=== PATIENT | male | born 1935 | race Caucasian/White ===

== ENCOUNTER 2016-11-16 18:42 | Inpatient (IN) | payer MEDICARE, BC ==
--- NOTE | 2016-11-16 19:30 | RAD ---
Indication: Intermittent tingling in the LEFT arm for several months. Comparison: October 13, 2011 Technique: Noncontrast CT vertex of skull through foramen magnum. Report: Moderate prominence of the cerebral sulci and cerebellar fissures as well as proportional mild prominence of the ventricles reflecting volume loss. Patent basal cisterns. Decreased density in the periventricular and subcortical white matter while non-specific is most likely due to chronic microangiopathy. Small focus of encephalomalacia at the LEFT frontal lobe new compared with the 2012 exam most consistent with sequela of a previous infarct. Negative for lloyd matter white matter obscuration associated with mass effect or intra or extra-axial hemorrhage. Unremarkable orbital contents. No suspicious calvarial or skull base lesion evident. Clear visualized paranasal sinuses. Hypoplastic mastoid air spaces. Cerumen in the LEFT external auditory canal noted. IMPRESSION: 1. No acute intracranial process evident. 2. 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
[2016-11-16 19:42] LABS: Hematocrit 38 % (42-52); Hemoglobin 13.1 g/dl (14.0-18.0); Mean Corpuscular HGB Conc 34 g/dl (31-36); Mean Corpuscular Hemoglobin 33 pg (27-31); Mean Corpuscular Volume 95 fL (80-94); Mean Platelet Volume 8 um3 (7.4-10.4); Red Cell Distribution Width 13 % (10.5-15); White Blood Count 10.5 10^3/ul (3.5-10.8)
[2016-11-16 19:58] LABS: BUN/Creatinine Ratio 13.4 (8-20); Calcium 9.5 mg/dL (8.6-10.3); EGFR African American 116.6 (>60); EGFR Non-African American 90.6 (>60); Potassium 3.9 mmol/L (3.5-5.0)
[2016-11-16 20:01] LABS: Troponin I 0.02 ng/mL (<0.04)
[2016-11-16] MEDS ORDERED: Acetaminophen TAB* 325 MG PO PRN (20:42)
[2016-11-16] MEDS ORDERED: Ondansetron INJ* 2 MG/ML VIAL IV PRN (20:42)
[2016-11-16] MEDS ORDERED: hydrALAZINE IV* 20 MG/ML VIAL IV SLOW PU PRN (20:45)
[2016-11-16] MEDS ORDERED: Iohexol 350* (CONTRAST) 500 ML MDV IV ONE (20:48)
[2016-11-16] MEDS ORDERED: Aspirin Low Dose CHEW TAB* 81 MG PO ONE (20:56)
[2016-11-16] MEDS ORDERED: LORazepam TAB(*) 1 MG PO SCH (21:00)
--- NOTE | 2016-11-16 21:29 | RAD ---
Indication: CVA. Comparison: None. Technique: Sitting AP chest 2114 hours Report: Elevated lung volumes. Mild coarsening and rarefaction of the interstitial markings. No alveolar consolidation, focal pulmonary lesion, pleural effusion, pneumothorax. Upper normal heart size. Unremarkable central pulmonary vasculature and mediastinal contours. IMPRESSION: Stigmata of chronic obstructive pulmonary disease. No acute cardiopulmonary process evident.
[2016-11-16 21:45] LABS: TSH (Thyroid Stimulating Horm) 2.46 mcIU/mL (0.34-5.60)
[2016-11-16] MEDS: PTO: Travoprost Z 0.004% OPHTH (NF) 2.5 ML BTL BOTH EYES SCH (21:46)
--- NOTE | 2016-11-16 21:51 | RAD ---
INDICATION: TIA. Intermittent LEFT arm tingling. COMPARISON: October 22, 2011 carotid ultrasound. TECHNIQUE: Multidetector CT images were obtained from the aortic arch to the vertex of the head with 80 mL Omnipaque 350 IV contrast. Arterial phase of enhancement. Multiplanar reformation including maximum intensity projection. 3-D arterial volume rendering. Stenosis estimations based on denominator of distal arterial diameter. NECK ANGIOGRAM REPORT: Upper lung zone emphysema and apical pleural-parenchymal scarring noted. Normal configuration of the branch vessels at the aortic arch. Negative for ostial stenosis. Predominant calcific plaque results in approximate 30% stenosis at the proximal RIGHT internal carotid artery. Calcific plaque results in approximate 60% moderate length stenosis of the proximal LEFT internal carotid artery. Cervical spine degenerative spondylosis and facet joint osteoarthritis. Disc space narrowing is severe at C4-C5 and C5-C6. At C5-C6 there is mild resulting acquired central canal stenosis. Uncinate process spurring and facet joint osteoarthritis results in multilevel osseous foraminal stenosis. RIGHT dominant vertebral artery with both vertebral arteries patent activity into the basilar artery. NECK ANGIOGRAM IMPRESSION: Approximate 30% RIGHT and 60% LEFT internal carotid artery stenosis. HEAD ANGIOGRAM REPORT: Calcific plaque at the carotid siphons with suggestion of less than 50% internal carotid artery stenosis. Patent bilateral M1 and M2 middle cerebral artery segments as well as the bilateral A1 and A2 anterior cerebral artery segments. No definitive anterior communicating artery visualized. Unremarkable basilar artery and cerebellar artery origins. Patent posterior cerebral arteries are supplied primarily by the posterior circulation with normal variant hypoplastic posterior communicating arteries. Negative for intracranial aneurysm or vascular malformation. Patent dominant dural venous sinuses. HEAD ANGIOGRAM IMPRESSION: Negative for hemodynamic significant central intracranial arterial stenosis or occlusion. CPT II: CPT II Codes: 3100F
[2016-11-16 22:11] LABS: Urine Bilirubin Negative (Negative); Urine Glucose Negative (Negative); Urine Nitrite Negative (Negative)
--- NOTE | 2016-11-16 22:37 | ED ---
I, Oh,Shoaib, scribed for Raymond Hickman MD on 11/16/16 at 1900 . Neurological HPI - HPI Summary HPI Summary: This 81 y/o male presents to ED via ambulance for intermittent LUE tingling since 2 months ago. Pt decided to visit ED when his LUE felt "paralyzed" and was not able to move his LUE suddenly while making coffee. The paralysis lasts for about 10 minutes at 1715 PM. Movements such as twisting his LUE arm makes the tingling worse. - History of Current Complaint Chief Complaint: EDNeurologicalDeficit Stated Complaint: NUMB LT ARM Time Seen by Provider: 11/16/16 18:49 Hx Obtained From: Patient, Medical Records Onset/Duration: Sudden Onset, Resolved Timing: Intermittent Episodes Lasting: Onset Severity: Moderate Current Severity: None Pain Intensity: 0 Pain Scale Used: 0-10 Numeric Character: Numbness/Tingling, Paresthesia, Paralysis - LUE arm Aggravating: Nothing Alleviating: Nothing - Allergy/Home Medications Allergies/Adverse Reactions: Allergies Allergy/AdvReac Type Severity Reaction Status Date / Time Shellfish Allergy Allergy Vomiting Verified 11/16/16 19:21 Home Medications: Home Medications Calcium Carbonate-Vitamin D [Calcium 600 + D] 1 tab PO DAILY 11/16/16 [History Confirmed 11/16/16] Ibandronate TAB(NF) [Boniva(NF)] 150 mg PO MONTHLY 11/16/16 [History Confirmed 11/16/16] Verapamil HCl [Verapamil HCl ER] 300 mg PO QPM 11/16/16 [History Confirmed 11/16] PMH/Surg Hx/FS Hx/Imm Hx Cardiovascular History: Reports: Hx Hypertension Infectious Disease History: No Infectious Disease History: Denies: Traveled Outside the [place] in Last 30 Days - Family History Known Family History: Positive: Other - CVA - Social History Occupation: Retired Alcohol Use: None Hx Substance Use: No Substance Use Type: Reports: None Hx Tobacco Use: No Smoking Status (MU): Never Smoked Tobacco Review of Systems Negative: Fever Neurological: Other - positive for LUE arm "paralysis" Positive: Paresthesia Negative: Anxious, Depressed All Other Systems Reviewed And Are Negative: Yes Physical Exam Triage Information Reviewed: Yes Vital Signs On Initial Exam: Initial Vitals Temp Pulse Resp BP Pulse Ox 99 F 98 18 183/66 97 11/16/16 18:43 11/16/16 18:43 11/16/16 18:43 11/16/16 18:43 11/16/16 18:43 Vital Signs Reviewed: Yes Appearance: Positive: Well-Appearing, No Pain Distress Skin: Positive: Warm, Dry Head/Face: Positive: Normal Head/Face Inspection Eyes: Positive: BOAZ ENT: Positive: Pharynx normal Neck: Positive: Supple, Nontender Abdomen Description: Positive: Nontender, Soft Musculoskeletal: Positive: Strength/ROM Intact Neurological: Positive: Sensory/Motor Intact, Alert, Oriented to Person Place, Time, CN Intact II-III, Facial Droop - left facial droop including forehead Psychiatric: Positive: Affect/Mood Appropriate AVPU Assessment: Alert Diagnostics - Vital Signs Vital Signs Temp Pulse Resp BP Pulse Ox 11/16/16 18:43 99 F 98 18 97 - Laboratory Lab Results: Lab Results 11/16/16 Range/Units 19:35 WBC 10.5 (3.5-10.8) 10^3/ul RBC 4.00 (4.0-5.4) 10^6/ul Hgb 13.1 L (14.0-18.0) g/dl Hct 38 L (42-52) % MCV 95 H (80-94) fL MCH 33 H (27-31) pg MCHC 34 (31-36) g/dl RDW 13 (10.5-15) % Plt Count 202 (150-450) 10^3/ul MPV 8 (7.4-10.4) um3 Result Diagrams: 11/16/16 19:35 11/16/16 19:35 Lab Statement: Any lab studies that have been ordered have been reviewed, and results considered in the medical decision making process. - CT Brain CT Interpretation: No Acute Changes - 1. No acute intracranial process evident. 2. 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 CT Interpretation Completed By: Radiologist - EKG 2115 Cardiac Rate: NL - 89 bpm EKG Rhythm: Sinus Rhythm ST Segment: Normal Ectopy: None NIH Scale - NIH Scale Level of Consciousness: Alert/Keenly Responsive Ask Patient the Month and His/Her Age: Both Correct Ask Pt to Open/Close Eyes and Conveyor Belt Installer/Release Non-Paretic Hand: Both Correctly Best Gaze (Only Horizontal Eye Movement): Normal Visual Field Testing: No Visual Loss Facial Paresis-Pt to Smile & Close Eyes or Grimace Symmetry: Minor Paralysis - Mild left facial droop Motor Function - Right Arm: No Drift-Holds 10 Seconds Motor Function - Left Arm: No Drift-Holds 10 Seconds Motor Function - Right Leg: No Drift-Holds 10 Seconds Motor Function - Left Leg: No Drift-Holds 10 Seconds Limb Ataxia-Must be out of Proportion to Weakness Present: Absent Sensory (Use Pinprick to Test Arms/Legs/Trunk/Face): Normal Best Language (Describe Picture, Name Items): No Aphasia Dysarthria (Read Several Words): Normal Extinction and Inattention: No Abnormality Total Score: 1 Course/Dx - Differential Dx Differential Diagnoses Neuro: Positive: Cerebrovascular Accident - Primary concern for TIA with short duration paralysis of the left arm with spontaneous resolution. CT without ICH and will admit for further evaluation., Intracranial Bleed, Transient Ischemic Attack, Other - Primary concern for TIA vs stuttering CVA. Needing admission for further evaluation. - Diagnoses Provider Diagnoses: TIA (transient ischemic attack) - Physician Notifications Discussed Care of Patient With: Dr. Garcia (hospitalist) at 1952 PM Time Discussed With Above Provider: 19:52 Instructed by Provider To: Admit As Inpatient Discharge - Discharge Plan Condition: Stable Disposition: ADMITTED TO [facility] documentation as recorded by the Buddy sims Soohyun accurately reflects the service I personally performed and the decisions made by me, Raymond Hickman MD.
--- NOTE | 2016-11-17 00:06 | HP ---
HISTORY AND PHYSICAL: DATE OF ADMISSION: 11/16/16 PRIMARY CARE PROVIDER: Dr. Ulloa. ATTENDING PHYSICIAN WHILE IN THE HOSPITAL: Paulo Garcia MD *(report being dictated by Pramod Gamez NP). CHIEF COMPLAINT: Left arm weakness. HISTORY OF PRESENT ILLNESS: Mr. Álvarez is a 81-year-old male patient. He has a history of BPH, hypertension, glaucoma, and osteoporosis. He comes into the ER today stating that around 1715 tonight, he had an episode that his left arm started becoming numb and then all of a sudden it became placid, he had lost control of it. It lasted about 20 to 30 minutes. He was able to move his arm after that and he slowly started getting sensation back. He was concerned about these findings. He actually called his primary's office, who called 911 and had the patient brought into the hospital. He denies having any symptoms now. He says he had no changes in speech. He denied having any double vision. He denied having any aphasia. He was concerned because of the change in his arm. He denied having any trouble with coordination and he denied having any recent fevers, chills, or any abdominal discomfort or any nausea or vomiting. He came to the ER. His symptoms had resolved. He was evaluated in the ER. There was concern that this could represent TIA and the hospitalist service was asked to evaluate for admission. PAST MEDICAL HISTORY: Significant for: 1. BPH. 2. Hypertension. 3. Glaucoma. 4. Osteoporosis. 5. 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 PAST SURGICAL HISTORY: He has had cataract extractions. HOME MEDICATIONS: Include: 1. Boniva 150 mg daily. 2. Travatan 1 drop both eyes at bedtime. 3. Verapamil 300 mg at bedtime. 4. Calcium carbonate 1 tablet p.o. daily. ALLERGIES TO MEDICATIONS: Include SHELLFISH. FAMILY HISTORY: His mother had cancer. Father had dementia. SOCIAL HISTORY: He is a former smoker. He does drink 5 to 6 beers a day. He denies any recreational drug abuse. He lives alone. Surrogate decision maker is his [id number]. REVIEW OF SYSTEMS: There is no documented fever. He denied having any significant weight change. There was no double vision. He denies having any ear discharge. There is no rhinorrhea, no sore throat, no thyroid enlargement. He denies having any chest pain. There is no orthopnea, no nocturnal dyspnea. There is no abdominal pain. No nausea, no vomiting, no dysuria, no frequency, no loss of consciousness, no pruritus and no skin ulcerations. Review of 14 systems completed, all others negative. PHYSICAL EXAMINATION GENERAL: At this time, Mr. Álvarez is a 81-year-old male patient, appears well nourished, well developed, does not appear to be in any acute distress, sitting on the ER stretcher. VITAL SIGNS: Blood pressure 183/66, pulse 98, respirations 18, O2 sat 97%, temperature 99. HEENT: Head: Atraumatic, normocephalic. Eyes: Sclerae are anicteric, not pale. Throat: Oral mucosa appears to be moist. No oropharyngeal erythema. NECK: Supple. LUNGS: Clear to auscultation bilaterally. No wheezes, rales, or rhonchi. HEART: Sounds S1, S2. Regular rate and rhythm. No murmurs, rubs, or gallops. ABDOMEN: Soft, flat, nontender. Bowel sounds present. EXTREMITIES: Pulses 2+ throughout. He is able to move all 4 extremities with 5 /5 strength. NEUROLOGIC: The patient is awake. He is alert and oriented x3. His tongue is midline. He does have a right facial droop, which is chronic. Motorcycle Engine Assembler were equal. He had 5/5 strength throughout. [id number]-[id number] intact bilaterally. Heel -to-cruz intact bilaterally. He had no gross focal deficits and his speech was clear. He is awake, alert, and oriented x3. SKIN: Grossly intact. DIAGNOSTIC STUDIES/LAB DATA: Labs today reveal WBC of 10.5, RBC of 4.0, hemoglobin 13.1, hematocrit of 38, platelet count of 202. His sodium was 126, potassium was 3.9, chloride of 92, bicarb of 25, BUN 11, creatinine of 0.82, glucose 105, troponin 0.02, calcium 9.5. He had a brain CT obtained today as well, which revealed no acute intracranial process evident, involutional change and stigmata of chronic vessel ischemic change with progression compared to the 2012 exam including chronic appearing small left frontal lobe infarct. Old medical records were reviewed. ASSESSMENT AND PLAN: Mr. Álvarez is a 81-year-old male patient coming into the ER today with complaints of left-sided weakness, on evaluation here today there is concern for transient ischemic attack. He will be admitted under observation status for: 1. Transient ischemic attack. At this point, we will go ahead and give him baby aspirin daily minimally. We will check lipid panel, A1c in the morning, CTA of the head, MRI of the brain, neuro checks every 2 hours. In addition to this, I did have a consult placed with Dr. Jenkins. I also will order an echo with bubble study and place him on telemetry. 2. Hyponatremia. We will go ahead and check TSH, cortisol, serum osmol, urine osmol, and random sodium. I will continue to follow. 3. Hypertension. I will allow for permissive hypertension in the setting of possible transient ischemic attack. We will go ahead and treat for blood pressure greater than 190 systolically with p.r.n. hydralazine. 4. Osteoporosis. Continue meds as prescribed. 5. Glaucoma. Continue eye drops as prescribed. 6. DVT prophylaxis. He is high risk and placed on heparin subcu. 7. Code status. Full code. 8. Fluids, electrolytes, nutrition. He can have a heart healthy diet. 9. ETOH use. At this point, he does state that he drinks 5 to 6 beers a day. To be on the safe side, I am going to go ahead and put him on the [facility] protocol. TIME SPENT: Time spent on the admission was approximately 60 minutes; greater than half the time was spent [id number] with the patient obtaining my history and physical, the other half time is spent going over the plan of care with the patient and implementing plan of care. I discussed the plan of care with my attending, Dr. Garcia; he is in agreement. PRAMOD GAMEZ NP CC: Dr. Ulloa; Dr. Jenkins * [id number]/[facility] #: [id number] MTDD
[2016-11-17] MEDS: Heparin VIAL(*) 5000 UNITS/ML VIAL (FIVE THOUSAND) SUBCUT SCH ×3 (01:01→13:34)
[2016-11-17 06:57] LABS: Hematocrit 40 % (42-52); Hemoglobin 13.7 g/dl (14.0-18.0); Mean Corpuscular HGB Conc 34 g/dl (31-36); Mean Corpuscular Hemoglobin 33 pg (27-31); Mean Corpuscular Volume 95 fL (80-94); Mean Platelet Volume 9 um3 (7.4-10.4); Red Blood Count 4.21 10^6/ul (4.0-5.4); Red Cell Distribution Width 13 % (10.5-15); White Blood Count 7.9 10^3/ul (3.5-10.8)
[2016-11-17 07:11] LABS: BUN/Creatinine Ratio 12.9 (8-20); Calcium 9.3 mg/dL (8.6-10.3); EGFR African American 139.9 (>60); EGFR Non-African American 108.8 (>60); HDL Cholesterol 90.9 mg/dL; Potassium 3.8 mmol/L (3.5-5.0)
[2016-11-17] MEDS: Folic Acid TAB* 1 MG PO SCH (09:53)
[2016-11-17] MEDS: Multivitamins/Minerals TAB PO SCH (09:53)
[2016-11-17] MEDS: Calcium/Vitamin D TAB 250/125* TAB PO SCH (09:53)
[2016-11-17] MEDS: Thiamine TAB* 100 MG TAB PO SCH (09:53)
[2016-11-17] MEDS: Aspirin Low Dose CHEW TAB* 81 MG PO SCH (09:53)
--- NOTE | 2016-11-17 14:37 | RAD ---
Indication: TIA. Comparison: November 16, 2016 CT angiogram and noncontrast head CT. Technique: KupiVIPa 1.5 Eve [id number] with GEM suite. MRI brain without contrast. Report: Diffusion series is negative for acute or subacute ischemia. Susceptibility series is negative for stigmata of hemosiderin deposition to indicate previous hemorrhage. Moderate prominence of the cerebral sulci and proportional mild prominence of the ventricles reflecting involutional change. Mildly dilated perivascular spaces at the basal ganglia. Small foci of encephalomalacia with associated T2 hyperintensity at the bilateral frontal lobes without mass effect consistent with encephalomalacia related to previous infarcts. Increased signal in the periventricular and subcortical white matter of the cerebral hemispheres without mass effect most consistent with chronic small vessel ischemic disease. Small focus of encephalomalacia at the RIGHT superior cerebellar hemisphere most consistent with an old infarct. Preserved major intracranial flow-voids. Unremarkable orbital contents. No suspicious lesions of the calvarium or skull base evident. Clear paranasal sinuses. Effusion at the hypoplastic LEFT mastoid air spaces. IMPRESSION: 1. No MRI evidence for acute or subacute ischemia. 2. Multiple small foci of encephalomalacia consistent with sites of previous infarcts. Stigmata of chronic small vessel ischemic disease. 3. Moderate involutional change.
--- NOTE | 2016-11-17 15:44 | PN ---
Subjective Date of Service: 11/17/16 Interval History: . Patient reports his symptoms he presented with have resolved and have not returned. Feels that he is at his baseline. Pt denies any weakness, vision or speech changes. Pt denies hx of afib. Today noted on EKG afib/aflutter. Discussed anticoagulation with patient, he reports he would like to start coumadin. Risks and benefits were discussed. Pt states understanding. Objective Active Medications: Acetaminophen (Tylenol Tab*) 650 mg PO Q4H PRN PRN Reason: FEVER/PAIN Aspirin (Aspirin Low Dose Tab*) 81 mg PO DAILY [facility] Last Admin: 11/17/16 09:53 Dose: 81 mg Calcium/Vitamin D (Oscal D Tab 250/125*) 1 tab PO DAILY [facility] Last Admin: 11/17/16 09:53 Dose: 1 tab Folic Acid (Folvite Tab*) 1 mg PO DAILY [facility] Last Admin: 11/17/16 09:53 Dose: 1 mg Heparin Sodium (Porcine) (Heparin Vial(*)) 5,000 units SUBCUT Q8HR [facility] Last Admin: 11/17/16 13:34 Dose: 5,000 units Hydralazine HCl (Apresoline Iv*) 5 mg IV SLOW PU Q6H PRN PRN Reason: BLOOD PRESSURE Lorazepam (Ativan Tab(*)) 0 mg PO .PER WAM SCORE [facility] PRN Reason: Protocol Multivitamins/Minerals (Theragran/Minerals Tab*) 1 tab PO DAILY [facility] Last Admin: 11/17/16 09:53 Dose: 1 tab Ondansetron HCl (Zofran Inj*) 4 mg IV Q6H PRN PRN Reason: NAUSEA Thiamine HCl (Vitamin B-1 Tab*) 100 mg PO DAILY [facility] Last Admin: 11/17/16 09:53 Dose: 100 mg Travoprost (Travatan Z 0.004% Opth (Nf)) 1 drop BOTH EYES BEDTIME [facility] PRN Reason: Protocol Last Admin: 11/16/16 21:46 Dose: 1 drop Vital Signs 11/16/16 11/16/16 11/16/16 21:20 22:00 22:04 Temperature Pulse Rate 94 86 89 Respiratory 18 20 17 Rate Blood Pressure 164/79 (mmHg) O2 Sat by Pulse 97 97 96 Oximetry 11/16/16 11/16/16 11/16/16 22:30 22:43 23:04 Temperature Pulse Rate Respiratory 17 20 16 Rate Blood Pressure 136/118 166/76 (mmHg) O2 Sat by Pulse Oximetry 11/16/16 11/16/16 11/17/16 23:05 23:46 00:00 Temperature 97.4 F 97.4 F Pulse Rate 86 86 Respiratory 16 16 Rate Blood Pressure 155/66 155/66 (mmHg) O2 Sat by Pulse 100 100 95 Oximetry 11/17/16 11/17/16 11/17/16 01:09 03:00 03:10 Temperature 98.1 F 97.8 F Pulse Rate 80 82 Respiratory 20 16 16 Rate Blood Pressure 168/66 171/78 (mmHg) O2 Sat by Pulse 95 97 Oximetry 11/17/16 11/17/16 11/17/16 05:09 07:35 09:44 Temperature 97.8 F 97.5 F 97.6 F Pulse Rate 80 91 81 Respiratory 20 20 16 Rate Blood Pressure 151/82 172/74 162/73 (mmHg) O2 Sat by Pulse 98 98 100 Oximetry 11/17/16 11/17/16 11:22 13:22 Temperature 98.8 F 97.7 F Pulse Rate 80 99 Respiratory 18 18 Rate Blood Pressure 179/78 141/69 (mmHg) O2 Sat by Pulse 97 96 Oximetry Oxygen Devices in Use Now: None Appearance: 81 yo male sitting up in a chair in NAD. A+O x3 Eyes: No Scleral Icterus, PERRLA Ears/Nose/Mouth/Throat: NL Teeth, Lips, Gums, Mucous Membranes Moist Neck: NL Appearance and Movements; NL JVP, Trachea Midline Respiratory: Symmetrical Chest Expansion and Respiratory Effort, Clear to Auscultation Cardiovascular: NL Sounds; No Murmurs; No JVD, RRR, No Edema Abdominal: NL Sounds; No Tenderness; No Distention Lymphatic: No Cervical Adenopathy Extremities: No Edema, No Clubbing, Cyanosis Skin: No Rash or Ulcers, No Nodules or Sclerosis Neurological: Alert and Oriented x 3, NL Sensation, NL Gait, NL Muscle Strength and Tone Lines/Tubes/Other Access: Clean, Dry and Intact Peripheral IV Nutrition: Taking PO's Result Diagrams: 11/17/16 06:22 11/17/16 06:22 Additional Lab and Data: Lab Results 11/16/16 Range/Units 19:35 WBC 10.5 (3.5-10.8) 10^3/ul RBC 4.00 (4.0-5.4) 10^6/ul Hgb 13.1 L (14.0-18.0) g/dl Hct 38 L (42-52) % MCV 95 H (80-94) fL MCH 33 H (27-31) pg MCHC 34 (31-36) g/dl RDW 13 (10.5-15) % Plt Count 202 (150-450) 10^3/ul MPV 8 (7.4-10.4) um3 Microbiology and Other Data: Microbiology 11/16/16 21:45 Urine Culture - Final Urine No Growth (<1,000 CFU/mL) Assess/Plan/Problems-Billing Assessment: Mr. Álvarez is a 81 yo male with a BPH, HTN, hx of [place] Palsy and ETOH abuse who presents to the ED on 11/16 with c/o left arm weakness. - Patient Problems (1) TIA (transient ischemic attack) Comment: - concern for TIA - Brain MRI shows no evidence for acute or subacute ischemia. Multiple small foci of encephalomalacia consistent with sites of previous infarcts. - TTE pending - Head angiogram: negative for hemodynamic significant central intracrainial arterial stenosis/occlusion. - new afib noted - spoke to DR. Jenkins agrees with plan to start lovenox bridge with ilene. Add PPI. Check ferritin, iron, stool for occult blood. - continue ASA (2) Paroxysmal a-fib Comment: - new diagnosis - currently rate controlled. - CHADSVASC 2 score 5 placing him at high risk - no recent falls. Discussed anticoagulation risks and benefits with pt at length and he would like to be started on Coumadin - plan to bridge lovenox to coumadin - send to cardiology as outpt (3) ETOH abuse Comment: - per pt he reports 5-6 drinks a day; he states he will cut down due to starting anticoagulation - no recent falls. -Continue WAM protocol, not scoring on protocol - ETOH abuse (4) DVT prophylaxis Comment: lovenox to coumadin bridge (5) Full code status Status and Disposition: OBV with left arm weakness concern for TIA, found to have paroxysmal afib
[2016-11-17] MEDS ORDERED: Furosemide IV* 10 MG/ML 10 ML VIAL (100 MG) IV ONE (15:52)
[2016-11-17] MEDS ORDERED: Nitroglycerin 2% OINT* 1 GM PAK TOPICAL ONE (15:52)
[2016-11-17 16:27] LABS: Magnesium 1.8 mg/dL (1.9-2.7)
[2016-11-17] MEDS ORDERED: Omeprazole CAP* 20 MG PO ONE (18:36)
[2016-11-17] MEDS ORDERED: Warfarin TAB(*) 5 MG PO ONE (20:00)
[2016-11-17] MEDS: Enoxaparin(*) 60 MG/0.6 ML SYR SUBCUT SCH (20:58)
[2016-11-17] MEDS: PTO: Travoprost Z 0.004% OPHTH (NF) 2.5 ML BTL BOTH EYES SCH (21:00)
--- NOTE | 2016-11-17 22:10 | CONS ---
NEUROLOGY CONSULTATION: DATE OF CONSULT: 11/17/16 LOCATION: He is an inpatient in room 435. REFERRING PROVIDER: Pramod Gamez NP HOSPITALIST: Minoo Beard NP PRIMARY CARE PROVIDER: Dr. Ulloa. CHIEF COMPLAINT: Transient left arm weakness. HISTORY OF PRESENT ILLNESS: Eduardo Álvarez is a 81-year-old right-handed man who was in his usual state of health yesterday, standing when his left arm suddenly went limp. He could not lift it and it felt completely numb. It lasted for at least 4 or 5 minutes and then gradually resolved over about 10 minutes. According to Pramod Gamez's note, it was close to 20 to 30 minutes. He did not note any numbness of his face nor weakness of his legs and he was able to walk. He did not notice any change in vision, headache, or neck pain. He called his primary care physician and was referred to the emergency room and admitted. While being evaluated in the emergency room by Pramod Gamez, he had a normal exam. There has been no recurrence of symptoms. There is no prior history of transient neurological deficits. Specifically, no transient weakness, numbness, or loss of vision. There is no history of episodes of fainting or loss of consciousness. There is no history of traumatic brain injury. He had a CT scan of the brain in the emergency room, which revealed diffuse cortical low density consistent with chronic ischemic disease as well as area of encephalomalacia in the left frontal lobe, which was new from 2011. He quit smoking cigarettes 40 years ago. There is no history of diabetes or heart disease. He is not taking aspirin on a regular basis. He states if he takes it too much , it bothers his stomach. MEDICATIONS: At home consist of: 1. Boniva 150 mg p.o. daily. 2. Calcium carbonate and vitamin D 1 p.o. daily. 3. Verapamil ER 300 mg p.o. q.p.m. 4. Travoprost eye drops 1 both eyes daily. FAMILY HISTORY: Noncontributory. SOCIAL HISTORY: He drinks about 5 to 6 drinks per day, usually beer and a glass of wine. In his working days, he drank 10 or more drinks per day. REVIEW OF SYSTEMS: Negative for recent change in vision, problems with balance , or numbness in his feet. He has not had any recent infections or fevers lately. No palpitations, faints, chest pain. No DM. No GI, , psychiatric problems. PHYSICAL EXAM: He is quite thin. He has been afebrile throughout his hospital stay. Blood pressure is running anywhere from 140 to 180 systolic over 70 to 82 diastolic. Respiratory rate 16, oxygen saturation 97% on room air. Heart is in a regular rhythm with frequent ectopic beats. I do not hear murmurs. Carotid pulses are present. There are no bruits. Lungs are clear bilaterally. He has high arches and hammer toes bilaterally. 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 Neurological exam, pupils are 2.5 mm, reacting consensually to 2 mm. Eye movements are full. Visual whittington are full to confrontation. Funduscopic exam reveals sharp discs and arterial tortuosity. There is no ptosis. Facial musculature is notable for synkinesis of left facial musculature. There is no facial weakness. Facial sensation to light touch and pin is symmetric. Hearing is decreased and he has hearing aids bilaterally. Neck muscle bulk and strength is normal for age. Palate and tongue appear normal. Speech is clear without dysarthria. Motor exam reveals atrophy in hand intrinsics and weakness in hand intrinsics as well. He has distal atrophy in the forelegs and feet. He has dorsal interosseous weakness in the upper extremities but normal strength proximally and no pronator drift. He has normal proximal strength in the lower extremities. He has ankle dorsiflexor weakness bilaterally in the grade 4 to 4 + range. He cannot walk on his heels. He can walk on his toes well. Sensory exam is notable for stocking loss of vibration. He reports normal pin and light touch discrimination but I feel that his sensory exam is somewhat unreliable. He has proprioceptive loss in the great toes bilaterally. He has a positive Romberg sign. Reflexes are hypoactive, but present in the upper extremities and at the knees, absent at the ankles. Plantars are extensor on the right and equivocal on the left. Gait is wide based but independent. He is not able to tandem gait because of ataxia. He is alert and oriented and a reasonably good historian. Memory seems relatively preserved and language is fluent. He has reasonably good attention, concentration, and adequate fund of knowledge. DIAGNOSTIC STUDIES/LAB DATA: Includes an MRI of the brain, which I reviewed the images of. 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 He has chronic subcortical ischemic changes as well. Additional laboratory data includes CBC with MCV of 95, hemoglobin 13.7 and otherwise an unremarkable CBC. Chemistry is notable for sodium of 132. He has not had liver enzymes checked. TSH was normal at 2.46. CT angiogram of the brain and neck was performed. He has calcification of the carotid bifurcations bilaterally with about 30% right and 60% left internal carotid artery stenosis. There is no significant intracranial stenosis. IMPRESSION: Probable hemispheric transient ischemic attack. 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 I would recommend that he have an echocardiogram and further telemetry monitoring for possible intermittent atrial fibrillation. I agree with aspirin therapy for now. I should note on his lipid profile this morning, his cholesterol is 179 and LDL 79. I think we can hold off on a statin given those numbers. He has been started on thiamine and he feels that he was not going to withdrawal if he were not to get alcohol, but we told him to notify us if he does develop problems or starts to feel shaky. I recommended he have a B12 level checked as well as liver enzymes and an INR. I have discussed [place]. [id number]/[facility] #: [id number] HELDER
[2016-11-18] MEDS ORDERED: Metoprolol Tartrate TAB* 25 MG ONE (07:52)
[2016-11-18] MEDS: Thiamine TAB* 100 MG TAB PO SCH (08:03)
[2016-11-18] MEDS: Enoxaparin(*) 60 MG/0.6 ML SYR SUBCUT SCH ×2 (08:03→20:36)
[2016-11-18] MEDS: Aspirin Low Dose CHEW TAB* 81 MG PO SCH (08:03)
[2016-11-18] MEDS: Folic Acid TAB* 1 MG PO SCH (08:04)
[2016-11-18] MEDS: Calcium/Vitamin D TAB 250/125* TAB PO SCH (08:05)
[2016-11-18] MEDS: Metoprolol Tartrate TAB* 25 MG PO SCH ×2 (08:05→20:29)
[2016-11-18] MEDS: Multivitamins/Minerals TAB PO SCH (08:06)
[2016-11-18 09:14] LABS: Hematocrit 45 % (42-52); Hemoglobin 14.8 g/dl (14.0-18.0); Mean Corpuscular HGB Conc 33 g/dl (31-36); Mean Corpuscular Hemoglobin 32 pg (27-31); Mean Corpuscular Volume 96 fL (80-94); Mean Platelet Volume 9 um3 (7.4-10.4); Red Blood Count 4.66 10^6/ul (4.0-5.4); Red Cell Distribution Width 13 % (10.5-15); White Blood Count 8.4 10^3/ul (3.5-10.8)
[2016-11-18 09:35] LABS: BUN/Creatinine Ratio 15.8 (8-20); Calcium 9.6 mg/dL (8.6-10.3); EGFR African American 127.2 (>60); EGFR Non-African American 98.9 (>60); Globulin 3.5 g/dL (2-4); Magnesium 1.8 mg/dL (1.9-2.7); Total Bilirubin 0.8 mg/dL (0.2-1.0); Total Protein 7.5 g/dL (6.4-8.9)
[2016-11-18 09:42] LABS: Potassium 3.8 mmol/L (3.5-5.0)
[2016-11-18 09:53] LABS: Ferritin 284.5 ng/mL (24-336)
--- NOTE | 2016-11-18 10:31 | PN ---
NEUROLOGY FOLLOWUP NOTE: DATE OF FOLLOWUP: 11/18/16 LOCATION: Inpatient, room 435. HOSPITALIST: Minoo Beard NP PRIMARY CARE DOCTOR: Dr. Ulloa. CHIEF COMPLAINT: Transient left arm weakness. INTERVAL HISTORY: Since yesterday, Mr. Álvarez remains neurologically symptom- free. He has had no further episodes of weakness of arm or other transient neurological or persistent neurological symptoms. He was found to be in atrial fibrillation yesterday. He has since been started on Lovenox injections. PHYSICAL EXAMINATION: He is afebrile. Blood pressure is running in the 150 to 160 systolic over 80 to 90 diastolic. Neurologically, he has facial synkinesis on the left, but otherwise normal facial strength. He has normal strength in the limbs as well. He is hard of hearing. Language is fluent. He is oriented to person, place, and time. Gait is otherwise normal. IMPRESSION: Transient ischemic attack, most likely cardioembolic from atrial fibrillation. He has a transthoracic echocardiogram pending and other than that his workup is otherwise done. jail anticoagulation is indicated for prevention of cardioembolic stroke. Regarding his peripheral neuropathy on examination I note that he had a normal vitamin B12 level at 357 when checked on 11/16/16. His liver enzymes are still pending. He has been started on folic acid and thiamine. [id number]/[facility] #: [id number] HELDER
--- NOTE | 2016-11-18 12:29 | PN ---
Subjective Date of Service: 11/18/16 Interval History: pt sitting up in chair in NAD, reports he feels "great". no further symptoms. Feels steady on his feet. is feeling more comfortable with lovenox injections but still feels nervous. Objective Active Medications: Acetaminophen (Tylenol Tab*) 650 mg PO Q4H PRN PRN Reason: FEVER/PAIN Aspirin (Aspirin Low Dose Tab*) 81 mg PO DAILY [facility] Last Admin: 11/18/16 08:03 Dose: 81 mg Calcium/Vitamin D (Oscal D Tab 250/125*) 1 tab PO DAILY [facility] Last Admin: 11/18/16 08:05 Dose: 1 tab Enoxaparin Sodium (Lovenox(*)) 55 mg SUBCUT Q12H [facility] Last Admin: 11/18/16 08:03 Dose: 55 mg Folic Acid (Folvite Tab*) 1 mg PO DAILY [facility] Last Admin: 11/18/16 08:04 Dose: 1 mg Hydralazine HCl (Apresoline Iv*) 5 mg IV SLOW PU Q6H PRN PRN Reason: BLOOD PRESSURE Magnesium Sulfate (Magnesium Sulfate 2 Gm Iv*) 2 gm in 50 mls @ 50 mls/hr IVPB ONCE ONE Stop: 11/18/16 13:27 Lorazepam (Ativan Tab(*)) 0 mg PO .PER WAM SCORE [facility] PRN Reason: Protocol Metoprolol Tartrate (Lopressor Tab*) 25 mg PO BID [facility] Last Admin: 11/18/16 08:05 Dose: 25 mg Multivitamins/Minerals (Theragran/Minerals Tab*) 1 tab PO DAILY [facility] Last Admin: 11/18/16 08:06 Dose: 1 tab Ondansetron HCl (Zofran Inj*) 4 mg IV Q6H PRN PRN Reason: NAUSEA Thiamine HCl (Vitamin B-1 Tab*) 100 mg PO DAILY [facility] Last Admin: 11/18/16 08:03 Dose: 100 mg Travoprost (Travatan Z 0.004% Opth (Nf)) 1 drop BOTH EYES BEDTIME [facility] PRN Reason: Protocol Last Admin: 11/17/16 21:00 Dose: 1 drop Vital Signs 11/17/16 11/17/16 11/17/16 13:22 15:45 17:18 Temperature 97.7 F 97.9 F Pulse Rate 99 84 Respiratory 18 17 Rate Blood Pressure 141/69 148/78 (mmHg) O2 Sat by Pulse 96 100 98 Oximetry 11/17/16 11/17/16 11/17/16 17:30 18:22 19:43 Temperature 98.0 F 97.2 F Pulse Rate 92 91 89 Respiratory 18 17 Rate Blood Pressure 146/71 139/78 128/67 (mmHg) O2 Sat by Pulse 97 99 Oximetry 11/17/16 11/17/16 11/17/16 20:00 21:41 23:28 Temperature 97.9 F 97.3 F Pulse Rate 77 70 Respiratory 18 18 20 Rate Blood Pressure 127/69 143/73 (mmHg) O2 Sat by Pulse 100 100 Oximetry 11/18/16 11/18/16 11/18/16 01:10 02:33 03:07 Temperature 97.5 F 97.3 F Pulse Rate 105 94 Respiratory 20 20 Rate Blood Pressure 140/72 117/60 (mmHg) O2 Sat by Pulse 93 93 95 Oximetry 11/18/16 11/18/16 11/18/16 05:06 07:00 07:30 Temperature 97.8 F Pulse Rate 69 102 Respiratory 20 20 18 Rate Blood Pressure 136/68 156/76 (mmHg) O2 Sat by Pulse 99 99 Oximetry 11/18/16 11/18/16 11/18/16 08:00 08:35 08:38 Temperature Pulse Rate 126 114 Respiratory 20 16 18 Rate Blood Pressure 157/89 152/80 (mmHg) O2 Sat by Pulse Oximetry 11/18/16 11/18/16 11/18/16 09:00 09:18 11:00 Temperature 97.5 F Pulse Rate 78 Respiratory 19 16 19 Rate Blood Pressure 141/56 (mmHg) O2 Sat by Pulse 99 Oximetry 11/18/16 11:24 Temperature 98.2 F Pulse Rate 57 Respiratory 18 Rate Blood Pressure 152/74 (mmHg) O2 Sat by Pulse 100 Oximetry Oxygen Devices in Use Now: None Appearance: eldelry male sitting up in a chair in NAD. A+O x3 Eyes: No Scleral Icterus, PERRLA Ears/Nose/Mouth/Throat: NL Teeth, Lips, Gums Neck: NL Appearance and Movements; NL JVP Respiratory: Symmetrical Chest Expansion and Respiratory Effort, Clear to Auscultation Cardiovascular: NL Sounds; No Murmurs; No JVD, RRR, No Edema Abdominal: NL Sounds; No Tenderness; No Distention Lymphatic: No Cervical Adenopathy Extremities: No Edema, No Clubbing, Cyanosis Skin: No Rash or Ulcers, No Nodules or Sclerosis Neurological: Alert and Oriented x 3, NL Sensation, NL Muscle Strength and Tone Lines/Tubes/Other Access: Clean, Dry and Intact PICC Line Nutrition: Taking PO's Result Diagrams: 11/18/16 05:45 11/18/16 05:45 Additional Lab and Data: Lab Results 11/16/16 Range/Units 19:35 WBC 10.5 (3.5-10.8) 10^3/ul RBC 4.00 (4.0-5.4) 10^6/ul Hgb 13.1 L (14.0-18.0) g/dl Hct 38 L (42-52) % MCV 95 H (80-94) fL MCH 33 H (27-31) pg MCHC 34 (31-36) g/dl RDW 13 (10.5-15) % Plt Count 202 (150-450) 10^3/ul MPV 8 (7.4-10.4) um3 Microbiology and Other Data: Microbiology 11/16/16 21:45 Urine Culture - Final Urine No Growth (<1,000 CFU/mL) Assess/Plan/Problems-Billing Assessment: Mr. Álvarez is a 81 yo male with a BPH, HTN, hx of [place] Palsy and ETOH abuse who presents to the ED on 11/16 with c/o left arm weakness. - Patient Problems (1) TIA (transient ischemic attack) Comment: - TIA - Brain MRI shows no evidence for acute or subacute ischemia. Multiple small foci of encephalomalacia consistent with sites of previous infarcts. - TTE wnls - Head angiogram: negative for hemodynamic significant central intracrainial arterial stenosis/occlusion. - new afib noted - spoke to Dr. Jenkins agrees with plan to start lovenox bridge with couamdin. Add PPI. - stool for occult blood. - continue ASA, start BB (2) Paroxysmal a-fib Comment: - new diagnosis - currently rate controlled. - CHADSVASC 2 score 5 placing him at high risk - no recent falls. - plan to bridge lovenox to coumadin - Curbside consulted operations clerk Dr. Choudhury who recommended BB and f/u with cards as outpt) (3) ETOH abuse Comment: - per pt he reports 5-6 drinks a day; he states he will stop drinking due to starting anticoagulation. Strong recommendation for ETOH cessation. Denies needing outpt rehab or counseling. Social work consult -DC WAM protocol, not scoring on protocol - continue MV, thiamine, folic acid (4) DVT prophylaxis Comment: lovenox to coumadin bridge (5) Full code status Status and Disposition: inpatient with TIA and new afib. Plan for DC tomorrow
[2016-11-18] MEDS ORDERED: Magnesium Sulfate 2 GM IV* 2 GM/50 ML BAG IVPB ONE (13:00)
--- NOTE | 2016-11-18 16:20 | ECHO ---
Patient: Stevan HARMAN [facility] Rec#: [id number] : 1935 Date: 11/18/2016 Age: 81y Height: 175.26 cm / 69.0 in Weight: 56.7 kg / 125.0 lbs Sex: M BSA: 1.69 Room#: 435 Admit Date#: 11/16/2016 Type: Inpatient Referring: Pramod Gamez NP Reading: Javier Choudhury MD Automobile Salesman: Jaylin Mccarty RDCS CC: Mauro Ulloa MD Transthoracic Echocardiogram Indication: TIA BP: 136/68 HR: 122 Rhythm: A-Fib Findings History: TIA,LUE weakness and tingling. Technical Comments: The study is technically limited due to poor acoustic windows. Completed at 1500. Left Ventricle: The left ventricular chamber size is decreased. Global left ventricular wall motion and contractility are within normal limits. There is normal left ventricular systolic function. The estimated ejection fraction is 55-60%. There is no consistent Doppler evidence of clinically significant diastolic dysfunction. Left Atrium: The left atrial chamber size is normal. Right Ventricle: The right ventricular cavity size is normal. The right ventricular global systolic function is normal. Right Atrium: The right atrial cavity size is normal. A patent foramen ovale is not demonstrated by agitated contrast. Aortic Valve: The aortic valve structure is not well visualized. There is no evidence of aortic regurgitation. There is no evidence of aortic stenosis. Mitral Valve: The mitral valve leaflets are mildly thickened. There is mild mitral regurgitation. There is no evidence of mitral stenosis. Tricuspid Valve: The tricuspid valve leaflets are normal. There is mild tricuspid regurgitation. There is evidence of borderline pulmonary hypertension. There is no tricuspid stenosis. Pulmonic Valve: The pulmonic valve structure is not well visualized. Pericardium: The pericardium appears normal. Aorta: The ascending aorta is not well visualized. The aortic arch is not well visualized. There is no dilation of the aortic root. Pulmonary Artery: The main pulmonary artery is not well visualized. Venous: The inferior vena cava appears normal in size. There is a greater than 50% respiratory change in the inferior vena cava dimension. Contrast: Normal saline was used as contrast for the bubble study. Intravenous contrast was used to help determine presence of intracardiac shunting. Conclusions Global left ventricular wall motion and contractility are within normal limits. There is normal left ventricular systolic function. The estimated ejection fraction is 55-60%. The right ventricular global systolic function is normal. There is no evidence of aortic regurgitation. There is no evidence of aortic stenosis. There is mild mitral regurgitation. There is mild tricuspid regurgitation. There is evidence of borderline pulmonary hypertension. The pericardium appears normal. Normal saline was used as contrast for the bubble study. A patent foramen ovale is not demonstrated by agitated contrast. Measurements Name Value Normal Range RVIDd (AP) 2D 1.5 cm (0.9 - 2.6) RVDdMajor (2D) 2.4 cm (2.2 - 4.4) RAd ISD 4CH 4.7 cm (3.4 - 4.9) RA (A4C)W 3.1 cm (2.9 - 4.6) IVSd (2D) 0.7 cm (0.6 - 1) LVPWd (2D) 0.9 cm (0.6 - 1) LVIDd (2D) 3.5 cm (3.6 - 5.4) LVIDs (2D) 2.4 cm - LV FS (2D) 31 % (25 - 45) Aortic Annulus 1.7 cm (1.4 - 2.6) Ao root diameter (2D) 3 cm (2.1 - 3.5) LA dimension (AP) 2D 2.6 cm (2.3 - 3.8) LAd ISD 4CH 4.8 cm (2.9 - 5.3) LA ISD 4CH W 4.1 cm (2.5 - 4.5) Name Value Normal Range MV E-wave Vmax 1.2 m/sec - MV deceleration time 157 msec - Name Value Normal Range AV Vmax 0.9 m/sec - AV VTI 18.3 cm - AV peak gradient 3.17 mmHg - AV mean gradient 1.32 mmHg - LVOT Vmax 0.7 m/sec - LVOT VTI 15.8 cm - LVOT peak gradient 2.11 mmHg - LVOT mean gradient 1 mmHg - Name Value Normal Range TR Vmax 3 m/sec - TR peak gradient 35.28 mmHg - RAP 3 mmHg - RVSP 38 mmHg - IVC diameter 1.4 cm -
[2016-11-18] MEDS ORDERED: Warfarin TAB(*) 5 MG PO ONE (18:00)
[2016-11-18] MEDS: PTO: Travoprost Z 0.004% OPHTH (NF) 2.5 ML BTL BOTH EYES SCH (20:30)
--- NOTE | 2016-11-19 06:51 | DCNOTE ---
Subjective Date of Service: 11/19/16 Interval History: Patient reports he feels good today. He was successful with lovenox injection this morning and feels comfortable going home. No SOB or CP. No palpitation. No weakness or numbness. Objective Active Medications: Acetaminophen (Tylenol Tab*) 650 mg PO Q4H PRN PRN Reason: FEVER/PAIN Aspirin (Aspirin Low Dose Tab*) 81 mg PO DAILY [facility] Last Admin: 11/18/16 08:03 Dose: 81 mg Calcium/Vitamin D (Oscal D Tab 250/125*) 1 tab PO DAILY [facility] Last Admin: 11/18/16 08:05 Dose: 1 tab Enoxaparin Sodium (Lovenox(*)) 55 mg SUBCUT Q12H [facility] Last Admin: 11/18/16 20:36 Dose: 55 mg Folic Acid (Folvite Tab*) 1 mg PO DAILY [facility] Last Admin: 11/18/16 08:04 Dose: 1 mg Hydralazine HCl (Apresoline Iv*) 5 mg IV SLOW PU Q6H PRN PRN Reason: BLOOD PRESSURE Lorazepam (Ativan Tab(*)) 0 mg PO .PER WAM SCORE [facility] PRN Reason: Protocol Metoprolol Tartrate (Lopressor Tab*) 25 mg PO BID [facility] Last Admin: 11/18/16 20:29 Dose: 25 mg Multivitamins/Minerals (Theragran/Minerals Tab*) 1 tab PO DAILY [facility] Last Admin: 11/18/16 08:06 Dose: 1 tab Ondansetron HCl (Zofran Inj*) 4 mg IV Q6H PRN PRN Reason: NAUSEA Pharmacy Profile Note (Coumadin Daily Reminder*) 1 note FOLLOW UP 1700 [facility] Thiamine HCl (Vitamin B-1 Tab*) 100 mg PO DAILY [facility] Last Admin: 11/18/16 08:03 Dose: 100 mg Travoprost (Travatan Z 0.004% Opth (Nf)) 1 drop BOTH EYES BEDTIME [facility] PRN Reason: Protocol Last Admin: 11/18/16 20:30 Dose: 1 drop Vital Signs 11/18/16 11/18/16 11/18/16 07:00 07:30 08:00 Temperature Pulse Rate 102 Respiratory 20 18 20 Rate Blood Pressure 156/76 (mmHg) O2 Sat by Pulse 99 Oximetry 11/18/16 11/18/16 11/18/16 08:35 08:38 09:00 Temperature Pulse Rate 126 114 Respiratory 16 18 19 Rate Blood Pressure 157/89 152/80 (mmHg) O2 Sat by Pulse Oximetry 11/18/16 11/18/16 11/18/16 09:18 11:00 11:24 Temperature 97.5 F 98.2 F Pulse Rate 78 57 Respiratory 16 19 18 Rate Blood Pressure 141/56 152/74 (mmHg) O2 Sat by Pulse 99 100 Oximetry 11/18/16 11/18/16 11/18/16 13:11 14:00 15:57 Temperature 97.9 F Pulse Rate 92 74 Respiratory 16 16 Rate Blood Pressure 133/65 155/73 (mmHg) O2 Sat by Pulse 98 98 Oximetry 11/18/16 11/18/16 11/19/16 19:41 19:58 00:07 Temperature 97.6 F 97.6 F Pulse Rate 72 85 Respiratory 16 16 20 Rate Blood Pressure 126/52 122/68 (mmHg) O2 Sat by Pulse 100 96 Oximetry 11/19/16 03:51 Temperature 97.4 F Pulse Rate 78 Respiratory 20 Rate Blood Pressure 116/63 (mmHg) O2 Sat by Pulse 98 Oximetry Oxygen Devices in Use Now: None Appearance: elderly male sitting up in a chair in NAD A+O x3 Eyes: No Scleral Icterus, PERRLA Ears/Nose/Mouth/Throat: NL Teeth, Lips, Gums Neck: NL Appearance and Movements; NL JVP Respiratory: Symmetrical Chest Expansion and Respiratory Effort, Clear to Auscultation Cardiovascular: NL Sounds; No Murmurs; No JVD, RRR, No Edema Abdominal: NL Sounds; No Tenderness; No Distention Extremities: No Edema, No Clubbing, Cyanosis Skin: No Rash or Ulcers, No Nodules or Sclerosis Neurological: Alert and Oriented x 3, NL Gait, NL Muscle Strength and Tone Lines/Tubes/Other Access: Clean, Dry and Intact Peripheral IV Nutrition: Taking PO's Result Diagrams: 11/18/16 05:45 11/18/16 05:45 Additional Lab and Data: Lab Results 11/16/16 Range/Units 19:35 WBC 10.5 (3.5-10.8) 10^3/ul RBC 4.00 (4.0-5.4) 10^6/ul Hgb 13.1 L (14.0-18.0) g/dl Hct 38 L (42-52) % MCV 95 H (80-94) fL MCH 33 H (27-31) pg MCHC 34 (31-36) g/dl RDW 13 (10.5-15) % Plt Count 202 (150-450) 10^3/ul MPV 8 (7.4-10.4) um3 Microbiology and Other Data: Microbiology 11/16/16 21:45 Urine Culture - Final Urine No Growth (<1,000 CFU/mL) Assess/Plan/Problems-Billing Assessment: Mr. Álvarez is a 81 yo male with a BPH, HTN, hx of [place] Palsy and ETOH abuse who presents to the ED on 11/16 with c/o left arm weakness. - Patient Problems (1) TIA (transient ischemic attack) Comment: - TIA - Brain MRI shows no evidence for acute or subacute ischemia. Multiple small foci of encephalomalacia consistent with sites of previous infarcts. - TTE wnls - Head angiogram: negative for hemodynamic significant central intracrainial arterial stenosis/occlusion. - new afib noted - spoke to Dr. Jenkins agrees with plan to start lovenox bridge with couamdin. Add PPI. - continue ASA, start BB (2) Paroxysmal a-fib Comment: - new diagnosis - currently rate controlled on metoprolol. - CHADSVASC 2 score 5 placing him at high risk - no recent falls. - plan to bridge lovenox to coumadin - pt successfully able to perform injections - Andre consulted molecular biology professor Dr. Choudhury who recommended BB and f/u with cards as outpt - set-up to see Dr. Richards (3) ETOH abuse Comment: - per pt he reports 5-6 drinks a day; he states he will stop drinking due to starting anticoagulation. Strong recommendation for ETOH cessation. Denies needing outpt rehab or counseling. -DC WAM protocol, not scoring on protocol - continue MV, thiamine, folic acid (4) DVT prophylaxis Comment: lovenox to coumadin bridge (5) Full code status Status and Disposition: inpatient with TIA and new afib. Plan for DC today
[2016-11-19] MEDS: Enoxaparin(*) 60 MG/0.6 ML SYR SUBCUT SCH (08:06)
[2016-11-19] MEDS: Calcium/Vitamin D TAB 250/125* TAB PO SCH (08:06)
[2016-11-19] MEDS: Aspirin Low Dose CHEW TAB* 81 MG PO SCH (08:06)
[2016-11-19] MEDS: Folic Acid TAB* 1 MG PO SCH (08:07)
[2016-11-19] MEDS: Metoprolol Tartrate TAB* 25 MG PO SCH (08:08)
[2016-11-19] MEDS: Multivitamins/Minerals TAB PO SCH (08:08)
[2016-11-19] MEDS: Thiamine TAB* 100 MG TAB PO SCH (08:08)
[2016-11-19 10:02] VITALS: BP 118/55
--- NOTE | 2016-11-19 13:10 | DS ---
DISCHARGE SUMMARY: DATE OF ADMISSION: 11/16/16 DATE OF DISCHARGE: 11/19/16 PROVIDER: Cheyenne Montague NP ATTENDING PHYSICIAN: Dr. Jarrett *(report dictated by Cheyenne Montague NP) PRIMARY CARE PROVIDER: Dr. Ulloa. FINISH FILER: Chapin otoole, Dr. Richards. PRIMARY DIAGNOSES: 1. Transient ischemic attack. 2. Atrial fibrillation, new diagnosis. 3. Alcohol abuse. 4. 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 SECONDARY DIAGNOSES: 1. Benign prostatic hypertrophy. 2. Hypertension. 3. Glaucoma. 4. Osteoporosis. 5. 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 DISCHARGE MEDICATIONS: 1. Ibandronate 150 mg p.o. monthly. 2. Calcium carbonate-vitamin D 600-400 mg-unit 1 tab p.o. daily. 3. Travoprost 1 drop both eyes daily. 4. Coumadin 5 mg p.o. daily at 1700. 5. Thiamine 100 mg p.o. daily. 6. Omeprazole 20 mg p.o. b.i.d. 7. Multivitamin/minerals 1 tab p.o. daily. 8. Metoprolol tartrate 25 mg p.o. b.i.d. 9. Folic acid 1 mg p.o. daily. 10. Aspirin 81 mg p.o. daily. 11. Lovenox 35 mg subcu q.12 hours for 3 to 5 days until INR is therapeutic. HISTORY OF PRESENT ILLNESS AND HOSPITAL COURSE: Please see history and physical by Pramod Gamez NP, for admission details, but in summary, this is a 81-year-old male who presented to the emergency department with a complaint of left arm weakness on 11/16/16. The patient presented to the emergency department around 5 p.m. after he had an episode in which his left arm pain then became numb, all of a sudden, it became flaccid and he lost control with it , reporting it lasted 20 to 30 minutes which had then resolved. He did report that during that time period, he was able to slowly begin to move his arm and slowly got sensation back, then it resolved. He called 911 and the patient was brought to the emergency department by ambulance. In the emergency department, his symptoms have completely resolved. He denied any changes in speech, vision , and did not experience any aphasia. Denied any trouble with coordination. He states he has never experienced these symptoms before in the past. Denied any recent fevers, chills, nausea, vomiting, or diarrhea. The patient was admitted to telemetry to the hospitalist service for a TIA/CVA workup. 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 The patient also underwent a head CTA, which was negative for intracranial aneurysm, vascular malformation and negative for hemodynamic significant central intracranial arterial stenosis or occlusion. His brain MRI the next day showed no evidence for acute or subacute ischemia, but did show moderate involutional change with multiple small foci of encephalomalacia consistent with sites of previous infarcts. Stigmata of chronic small vessel ischemic disease. The patient was seen in consultation by neurologist, Dr. Jenkins, who suspected this was a probable hemispheric transient ischemic attack and also noted he had stigmata of peripheral neuropathy which he suspected was secondary to alcohol. The patient was monitored on telemetry and initially he was sinus rhythm; however, he was noted to have an irregular heart rate, an EKG was performed which showed atrial fibrillation/atrial flutter. This was discussed with the neurologist, Dr. Jenkins, who recommended the patient go on prevention for cardioembolic stroke and agreed with Lovenox injections to Coumadin. The risks and benefits were discussed with the patient at length as well as concern for his alcoholism and that if he was going to start anticoagulation, continuing to drink is not an option. The patient reports that he is willing to quit drinking alcohol as long as he can drink non-alcoholic beverages and wants to start anticoagulation. Both the newer anticoagulation agents as well as Coumadin were discussed with the patient. The patient chose that he would like to start Coumadin therapy. He started the Lovenox injections in the hospital with nurse teaching and has done very well being independent with giving himself his injections. Violet snider consulted Dr. Choudhury about his new atrial fibrillation and the patient was started on metoprolol 25 mg tartrate p.o. b.i.d. and his verapamil was discontinued and the patient has had good rate control on telemetry throughout his hospitalization. He has tolerated the metoprolol well. Recommendation was for the patient to follow up as an outpatient with Cardiology, which has been set up for the patient. The patient has refused any services such as rehab or AA for his alcoholism and states he does not think he will have a problem quitting. These resources were given to the patient anyway. Regarding the patient's peripheral neuropathy on examination noted by neurologist Dr. Jenkins, it is noted that he has a neuro B12 level at 357. Recommendation was to continue folic acid, thiamine, and multivitamin. The patient underwent a transthoracic echocardiogram as a part of his TIA/CVA workup, which showed "global left ventricular wall motion and contractility are within normal limits. There is normal left ventricular systolic function. The estimated ejection fraction is 55% to 60%. The right ventricular global systolic function is normal. There is no evidence of an aortic regurgitation. There is no evidence of aortic stenosis. There is mild mitral regurgitation. There is mild tricuspid regurgitation. There is evidence of borderline pulmonary hypertension. The pericardium appears normal. Normal saline was used as contrast for the bubble study. A patent foramen ovale is not demonstrated by agitated contrast." Chest x-ray. Impression: "Stigmata of chronic obstructive pulmonary disease. No acute cardiopulmonary process evident." DISCHARGE PLAN: The patient is stable for discharge home. He will be bridged with Lovenox to Coumadin. His INR today on discharge, 11/19/16, is 1.41. The patient will have an INR checked at the [facility] office tomorrow at 10:30 a.m. with results going to Dr. Ulloa. Follow up with Dr. Ulloa on , 11/21/16, at 6:30 p.m. Follow up with Dr. Richards, lead pony rider, 12/12/16, at 12:30 p.m. The patient was instructed if he has any further concerning or worrisome symptoms, he should return to the emergency department for further evaluation. As well, the risks of anticoagulation were discussed with the patient and if he were to have a fall or strike his head, he needs to be evaluated. The patient also was given dietary nutrition instructions in regards to the Coumadin therapy. The patient has been set up with visiting nurse service. TIME SPENT: Approximately 60 minutes was spent on this discharge. CHEYENNE MONTAGUE NP CC: Dr. Ulloa; Dr. Richards* [id number]/[id number] #: [id number] [facility]ITAL[facility]armelo
== END 2016-11-19 12:31 | disposition home health service (06) | DRG 69 ==
LOC: ED 18:42 → MEDTELE 20:40 → OBSVTOIN 11-17 13:00
PROVIDERS: ADMIT Internal Medicine; ATTEND Internal Medicine
DX: G45.9 Transient cerebral ischemic attack, unspecified (principal); E87.1 Hypo-osmolality and hyponatremia; G93.89 Other specified disorders of brain; G62.1 Alcoholic polyneuropathy; I48.0 Paroxysmal atrial fibrillation; F10.10 Alcohol abuse, uncomplicated; I10 Essential (primary) hypertension; G51.0 Bell's palsy; H40.9 Unspecified glaucoma; Y90.9 Presence of alcohol in blood, level not specified; N40.0 Benign prostatic hyperplasia without lower urinary tract symptoms; M81.0 Age-related osteoporosis without current pathological fracture; R29.810 Facial weakness; Z79.01 Long term (current) use of anticoagulants; Z79.82 Long term (current) use of aspirin; Z87.891 Personal history of nicotine dependence; Z91.013 Allergy to seafood; Z86.73 Personal history of transient ischemic attack (TIA), and cerebral infarction without residual deficits; Z81.8 Family history of other mental and behavioral disorders; Z80.9 Family history of malignant neoplasm, unspecified
CPT/HCPCS: 36415; 70450; 70496; 70498; 70551; 71010; 80048; 80053; 80061; 81003; 82533; 82607; 82728; 83036; 83540; 83735; 83930; 83935; 84443; 84484; 85025; 85027; 85610; 87086; 93005; 93306; A9270-GY; J1644; J1650; J1940; J3475

== ENCOUNTER 2019-01-26 13:10 | Inpatient (IN) | payer MEDICARE, BC ==
[2019-01-26] MEDS ORDERED: traMADol TAB* 50 MG PO ONE (13:38)
--- OUTSIDE RECORDS SUMMARY | 2019-01-26 14:05 | XMS REPORT | Continuity of Care Document ---
:1935 External Reference #:[id number] Author Name Stephenie Parker Care Team Providers Name Role Phone Mauro Ulloa MD Primary Care Physician Unavailable Payers Date Identification Numbers Payment Provider Subscriber Policy Number: [id number] Medicare Alvaro Álvarez PayID: [id number] [address] [place] [address] Expires: 2019 Policy Number: [id number] Medicare Alvaro Álvarez PayID: [id number] [address] [place] [address] Policy Number: [id number] [facility] Alvaro Álvarez PayID: [id number] [address] [place] [address] Advance Directives Description No Information Available Problems Date Description Provider Status Onset: 12/12/2016 Atrial fibrillation Luke Richards DO FACC Active Family History Date Family Member(s) Observation Comments Father Dementia Mother Cancer Social History Type Date Description Comments Sex Unknown Lives With Alone Occupation Retired Tobacco Use Start: Unknown Former Cigarette Smoker End: Unknown Smoking Status Reviewed: 01/12/19 Former Cigarette Smoker ETOH Use consumes 1-2 beers per 2 bottles of day non-alcoholic beer daily Tobacco Use Start: Unknown Patient is a former Quit around 1979 End: Unknown smoker Recreational Drug Use Denies Drug Use Exercise Type/Frequency Exercises sporadically walking weather permitting Allergies, Adverse Reactions, Alerts Date Description Reaction Status Severity Comments 11/29/2016 Shellfish-derived Products Active Medications Medication Date Status Form Strength Qnty SIG Indications Ordering Provider Spironolactone 01/12/ Active Tablets 25mg 30tab 1 by mouth Luke Oro 2019 s every day DO JUAN CARLOS Richards Furosemide 02/10/ Active Tablets 80mg 90tab 1 by mouth I50.9 Luke Oro 2018 s everyday Richards, along with DO FAC potassium Diltiazem CD 09/29/ Active Caps ER 180mg 90cap 1 by mouth I48.0 Luke Oro 2016 24HR s every day Richards, [facility] Ibandronate / Active Tablets 150mg take 1 Unknown Sodium 0000 tablet by mouth once a month Coumadin / Active Tablets 5mg take 1 tab Unknown 0000 on Fri and . 1/2 Mon, Wed, Fri, Sat and Sun or as directed (last Inr 1.95 06/05/17) Tylenol Extra / Active Tablets 500mg 2 by mouth Unknown Strength 0000 as needed Travatan Z / Active Solution 0.004% Instill One Unknown 0000 Drop In Both Eyes Every Night Lasix 01/29/ Hx Tablets 40mg 90tab Take one I50.9 Luke Oro 2018 - s tablet daily Richards, 02/10/ DO [facility] 2017 Lasix 09/30/ Hx Tablets 20mg 90tab 1 by mouth I50.9 Luke Oro 2017 - s every day Richards, 01/29/ with DO [facility] 2017 potassium Klor-Con 10 09/30/ Hx Tablets 10Meq 270ta take three Luke Oro 2017 - ER bs tablets Richards, 01/12/ every day DO [facility] 2018 with furosemide (lasix) Diltiazem CD 09/29/ Hx Caps ER 180 30cap 1 by mouth I48.0 Luke Oro 2016 - 24HR s every day Richards, DO [facility] 2016 Metoprolol 06/19/ Hx Tablets 25mg 90tab 1/2 by mouth I48.0 Luke Oro Tartrate 2017 - s twice a day Richards, DO FAC 2016 Ibuprofen 12/12/ Hx Tablets 200mg 1 tablet as Luke Oro 2017 - needed Richards, DO FAC 2016 Calcium / Hx Tablets 600-400mg take one Unknown Carbonate-Vitami 0000 - -Unit tablet by n D 06/13/ mouth daily 2016 Thiamine HCL / Hx Tablets 100mg 1 by mouth Unknown 0000 - every day 2016 Omeprazole / Hx Capsules 20mg 1 by mouth Unknown 0000 - DR bid ( PT 09/16/ stop taking 2017 1 week ago 09/22/17) Multi Vitamin /00/ Hx Tablets daily Unknown And Minerals 0000 - 2016 Metoprolol 00/ Hx Tablets 25mg 1 by mouth Unknown Tartrate 0000 - twice a day 2016 Folic Acid 00/ Hx Tablets 1mg take one tab Unknown 0000 - po daily 2016 Aspirin /00/ Hx Tablets 81mg 1 by mouth Unknown 0000 - DR every day 2016 Lovenox / Hx 35 units sc Unknown 0000 - bid until 2016 therapeutic Amlodipine / Hx Tablets 5mg Take One I48.0 Unknown Besylate 0000 - Tablet By 09/29/ Mouth Every 2016 Day (taken at Noon) Boniva / Hx Tablets 150mg once a month Unknown 0000 - 2016 Sodium Chloride / Hx Tablets 1gm 1 by mouth Unknown 0000 - twice a day ( started 2016 taking last week) Medications Administered in Office Medication Date Status Form Strength Qnty SIG Indications Ordering Provider Inj, Administered Injection Luke S. Regadenoson, 017 Richards, DO 0.1 MG FACC Technetium TC Administered Injection Luke S. 99M 017 Richards, DO Tetrofosmin, FACC Per Unit Dose Up To 40 Millicuries Immunizations Description No Information Available Vital Signs Date Vital Result Comment 01/12/2019 11:20am Height 65 inches 5'5" Weight 115.00 lb w/ shoes Heart Rate 60 /min irreg BP Systolic Sitting 140 mmHg Lue reg cuff BP Diastolic Sitting 60 mmHg Lue reg cuff BP Systolic Standing 150 mmHg Lue reg cuff BP Diastolic Standing 65 mmHg Lue reg cuff BMI (Body Mass Index) 19.1 kg/m2 04/13/2018 1:22pm Height 65 inches 5'5" Weight 115.00 lb Heart Rate 60 /min irregualr BP Systolic Sitting 122 mmHg lue reg cuff BP Diastolic Sitting 48 mmHg lue reg cuff BP Systolic Standing 132 mmHg BP Diastolic Standing 52 mmHg Respiratory Rate 18 /min BMI (Body Mass Index) 19.1 kg/m2 Ejection Fraction 55-60% 11/18/2016 echo 02/23/2018 2:05pm Height 65 inches 5'5" Weight 118.00 lb with shoes Heart Rate 64 /min BP Systolic Sitting 130 mmHg Lue reg cuff BP Diastolic Sitting 64 mmHg Lue reg cuff BP Systolic Standing 136 mmHg Lue reg cuff BP Diastolic Standing 62 mmHg Lue reg cuff Respiratory Rate 17 /min BMI (Body Mass Index) 19.6 kg/m2 Ejection Fraction 55-60% 11/18/2016-echo 02/10/2018 9:59am Height 65 inches 5'5" Weight 121.00 lb without shoes Heart Rate 62 /min BP Systolic Sitting 160 mmHg Lue reg cuff BP Diastolic Sitting 88 mmHg Lue reg cuff BP Systolic Standing 154 mmHg Lue reg cuff BP Diastolic Standing 60 mmHg Lue reg cuff Respiratory Rate 22 /min O2 % BldC Oximetry 96 % at room air BMI (Body Mass Index) 20.1 kg/m2 01/29/2018 3:47pm Height 65 inches 5'5" Weight 119.00 lb without shoes Heart Rate 78 /min BP Systolic Sitting 144 mmHg Lue reg cuff BP Diastolic Sitting 64 mmHg Lue reg cuff BP Systolic Standing 142 mmHg Lue reg cuff BP Diastolic Standing 62 mmHg Lue reg cuff Respiratory Rate 16 /min O2 % BldC Oximetry 96 % at room air BMI (Body Mass Index) 19.8 kg/m2 Ejection Fraction 55-60% date 11/18/16 ECHO 12/16/2017 11:26am Height 65 inches 5'5" Weight 114.00 lb with shoes Heart Rate 50 /min BP Systolic Sitting 142 mmHg Rue reg cuff BP Diastolic Sitting 64 mmHg Rue reg cuff BP Systolic Standing 140 mmHg Rue reg cuff BP Diastolic Standing 60 mmHg Rue reg cuff Respiratory Rate 20 /min BMI (Body Mass Index) 19.0 kg/m2 Ejection Fraction 55-60% 11/18/2016-echo 12/10/2017 1:43pm Height 65 inches 5'5" Weight 119.00 lb Heart Rate 64 /min BP Systolic Sitting 146 mmHg Rue reg cuff BP Diastolic Sitting 70 mmHg Rue reg cuff BP Systolic Standing 152 mmHg Rue BP Diastolic Standing 64 mmHg Rue Respiratory Rate 24 /min O2 % BldC Oximetry 96 % resting/room air BMI (Body Mass Index) 19.8 kg/m2 Ejection Fraction 55-60% 11/18/16 10/10/2017 1:43pm Height 65 inches 5'5" Weight 111.50 lb Heart Rate 56 /min BP Systolic Sitting 148 mmHg Rue reg cuff BP Diastolic Sitting 64 mmHg Rue reg cuff BP Systolic Standing 142 mmHg Rue BP Diastolic Standing 58 mmHg Rue Respiratory Rate 16 /min BMI (Body Mass Index) 18.6 kg/m2 Ejection Fraction 55-60% 11/18/16 09/29/2017 1:51pm Height 65 inches 5'5" Weight 119.00 lb No shoes Heart Rate 86 /min BP Systolic Sitting 142 mmHg Rue ped cuff BP Diastolic Sitting 90 mmHg Rue ped cuff BP Systolic Standing 150 mmHg Rue ped cuff BP Diastolic Standing 90 mmHg Rue ped cuff Respiratory Rate 18 /min BMI (Body Mass Index) 19.8 kg/m2 Ejection Fraction 55-60% 11/18/2016-echo 07/15/2017 9:20am Height 65 inches 5'5" Weight 117.00 lb BP Systolic Sitting 122 mmHg L arm reg cuff BP Diastolic Sitting 60 mmHg L arm reg cuff BP Systolic Standing 120 mmHg BP Diastolic Standing 60 mmHg Respiratory Rate 18 /min BMI (Body Mass Index) 19.5 kg/m2 Ejection Fraction 55-60% 11/201606/19/2017 1:27pm Height 65 inches 5'5" Weight 113.00 lb with shoes Heart Rate 86 /min BP Systolic Sitting 148 mmHg Rue peds cuff BP Diastolic Sitting 70 mmHg Rue peds cuff BP Systolic Standing 142 mmHg Rue peds cuff BP Diastolic Standing 74 mmHg Rue peds cuff Respiratory Rate 17 /min BMI (Body Mass Index) 18.8 kg/m2 Ejection Fraction 55-60% 11/18/2016-echo 12/12/2016 12:42pm Height 65 inches 5'5" Weight 122.00 lb without shoes Heart Rate 68 /min irreg BP Systolic 150 mmHg Rue reg cuff BP Diastolic 100 mmHg Rue reg cuff BP Systolic Sitting 150 mmHg Lue reg cuff BP Diastolic Sitting 98 mmHg Lue reg cuff BP Systolic Standing 174 mmHg Lue reg cuff BP Diastolic Standing 102 mmHg Lue reg cuff BMI (Body Mass Index) 20.3 kg/m2 Results Test Date Facility Test Result H/L Range Note Basic Metabolic 10/03/2017 [facility] Sodium 129 mmol/L Low 133-[address] [place] [address] [phone] Potassium 3.9 mmol/L N 3.5-5.0 Chloride 93 mmol/L Low 101-111 Co2 Carbon Dioxide 24 mmol/L N 22-32 Anion Gap 12 mmol/L High 2-11 Glucose 92 mg/dL N 70-100 Blood Urea Nitrogen 8 mg/dL N 6-24 Creatinine 0.85 mg/dL N 0.67-1.17 BUN/Creatinine Ratio 9.4 N 8-20 Calcium 9.2 mg/dL N 8.6-10.3 Egfr Non- 86.7 >60 Egfr 111.5 >60 1 CBC Auto Diff 07/11/2017 [facility] White Blood 8.8 10^3/uL N 3.5-10.[address] [place] [address] [phone] Red Blood Count 3.85 10^6/uL Low 4.0-5.4 Hemoglobin 12.1 g/dL Low 14.0-18.0 Hematocrit 36 % Low 42-52 Mean Corpuscular Volume 93 fL N 80-94 Mean Corpuscular Hemoglobin 31 pg N 27-31 Mean Corpuscular HGB Conc 34 g/dL N 31-36 Red Cell Distribution Width 15 % N 10.5-15 Platelet Count 228 10^3/uL N 150-450 Mean Platelet Volume 9 um3 N 7.4-10.4 Abs Neutrophils 6.9 10^3/uL N 1.5-7.7 Abs Lymphocytes 1.1 10^3/uL N 1.0-4.8 Abs Monocytes 0.6 10^3/uL N 0-0.8 Abs Eosinophils 0.1 10^3/uL N 0-0.6 Abs Basophils 0.1 10^3/uL N 0-0.2 Abs Nucleated RBC 0 10^3/uL N Granulocyte % 78.1 % N 38-83 Lymphocyte % 12.4 % Low 25-47 Monocyte % 6.9 % N 1-9 Eosinophil % 1.1 % N 0-6 Basophil % 1.5 % N 0-2 Nucleated Red Blood Cells % 0 N Laboratory test 11/16/2016 [facility] Osmolality 255 mOsm/kg N 150 - [address] Urine [address] [place] [address] [phone] 1 Because ethnic data is not always readily available, this report includes an eGFR for both -Americans and non- Americans. The National Kidney Disease Education Program (NKDEP) does not endorse the use of the MDRD equation for patients that are not between the ages of 18 and 70, are , have extremes of body size, muscle mass, or nutritional status, or are non- or non-. According to the National Kidney Foundation, irrespective of diagnosis, the stage of the disease is based on the level of kidney function: Stage Description GFR(mL/min/1.73 m(2)) 1 Kidney damage with normal or decreased GFR 90 2 Kidney damage with mild decrease in GFR 60-89 3 Moderate decrease in GFR 30-59 4 Severe decrease in GFR 15-29 5 Kidney failure <15 (or dialysis) 2 Test Performed by: [place] [address] Admin Dir: Sanchez Holly II, M.D., Ph.D. Procedures Date Code Description Status 01/12/2019 97343 EKG Tracing & Interpretation Completed 01/29/2018 61577 EKG Tracing & Interpretation Completed 10/07/2017 45666 Diffusing Capacity Completed 10/07/2017 25413 Plethysmography Determination Lung Volumes & Per Airway Completed Resist 10/07/2017 23860 Plethysmography Determination Lung Volumes & Per Airway Completed Resist 10/07/2017 58903 Pulmonary Function><Bronchodil Completed 10/01/2017 78138 Stress Test Completed 10/01/2017 04920 Myocardial Perfusion Imaging Tomographic (Spect) Multiple Completed Studies 09/29/2017 95003 EKG Tracing & Interpretation Completed 12/12/2016 52655 EKG Tracing & Interpretation Completed 11/18/2016 72481 ECHO Transthorasic Realtime 2D W Doppler & Color Flow Hosp Completed 11/18/2016 31111 EKG, Interpretation Only Completed 11/17/2016 17998 EKG, Interpretation Only Completed Encounters Type Date Location Provider Dx Diagnosis Office Visit 04/13/2018 [facility] Luke Richards, I50.9 Heart failure, 1:40p Of As400 Programmer Analyst DO FACC unspecified I48.91 Unspecified atrial fibrillation I73.9 Peripheral vascular disease, unspecified J44.9 Chronic obstructive pulmonary disease, unspecified I63.9 Cerebral infarction, unspecified I10 Essential (primary) hypertension F17.201 Nicotine dependence, unspecified, in remission Office Visit 02/23/2018 2:40p [facility] Luke S. I50.9 Heart failure, Of As400 Programmer Analyst Richards, DO unspecified FACC I48.91 Unspecified atrial fibrillation I73.9 Peripheral vascular disease, unspecified J44.9 Chronic obstructive pulmonary disease, unspecified I63.9 Cerebral infarction, unspecified I10 Essential (primary) hypertension F17.201 Nicotine dependence, unspecified, in remission Office Visit 02/10/2018 10:20a [facility] Luke S. I50.9 Heart failure, Of As400 Programmer Analyst Richards, DO unspecified FACC I48.91 Unspecified atrial fibrillation I73.9 Peripheral vascular disease, unspecified J44.9 Chronic obstructive pulmonary disease, unspecified I63.9 Cerebral infarction, unspecified I10 Essential (primary) hypertension F17.201 Nicotine dependence, unspecified, in remission Office Visit 01/29/2018 4:00p [facility] Luke S. I50.9 Heart failure, Of As400 Programmer Analyst Richards, DO unspecified FACC I48.91 Unspecified atrial fibrillation I73.9 Peripheral vascular disease, unspecified J44.9 Chronic obstructive pulmonary disease, unspecified I63.9 Cerebral infarction, unspecified I10 Essential (primary) hypertension F17.201 Nicotine dependence, unspecified, in remission E87.1 Hypo-osmolality and hyponatremia Office Visit 12/16/2017 11:45a [facility] Luke S. I50.32 Chronic diastolic Of [employer] Programmer Analyst Richards, DO (congestive) heart FACC failure I48.91 Unspecified atrial fibrillation I73.9 Peripheral vascular disease, unspecified J44.9 Chronic obstructive pulmonary disease, unspecified I63.9 Cerebral infarction, unspecified I10 Essential (primary) hypertension F17.201 Nicotine dependence, unspecified, in remission E87.1 Hypo-osmolality and hyponatremia Office Visit 12/10/2017 2:00p [facility] Luke S. 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 I50.32 Chronic diastolic Of As400 Programmer Analyst Richards, DO (congestive) heart FACC failure I48.91 Unspecified atrial fibrillation I73.9 Peripheral vascular disease, unspecified J44.9 Chronic obstructive pulmonary disease, unspecified I63.9 Cerebral infarction, unspecified F17.201 Nicotine dependence, unspecified, in remission I10 Essential (primary) hypertension Office Visit 09/29/2017 2:00p [facility] Luke S. I48.0 Paroxysmal atrial Of As400 Programmer Analyst Richards, DO fibrillation FACC I63.9 Cerebral infarction, unspecified R06.02 Shortness of breath J44.9 Chronic obstructive pulmonary disease, unspecified I73.9 Peripheral vascular disease, unspecified E78.5 Hyperlipidemia, unspecified F17.201 Nicotine dependence, unspecified, in remission Office Visit 07/15/2017 9:40a [facility] Luke S. I48.0 Paroxysmal atrial Of As400 Programmer Analyst Richards, DO fibrillation FACC I63.9 Cerebral infarction, unspecified Office Visit 06/19/2017 1:40p [facility] Luke S. I48.0 Paroxysmal atrial Of As400 Programmer Analyst Richards, DO fibrillation FACC I63.9 Cerebral infarction, unspecified Office Visit 12/12/2016 1:00p [facility] Luke S. I48.0 Paroxysmal atrial Of As400 Programmer Analyst Richards, DO fibrillation FACC Z86.73 Prsnl hx of TIA (TIA), and cereb infrc w/o resid deficits I25.10 Athscl heart disease of [place] coronary artery w/o ang pctrs Office Visit 11/19/2016 [facility] G45.9 Transient 1:50p Assoc,sheela Beard, NAS cerebral ischemic Hospitalists attack, unspecified H40.9 Unspecified glaucoma I48.0 Paroxysmal atrial fibrillation I10 Essential (primary) hypertension Office Visit 11/18/2016 [facility] Manuel Oro G45.9 Transient 4:26p Aba Jenkins M.D. cerebral ischemic attack, unspecified I48.91 Unspecified atrial fibrillation G62.9 Polyneuropathy, unspecified Office Visit 11/18/2016 [facility] G45.9 Transient 1:44p Assocsheela NP cerebral ischemic Hospitalists attack, unspecified H40.9 Unspecified glaucoma I48.0 Paroxysmal atrial fibrillation I10 Essential (primary) hypertension Office Visit 11/17/2016 [facility] Oro G45.9 Transient 4:25p [facility] Jenkins cerebral ischemic attack, unspecified G62.9 Polyneuropathy, unspecified Office Visit 11/16/2016 [facility] Yaya G45.9 Transient 1:43p Assoc,sheela Gamez N.P. cerebral ischemic Hospitalists attack, unspecified H40.9 Unspecified glaucoma I10 Essential (primary) hypertension Plan of Treatment Future Appointment(s):01/27/2019 11:30 am - Luke Richards, DO FACC at [facility]01/20/2019 11:00 am - Traveling ECHO 1 at [facility]01/12/2019 - Luke Richards DO FACCI50.9 Heart failure, unspecifiedComments :Stop taking potassium supplements.Instead start taking spironolactone 25 mg once a day. It is a diuretic that raises your potassium levels. Continue to take same dose of furosemide. We are going to check an ultrasound of your heart.Check lab work in 2 weeks to monitor electrolytes and kidney function and then come back afterwards.Follow up:f/u 2 weeks with lab work prior to yyedaY98.91 Unspecified atrial tegocrwjjypgR62.20 Pulmonary hypertension, unspecifiedNew Orders:Echocardiogram, Ordered: 01/12/19J44.9 Chronic obstructive pulmonary disease, emyyrznkjrfQ29.9 Cerebral infarction, [id number] Essential (primary) imbhllvchyciT09.201 Nicotine dependence, unspecified, in remission
--- NOTE | 2019-01-26 15:13 | CONSULT ---
Consult Consult: Orthopedic Consultation Patient: Stevan HARMAN /Age: 08 1935 83 Admission Date: 01/26/19 Consult Date: 01/26/19 Attending Orthopedic Provider: Dr Deya Jean Baptiste PRIMARY CARE PROVIDER: Dr. Ulloa. CARDIO: Dr. Richards CHIEF COMPLAINT: Left hip fracture HISTORY OF PRESENT ILLNESS: Patient "Devon" is an 83 year old male with PMHx of a fib, TIA, alcohol abuse, hypertension, bells palsy, BPH who present to [facility] with left hip pain today 01/26. He sustained a mechanical fall at home while carrying a laundry basket. No other injuries are reported associated with the fall though he reports he did hit his head and his left elbow, both of which are no longer still painful. Denies any loss of consciousness, chest pain, shortness of breath or dizziness associated with the fall. Pain is localized to the left hip and is sharp in nature, pain is worse with any movement and improves with rest. Only past surgical history is cataract extraction. He lives alone and cares for himself, he is a community ambulator without an assistive device. For A fib he is under the care of Dr Richards and takes coumadin, last dose yesterday and last known INR was 2.5 two weeks ago. He has never had an KS , blood clot or stroke, he has a history of TIA. PAST MEDICAL HISTORY: 1. BPH. 2. Hypertension. 3. Glaucoma. 4. Osteoporosis. 5. 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 6. TIA 7. A fib 8. alcohol abuse PAST SURGICAL HISTORY: He has had cataract extractions. No other surgical history. Allergies: Shellfish, NKDA Social history: History of alcohol abuse, now drinks 2 alcoholic beverages a day , former smoker, no drug abuse. Lives alone, community ambulator. Family History: Mother with cancer, father with dementia . No known family history of adverse reactions with anesthesia Review of Systems: General: Negative for Fever, Chills, recent illness HEENT: Negative for acute change in vision, headache, head trauma. Cardio: No Chest Pain or history of KS. + hx a fib Resp: No Shortness of Breath or Cough. No history of asthma, COPD or BEN Abd: no Abdominal Pain, Vomiting, Diarrhea, Nausea : no dysuria MSK: Pain of left hip. Denies pain of upper extremities or right lower extremity. Neuro: Sensation intact throughout all extremities without numbness or parasthesias. + Hx TIA, + Hx Pickrell palsy Heme: no history of blood clot, easy bleeding or easy bruising Skin: No rash or lesions. Left elbow abrasion Physical Exam: Vitals: Temp Pulse Resp BP Pulse Ox 98.7 F 77 16 168/87 98 01/26/19 13:21 01/26/19 13:21 01/26/19 13:21 01/26/19 13:21 01/26/19 13:21 General: Well appearing, NAD HEENT: NCAT. EOMi, moist mucus membranes Cardio: S1S2, +a fib Resp: CTA BL. no wheezes, rales or rhonchi ABD: bowel sounds normoactive in all 4 quadrants. Nontender to palpation, no guarding or rigidity. MSK Upper Extremities: Skin envelope intact aside from superficial abrasion over left elbow, no obvious teri deformity, nontender to palpation. Active flexion and extension of digits, wrists, elbows without associated pain. Shoulders with nonpainful active forward flexion and abduction. MSK Right Lower Extremity: Skin envelope intact, no obvious teri deformity, nontender to palpation. Active nonpainful flexion and extension of digits, ankle , knee and hip. Negative log roll at the hip. No pain with heel strike. MSK Left Lower Extremity: Skin envelope intact, shortened and externally rotated , tender to palpation over the left hip, nontender from midfemur distally. Flexion and extension at ankle and toes nonpainful, knee ROM and hip ROM produces hip pain. Neuro: Sensation intact to light touch throughout bilateral upper and lower extremities, facial droop left side Vascular: Radial pulse 2+ bilaterally, DP pulse 2+ bilaterally. Capillary refill less than two seconds distally bilateral upper and lower extremities Psych: Appropriate affect. Skin: No rash. No open fractures. Diagnostic Studies: Pelvis CT IMPRESSION: 1. COMMINUTED FRACTURE OF THE PROXIMAL LEFT FEMUR. 2. SUBACUTE TO CHRONIC APPEARING FRACTURES OF THE LEFT INFERIOR PUBIC RAMUS AND LEFT SUPERIOR ACETABULUM. 3. OSTEOPENIA. 4. OSTEOARTHRITIS. Hip/femur Xrays complete, not yet resulted Assessment: Fracture of left proximal femur Plan: Bed Rest. Xrays L hip underway. Patient will require ORIF left femur, this can be done as soon as tomorrow, awaiting medical optimization. Patient should be NPO and hold chemical DVT prophylaxis at midnight. Needs a CBC, BMP, type and screen, INR prior to surgery. If medically optimized he will be taken to the OR tomorrow with Dr Jean Baptiste.
[2019-01-26 15:18] LABS: Albumin 4.4 g/dL (3.2-5.2); Albumin/Globulin Ratio 1.3 (1-3); BUN/Creatinine Ratio 19.5 (8-20); Calcium 9.3 mg/dL (8.6-10.3); EGFR African American 109.1 (>60); EGFR Non-African American 90.2 (>60); Globulin 3.5 g/dL (2-4); Hematocrit 34 % (36-46); Hemoglobin 11.7 g/dL (14.0-18.0); Mean Corpuscular HGB Conc 34 g/dL (31-36); Mean Corpuscular Hemoglobin 31 pg (27-31); Mean Corpuscular Volume 91 fL (80-94); Mean Platelet Volume 8.2 fL (7.4-10.4); Platelet Count 238 10^3/uL (150-450); Potassium 3.9 mmol/L (3.5-5.0); Red Blood Count 3.78 10^6 /uL (4.18-5.48); Red Cell Distribution Width 14 % (10.5-15); Total Bilirubin 0.8 mg/dL (0.2-1.0); Total Protein 7.9 g/dL (6.4-8.9); Troponin I 0.03 ng/mL (<0.04)
[2019-01-26] MEDS ORDERED: NS 0.9% 1000 ML** 1,000 ML IV ONE (15:39)
[2019-01-26 16:06] LABS: INR 2.59 (0.77-1.02)
--- NOTE | 2019-01-26 16:27 | ED ---
Lower Extremity - HPI Summary HPI Summary: Patient is an 83-year-old male with a history of CHF, atrial fibrillation and hypertension presenting to the ED after a fall. He states he was loading his laundry when he tripped and fell, landing on his left hip. He is unsure if he hit his head. He denies any LOC. He was able to call for the ambulance. He is endorsing pain to the left lateral side of the hip and left groin. He has been unable to ambulate since this time. He states he does not habitually use assistive devices for ambulation and is fairly independent. He is currently on warfarin for A. fib as well as Lasix for CHF. - History of Current Complaint Chief Complaint: EDFall Stated Complaint: FALL/LEFT HIP PAIN PER EMS Time Seen by Provider: 01/26/19 13:14 Hx Obtained From: Patient Mechanism Of Injury: Direct Blow Onset of Pain: Hours Onset/Duration: Hours Severity Initially: Moderate Severity Currently: Moderate Pain Intensity: 2 Pain Scale Used: 0-10 Numeric Timing: Constant Location: Is Discrete @ - left hip Character Of Pain: Aching Associated Signs And Symptoms: Negative: Swelling, Redness, Bruising Aggravating Factor(s): Standing, Ambulation Alleviating Factor(s): Rest - Risk Factors Gout Risk Factors: Age Over 40, Male DVT Risk Factors: Negative Septic Arthritis Risk Factor: Negative - Allergies/Home Medications Allergies/Adverse Reactions: Allergies Allergy/AdvReac Type Severity Reaction Status Date / Time shellfish derived AdvReac Vomiting Verified 01/26/19 17:54 Home Medications: Home Medications Furosemide TAB* [Lasix TAB*] 80 mg PO DAILY 01/26/19 [History Confirmed 01/26/19 ] Ibandronate TAB(NF) [Boniva(NF)] 150 mg PO MONTHLY 01/26/19 [History Confirmed 01/26/19] Potassium Chlor TAB* [Klor Con ER TAB*] 30 meq PO DAILY 01/26/19 [History Confirmed 01/26/19] Spironolactone TAB* [Aldactone TAB*] 25 mg PO DAILY 01/26/19 [History Confirmed 01/26/19] Travoprost Z 0.004% OPHTH (NF) [Travatan Z 0.004% OPTH (NF)] 1 drop BOTH EYES BEDTIME 01/26/19 [History Confirmed 01/26/19] Warfarin TAB(*) [Coumadin TAB(*)] 5 mg PO DAILY 01/26/19 [History Confirmed ] dilTIAZem HCl [Cartia Xt] 180 mg PO DAILY 01/26/19 [History Confirmed 01/26/19] PMH/Surg Hx/FS Hx/Imm Hx Previously Healthy: Yes Cardiovascular History: Reports: Hx Hypertension Denies: Hx Pacemaker/ICD Musculoskeletal History: Reports: Hx Osteoporosis Sensory History: Reports: Hx Cataracts, Hx Contacts or Glasses, Hx Glaucoma, Hx Vision Problem, Hx Hearing Aid Denies: Other Sensory Impairments Opthamlomology History: Reports: Hx Cataracts, Hx Contacts or Glasses, Hx Glaucoma, Hx Vision Problem Denies: Other Sensory Impairments Psychiatric History: Denies: Hx Panic Disorder - Surgical History Surgery Procedure, Year, and Place: cleft palate surgery, cataract removal both eyes - Immunization History Date of Tetanus Vaccine: 2011 Date of Influenza Vaccine: July 2016 Hx Pertussis Vaccination: No Immunizations Up to Date: Yes Infectious Disease History: No Infectious Disease History: Denies: Traveled Outside the [place] in Last 30 Days - Family History Known Family History: Positive: Other - CVA - Social History Occupation: Unemployed Lives: Alone Alcohol Use: prior to admission, daily Alcohol Amount: 3/4 beers a day, 1 glass of wine with dinner Hx Substance Use: No Substance Use Type: Reports: None Hx Tobacco Use: No Smoking Status (MU): Former Smoker Type: Cigarettes Have You Smoked in the Last Year: No Review of Systems Constitutional: Negative Negative: Fever, Chills, Fatigue, Skin Diaphoresis Negative: Palpitations, Chest Pain Negative: Shortness Of Breath, Cough Genitourinary: Negative Positive: no symptoms reported, see HPI Positive: Arthralgia - left hip pain Skin: Negative All Other Systems Reviewed And Are Negative: Yes Physical Exam Triage Information Reviewed: Yes Vital Signs On Initial Exam: Initial Vitals Temp Pulse Resp BP Pulse Ox 98.7 F 77 16 168/87 98 01/26/19 13:21 01/26/19 13:21 01/26/19 13:21 01/26/19 13:21 01/26/19 13:21 Vital Signs Reviewed: Yes Appearance: Positive: Well-Appearing, Well-Nourished Skin: Positive: Warm, Skin Color Reflects Adequate Perfusion Head/Face: Positive: Normal Head/Face Inspection Eyes: Positive: EOMI, Conjunctiva Clear Neck: Positive: Supple, No Lymphadenopathy Respiratory/Lung Sounds: Positive: Clear to Auscultation, Breath Sounds Present Cardiovascular: Positive: RRR, Pulses are Symmetrical in both Upper and Lower Extremities Musculoskeletal: Positive: Pain @ - left hip pain Neurological: Positive: Speech Normal Psychiatric: Positive: Normal, Affect/Mood Appropriate Diagnostics - Vital Signs Vital Signs Temp Pulse Resp BP Pulse Ox 01/26/19 15:00 83 25 91 01/26/19 14:51 83 25 172/78 91 01/26/19 14:33 80 29 91 01/26/19 14:20 84 34 176/120 92 01/26/19 13:21 98.7 F 77 16 168/87 98 - Laboratory Lab Results: Lab Results 01/26/19 01/26/19 01/26/19 Range/Units 14:45 14:45 15:50 WBC 10.0 (3.5-10.8) 10^3/uL RBC 3.78 L (4.18-5.48) 10^6 /uL Hgb 11.7 L (14.0-18.0) g/dL Hct 34 L (36-46) % MCV 91 (80-94) fL MCH 31 (27-31) pg MCHC 34 (31-36) g/dL RDW 14 (10.5-15) % Plt Count 238 (150-450) 10^3/uL MPV 8.2 (7.4-10.4) fL INR (Anticoag Therapy) 2.59 H (0.77-1.02) Sodium 123 L (135-145) mmol/L Potassium 3.9 (3.5-5.0) mmol/L Chloride 89 L (101-111) mmol/L Carbon Dioxide 25 (22-32) mmol/L Anion Gap 9 (2-11) mmol/L BUN 16 (6-24) mg/dL Creatinine 0.82 (0.67-1.17) mg/dL Est GFR ( Amer) 109.1 (>60) Est GFR (Non-Af Amer) 90.2 (>60) BUN/Creatinine Ratio 19.5 (8-20) Glucose 125 H (70-100) mg/dL Calcium 9.3 (8.6-10.3) mg/dL Total Bilirubin 0.80 (0.2-1.0) mg/dL AST 29 (13-39) U/L ALT 15 (7-52) U/L Alkaline Phosphatase 82 (34-104) U/L Troponin I 0.03 (<0.04) ng/mL Total Protein 7.9 (6.4-8.9) g/dL Albumin 4.4 (3.2-5.2) g/dL Globulin 3.5 (2-4) g/dL Albumin/Globulin Ratio 1.3 (1-3) Blood Type Antibody Screen 01/26/19 Range/Units 15:50 WBC (3.5-10.8) 10^3/uL RBC (4.18-5.48) 10^6 /uL Hgb (14.0-18.0) g/dL Hct (36-46) % MCV (80-94) fL MCH (27-31) pg MCHC (31-36) g/dL RDW (10.5-15) % Plt Count (150-450) 10^3/uL MPV (7.4-10.4) fL INR (Anticoag Therapy) (0.77-1.02) Sodium (135-145) mmol/L Potassium (3.5-5.0) mmol/L Chloride (101-111) mmol/L Carbon Dioxide (22-32) mmol/L Anion Gap (2-11) mmol/L BUN (6-24) mg/dL Creatinine (0.67-1.17) mg/dL Est GFR ( Amer) (>60) Est GFR (Non-Af Amer) (>60) BUN/Creatinine Ratio (8-20) Glucose (70-100) mg/dL Calcium (8.6-10.3) mg/dL Total Bilirubin (0.2-1.0) mg/dL AST (13-39) U/L ALT (7-52) U/L Alkaline Phosphatase (34-104) U/L Troponin I (<0.04) ng/mL Total Protein (6.4-8.9) g/dL Albumin (3.2-5.2) g/dL Globulin (2-4) g/dL Albumin/Globulin Ratio (1-3) Blood Type A Positive Antibody Screen Pending Result Diagrams: 01/26/19 14:45 01/26/19 14:45 Lab Statement: Any lab studies that have been ordered have been reviewed, and results considered in the medical decision making process. Lower Extremity Course/Dx - Course Course Of Treatment: Patient is an 83-year-old male presenting to the ED after a fall. CT of the pelvis and head obtained. CT brain normal, CT hip shows comminuted fracture of the proximal left femur. Subacute chronic-appearing fractures of the left inferior pubic ramus and left superior acetabulum. Osteopenia and osteoarthritis. Discussed case with Dr. Aly who recommends x -ray. X-ray obtained which shows these findings. Discussed case with Dr. Jacinto who agrees to admit. Chest x-ray, EKG and labs obtained at this time. These are pending. He is admitted to their service. - Diagnoses Provider Diagnoses: Hip fracture, Fall - Physician Notifications Discussed Care Of Patient With: Deya Jean Baptiste Instructed by Provider To: Admit As Inpatient Discharge - Sign-Out/Discharge Documenting (check all that apply): Patient Departure Patient Received Moderate/Deep Sedation with Procedure: No - Discharge Plan Condition: Fair Disposition: ADMITTED TO [facility] Referrals: Mauro Ulloa MD [Primary Care Provider] - - Billing Disposition and Condition Condition: FAIR Disposition: Admitted to [facility]
--- NOTE | 2019-01-26 20:41 | HP ---
CC: Mauro Ulloa M.D. HISTORY AND PHYSICAL: DATE OF ADMISSION: 01/26/2019 PRIMARY CARE PHYSICIAN: Mauro Ulloa M.D. HEALTHCARE PROXY: [id number], Jeri Álvarez. CODE STATUS: Full. CHIEF COMPLAINT: Left hip pain after a fall. HISTORY OF PRESENT ILLNESS: Mr. Álvarez is an 83-year-old man with HTN, glaucoma , atrial fibrillation on warfarin, TIA, and history of alcohol abuse, who is presenting after a mechanical fall with left hip pain. He states that he was in his usual state of health this morning while he was doing laundry. While he was carrying his laundry basket, he was unable to see his feet very well and had tripped. He states that he landed on his left hip and left elbow. He denies head strike. He only reports persistent pain in the left hip. Proceeding the fall, he denied prodrome. He denied lightheadedness, dizziness, chest pain or feeling woozy. He states that the pain in his left hip is sharp and localized posterolaterally with movement. However at rest, he does not feel pain. 10 point review of systems otherwise negative. In the emergency room, the patient underwent a pelvis CT, which showed comminuted fracture of the proximal left femur with subacute to chronic appearing fractures of the left inferior pubic ramus and left superior acetabulum with osteopenia and osteoarthritis. Given these findings, Orthopedic Surgery was consulted for surgical intervention. Given that his INR was therapeutic at 2.5, it was recommended that he be admitted for pain control and medical optimization prior to proceeding to surgery. PAST MEDICAL HISTORY: 1. Hypertension. 2. Atrial fibrillation, on warfarin. 3. History of TIA. 4. Osteoporosis, on bisphosphonate. 5. Glaucoma. 6. History of alcohol abuse, still with daily use. 7. Edema. The patient reports fluid on the lungs. He does not carry a diagnosis of heart failure, with echo in 2017 without evidence of heart failure ; however, he has been on furosemide and spironolactone as an outpatient. HOME MEDICATIONS: 1. Spironolactone 25 mg daily. 2. Furosemide 80 mg daily. 3. Ibandronate 150 mg monthly. 4. Warfarin 5 mg daily. 5. Diltiazem 180 mg daily. 6. Potassium chloride 30 mEq p.o. daily. 7. Travoprost eyedrops. ALLERGIES: SHELLFISH causes nausea and vomiting. FAMILY HISTORY: Reviewed and noncontributory. SOCIAL HISTORY: The patient lives alone. 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 He quit smoking tobacco in his 40s. He has cut back on drinking to 2 beers per day. He denies any other substances. PHYSICAL EXAMINATION GENERAL: Chronically ill-appearing elderly man, in no acute distress. Alert and interactive. VITAL SIGNS: Afebrile. Heart rate in the 80s, respiratory rate 12, blood pressure 172/78, oxygen saturation 98% on room air. HEENT: Dry mucous membranes. OP clear. NECK: No JVD. LUNGS: Clear to auscultation bilaterally. HEART: Irregularly irregular. No murmurs, gallops or rubs. ABDOMEN: Soft, nontender, nondistended. EXTREMITIES: Left leg slightly shorter and externally rotated compared to right. Tenderness to palpation over left posterolateral hip. No edema. DIAGNOSTIC STUDIES/LAB DATA: Labs reviewed and significant for hemoglobin 11.7, unclear baseline. Sodium decreased to 123 with baseline a couple years ago around the upper 120s, BUN/ creatinine 16/0.82, BNP 303. EKG with atrial fibrillation, rate in the 80s. No concerning ST changes. Hip/pelvis x-ray with osteopenia comminuted fractures of the left proximal humerus, subacute to chronic appearing fractures of the left superior acetabulum , left inferior pubic ramus with osteoarthritis. Chest x-ray with hyperinflated lung [place]itting[place]. Pelvis CT with comminuted fracture of the proximal left femur, subacute to chronic appearing fractures of the left inferior pubic ramus and left superior acetabulum, osteopenia, and osteoarthritis. Brain CT noncontrast with no acute intracranial pathology with diffuse involutional change with chronic small vessel ischemic changes. ASSESSMENT AND PLAN: An 83-year-old man with a history of atrial fibrillation on AC, HTN, osteoporotis, unclear if also has a history of heart failure, is presenting after a mechanical fall with left hip fracture, found with hypovolemia and therapeutic INR, now pending decrease in INR before OR. 1. Fracture of left proximal femur. Ortho already consulted on the patient. The patient will be NPO at midnight in case of decrease in INR tomorrow morning. We will continue pain control and hold warfarin and DVT prophylaxis. Most recent INR 2.6. 2. Hypertension. Continue home diltiazem 180 mg p.o. daily. May have been on spironolactone for HTN, as well, but not typical choice. 3. Afib. Continue rate control with diltiazem. Holding warfarin in preparation for OR. 4. Possible history of edema. The patient only reports fluids in lungs. Denies heart failure or cirrhosis, unclear why he has been on furosemide and spironolactone. Given that the patient is dry on physical exam with hyponatremia, we will hold diuretics for now, and we will obtain more collateral when able. 5. DVT prophylaxis. Currently therapeutically anticoagulated. We will resume anticoagulation after surgery. 5. The patient is a full code. TIME SPENT: Approximately 60 minutes spent on admission of this patient, more than half of which was spent at bedside for interview and exam. [id number]/CPS #: [id number] HELDER
[2019-01-26] MEDS: Latanoprost 0.005%* 2.5 ml BTL BOTH EYES SCH (21:49)
[2019-01-26] MEDS: oxyCODONE/Acetamin 5/325 MG* TAB PO PRN (21:49)
[2019-01-27 07:22] LABS: ABS Basophils 0 10^3/ul (0-0.2); ABS Eosinophils 0 10^3/ul (0-0.6); ABS Lymphocytes 0.7 10^3/ul (1.0-4.8); ABS Monocytes 0.6 10^3/ul (0-0.8); ABS Neutrophils 6.9 10^3/ul (1.5-7.7); ABS Nucleated RBC 0 10^3/ul; Eosinophil % 0.1 %; Hematocrit 33 % (36-46); Hemoglobin 11.2 g/dL (14.0-18.0); INR 2.47 (0.77-1.02); Lymphocyte % 8.3 %; Mean Corpuscular HGB Conc 34 g/dL (31-36); Mean Corpuscular Hemoglobin 31 pg (27-31); Mean Corpuscular Volume 91 fL (80-94); Mean Platelet Volume 8.7 fL (7.4-10.4); Nucleated Red Blood Cells % 0; Platelet Count 190 10^3/uL (150-450); Red Blood Count 3.58 10^6 /uL (4.18-5.48); Red Cell Distribution Width 14 % (10.5-15); White Blood Count 8.3 10^3/uL (3.5-10.8)
--- NOTE | 2019-01-27 07:24 | PN ---
Progress Note - Progress Note Date of Service: 01/27/19 SOAP: Subjective: Pt with L hip IT fracture after mechanical fall on 01/26. Pt with history of afib on coumadin. Lives alone. Community ambulator. Currently NPO for surgery if medically stable. Full consult dictated by PA on 01/26 Objective: Temp Pulse Resp BP Pulse Ox 97.6 F 77 16 144/68 96 01/27/19 03:50 01/27/19 03:50 01/27/19 03:50 01/27/19 03:50 01/27/19 03:50 NAD. Hard of hearing. pleasant mood. AAOX3. LLE skin intact. calf soft and nontender. sensate to light touch about the 1st dws, medial, lateral, dorsal, and plantar foot. brisk cap refill. Xrays with IT hip fracture of left hip Laboratory Results - last 24 hr 01/26/19 01/26/19 01/26/19 14:45 14:45 14:45 WBC 10.0 RBC 3.78 L Hgb 11.7 L Hct 34 L MCV 91 MCH 31 MCHC 34 RDW 14 Plt Count 238 MPV 8.2 Neut % (Auto) Lymph % (Auto) Mora % (Auto) Eos % (Auto) Baso % (Auto) Absolute Neuts (auto) Absolute Lymphs (auto) Absolute Monos (auto) Absolute Eos (auto) Absolute Basos (auto) Absolute Nucleated RBC Nucleated RBC % INR (Anticoag Therapy) Sodium 123 L Potassium 3.9 Chloride 89 L Carbon Dioxide 25 Anion Gap 9 BUN 16 Creatinine 0.82 Est GFR ( Amer) 109.1 Est GFR (Non-Af Amer) 90.2 BUN/Creatinine Ratio 19.5 Glucose 125 H Calcium 9.3 Total Bilirubin 0.80 AST 29 ALT 15 Alkaline Phosphatase 82 Troponin I 0.03 B-Natriuretic Peptide 303 H Total Protein 7.9 Albumin 4.4 Globulin 3.5 Albumin/Globulin Ratio 1.3 Blood Type Antibody Screen 01/26/19 01/26/19 01/27/19 15:50 15:50 06:31 WBC 8.3 RBC 3.58 L Hgb 11.2 L Hct 33 L MCV 91 MCH 31 MCHC 34 RDW 14 Plt Count 190 MPV 8.7 Neut % (Auto) 83.9 Lymph % (Auto) 8.3 Mora % (Auto) 7.2 Eos % (Auto) 0.1 Baso % (Auto) 0.5 Absolute Neuts (auto) 6.9 Absolute Lymphs (auto) 0.7 L Absolute Monos (auto) 0.6 Absolute Eos (auto) 0 Absolute Basos (auto) 0 Absolute Nucleated RBC 0 Nucleated RBC % 0 INR (Anticoag Therapy) 2.59 H Sodium Potassium Chloride Carbon Dioxide Anion Gap BUN Creatinine Est GFR ( Amer) Est GFR (Non-Af Amer) BUN/Creatinine Ratio Glucose Calcium Total Bilirubin AST ALT Alkaline Phosphatase Troponin I B-Natriuretic Peptide Total Protein Albumin Globulin Albumin/Globulin Ratio Blood Type A Positive Antibody Screen Negative Assessment: 83 yo M with multiple comorbidities on Coumadin with L IT hip fracture Plan: NPO for surgery if medically optimized for surgery and INR improved. 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
[2019-01-27 07:34] LABS: BUN/Creatinine Ratio 15.8 (8-20); EGFR Non-African American 137.2 (>60); Potassium 4.2 mmol/L (3.5-5.0)
[2019-01-27] MEDS ORDERED: Perflutren Lipid Microsphere* 3 ML VIAL ONE (08:35)
[2019-01-27] MEDS ORDERED: Phytonadione Oral Solution* 5 MG/25 ML UDC PO ONE (08:56)
[2019-01-27] MEDS ORDERED: Diltiazem CD CAP* 180 MG PO SCH (09:00)
[2019-01-27] MEDS: oxyCODONE/Acetamin 5/325 MG* TAB PO PRN ×3 (09:20→22:57)
--- NOTE | 2019-01-27 11:25 | ECHO ---
Patient: VERA HARMAN [facility] Rec#: [id number] : 1935 Date: 01/27/2019 Age: 83y Height: 173 cm / 68.1 in Weight: 49 kg / 108.0 lbs Sex: M BSA: 1.58 Room#: [facility] Admit Date#: 01/26/2019 Type: Inpatient Referring: [email or web address] Reading: Gayathri Palomares MD [employer] Mill Tender: Alexus Braxton RDCS CC: Mauro Ulloa MD Transthoracic Echocardiogram Indication: Congestive heart failure BP: 144/68 HR: 81 Rhythm: A-Fib Findings Technical Comments: The study is technically difficult. The study is technically limited due to poor acoustic windows. Completed at 0905. Left Ventricle: The left ventricle is not well visualized. The left ventricular chamber size is decreased. There is no left ventricular hypertrophy. There is normal left ventricular systolic function. The estimated ejection fraction is 55-60%. There is septal flattening of the interventricular septum consistent with right ventricular volume or pressure overload. The assessment of diastolic function is non-diagnostic. Left Atrium: The left atrial chamber size is normal. Right Ventricle: Moderator Band present. The right ventricle is mildly dilated. The right ventricular global systolic function is low normal. Right Atrium: The right atrial cavity size is normal. Aortic Valve: The aortic valve structure is not well visualized. The aortic valve is trileaflet. The aortic valve leaflets are mildly thickened. There is trace to mild aortic regurgitation. There is no evidence of aortic stenosis. Mitral Valve: There is mitral annular calcification. The mitral valve leaflets are mildly thickened. There is mild mitral regurgitation. There is no evidence of mitral stenosis. Tricuspid Valve: The tricuspid valve structure is not well visualized. There is mild tricuspid regurgitation. The right ventricular systolic pressure is estimated at 28 mmHg. There is evidence that pulmonary hypertension may be underestimated. There is no tricuspid stenosis. Pulmonic Valve: The pulmonic valve structure is not well visualized. There is no pulmonic stenosis. Pericardium: There is no significant pericardial effusion. Aorta: There is no dilatation of the ascending aorta. There is no dilatation of the aortic arch. The aortic root is normal in size. Pulmonary Artery: The main pulmonary artery is not well visualized. Venous: The inferior vena cava appears normal in size. There is a greater than 50% respiratory change in the inferior vena cava dimension. Contrast: Definity was used to optimize study. 2.5 mL of diluted Definity were utilized. Intravenous contrast was used to enhance endocardial border definition. Conclusions The study is technically limited due to poor acoustic windows. The left ventricular chamber size is decreased. There is normal left ventricular systolic function, normal wall motion. The estimated ejection fraction is 60%. The right ventricular systolic function is low normal. The right ventricle is mildly dilated. There is trace to mild aortic regurgitation with AV sclerosis. There is mild mitral regurgitation. There is mild tricuspid regurgitation, possibly greater as seen on subcostal views. The right ventricular systolic pressure is estimated at 28 mmHg (normal). Compared w ith prior echo of 11/18/16, LV function is stable, RV systolic function previously normal, AI is new, MR+TR are stable, PA pressure previously 38 mmHg. Measurements Name Value Normal Range RVIDd (AP) 2D 2.8 cm (0.9 - 2.6) RVDdMajor (2D) 4.7 cm (2.2 - 4.4) RAd ISD 4CH 4.4 cm (3.4 - 4.9) RA (A4C)W 4.4 cm (2.9 - 4.6) IVSd (2D) 0.7 cm (0.6 - 1) LVPWd (2D) 0.8 cm (0.6 - 1) LVIDd (2D) 3.4 cm (3.6 - 5.4) LVIDs (2D) 2.2 cm - LV FS (2D) 3.5 % (25 - 45) Aortic Annulus 1.8 cm (1.4 - 2.6) Ao root diameter (2D) 2.6 cm (2.1 - 3.5) Ascending Ao 2.6 cm (2.1 - 3.4) Aortic arch 2.7 cm (1.8 - 3.4) LA dimension (AP) 2D 3 cm (2.3 - 3.8) LAd ISD 4CH 4.2 cm (2.9 - 5.3) LA ISD 4CH W 4.2 cm (2.5 - 4.5) Name Value Normal Range LA ESV BP (A/L) index 38 ml/m2 - Name Value Normal Range MV E-wave Vmax 0.9 m/sec - MV deceleration time 174 msec - LV septal e' Vmax 0.07 m/sec - LV lateral e' Vmax 0.09 m/sec - LV E:e' septal ratio 12.9 ratio - LV E:e' lateral ratio 10 ratio - Name Value Normal Range AV Vmax 1.4 m/sec - AV VTI 26 cm - AV peak gradient 7 mmHg - AV mean gradient 4 mmHg - LVOT Vmax 0.5 m/sec - LVOT VTI 9 cm - LVOT peak gradient 1 mmHg - LVOT mean gradient 1 mmHg - MAE Vmax 0.5 m/sec - Name Value Normal Range TR Vmax 2.5 m/sec - TR peak gradient 25 mmHg - RAP 3 mmHg - RVSP 28 mmHg - IVC diameter 1.6 cm - Name Value Normal Range PV Vmax 0.6 m/sec - PV peak gradient 1 mmHg -
[2019-01-27 14:01] LABS: INR 2.82 (0.77-1.02)
[2019-01-27] MEDS ORDERED: Phytonadione IV (Adult)* 10 MG/ML 1 ML AMP IV ONE (14:19)
[2019-01-27] MEDS ORDERED: Phytonadione IV (Adult)* 2.5 MG in NS 0.9% 50 ML* 50 ML IV ONE (14:45)
--- NOTE | 2019-01-27 14:56 | PN ---
Progress Note - Progress Note Date of Service: 01/27/19 Note: Pt with elevated INR still after vitamin k. Will recheck tomorrow for possible IMN. NPO after midnight
[2019-01-27] MEDS ORDERED: Heparin VIAL(*) 5000 UNITS/ML VIAL (FIVE THOUSAND) SUBCUT SCH (16:00)
[2019-01-27 17:14] LABS: Magnesium 1.9 mg/dL (1.9-2.7)
--- NOTE | 2019-01-27 17:17 | PN ---
Subjective Date of Service: 01/27/19 Interval History: No overnight events. INR did not decrease with PO vitamin K. Now given IV dose. Will follow up in the AM with possible procedure by ortho if decreased sufficiently. Objective Active Medications: Device (Tiotropium Inhaler Device*) 1 each INH .USE w/ SPIRIVA CAPS [facility] Diltiazem HCl (Cardizem Cd Cap*) 180 mg PO DAILY [facility] Last Admin: 01/27/19 09:20 Dose: 180 mg Heparin Sodium (Porcine) (Heparin Vial(*)) 5,000 units SUBCUT Q8HR [facility] Stop: 01/27/19 23:59 Last Admin: 01/27/19 16:45 Dose: 5,000 units Latanoprost (Xalatan 0.005%*) 1 drop BOTH EYES BEDTIME [facility]; Protocol Last Admin: 01/26/19 21:49 Dose: 1 drop Oxycodone/Acetaminophen (Percocet 5/325 Tab*) 1 tab PO Q4H PRN PRN Reason: Pain Last Admin: 01/27/19 13:51 Dose: 1 tab Tiotropium [place] (Spiriva Cap.Inh*) 1 cap INH DAILY [facility] Vital Signs - 8 hr 01/27/19 01/27/19 01/27/19 09:20 12:01 13:51 Temperature 97.6 F Pulse Rate 80 Respiratory 18 20 18 Rate Blood Pressure 154/74 (mmHg) O2 Sat by Pulse 95 Oximetry 01/27/19 15:29 Temperature 98.3 F Pulse Rate 71 Respiratory 18 Rate Blood Pressure 93/48 (mmHg) O2 Sat by Pulse 97 Oximetry Oxygen Devices in Use Now: None Appearance: elderly, thin, chronically ill appearing Ears/Nose/Mouth/Throat: Mucous Membranes Moist Respiratory: Clear to Auscultation Cardiovascular: RRR Abdominal: NL Sounds; No Tenderness; No Distention Extremities: No Edema, - - pain over L lateral hip one movement of leg Result Diagrams: 01/27/19 06:31 01/27/19 06:31 Additional Lab and Data: Lab Results 01/26/19 01/26/19 01/26/19 Range/Units 14:45 14:45 15:50 WBC 10.0 (3.5-10.8) 10^3/uL RBC 3.78 L (4.18-5.48) 10^6 /uL Hgb 11.7 L (14.0-18.0) g/dL Hct 34 L (36-46) % MCV 91 (80-94) fL MCH 31 (27-31) pg MCHC 34 (31-36) g/dL RDW 14 (10.5-15) % Plt Count 238 (150-450) 10^3/uL MPV 8.2 (7.4-10.4) fL INR (Anticoag Therapy) 2.59 H (0.77-1.02) Sodium 123 L (135-145) mmol/L Potassium 3.9 (3.5-5.0) mmol/L Chloride 89 L (101-111) mmol/L Carbon Dioxide 25 (22-32) mmol/L Anion Gap 9 (2-11) mmol/L BUN 16 (6-24) mg/dL Creatinine 0.82 (0.67-1.17) mg/dL Est GFR ( Amer) 109.1 (>60) Est GFR (Non-Af Amer) 90.2 (>60) BUN/Creatinine Ratio 19.5 (8-20) Glucose 125 H (70-100) mg/dL Calcium 9.3 (8.6-10.3) mg/dL Total Bilirubin 0.80 (0.2-1.0) mg/dL AST 29 (13-39) U/L ALT 15 (7-52) U/L Alkaline Phosphatase 82 (34-104) U/L Troponin I 0.03 (<0.04) ng/mL Total Protein 7.9 (6.4-8.9) g/dL Albumin 4.4 (3.2-5.2) g/dL Globulin 3.5 (2-4) g/dL Albumin/Globulin Ratio 1.3 (1-3) Blood Type Antibody Screen 01/26/19 Range/Units 15:50 WBC (3.5-10.8) 10^3/uL RBC (4.18-5.48) 10^6 /uL Hgb (14.0-18.0) g/dL Hct (36-46) % MCV (80-94) fL MCH (27-31) pg MCHC (31-36) g/dL RDW (10.5-15) % Plt Count (150-450) 10^3/uL MPV (7.4-10.4) fL INR (Anticoag Therapy) (0.77-1.02) Sodium (135-145) mmol/L Potassium (3.5-5.0) mmol/L Chloride (101-111) mmol/L Carbon Dioxide (22-32) mmol/L Anion Gap (2-11) mmol/L BUN (6-24) mg/dL Creatinine (0.67-1.17) mg/dL Est GFR ( Amer) (>60) Est GFR (Non-Af Amer) (>60) BUN/Creatinine Ratio (8-20) Glucose (70-100) mg/dL Calcium (8.6-10.3) mg/dL Total Bilirubin (0.2-1.0) mg/dL AST (13-39) U/L ALT (7-52) U/L Alkaline Phosphatase (34-104) U/L Troponin I (<0.04) ng/mL Total Protein (6.4-8.9) g/dL Albumin (3.2-5.2) g/dL Globulin (2-4) g/dL Albumin/Globulin Ratio (1-3) Blood Type A Positive Antibody Screen Pending Microbiology and Other Data: Microbiology 01/27/19 00:00 Nasal Screen MRSA (PCR) - Final Nasal Mrsa Not Detected Assess/Plan/Problems-Billing Assessment: 83M with afib on warfarin, HTN, COPD not previously on treatment, osteoporosis, presents after mechanical fall with L hip fracture. Pending INR decrease for orthopedic procedure. - Patient Problems (1) Paroxysmal a-fib Comment: - holding warfarin in preparation for OR - s/p 2 doses of vitamin K - bridging anticoagulation with heparin gtt given high CHADSVSC score of 5 - cont rate control with diltiazem (2) COPD (chronic obstructive pulmonary disease) Comment: Had PFTs with obstruction as outpatient, and noted in outpatient notes to have chronic ANDREWS. Has h/o smoking. Now with new pHTN. - start on LAMA inhaled daily (3) Hypertension Comment: - cont home dilt - previously on furosemide and spironolatone for ANDREWS - holding these medications in house as patient with hyponatremia, hypovolemia, and prior TTE without e/o HF (4) Hip fracture, left Comment: Ortho consulted, pending normalization of INR for OR - Percocet prn controlling pain well - bedrest (5) DVT prophylaxis Comment: on therapeutic AC
[2019-01-27 17:26] LABS: ABS Basophils 0.1 10^3/ul (0-0.2); ABS Eosinophils 0 10^3/ul (0-0.6); ABS Lymphocytes 0.8 10^3/ul (1.0-4.8); ABS Monocytes 0.9 10^3/ul (0-0.8); ABS Neutrophils 8.2 10^3/ul (1.5-7.7); ABS Nucleated RBC 0 10^3/ul; Eosinophil % 0.2 %; Hematocrit 34 % (36-46); Hemoglobin 11.2 g/dL (14.0-18.0); Lymphocyte % 7.8 %; Mean Corpuscular HGB Conc 33 g/dL (31-36); Mean Corpuscular Hemoglobin 31 pg (27-31); Mean Corpuscular Volume 93 fL (80-94); Mean Platelet Volume 7.7 fL (7.4-10.4); Nucleated Red Blood Cells % 0; Platelet Count 207 10^3/uL (150-450); Red Blood Count 3.66 10^6 /uL (4.18-5.48); Red Cell Distribution Width 14 % (10.5-15); White Blood Count 9.9 10^3/uL (3.5-10.8)
[2019-01-27] MEDS ORDERED: Heparin DRIP 25,000 UNITS(*) 25,000 UNITS/500 ML BAG IV SCH (17:30)
[2019-01-27] MEDS ORDERED: Heparin VIAL(*) 5000 UNITS/ML VIAL (FIVE THOUSAND) IV PRN (17:31)
[2019-01-27] MEDS: Tiotropium CAP.INH* CAP.INH/18 MCG (USE ORDER SET !) INH SCH (17:33)
[2019-01-27 17:46] LABS: EGFR African American 117.3 (>60)
[2019-01-27] MEDS ORDERED: Spiriva Inhaler DEVICE* 1 EACH DEVICE INH ONE (18:00)
[2019-01-27] MEDS: Latanoprost 0.005%* 2.5 ml BTL BOTH EYES SCH (21:36)
[2019-01-27] MEDS ORDERED: NS 0.9% 1000 ML** 1,000 ML IV SCH (22:15)
[2019-01-28 05:39] LABS: ABS Basophils 0.1 10^3/ul (0-0.2); ABS Eosinophils 0.1 10^3/ul (0-0.6); ABS Lymphocytes 1.4 10^3/ul (1.0-4.8); ABS Monocytes 1.1 10^3/ul (0-0.8); ABS Neutrophils 7.7 10^3/ul (1.5-7.7); ABS Nucleated RBC 0 10^3/ul; Eosinophil % 0.9 %; Hematocrit 29 % (36-46); Hemoglobin 9.7 g/dL (14.0-18.0); Lymphocyte % 13.5 %; Mean Corpuscular HGB Conc 34 g/dL (31-36); Mean Corpuscular Hemoglobin 31 pg (27-31); Mean Corpuscular Volume 92 fL (80-94); Mean Platelet Volume 8.1 fL (7.4-10.4); Nucleated Red Blood Cells % 0; Platelet Count 192 10^3/uL (150-450); Red Blood Count 3.16 10^6 /uL (4.18-5.48); Red Cell Distribution Width 14 % (10.5-15); White Blood Count 10.5 10^3/uL (3.5-10.8)
[2019-01-28 05:53] LABS: INR 1.74 (0.77-1.02)
[2019-01-28 05:57] LABS: BUN/Creatinine Ratio 20.3 (8-20); Calcium 8.5 mg/dL (8.6-10.3); EGFR African American 122.8 (>60); EGFR Non-African American 101.5 (>60); Magnesium 1.9 mg/dL (1.9-2.7); Potassium 3.9 mmol/L (3.5-5.0)
[2019-01-28] MEDS ORDERED: Potassium Chlor TAB* 20 MEQ TAB.ER PO ONE (08:15)
--- NOTE | 2019-01-28 08:24 | PN ---
Subjective Interval History: HR/BP decreased overnight to 99/74 and 54, given 1L NS. Now sodium noted to trend 124 -> 120, so likely with component of SIADH, possibly from pain. Also with Hgb decrease by 1.5, but likely hemodilutional. Will decrease morning dilt dose given low HR/BP. INR 1.74. Objective Active Medications: Diltiazem HCl (Cardizem Cd Cap*) 90 mg PO DAILY [facility] Heparin Sodium (Porcine) (Heparin Vial(*)) 0 units IV .PER PROTOCOL PRN PRN Reason: HEPARIN DRIP BOLUS Last Admin: 01/27/19 18:01 Dose: 3,550 units Heparin Sodium/Dextrose (Heparin Drip 25,000 Units(*)) 25,000 units in 500 mls @ 0 mls/hr IV PER RATE [facility]; Protocol Last Admin: 01/27/19 17:57 Dose: 15 mls/hr Latanoprost (Xalatan 0.005%*) 1 drop BOTH EYES BEDTIME [facility]; Protocol Last Admin: 01/27/19 21:36 Dose: 1 drop Oxycodone/Acetaminophen (Percocet 5/325 Tab*) 1 tab PO Q4H PRN PRN Reason: Pain Last Admin: 01/27/19 22:57 Dose: [address] (Spiriva Cap.Inh*) 1 cap INH DAILY [facility] Last Admin: 01/27/19 17:33 Dose: 1 cap Vital Signs - 8 hr 01/28/19 01/28/19 01:29 03:35 Temperature 97.8 F Pulse Rate 54 Respiratory 18 18 Rate Blood Pressure 99/47 (mmHg) O2 Sat by Pulse 96 Oximetry Oxygen Devices in Use Now: None Ears/Nose/Mouth/Throat: Mucous Membranes Moist Neck: NL Appearance and Movements; NL JVP Respiratory: Clear to Auscultation Extremities: No Edema Result Diagrams: 01/28/19 05:33 01/28/19 14:01 Additional Lab and Data: Lab Results 01/26/19 01/26/19 01/26/19 Range/Units 14:45 14:45 15:50 WBC 10.0 (3.5-10.8) 10^3/uL RBC 3.78 L (4.18-5.48) 10^6 /uL Hgb 11.7 L (14.0-18.0) g/dL Hct 34 L (36-46) % MCV 91 (80-94) fL MCH 31 (27-31) pg MCHC 34 (31-36) g/dL RDW 14 (10.5-15) % Plt Count 238 (150-450) 10^3/uL MPV 8.2 (7.4-10.4) fL INR (Anticoag Therapy) 2.59 H (0.77-1.02) Sodium 123 L (135-145) mmol/L Potassium 3.9 (3.5-5.0) mmol/L Chloride 89 L (101-111) mmol/L Carbon Dioxide 25 (22-32) mmol/L Anion Gap 9 (2-11) mmol/L BUN 16 (6-24) mg/dL Creatinine 0.82 (0.67-1.17) mg/dL Est GFR ( Amer) 109.1 (>60) Est GFR (Non-Af Amer) 90.2 (>60) BUN/Creatinine Ratio 19.5 (8-20) Glucose 125 H (70-100) mg/dL Calcium 9.3 (8.6-10.3) mg/dL Total Bilirubin 0.80 (0.2-1.0) mg/dL AST 29 (13-39) U/L ALT 15 (7-52) U/L Alkaline Phosphatase 82 (34-104) U/L Troponin I 0.03 (<0.04) ng/mL Total Protein 7.9 (6.4-8.9) g/dL Albumin 4.4 (3.2-5.2) g/dL Globulin 3.5 (2-4) g/dL Albumin/Globulin Ratio 1.3 (1-3) Blood Type Antibody Screen 01/26/19 Range/Units 15:50 WBC (3.5-10.8) 10^3/uL RBC (4.18-5.48) 10^6 /uL Hgb (14.0-18.0) g/dL Hct (36-46) % MCV (80-94) fL MCH (27-31) pg MCHC (31-36) g/dL RDW (10.5-15) % Plt Count (150-450) 10^3/uL MPV (7.4-10.4) fL INR (Anticoag Therapy) (0.77-1.02) Sodium (135-145) mmol/L Potassium (3.5-5.0) mmol/L Chloride (101-111) mmol/L Carbon Dioxide (22-32) mmol/L Anion Gap (2-11) mmol/L BUN (6-24) mg/dL Creatinine (0.67-1.17) mg/dL Est GFR ( Amer) (>60) Est GFR (Non-Af Amer) (>60) BUN/Creatinine Ratio (8-20) Glucose (70-100) mg/dL Calcium (8.6-10.3) mg/dL Total Bilirubin (0.2-1.0) mg/dL AST (13-39) U/L ALT (7-52) U/L Alkaline Phosphatase (34-104) U/L Troponin I (<0.04) ng/mL Total Protein (6.4-8.9) g/dL Albumin (3.2-5.2) g/dL Globulin (2-4) g/dL Albumin/Globulin Ratio (1-3) Blood Type A Positive Antibody Screen Pending Microbiology and Other Data: Microbiology 01/27/19 00:00 Nasal Screen MRSA (PCR) - Final Nasal Mrsa Not Detected Assess/Plan/Problems-Billing Assessment: 83M with afib on warfarin, HTN, COPD with pHTN, HFpEF, osteoporosis, CVA, presents after mechanical fall with L hip fracture. Pending INR decrease for OR. - Patient Problems (1) Hip fracture, left Comment: Ortho planning for L hip IMN. Neff 0.2%, RCRI 2, with good functional capacity (METS > 4). EKG and symptoms not concerning for ACS. May proceed to OR without further cardiac testing. - Percocet prn controlling pain well - bedrest (2) Hyponatremia Comment: Chronic. Previously on furosemide as outpatient. Very dry in ER, and sodium improved with fluids, but recently worsened with fluids. Concern for SIADH from pain (uOsm high), but still with hypovolemia (by exam and Dalia low). - ok to have IVF in OR but will monitor BMP frequently and adjust as needed (3) Paroxysmal a-fib Comment: - bridging warfarin anticoagulation with heparin gtt given high CHADSVSC score of 5 - cont rate control with diltiazem - holding heparin for OR but will start morning after procedure (4) Hypertension Comment: - cont home dilt - previously on furosemide and spironolatone for ANDREWS - holding these medications in house as patient with hyponatremia, hypovolemia, and prior TTE without e/o HF (5) COPD (chronic obstructive pulmonary disease) Comment: Had PFTs with obstruction as outpatient, and noted in outpatient notes to have chronic ANDREWS. Has h/o smoking. Now with new pHTN. - started on Spiriva this admission (6) Malnourished Comment: BMI 17 - appreciate nutrition input (7) CVA (cerebral vascular accident) Comment: per history - bridging with heparin (8) DVT prophylaxis Comment: on therapeutic AC
[2019-01-28] MEDS: Tiotropium CAP.INH* CAP.INH/18 MCG (USE ORDER SET !) INH SCH (08:59)
[2019-01-28] MEDS ORDERED: Phytonadione IV (Adult)* 10 MG/ML 1 ML AMP IV ONE (09:59)
[2019-01-28] MEDS ORDERED: Polyethylene Glycol 3350* 17 GM PACKET PO PRN (10:04)
[2019-01-28] MEDS ORDERED: Senna TAB PO PRN (10:04)
[2019-01-28] MEDS ORDERED: KCL 20 MEQ/100 ML IVPREMIX* 20 MEQ/100 ML BAG IV ONE (10:07)
[2019-01-28 10:16] LABS: Activated Partial Thrombo Time 92.2 seconds (26.0-36.3)
[2019-01-28] MEDS: Diltiazem TAB* 30 MG PO SCH ×2 (10:46→16:47)
[2019-01-28] MEDS ORDERED: Phytonadione IV (Adult)* 2.5 MG in NS 0.9% 50 ML* 50 ML IV ONE (11:00)
--- NOTE | 2019-01-28 12:07 | PN ---
Progress Note - Progress Note Date of Service: 01/28/19 SOAP: Subjective: []Pt seen at bedside. He is in good spirits and pain is well controlled. Denies CP, SOB, dizziness, nausea. Objective: []General: Appears well, NAD LLE: Left thigh soft, Sensation intact to light touch distally, DP2+ Assessment: []83 yo M with multiple comorbidities on Coumadin with L IT hip fracture Plan: NPO for surgery, awaiting vitamin K to finish running then repeat INR. If less than 1.5 plan for OR today. Plan for L hip IMN, patient aware and agreeable bedrest for now with frequent turns Hold heparin drip in anticipation of possible OR, will need to restart if INR still too high Ancef recruiting operations consultant to OR. Vital Signs Temp 97.4 F 01/28/19 11:02 Pulse 68 01/28/19 11:02 Resp 15 01/28/19 11:02 BP 141/43 01/28/19 11:09 Pulse Ox 95 01/28/19 11:02 Intake & Output 01/27/19 01/28/19 01/28/19 18:59 06:59 18:59 Intake Total 615 500 990 Output Total 1125 0 140 Balance -510 500 850 Intake: IV Fluids 105 990 NS (0.9%) 50 990 phytonadion 55 Oral 510 500 Output: Urine 1125 0 140 Other: # Bowel Movements 0
[2019-01-28 12:28] LABS: INR 1.48 (0.77-1.02)
[2019-01-28 14:18] LABS: INR 1.37 (0.77-1.02)
[2019-01-28 14:36] LABS: BUN/Creatinine Ratio 21.4 (8-20); EGFR Non-African American 108.2 (>60)
[2019-01-28] MEDS ORDERED: Midazolam* 1 MG/ML 5 ML VIAL (5 MG) ONE (15:09)
[2019-01-28] MEDS ORDERED: fentaNYL* 50 MCG/ML 2 ML VIAL (100 MCG VIAL) ONE (15:09)
[2019-01-28] MEDS ORDERED: KETAMINE HCL* 50 MG/ML 10 ML VIAL ONE (15:09)
[2019-01-28] MEDS ORDERED: ceFAZolin 2 GM in NS PREMIX(*) 2 GM/100 ML BAG IVPB ONE (16:00)
--- NOTE | 2019-01-28 16:22 | PN ---
Progress Note - Progress Note Date of Service: 01/28/19 Note: H and P update Pt optimized for surgery. Will plan for L hip IMN. Consented, risks and benefits reviewed, extremity marked.
[2019-01-28] MEDS ORDERED: Bupivacaine 0.25% SDV PF* 10 ML VIAL INJ ONE (16:26)
[2019-01-28] MEDS ORDERED: LR IV SCH (17:00)
[2019-01-28] MEDS ORDERED: Morphine INJ* 2 MG/ML 1 ML SYRINGE (TWO MG - NEW SYRINGE VERSION) IV PRN (17:00)
[2019-01-28] MEDS ORDERED: oxyCODONE/Acetamin 5/325 MG* TAB PO PRN (17:00)
[2019-01-28] MEDS ORDERED: Lidocaine 2% EPI 1:200000 MPF*10-20 ML VIAL ONE (18:20)
[2019-01-28] MEDS ORDERED: Phenylephrine 10 MG/ML VIAL* 1 ML VIAL ONE (18:20)
[2019-01-28] MEDS ORDERED: Propofol* 10 MG/ML 20 ML BTL ONE (18:20)
[2019-01-28] MEDS ORDERED: Norepinephrine VIAL* 1 MG/ML 4 ML VIAL ONE (18:20)
[2019-01-28] MEDS ORDERED: Lidocaine 2% PF* 10 ML AMP ONE (18:20)
[2019-01-28] MEDS ORDERED: fentaNYL* 50 MCG/ML 2 ML VIAL (100 MCG VIAL) IV PRN (18:29)
[2019-01-28] MEDS ORDERED: Naloxone* 0.4 MG/ML 1 ML VIAL IV PRN (18:29)
[2019-01-28] MEDS ORDERED: Acetaminophen IV 1GM/100ML * 100 ML ONE (18:32)
[2019-01-28 19:24] LABS: Hematocrit 29 % (36-46); Hemoglobin 9.7 g/dL (14.0-18.0); Mean Corpuscular HGB Conc 34 g/dL (31-36); Mean Corpuscular Hemoglobin 31 pg (27-31); Mean Corpuscular Volume 92 fL (80-94); Mean Platelet Volume 8.3 fL (7.4-10.4); Platelet Count 170 10^3/uL (150-450); Red Blood Count 3.16 10^6 /uL (4.18-5.48); Red Cell Distribution Width 14 % (10.5-15); White Blood Count 10.6 10^3/uL (3.5-10.8)
[2019-01-28 19:38] LABS: BUN/Creatinine Ratio 19.1 (8-20); Calcium 8.6 mg/dL (8.6-10.3); EGFR African American 135.4 (>60); EGFR Non-African American 111.9 (>60); Potassium 3.8 mmol/L (3.5-5.0)
[2019-01-28] MEDS: Latanoprost 0.005%* 2.5 ml BTL BOTH EYES SCH (23:07)
[2019-01-29] MEDS: ceFAZolin 1 GM* X 3 DOSES POST-OP Q8H (AddVan) IVPB SCH ×6 (00:22→16:57)
[2019-01-29] MEDS: Diltiazem TAB* 30 MG PO SCH ×2 (00:36→08:33)
--- NOTE | 2019-01-29 03:59 | OP ---
CC: PCP, Mauro Ulloa MD * DATE OF SURGERY: 01/28/19 - ROOM #342 DATE OF : 39 SURGEON: Deya Jean Baptiste MD. RIVET PASSER: None. ANESTHESIOLOGIST: Dr. Sheth. ANESTHESIA: Regional anesthesia with MAC. PRE-OP DIAGNOSIS: Left hip intertrochanteric hip fracture. POST-OP DIAGNOSIS: Left hip intertrochanteric hip fracture. OPERATIVE PROCEDURE: Left hip intramedullary nail. COMPLICATIONS: None. ESTIMATED BLOOD LOSS: 150 cc. DISPOSITION: Stable to PACU. INDICATIONS: Alvaro Álvarez is an 83-year-old male who sustained a mechanical fall at his home. He was diagnosed with an intertrochanteric hip fracture. He underwent medical risk optimization. After his INR was normalized, he was placed on a heparin drip, which was stopped prior to surgery. His sodium level was low, but it was addressed by the hospitalist. He has been optimized for surgery as best we can, he has multiple commodities. After a discussion of the risks and benefits of surgery, risks include but not limited to bleeding, infection, damage to nerves, vessels, surrounding structures, wound nonhealing, persistent pain, need for surgery, scarring, stiffness, incomplete relief of symptoms, risks of anesthesia, risk of DVT, stroke, heart attack, , he has elected to proceed with surgical treatment. DESCRIPTION OF PROCEDURE: The patient was greeted in the preoperative area by the attending surgeon. The correct extremity was marked and consent was confirmed. The patient underwent 2 regional Rula block to sciatic and femoral nerves. Block done by the anesthesiologist, after which he was brought back to the operating suite and was placed in the supine position on the operating table. He underwent monitored anesthesia care. He was appropriately positioned on the fracture table with a well-padded perineal post. The operative extremity was placed in the traction stanley. The nonoperative extremity was placed in a well-leg stanley. The arm was draped over his chest. He was well padded. All bony prominences were padded, he was secured carefully , after which under fluoroscopic guidance a closed reduction was performed, after which the left hip was then prepped and draped in the usual sterile fashion with chlorhexidine soap, scrub, alcohol wipe and a final prep with ChloraPrep. After appropriate surgical pause indicating side, site, procedure, and administration of antibiotics, a 10-blade was used to make an incision proximal to the tip of the greater trochanter inline with the femur. The soft tissue was carefully dissected to expose the fascia, which was then incised. The tip of the trochanter was palpated. Under fluoroscopic visualization, the guidewire was placed at the starting point in the medial aspect of the tip of the trochanter. Again, part of his trochanter was displaced posteriorly. Canal reaming was then done with a 60 mm of reamer. Once this was done, initially the plan was for a short nail. The fracture line looked like it extended more distally and the fracture started to displace. Therefore, decision was made to change to a long nail. The ball-tip guidewire was then placed down the shaft of the femur and this was confirmed distally. The measurement was found to be about 400 mm the appropriate length. The canal reaming began with a size 11 until size 13. An 11 x 400 mm nail was then chosen and impacted into position. Once it was at appropriate inferior depth, a blade was carefully placed, first into the cannulated screw and the lateral wall was penetrated and the blade was placed at the appropriate length. It was impacted into position after a derotation wire was placed. The final blade was then impacted into position. The set screw was secured proximally. Final x-rays were taken proximally and found the fracture to be reduced nicely. Distally, perfect circles were done at the distal aspect of the femur. Once this was done, a single static interlocking screw with interlocking bolt was placed with excellent purchase. Final images were obtained. The wounds were copiously irrigated to sterile saline. The fascia was closed with 0 Vicryl in interrupted fashion. The wound was irrigated again. The subcutaneous tissues were closed with 3-0 Monocryl. The wound was secured with vic. The wound was injected with 0.2% ropivacaine. Sterile dressings were applied and taken out of traction. The patient was awoken from anesthesia and transferred to the PACU in stable condition. POSTOPERATIVE PLAN: He will be weightbearing as tolerated. He will restart his heparin drip and his Coumadin until he is bridged. He will be monitored closely for postop hematoma and his blood count will be monitored as well as his sodium. Dressing change will be postop day 2. I will continue to follow patient until he is optimized for discharge. [id number]/[facility] #: [id number] HELDER
[2019-01-29 07:13] LABS: ABS Basophils 0.1 10^3/ul (0-0.2); ABS Eosinophils 0 10^3/ul (0-0.6); ABS Lymphocytes 1.1 10^3/ul (1.0-4.8); ABS Monocytes 0.8 10^3/ul (0-0.8); ABS Neutrophils 7.2 10^3/ul (1.5-7.7); ABS Nucleated RBC 0 10^3/ul; Eosinophil % 0.4 %; Hematocrit 26 % (36-46); Hemoglobin 8.9 g/dL (14.0-18.0); Lymphocyte % 11.5 %; Mean Corpuscular HGB Conc 34 g/dL (31-36); Mean Corpuscular Hemoglobin 32 pg (27-31); Mean Corpuscular Volume 92 fL (80-94); Mean Platelet Volume 8.5 fL (7.4-10.4); Nucleated Red Blood Cells % 0; Platelet Count 152 10^3/uL (150-450); Red Blood Count 2.84 10^6 /uL (4.18-5.48); Red Cell Distribution Width 14 % (10.5-15); White Blood Count 9.2 10^3/uL (3.5-10.8)
[2019-01-29 07:49] LABS: BUN/Creatinine Ratio 18.5 (8-20); Calcium 8.5 mg/dL (8.6-10.3); EGFR African American 176.7 (>60); Magnesium 1.6 mg/dL (1.9-2.7); Potassium 4.3 mmol/L (3.5-5.0)
--- NOTE | 2019-01-29 07:55 | PN ---
Progress Note - Progress Note Date of Service: 01/29/19 Note: Pt seen and examined. Feels ok. Pain controlled. No SOB or CP. Temp Pulse Resp BP Pulse Ox 98.2 F 82 17 147/51 99 01/29/19 07:45 01/29/19 07:45 01/29/19 07:45 01/29/19 07:45 01/29/19 07:45 NAD. pleasant mood, normal affect, AAOx3. LLE: dressings intact with minimal drainage. Calf soft and nontender, SILT grossly distally, brisk cap refill. able to flex/ext toes, DF/PF ankle. Laboratory Results - last 24 hr 01/28/19 01/28/19 01/28/19 05:33 05:33 09:53 WBC RBC Hgb Hct MCV MCH MCHC RDW Plt Count MPV Neut % (Auto) Lymph % (Auto) Grimes % (Auto) Eos % (Auto) Baso % (Auto) Absolute Neuts (auto) Absolute Lymphs (auto) Absolute Monos (auto) Absolute Eos (auto) Absolute Basos (auto) Absolute Nucleated RBC Nucleated RBC % INR (Anticoag Therapy) 1.48 H APTT 92.2 H Sodium 120 L Potassium 3.9 Chloride 91 L Carbon Dioxide 20 L Anion Gap 9 BUN 15 Creatinine 0.74 Est GFR ( Amer) 122.8 Est GFR (Non-Af Amer) 101.5 BUN/Creatinine Ratio 20.3 H Glucose 111 H Serum Osmolality 262 L Calcium 8.5 L Magnesium 1.9 Urine Osmolality U Sodium Concentration 01/28/19 01/28/19 01/28/19 13:22 13:22 13:55 WBC RBC Hgb Hct MCV MCH MCHC RDW Plt Count MPV Neut % (Auto) Lymph % (Auto) [place]imes % (Auto) Eos % (Auto) Baso % (Auto) Absolute Neuts (auto) Absolute Lymphs (auto) Absolute Monos (auto) Absolute Eos (auto) Absolute Basos (auto) Absolute Nucleated RBC Nucleated RBC % INR (Anticoag Therapy) 1.37 H APTT Sodium Potassium Chloride Carbon Dioxide Anion Gap BUN Creatinine Est GFR ( Amer) Est GFR (Non-Af Amer) BUN/Creatinine Ratio Glucose Serum Osmolality Calcium Magnesium Urine Osmolality 462 U Sodium Concentration < 18 01/28/19 01/28/19 01/28/19 14:01 18:57 21:00 WBC 10.6 RBC 3.16 L Hgb 9.7 L Hct 29 L MCV 92 MCH 31 MCHC 34 RDW 14 Plt Count 170 MPV 8.3 Neut % (Auto) Lymph % (Auto) [place]imes % (Auto) Eos % (Auto) Baso % (Auto) Absolute Neuts (auto) Absolute Lymphs (auto) Absolute Monos (auto) Absolute Eos (auto) Absolute Basos (auto) Absolute Nucleated RBC Nucleated RBC % INR (Anticoag Therapy) APTT Sodium 123 L 124 L Potassium 4.0 3.8 Chloride 94 L 96 L Carbon Dioxide 19 L 22 Anion Gap 10 6 BUN 15 13 Creatinine 0.70 0.68 Est GFR ( Amer) 131.0 135.4 Est GFR (Non-Af Amer) 108.2 111.9 BUN/Creatinine Ratio 21.4 H 19.1 Glucose 108 H 109 H Serum Osmolality Calcium 9.0 8.6 Magnesium Urine Osmolality U Sodium Concentration 01/29/19 01/29/19 01/29/19 00:30 06:36 06:36 WBC 9.2 RBC 2.84 L Hgb 8.9 L Hct 26 L MCV 92 MCH 32 H MCHC 34 RDW 14 Plt Count 152 MPV 8.5 Neut % (Auto) 78.3 Lymph % (Auto) 11.5 Grimes % (Auto) 9.0 Eos % (Auto) 0.4 Baso % (Auto) 0.8 Absolute Neuts (auto) 7.2 Absolute Lymphs (auto) 1.1 Absolute Monos (auto) 0.8 Absolute Eos (auto) 0 Absolute Basos (auto) 0.1 Absolute Nucleated RBC 0 Nucleated RBC % 0 INR (Anticoag Therapy) APTT Sodium 124 L 125 L Potassium 4.3 Chloride 97 L Carbon Dioxide 21 L Anion Gap 7 BUN 10 Creatinine 0.54 L Est GFR ( Amer) 176.7 Est GFR (Non-Af Amer) 146.0 BUN/Creatinine Ratio 18.5 Glucose 86 Serum Osmolality Calcium 8.5 L Magnesium 1.6 L Urine Osmolality U Sodium Concentration A/P 83 yo M POD#1 from L hip IMN. HCT 26 due to ACBLA will monitor in case he needs transfusion NA improved to 125 WBAT- PT/OT. mobilize and OOB today continue heparin and restart coumadin post op abx dressing change tomorrow likely SNF dispo
[2019-01-29] MEDS ORDERED: Magnesium Sulfate 2 GM IV* 2 GM/50 ML BAG IVPB ONE (08:18)
[2019-01-29] MEDS: Heparin DRIP 25,000 UNITS(*) 25,000 UNITS/500 ML BAG IV SCH (08:44)
[2019-01-29] MEDS: Tiotropium CAP.INH* CAP.INH/18 MCG (USE ORDER SET !) INH SCH (08:48)
[2019-01-29] MEDS ORDERED: Heparin VIAL(*) 5000 UNITS/ML VIAL (FIVE THOUSAND) IV SCH (09:00)
[2019-01-29] MEDS: oxyCODONE/Acetamin 5/325 MG* TAB PO PRN ×2 (11:04→16:58)
[2019-01-29] MEDS: Cyclobenzaprine TAB* 10 MG PO PRN (11:05)
--- NOTE | 2019-01-29 13:56 | PN ---
Subjective Interval History: Has L hip IMN in OR last night. Tolerated procedure well. Sodium is stable. Hgb decreased by 1 point. Ortho recommending WBAT, PT/OT. Pt reports only mild muscle spasms around surgical site but otherwise denies pain. Objective Active Medications: Cholecalciferol (Vitamin D3 Cap/Tab (Nf)) 1 cap PO DAILY [facility] [place] Cyclobenzaprine HCl (Flexeril Tab*) 10 mg PO BID PRN PRN Reason: muscle spasm Last Admin: 01/29/19 11:05 Dose: 10 mg Diltiazem HCl (Cardizem Cd Cap*) 180 mg PO DAILY [facility] Heparin Sodium (Porcine) (Heparin Vial(*)) 0 units IV .PER PROTOCOL [facility]; Protocol Last Admin: 01/29/19 08:43 Dose: 3,550 units Cefazolin Sodium 1 gm/ Sodium (Chloride) 50 mls @ 200 mls/hr IVPB Q8H [facility] Stop: 01/29/19 16:44 Last Admin: 01/29/19 08:16 Dose: 200 mls/hr Heparin Sodium/Dextrose (Heparin Drip 25,000 Units(*)) 25,000 units in 500 mls @ 0 mls/hr IV PER RATE [facility]; Protocol Last Admin: 01/29/19 08:44 Dose: 15 mls/hr Latanoprost (Xalatan 0.005%*) 1 drop BOTH EYES BEDTIME [facility]; Protocol Last Admin: 01/28/19 23:07 Dose: 1 drop Oxycodone/Acetaminophen (Percocet 5/325 Tab*) 1 tab PO Q4H PRN PRN Reason: Pain Last Admin: 01/29/19 11:04 Dose: 1 tab Pharmacy Profile Note (Coumadin Per Pharmacy*) 1 note FOLLOW UP .PER PHARMACY PROTOC [facility]; Protocol Polyethylene Glycol/Electrolytes (Miralax*) 17 gm PO DAILY PRN PRN Reason: CONSTIPATION Senna (Senokot Tab*) 1 tab PO BEDTIME PRN PRN Reason: if no BM during day Tiotropium [place] (Spiriva Cap.Inh*) 1 cap INH DAILY [facility] Last Admin: 01/29/19 08:48 Dose: 1 cap Warfarin Sodium (Coumadin Tab(*)) 5 mg PO 1700 ONE Stop: 01/29/19 17:01 Vital Signs - 8 hr 01/29/19 01/29/19 01/29/19 07:45 08:00 11:04 Temperature 98.2 F Pulse Rate 82 Respiratory 17 17 18 Rate Blood Pressure 147/51 (mmHg) O2 Sat by Pulse 99 Oximetry 01/29/19 11:05 Temperature Pulse Rate Respiratory 18 Rate Blood Pressure (mmHg) O2 Sat by Pulse Oximetry Oxygen Devices in Use Now: Nasal Cannula Appearance: well appearing, alert and interactive, good spirits Ears/Nose/Mouth/Throat: Mucous Membranes Moist Respiratory: Clear to Auscultation Cardiovascular: RRR Extremities: - - mild swelling over L hip with clean surgical sites, no erytema , neurovascularly intact distally Result Diagrams: 01/29/19 06:36 01/29/19 06:36 Additional Lab and Data: Lab Results 01/26/19 01/26/19 01/26/19 Range/Units 14:45 14:45 15:50 WBC 10.0 (3.5-10.8) 10^3/uL RBC 3.78 L (4.18-5.48) 10^6 /uL Hgb 11.7 L (14.0-18.0) g/dL Hct 34 L (36-46) % MCV 91 (80-94) fL MCH 31 (27-31) pg MCHC 34 (31-36) g/dL RDW 14 (10.5-15) % Plt Count 238 (150-450) 10^3/uL MPV 8.2 (7.4-10.4) fL INR (Anticoag Therapy) 2.59 H (0.77-1.02) Sodium 123 L (135-145) mmol/L Potassium 3.9 (3.5-5.0) mmol/L Chloride 89 L (101-111) mmol/L Carbon Dioxide 25 (22-32) mmol/L Anion Gap 9 (2-11) mmol/L BUN 16 (6-24) mg/dL Creatinine 0.82 (0.67-1.17) mg/dL Est GFR ( Amer) 109.1 (>60) Est GFR (Non-Af Amer) 90.2 (>60) BUN/Creatinine Ratio 19.5 (8-20) Glucose 125 H (70-100) mg/dL Calcium 9.3 (8.6-10.3) mg/dL Total Bilirubin 0.80 (0.2-1.0) mg/dL AST 29 (13-39) U/L ALT 15 (7-52) U/L Alkaline Phosphatase 82 (34-104) U/L Troponin I 0.03 (<0.04) ng/mL Total Protein 7.9 (6.4-8.9) g/dL Albumin 4.4 (3.2-5.2) g/dL Globulin 3.5 (2-4) g/dL Albumin/Globulin Ratio 1.3 (1-3) Blood Type Antibody Screen 01/26/19 Range/Units 15:50 WBC (3.5-10.8) 10^3/uL RBC (4.18-5.48) 10^6 /uL Hgb (14.0-18.0) g/dL Hct (36-46) % MCV (80-94) fL MCH (27-31) pg MCHC (31-36) g/dL RDW (10.5-15) % Plt Count (150-450) 10^3/uL MPV (7.4-10.4) fL INR (Anticoag Therapy) (0.77-1.02) Sodium (135-145) mmol/L Potassium (3.5-5.0) mmol/L Chloride (101-111) mmol/L Carbon Dioxide (22-32) mmol/L Anion Gap (2-11) mmol/L BUN (6-24) mg/dL Creatinine (0.67-1.17) mg/dL Est GFR ( Amer) (>60) Est GFR (Non-Af Amer) (>60) BUN/Creatinine Ratio (8-20) Glucose (70-100) mg/dL Calcium (8.6-10.3) mg/dL Total Bilirubin (0.2-1.0) mg/dL AST (13-39) U/L ALT (7-52) U/L Alkaline Phosphatase (34-104) U/L Troponin I (<0.04) ng/mL Total Protein (6.4-8.9) g/dL Albumin (3.2-5.2) g/dL Globulin (2-4) g/dL Albumin/Globulin Ratio (1-3) Blood Type A Positive Antibody Screen Pending Microbiology and Other Data: Microbiology 01/27/19 00:00 Nasal Screen MRSA (PCR) - Final Nasal Mrsa Not Detected Assess/Plan/Problems-Billing Assessment: 83M with afib on warfarin, HTN, COPD with pHTN, HFpEF, osteoporosis, CVA, presents after mechanical fall with L hip fracture, now s/p IMN 01/28, pending discharge to [facility] after INR therapeutic. - Patient Problems (1) Hip fracture, left Comment: s/p L hip IMN on 01/28. - Percocet prn controlling pain well - will try muscle relaxant for spasms - WBAT, PT/OT - pending [facility] (2) Hyponatremia Comment: Chronic. Previously on furosemide as outpatient. Very dry in ER, and sodium improved with fluids. (3) Paroxysmal a-fib Comment: - bridging warfarin anticoagulation with heparin gtt given high CHADSVSC score of 5 - cont rate control with diltiazem - restarting warfarin 01/29 - can go to [facility] when INR therapeutic and off heparin drip (unless [facility] can give heparin IV and check PTTs) (4) Hypertension Comment: - cont home dilt - previously on furosemide and spironolatone for ANDREWS - holding these medications in house as patient with hyponatremia, hypovolemia, and prior TTE without e/o HF (5) COPD (chronic obstructive pulmonary disease) Comment: - cont on Spiriva this admission (6) Malnourished Comment: BMI 17 - appreciate nutrition input (7) CVA (cerebral vascular accident) Comment: per history - bridging with heparin (8) DVT prophylaxis Comment: on therapeutic AC
[2019-01-29] MEDS: Diltiazem CD CAP* 180 MG PO SCH (16:58)
[2019-01-29] MEDS ORDERED: Warfarin TAB(*) 5 MG PO ONE (17:00)
[2019-01-29] MEDS: Latanoprost 0.005%* 2.5 ml BTL BOTH EYES SCH (21:35)
[2019-01-29] MEDS: Tamsulosin CAP* 0.4 MG PO SCH (21:35)
[2019-01-30] MEDS: Heparin DRIP 25,000 UNITS(*) 25,000 UNITS/500 ML BAG IV SCH (04:16)
[2019-01-30 06:02] LABS: ABS Basophils 0.1 10^3/ul (0-0.2); ABS Eosinophils 0.1 10^3/ul (0-0.6); ABS Monocytes 1.2 10^3/ul (0-0.8); ABS Neutrophils 10.4 10^3/ul (1.5-7.7); ABS Nucleated RBC 0 10^3/ul; Eosinophil % 0.5 %; Hematocrit 25 % (36-46); Hemoglobin 8.3 g/dL (14.0-18.0); Mean Corpuscular HGB Conc 34 g/dL (31-36); Mean Corpuscular Hemoglobin 31 pg (27-31); Mean Corpuscular Volume 92 fL (80-94); Mean Platelet Volume 8.2 fL (7.4-10.4); Nucleated Red Blood Cells % 0; Platelet Count 176 10^3/uL (150-450); Red Blood Count 2.66 10^6 /uL (4.18-5.48); Red Cell Distribution Width 14 % (10.5-15); White Blood Count 12.7 10^3/uL (3.5-10.8)
[2019-01-30 06:12] LABS: Activated Partial Thrombo Time 60.7 seconds (26.0-36.3); INR 1.33 (0.77-1.02)
[2019-01-30 06:20] LABS: BUN/Creatinine Ratio 24.2 (8-20); Calcium 8.9 mg/dL (8.6-10.3); EGFR African American 150.7 (>60); EGFR Non-African American 124.5 (>60); Magnesium 1.9 mg/dL (1.9-2.7); Potassium 3.9 mmol/L (3.5-5.0)
--- NOTE | 2019-01-30 07:02 | PN ---
Progress Note - Progress Note Date of Service: 01/30/19 SOAP: Subjective: resting comfortably with no significant complaints Objective: Vital Signs Temp Pulse Resp BP Pulse Ox 98.0 F 77 18 121/44 90 01/30/19 03:20 01/30/19 03:20 01/30/19 03:20 01/30/19 03:20 01/30/19 03:20 Laboratory Last Values WBC 12.7 10^3/uL (3.5-10.8) H 01/30/19 05:53 RBC 2.66 10^6 /uL (4.18-5.48) L 01/30/19 05:53 Hgb 8.3 g/dL (14.0-18.0) L 01/30/19 05:53 Hct 25 % (36-46) L 01/30/19 05:53 MCV 92 fL (80-94) 01/30/19 05:53 MCH 31 pg (27-31) 01/30/19 05:53 MCHC 34 g/dL (31-36) 01/30/19 05:53 RDW 14 % (10.5-15) 01/30/19 05:53 Plt Count 176 10^3/uL (150-450) 01/30/19 05:53 MPV 8.2 fL (7.4-10.4) 01/30/19 05:53 Neut % (Auto) 81.6 % 01/30/19 05:53 Lymph % (Auto) 8.0 % 01/30/19 05:53 [place] % (Auto) 9.2 % 01/30/19 05:53 Eos % (Auto) 0.5 % 01/30/19 05:53 Baso % (Auto) 0.7 % 01/30/19 05:53 Absolute Neuts (auto) 10.4 10^3/ul (1.5-7.7) H 01/30/19 05:53 Absolute Lymphs (auto) 1.0 10^3/ul (1.0-4.8) 01/30/19 05:53 Absolute Monos (auto) 1.2 10^3/ul (0-0.8) H 01/30/19 05:53 Absolute Eos (auto) 0.1 10^3/ul (0-0.6) 01/30/19 05:53 Absolute Basos (auto) 0.1 10^3/ul (0-0.2) 01/30/19 05:53 Absolute Nucleated RBC 0 10^3/ul 01/30/19 05:53 Nucleated RBC % 0 01/30/19 05:53 INR (Anticoag Therapy) 1.33 (0.77-1.02) H 01/30/19 05:53 APTT 60.7 seconds (26.0-36.3) H 01/30/19 05:53 Sodium 127 mmol/L (135-145) L 01/30/19 05:53 Potassium 3.9 mmol/L (3.5-5.0) 01/30/19 05:53 Chloride 97 mmol/L (101-111) L 01/30/19 05:53 Carbon Dioxide 24 mmol/L (22-32) 01/30/19 05:53 Anion Gap 6 mmol/L (2-11) 01/30/19 05:53 BUN 15 mg/dL (6-24) 01/30/19 05:53 Creatinine 0.62 mg/dL (0.67-1.17) L 01/30/19 05:53 Est GFR ( Amer) 150.7 (>60) 01/30/19 05:53 Est GFR (Non-Af Amer) 124.5 (>60) 01/30/19 05:53 BUN/Creatinine Ratio 24.2 (8-20) H 01/30/19 05:53 Glucose 117 mg/dL (70-100) H 01/30/19 05:53 Serum Osmolality 262 mOsm/kg (275-295) L 01/28/19 05:33 Calcium 8.9 mg/dL (8.6-10.3) 01/30/19 05:53 Magnesium 1.9 mg/dL (1.9-2.7) 01/30/19 05:53 Total Bilirubin 0.80 mg/dL (0.2-1.0) 01/26/19 14:45 AST 29 U/L (13-39) 01/26/19 14:45 ALT 15 U/L (7-52) 01/26/19 14:45 Alkaline Phosphatase 82 U/L (34-104) 01/26/19 14:45 Troponin I 0.03 ng/mL (<0.04) 01/26/19 14:45 B-Natriuretic Peptide 303 pg/mL (<=100) H 01/26/19 14:45 Total Protein 7.9 g/dL (6.4-8.9) 01/26/19 14:45 Albumin 4.4 g/dL (3.2-5.2) 01/26/19 14:45 Globulin 3.5 g/dL (2-4) 01/26/19 14:45 Albumin/Globulin Ratio 1.3 (1-3) 01/26/19 14:45 Urine Osmolality 462 mOsm/kg (100-1150) 01/28/19 13:22 U Sodium Concentration < 18 mmol/L 01/28/19 13:22 Blood Type A Positive 01/26/19 15:50 Antibody Screen Negative 01/26/19 15:50 incision: c/d; dressing changed PE: NVI Assessment: s/p IMN left hip Plan: 1) Hospitalist co-managing 2) Heparin/Coumadin for DVT prophyalxis 3) PT/OT-WBAT
[2019-01-30] MEDS: Diltiazem CD CAP* 180 MG PO SCH (08:37)
[2019-01-30] MEDS: Cholecalciferol TAB* 400 UNIT PO SCH (08:37)
[2019-01-30] MEDS: Tiotropium CAP.INH* CAP.INH/18 MCG (USE ORDER SET !) INH SCH (10:42)
[2019-01-30] MEDS ORDERED: NS 0.9% 1000 ML** 1,000 ML IV ONE (14:23)
[2019-01-30] MEDS: oxyCODONE TAB* 5 MG TAB PO PRN (14:30)
[2019-01-30] MEDS ORDERED: Warfarin TAB(*) 5 MG PO ONE (17:00)
--- NOTE | 2019-01-30 18:15 | PN ---
Subjective Interval History: Pt reporting mild pain but otherwise in good spirits. New leukocytosis - could be from stress of surgery, and completed standard cefazolin doses after procedure. Denies fevers, chills, cough, abdominal pain, dysuria, new rash or worsening pain from hip. Objective Active Medications: Acetaminophen (Tylenol Tab*) 975 mg PO Q8H PRN PRN Reason: mild pain Cholecalciferol (Vitamin D Tab*) 800 unit PO DAILY [facility] Last Admin: 01/30/19 08:37 Dose: 800 unit Cyclobenzaprine HCl (Flexeril Tab*) 10 mg PO BID PRN PRN Reason: muscle spasm Last Admin: 01/29/19 11:05 Dose: 10 mg Diltiazem HCl (Cardizem Cd Cap*) 180 mg PO DAILY [facility] Last Admin: 01/30/19 08:37 Dose: 180 mg Heparin Sodium (Porcine) (Heparin Vial(*)) 0 units IV .PER PROTOCOL [facility]; Protocol Last Admin: 01/29/19 08:43 Dose: 3,550 units Heparin Sodium/Dextrose (Heparin Drip 25,000 Units(*)) 25,000 units in 500 mls @ 0 mls/hr IV PER RATE [facility]; Protocol Last Admin: 01/30/19 04:16 Dose: 12 mls/hr Latanoprost (Xalatan 0.005%*) 1 drop BOTH EYES BEDTIME [facility]; Protocol Last Admin: 01/29/19 21:35 Dose: 1 drop Oxycodone HCl (Roxycodone Tab*) 5 mg PO Q6H PRN PRN Reason: Mild to moderate pain Last Admin: 01/30/19 14:30 Dose: 5 mg Pharmacy Profile Note (Coumadin Per Pharmacy*) 1 note FOLLOW UP .PER PHARMACY PROTOC [facility]; Protocol Polyethylene Glycol/Electrolytes (Miralax*) 17 gm PO DAILY PRN PRN Reason: CONSTIPATION Senna (Senokot Tab*) 1 tab PO BEDTIME PRN PRN Reason: if no BM during day Tamsulosin HCl (Flomax Cap*) 0.4 mg PO BEDTIME [facility] Last Admin: 01/29/19 21:35 Dose: 0.4 mg Tiotropium [place] (Spiriva Cap.Inh*) 1 cap INH DAILY [facility] Last Admin: 01/30/19 10:42 Dose: 1 cap Vital Signs - 8 hr 01/30/19 01/30/19 01/30/19 11:04 14:30 15:46 Temperature 97.8 F 98.1 F Pulse Rate 58 64 Respiratory 22 18 18 Rate Blood Pressure 102/39 124/42 (mmHg) O2 Sat by Pulse 100 100 Oximetry 01/30/19 17:51 Temperature Pulse Rate Respiratory 18 Rate Blood Pressure (mmHg) O2 Sat by Pulse Oximetry Oxygen Devices in Use Now: None Neck: No Thyroid Enlargement, Masses Respiratory: Clear to Auscultation Extremities: - - L hip with stable mild edema near surgical sites without surrounding erythema, bandages c/d/i Skin: No Rash or Ulcers Result Diagrams: 01/30/19 05:53 01/30/19 05:53 Additional Lab and Data: Lab Results 01/26/19 01/26/19 01/26/19 Range/Units 14:45 14:45 15:50 WBC 10.0 (3.5-10.8) 10^3/uL RBC 3.78 L (4.18-5.48) 10^6 /uL Hgb 11.7 L (14.0-18.0) g/dL Hct 34 L (36-46) % MCV 91 (80-94) fL MCH 31 (27-31) pg MCHC 34 (31-36) g/dL RDW 14 (10.5-15) % Plt Count 238 (150-450) 10^3/uL MPV 8.2 (7.4-10.4) fL INR (Anticoag Therapy) 2.59 H (0.77-1.02) Sodium 123 L (135-145) mmol/L Potassium 3.9 (3.5-5.0) mmol/L Chloride 89 L (101-111) mmol/L Carbon Dioxide 25 (22-32) mmol/L Anion Gap 9 (2-11) mmol/L BUN 16 (6-24) mg/dL Creatinine 0.82 (0.67-1.17) mg/dL Est GFR ( Amer) 109.1 (>60) Est GFR (Non-Af Amer) 90.2 (>60) BUN/Creatinine Ratio 19.5 (8-20) Glucose 125 H (70-100) mg/dL Calcium 9.3 (8.6-10.3) mg/dL Total Bilirubin 0.80 (0.2-1.0) mg/dL AST 29 (13-39) U/L ALT 15 (7-52) U/L Alkaline Phosphatase 82 (34-104) U/L Troponin I 0.03 (<0.04) ng/mL Total Protein 7.9 (6.4-8.9) g/dL Albumin 4.4 (3.2-5.2) g/dL Globulin 3.5 (2-4) g/dL Albumin/Globulin Ratio 1.3 (1-3) Blood Type Antibody Screen 01/26/19 Range/Units 15:50 WBC (3.5-10.8) 10^3/uL RBC (4.18-5.48) 10^6 /uL Hgb (14.0-18.0) g/dL Hct (36-46) % MCV (80-94) fL MCH (27-31) pg MCHC (31-36) g/dL RDW (10.5-15) % Plt Count (150-450) 10^3/uL MPV (7.4-10.4) fL INR (Anticoag Therapy) (0.77-1.02) Sodium (135-145) mmol/L Potassium (3.5-5.0) mmol/L Chloride (101-111) mmol/L Carbon Dioxide (22-32) mmol/L Anion Gap (2-11) mmol/L BUN (6-24) mg/dL Creatinine (0.67-1.17) mg/dL Est GFR ( Amer) (>60) Est GFR (Non-Af Amer) (>60) BUN/Creatinine Ratio (8-20) Glucose (70-100) mg/dL Calcium (8.6-10.3) mg/dL Total Bilirubin (0.2-1.0) mg/dL AST (13-39) U/L ALT (7-52) U/L Alkaline Phosphatase (34-104) U/L Troponin I (<0.04) ng/mL Total Protein (6.4-8.9) g/dL Albumin (3.2-5.2) g/dL Globulin (2-4) g/dL Albumin/Globulin Ratio (1-3) Blood Type A Positive Antibody Screen Pending Microbiology and Other Data: Microbiology 01/27/19 00:00 Nasal Screen MRSA (PCR) - Final Nasal Mrsa Not Detected Assess/Plan/Problems-Billing Assessment: 83M with afib on warfarin, HTN, COPD with pHTN, HFpEF, osteoporosis, CVA, presents after mechanical fall with L hip fracture, now s/p IMN 01/28, pending discharge to [facility] after INR therapeutic. - Patient Problems (1) Hip fracture, left Comment: s/p L hip IMN on 01/28. - APAP for mild pain, oxy for mod-severe, bowel regimen - will try muscle relaxant for spasms - WBAT, PT/OT - pending [facility] (2) Hyponatremia Comment: Chronic. Previously on furosemide as outpatient. Very dry in ER, and sodium improved with fluids. (3) Paroxysmal a-fib Comment: - bridging warfarin anticoagulation with heparin gtt given high CHADSVSC score of 5 - cont rate control with diltiazem - restarting warfarin 01/29 - can go to [facility] when INR therapeutic and off heparin drip (unless [facility] can give heparin IV and check PTTs) (4) Hypertension Comment: - cont home dilt - previously on furosemide and spironolatone for ANDREWS - holding these medications in house as patient with hyponatremia, hypovolemia, and prior TTE without e/o HF (5) COPD (chronic obstructive pulmonary disease) Comment: - cont on Spiriva (6) BPH (benign prostatic hyperplasia) Comment: With some urinary retention after [place] - monitor UOP - cont tamsulosin (7) Malnourished Comment: BMI 17 - appreciate nutrition input (8) CVA (cerebral vascular accident) Comment: per history - bridging with heparin (9) DVT prophylaxis Comment: on therapeutic AC
[2019-01-30] MEDS: Tamsulosin CAP* 0.4 MG PO SCH (22:42)
[2019-01-30] MEDS: Latanoprost 0.005%* 2.5 ml BTL BOTH EYES SCH (22:43)
[2019-01-30] MEDS: NS 0.9% 1000 ML** 1,000 ML IV SCH (22:45)
[2019-01-31 05:47] LABS: ABS Basophils 0.1 10^3/ul (0-0.2); ABS Eosinophils 0.1 10^3/ul (0-0.6); ABS Lymphocytes 1.2 10^3/ul (1.0-4.8); ABS Neutrophils 7.2 10^3/ul (1.5-7.7); ABS Nucleated RBC 0 10^3/ul; Eosinophil % 1.1 %; Hematocrit 19 % (36-46); Hemoglobin 6.6 g/dL (14.0-18.0); Lymphocyte % 12.6 %; Mean Corpuscular HGB Conc 34 g/dL (31-36); Mean Corpuscular Hemoglobin 32 pg (27-31); Mean Corpuscular Volume 92 fL (80-94); Mean Platelet Volume 8.5 fL (7.4-10.4); Nucleated Red Blood Cells % 0; Platelet Count 154 10^3/uL (150-450); Red Blood Count 2.07 10^6 /uL (4.18-5.48); Red Cell Distribution Width 14 % (10.5-15); White Blood Count 9.6 10^3/uL (3.5-10.8)
[2019-01-31 05:55] LABS: Activated Partial Thrombo Time 60.1 seconds (26.0-36.3); INR 1.62 (0.77-1.02)
[2019-01-31 06:03] LABS: BUN/Creatinine Ratio 33.3 (8-20); Calcium 8.7 mg/dL (8.6-10.3); EGFR African American 133.2 (>60); Magnesium 1.8 mg/dL (1.9-2.7); Potassium 3.9 mmol/L (3.5-5.0)
[2019-01-31] MEDS: NS 0.9% 1000 ML** 1,000 ML IV SCH (06:48)
[2019-01-31] MEDS ORDERED: Magnesium Sulfate 2 GM IV* 2 GM/50 ML BAG IVPB ONE (08:06)
[2019-01-31 08:24] LABS: ABS Basophils 0 10^3/ul (0-0.2); ABS Eosinophils 0.1 10^3/ul (0-0.6); ABS Lymphocytes 0.8 10^3/ul (1.0-4.8); ABS Monocytes 0.9 10^3/ul (0-0.8); ABS Neutrophils 7.3 10^3/ul (1.5-7.7); ABS Nucleated RBC 0 10^3/ul; Eosinophil % 1.1 %; Hematocrit 19 % (36-46); Hemoglobin 6.8 g/dL (14.0-18.0); Lymphocyte % 9.2 %; Mean Corpuscular HGB Conc 35 g/dL (31-36); Mean Corpuscular Hemoglobin 32 pg (27-31); Mean Corpuscular Volume 92 fL (80-94); Mean Platelet Volume 8.1 fL (7.4-10.4); Nucleated Red Blood Cells % 0; Platelet Count 167 10^3/uL (150-450); Red Cell Distribution Width 14 % (10.5-15); White Blood Count 9.2 10^3/uL (3.5-10.8)
[2019-01-31] MEDS: oxyCODONE TAB* 5 MG TAB PO PRN ×2 (08:55→17:21)
[2019-01-31] MEDS: Cholecalciferol TAB* 400 UNIT PO SCH (08:55)
[2019-01-31] MEDS: Tiotropium CAP.INH* CAP.INH/18 MCG (USE ORDER SET !) INH SCH (08:55)
[2019-01-31] MEDS: Diltiazem CD CAP* 180 MG PO SCH (08:55)
--- NOTE | 2019-01-31 09:03 | PN ---
Progress Note - Progress Note Date of Service: 01/31/19 SOAP: Subjective: resting without complaints Objective: Vital Signs Temp Pulse Resp BP Pulse Ox 98.0 F 76 18 125/49 96 01/31/19 08:22 01/31/19 08:22 01/31/19 08:55 01/31/19 08:22 01/31/19 08:22 Laboratory Last Values WBC 9.2 10^3/uL (3.5-10.8) 01/31/19 08:15 RBC 2.10 10^6 /uL (4.18-5.48) L 01/31/19 08:15 Hgb 6.8 g/dL (14.0-18.0) L 01/31/19 08:15 Hct 19 % (36-46) L 01/31/19 08:15 MCV 92 fL (80-94) 01/31/19 08:15 MCH 32 pg (27-31) H 01/31/19 08:15 MCHC 35 g/dL (31-36) 01/31/19 08:15 RDW 14 % (10.5-15) 01/31/19 08:15 Plt Count 167 10^3/uL (150-450) 01/31/19 08:15 MPV 8.1 fL (7.4-10.4) 01/31/19 08:15 Neut % (Auto) 79.4 % 01/31/19 08:15 Lymph % (Auto) 9.2 % 01/31/19 08:15 [place] % (Auto) 10.0 % 01/31/19 08:15 Eos % (Auto) 1.1 % 01/31/19 08:15 Baso % (Auto) 0.3 % 01/31/19 08:15 Absolute Neuts (auto) 7.3 10^3/ul (1.5-7.7) 01/31/19 08:15 Absolute Lymphs (auto) 0.8 10^3/ul (1.0-4.8) L 01/31/19 08:15 Absolute Monos (auto) 0.9 10^3/ul (0-0.8) H 01/31/19 08:15 Absolute Eos (auto) 0.1 10^3/ul (0-0.6) 01/31/19 08:15 Absolute Basos (auto) 0 10^3/ul (0-0.2) 01/31/19 08:15 Absolute Nucleated RBC 0 10^3/ul 01/31/19 08:15 Nucleated RBC % 0 01/31/19 08:15 INR (Anticoag Therapy) 1.62 (0.77-1.02) H 01/31/19 05:23 APTT 60.1 seconds (26.0-36.3) H 01/31/19 05:23 Sodium 129 mmol/L (135-145) L 01/31/19 05:27 Potassium 3.9 mmol/L (3.5-5.0) 01/31/19 05:27 Chloride 99 mmol/L (101-111) L 01/31/19 05:27 Carbon Dioxide 22 mmol/L (22-32) 01/31/19 05:27 Anion Gap 8 mmol/L (2-11) 01/31/19 05:27 BUN 23 mg/dL (6-24) 01/31/19 05:27 Creatinine 0.69 mg/dL (0.67-1.17) 01/31/19 05:27 Est GFR ( Amer) 133.2 (>60) 01/31/19 05:27 Est GFR (Non-Af Amer) 110.0 (>60) 01/31/19 05:27 BUN/Creatinine Ratio 33.3 (8-20) H 01/31/19 05:27 Glucose 114 mg/dL (70-100) H 01/31/19 05:27 Serum Osmolality 262 mOsm/kg (275-295) L 01/28/19 05:33 Calcium 8.7 mg/dL (8.6-10.3) 01/31/19 05:27 Magnesium 1.8 mg/dL (1.9-2.7) L 01/31/19 05:27 Total Bilirubin 0.80 mg/dL (0.2-1.0) 01/26/19 14:45 AST 29 U/L (13-39) 01/26/19 14:45 ALT 15 U/L (7-52) 01/26/19 14:45 Alkaline Phosphatase 82 U/L (34-104) 01/26/19 14:45 Troponin I 0.03 ng/mL (<0.04) 01/26/19 14:45 B-Natriuretic Peptide 303 pg/mL (<=100) H 01/26/19 14:45 Total Protein 7.9 g/dL (6.4-8.9) 01/26/19 14:45 Albumin 4.4 g/dL (3.2-5.2) 01/26/19 14:45 Globulin 3.5 g/dL (2-4) 01/26/19 14:45 Albumin/Globulin Ratio 1.3 (1-3) 01/26/19 14:45 Urine Osmolality 462 mOsm/kg (100-1150) 01/28/19 13:22 U Sodium Concentration < 18 mmol/L 01/28/19 13:22 Blood Type A Positive 01/31/19 08:15 Antibody Screen Negative 01/26/19 15:50 Crossmatch See Detail 01/31/19 08:15 incision: c/d; dressing changed this am by nurse, mild bloody discharge PE-nvi Assessment: s/p IMN left hip Plan: 1) PT/OT0 WBAT 2) hospitalist co-manaing- ordered PRBC'S for low HCT 3) will change dressing daily and watch closely 4) Continue current DVT prophylaxis
[2019-01-31] MEDS ORDERED: Lactated Ringers 1000 ML Bag* 1,000 ML IV ONE ×2 (13:31→23:50)
--- NOTE | 2019-01-31 14:31 | PN ---
Subjective Date of Service: 01/31/19 Interval History: Pt seen and examined. Meds and labs reviewed. CC: Constipation; has not passed flatus ROS: Denied SMALL/dizziness, F/C, N/V, CP, SOB, increased cough, sputum production , abd pain, diarrhea, dysuria, myalgias, arthralgias, throat pain, and new skin lesions. The rest of the 14 point ROS are unremarkable. PHYSICAL EXAM: GEN APPEARANCE: Awake, not in acute distress HEENT: NC/AT, PERRLA, moist oral mucosa, (-) throat erythema NECK: Soft, supple, (-) cervical LAD, (-)JVD HEART: S1S2 WNL, RRR, No MRG CHEST: CTA, BL, GAE, No W/R/R ABD: Soft, (+)distended/NT, Hypoactive BS 4x Q EXT: No C/C/L. hip cdi SKIN: Warm to touch PSYCH: No active psychosis, hallucinations, depression, SI/HI Objective Active Medications: Acetaminophen (Tylenol Tab*) 975 mg PO Q8H PRN PRN Reason: mild pain Cholecalciferol (Vitamin D Tab*) 800 unit PO DAILY [facility] Last Admin: 01/31/19 08:55 Dose: 800 unit Cyclobenzaprine HCl (Flexeril Tab*) 10 mg PO BID PRN PRN Reason: muscle spasm Last Admin: 01/29/19 11:05 Dose: 10 mg Diltiazem HCl (Cardizem Cd Cap*) 180 mg PO DAILY [facility] Last Admin: 01/31/19 08:55 Dose: 180 mg Heparin Sodium (Porcine) (Heparin Vial(*)) 0 units IV .PER PROTOCOL [facility]; Protocol Last Admin: 01/29/19 08:43 Dose: 3,550 units Heparin Sodium/Dextrose (Heparin Drip 25,000 Units(*)) 25,000 units in 500 mls @ 0 mls/hr IV PER RATE [facility]; Protocol Last Admin: 01/30/19 04:16 Dose: 12 mls/hr Sodium Chloride (Ns 0.9% 1000 Ml) 1,000 mls @ 125 mls/hr IV PER RATE [facility] Last Admin: 01/31/19 06:48 Dose: 125 mls/hr Lactated Ringer's (Lactated Ringers 1000 Ml Bag*) 1,000 mls @ 80 mls/hr IV ONCE ONE Stop: 02/01/19 02:00 Latanoprost (Xalatan 0.005%*) 1 drop BOTH EYES BEDTIME [facility]; Protocol Last Admin: 01/30/19 22:43 Dose: 1 drop Oxycodone HCl (Roxycodone Tab*) 5 mg PO Q6H PRN PRN Reason: Mild to moderate pain Last Admin: 01/31/19 08:55 Dose: 5 mg Pharmacy Profile Note (Coumadin Per Pharmacy*) 1 note FOLLOW UP .PER PHARMACY PROTOC [facility]; Protocol Polyethylene Glycol/Electrolytes (Miralax*) 17 gm PO DAILY PRN PRN Reason: CONSTIPATION Senna (Senokot Tab*) 1 tab PO BEDTIME PRN PRN Reason: if no BM during day Tamsulosin HCl (Flomax Cap*) 0.4 mg PO BEDTIME [facility] Last Admin: 01/30/19 22:42 Dose: 0.4 mg Tiotropium Banks (Spiriva Cap.Inh*) 1 cap INH DAILY [facility] Last Admin: 01/31/19 08:55 Dose: 1 cap Warfarin Sodium (Coumadin Tab(*)) 5 mg PO ONCE ONE Stop: 01/31/19 17:01 Vital Signs - 8 hr 01/31/19 01/31/19 01/31/19 08:00 08:22 08:55 Temperature 98.0 F Pulse Rate 76 Respiratory 18 15 18 Rate Blood Pressure 125/49 (mmHg) O2 Sat by Pulse 96 Oximetry 01/31/19 10:53 Temperature Pulse Rate Respiratory 18 Rate Blood Pressure (mmHg) O2 Sat by Pulse Oximetry Oxygen Devices in Use Now: Nasal Cannula Result Diagrams: 01/31/19 08:15 01/31/19 05:27 Additional Lab and Data: Lab Results 01/26/19 01/26/19 01/26/19 Range/Units 14:45 14:45 15:50 WBC 10.0 (3.5-10.8) 10^3/uL RBC 3.78 L (4.18-5.48) 10^6 /uL Hgb 11.7 L (14.0-18.0) g/dL Hct 34 L (36-46) % MCV 91 (80-94) fL MCH 31 (27-31) pg MCHC 34 (31-36) g/dL RDW 14 (10.5-15) % Plt Count 238 (150-450) 10^3/uL MPV 8.2 (7.4-10.4) fL INR (Anticoag Therapy) 2.59 H (0.77-1.02) Sodium 123 L (135-145) mmol/L Potassium 3.9 (3.5-5.0) mmol/L Chloride 89 L (101-111) mmol/L Carbon Dioxide 25 (22-32) mmol/L Anion Gap 9 (2-11) mmol/L BUN 16 (6-24) mg/dL Creatinine 0.82 (0.67-1.17) mg/dL Est GFR ( Amer) 109.1 (>60) Est GFR (Non-Af Amer) 90.2 (>60) BUN/Creatinine Ratio 19.5 (8-20) Glucose 125 H (70-100) mg/dL Calcium 9.3 (8.6-10.3) mg/dL Total Bilirubin 0.80 (0.2-1.0) mg/dL AST 29 (13-39) U/L ALT 15 (7-52) U/L Alkaline Phosphatase 82 (34-104) U/L Troponin I 0.03 (<0.04) ng/mL Total Protein 7.9 (6.4-8.9) g/dL Albumin 4.4 (3.2-5.2) g/dL Globulin 3.5 (2-4) g/dL Albumin/Globulin Ratio 1.3 (1-3) Blood Type Antibody Screen 01/26/19 Range/Units 15:50 WBC (3.5-10.8) 10^3/uL RBC (4.18-5.48) 10^6 /uL Hgb (14.0-18.0) g/dL Hct (36-46) % MCV (80-94) fL MCH (27-31) pg MCHC (31-36) g/dL RDW (10.5-15) % Plt Count (150-450) 10^3/uL MPV (7.4-10.4) fL INR (Anticoag Therapy) (0.77-1.02) Sodium (135-145) mmol/L Potassium (3.5-5.0) mmol/L Chloride (101-111) mmol/L Carbon Dioxide (22-32) mmol/L Anion Gap (2-11) mmol/L BUN (6-24) mg/dL Creatinine (0.67-1.17) mg/dL Est GFR ( Amer) (>60) Est GFR (Non-Af Amer) (>60) BUN/Creatinine Ratio (8-20) Glucose (70-100) mg/dL Calcium (8.6-10.3) mg/dL Total Bilirubin (0.2-1.0) mg/dL AST (13-39) U/L ALT (7-52) U/L Alkaline Phosphatase (34-104) U/L Troponin I (<0.04) ng/mL Total Protein (6.4-8.9) g/dL Albumin (3.2-5.2) g/dL Globulin (2-4) g/dL Albumin/Globulin Ratio (1-3) Blood Type A Positive Antibody Screen Pending Microbiology and Other Data: Microbiology 01/27/19 00:00 Nasal Screen MRSA (PCR) - Final Nasal Mrsa Not Detected Assess/Plan/Problems-Billing Assessment: 83M with afib on warfarin, HTN, COPD with pHTN, HFpEF, osteoporosis, CVA, presents after mechanical fall with L hip fracture, now s/p IMN 01/28, pending discharge to [facility] after INR therapeutic. - Patient Problems (1) Ileus Current Visit: Yes Status: Acute Code(s): K56.7 - ILEUS, UNSPECIFIED SNOMED Code(s): 015498915 Comment: -Will place pt on LR and NGT to mild suction -D/W Dr. Stokes; will await further eval in AM -Repeat AXR in AM (2) Anemia Current Visit: Yes Status: Acute Code(s): D64.9 - ANEMIA, UNSPECIFIED SNOMED Code(s): 968896057 Comment: -Likely post-op blood loss -Will transfuse with 1 unit PRBC (3) Hypomagnesemia Current Visit: Yes Status: Acute Code(s): E83.42 - HYPOMAGNESEMIA SNOMED Code(s): 402935530 Comment: -Corrected -Continue to follow (4) Hip fracture, left Current Visit: Yes Status: Acute Code(s): S72.002A - FRACTURE OF UNSP PART OF NECK OF LEFT FEMUR, INIT SNOMED Code(s): 393947403 Comment: -s/p L hip IMN on 01/28, POD #3. - APAP for mild pain, oxy for mod-severe, bowel regimen - will try muscle relaxant for spasms - WBAT, PT/OT - pending [facility] (5) Hyponatremia Current Visit: Yes Status: Acute Code(s): E87.1 - HYPO-OSMOLALITY AND HYPONATREMIA SNOMED Code(s): 13888335 Comment: -Chronic. Previously on furosemide as outpatient. Very dry in ER, and sodium improved with fluids -Continue IVFs as discussed -Continue watchful waiting (6) Paroxysmal a-fib Current Visit: Yes Status: Acute Code(s): I48.0 - PAROXYSMAL ATRIAL FIBRILLATION SNOMED Code(s): 563312956 Comment: -Continue Coumadin-Heparin gtt bridging -Continue warfarin - can go to [facility] when INR therapeutic and off heparin drip ( unless [facility] can give heparin IV and check PTTs) (7) Hypertension Current Visit: Yes Status: Acute Code(s): I10 - ESSENTIAL (PRIMARY) HYPERTENSION SNOMED Code(s): 32480335 Comment: - cont home dilt - previously on furosemide and spironolatone for ANDREWS - holding these medications in house as patient with hyponatremia, hypovolemia, and prior TTE without e/o HF (8) COPD (chronic obstructive pulmonary disease) Current Visit: Yes Status: Acute Code(s): J44.9 - CHRONIC OBSTRUCTIVE PULMONARY DISEASE, UNSPECIFIED SNOMED Code(s): 64676306 Comment: - cont on Spiriva (9) Malnourished Current Visit: Yes Status: Acute Code(s): E46 - UNSPECIFIED PROTEIN-CALORIE MALNUTRITION SNOMED Code(s): 97919195 Comment: BMI 17 - appreciate nutrition input (10) CVA (cerebral vascular accident) Current Visit: Yes Status: Acute Code(s): I63.9 - CEREBRAL INFARCTION, UNSPECIFIED SNOMED Code(s): 153943170 Comment: per history - bridging with heparin (11) DVT prophylaxis Current Visit: Yes Status: Acute Code(s): RKQ8502 - SNOMED Code(s): 453981667 Comment: on therapeutic AC Status and Disposition: -For [facility] placement when ready
[2019-01-31] MEDS ORDERED: Lidocaine 2% VISCOUS* 15 ML UDC PO ONE (14:39)
[2019-01-31 15:59] LABS: INR 1.82 (0.77-1.02)
[2019-01-31] MEDS ORDERED: Warfarin TAB(*) 5 MG PO ONE (17:00)
[2019-01-31 20:06] LABS: ABS Basophils 0.1 10^3/ul (0-0.2); ABS Eosinophils 0.1 10^3/ul (0-0.6); ABS Lymphocytes 0.7 10^3/ul (1.0-4.8); ABS Monocytes 0.9 10^3/ul (0-0.8); ABS Neutrophils 7.9 10^3/ul (1.5-7.7); ABS Nucleated RBC 0 10^3/ul; Eosinophil % 1.1 %; Hematocrit 24 % (36-46); Hemoglobin 8.1 g/dL (14.0-18.0); Lymphocyte % 7.7 %; Mean Corpuscular HGB Conc 34 g/dL (31-36); Mean Corpuscular Hemoglobin 31 pg (27-31); Mean Corpuscular Volume 91 fL (80-94); Mean Platelet Volume 7.7 fL (7.4-10.4); Nucleated Red Blood Cells % 0; Platelet Count 170 10^3/uL (150-450); Red Blood Count 2.59 10^6 /uL (4.18-5.48); Red Cell Distribution Width 14 % (10.5-15); White Blood Count 9.7 10^3/uL (3.5-10.8)
[2019-01-31] MEDS: Tamsulosin CAP* 0.4 MG PO SCH (20:28)
[2019-01-31] MEDS: Latanoprost 0.005%* 2.5 ml BTL BOTH EYES SCH (20:30)
[2019-02-01] MEDS: Heparin DRIP 25,000 UNITS(*) 25,000 UNITS/500 ML BAG IV SCH (00:23)
[2019-02-01 05:43] LABS: ABS Basophils 0.1 10^3/ul (0-0.2); ABS Eosinophils 0.2 10^3/ul (0-0.6); ABS Lymphocytes 0.8 10^3/ul (1.0-4.8); ABS Monocytes 0.8 10^3/ul (0-0.8); ABS Neutrophils 7.6 10^3/ul (1.5-7.7); ABS Nucleated RBC 0 10^3/ul; Eosinophil % 1.6 %; Hematocrit 24 % (36-46); Hemoglobin 8.1 g/dL (14.0-18.0); Lymphocyte % 8.8 %; Mean Corpuscular HGB Conc 34 g/dL (31-36); Mean Corpuscular Hemoglobin 31 pg (27-31); Mean Corpuscular Volume 91 fL (80-94); Nucleated Red Blood Cells % 0; Platelet Count 176 10^3/uL (150-450); Red Blood Count 2.57 10^6 /uL (4.18-5.48); Red Cell Distribution Width 15 % (10.5-15); White Blood Count 9.5 10^3/uL (3.5-10.8)
[2019-02-01 06:18] LABS: Albumin 3.1 g/dL (3.2-5.2); Albumin/Globulin Ratio 1.1 (1-3); BUN/Creatinine Ratio 33.3 (8-20); Calcium 8.4 mg/dL (8.6-10.3); EGFR Non-African American 137.2 (>60); Globulin 2.9 g/dL (2-4); Magnesium 1.9 mg/dL (1.9-2.7); Phosphorus 2.9 mg/dL (2.5-5.0); Potassium 4.3 mmol/L (3.5-5.0); Total Bilirubin 1.4 mg/dL (0.2-1.0)
[2019-02-01] MEDS ORDERED: Furosemide IV* 10 MG/ML 2 ML VIAL (20 MG) IV ONE (07:07)
[2019-02-01] MEDS ORDERED: Sodium Phosphate ADULT ENEMA* 118 ml bottle PR ONE (07:28)
[2019-02-01] MEDS ORDERED: Polyethylene Glycol 3350* 17 GM PACKET PO STA (07:28)
[2019-02-01] MEDS ORDERED: Docusate CAP* 100 MG PO PRN (07:29)
[2019-02-01] MEDS: Tiotropium CAP.INH* CAP.INH/18 MCG (USE ORDER SET !) INH SCH (07:37)
[2019-02-01] MEDS: Diltiazem CD CAP* 180 MG PO SCH (07:38)
[2019-02-01] MEDS: Cholecalciferol TAB* 400 UNIT PO SCH (07:38)
[2019-02-01] MEDS: Acetaminophen TAB* 325 MG PO PRN ×2 (07:38→16:13)
[2019-02-01] MEDS: oxyCODONE TAB* 5 MG TAB PO PRN ×2 (07:42→16:14)
[2019-02-01 09:29] LABS: INR 2.79 (0.82-1.09)
--- NOTE | 2019-02-01 13:05 | CONS ---
CC: [facility]; Dr. Mauro Ulloa* CONSULTATION REPORT: DATE OF CONSULT: 02/01/19 REFERRING PROVIDER: Dr. Otis Dos Santos, hospitalist. REASON FOR CONSULTATION: Abdominal distention and constipation status post repair of left hip fracture. HISTORY OF PRESENT ILLNESS: Mr. Alvaro Álvarez is a 83-year-old gentleman with history of hypertension; glaucoma; atrial fibrillation, on Coumadin; history of TIA, and a history of alcohol abuse, who was admitted to the hospitalist service after he fell and sustained a left hip fracture. Workup included a pelvic CT, which showed a comminuted fracture of the proximal left femur and he was taken to the operating room after medical evaluation by Dr. Jean Baptiste and underwent a left hip intramedullary nail for repair of the fracture. This was done on 01/28/19. He has done well postoperatively, but developed some abdominal distention and is not having bowel movements. He has had no nausea or vomiting. No complaints of abdominal discomfort. He has been taking oral oxycodone for pain. Per review of the medical record he has been a taking a minimal amount, but did take 5 mg this morning. He has undergone abdominal x-rays in the last few days. In review of these images. These show findings consistent with some mild small bowel and colonic dilatation with stool down into the sigmoid colon, rectosigmoid area with findings consistent with ileus. There was no evidence of free air, other acute abnormality. Surgical consultation was obtained. PAST MEDICAL HISTORY: 1. Hypertension. 2. Atrial fibrillation. 3. History of alcohol abuse. 4. History of TIA. 5. Osteoporosis. 6. Glaucoma. PAST SURGICAL HISTORY: Abdominal surgery is unremarkable. PRESENT MEDICATIONS: Include: 1. Xalatan eyedrops. 2. Spiriva. 3. Polyethylene glycol. 4. Senna tablets. 5. Heparin drip. 6. Coumadin. 7. Cyclobenzaprine. 8. Diltiazem. 9. Tamsulosin. 10. Tylenol. 11. Oxycodone. 12. Docusate. ALLERGIES: SHELLFISH, which causes nausea and vomiting. SOCIAL HISTORY: He lives alone. 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 He quit smoking tobacco in his 40s. He has cut back on his drinking to about 2 beers per day. He denies any substance abuse. REVIEW OF SYSTEMS: Cerebrovascular: He has not had any recent change in vision or headaches. Cardiovascular: No chest pain, shortness of breath. Pulmonary: No wheezing, hemoptysis. GI: He has not had problems with abdominal pain, nausea, and vomiting. He states he has been passing small amount of flatus. He did undergo a colonoscopy in [address] Nguyen, which was unremarkable and recommended to follow up the screening exam in 10 years. PHYSICAL EXAM: Temperature is 98.2, pulse 86, blood pressure 152/58. In general, he is a slender elderly male, appears to be in apparent distress, quite pleasant. Lungs are clear to auscultation with normal respiratory effort. Heart rate with regular rate and rhythm without murmurs, rubs or gallops. Abdomen is soft, but distended. There are no prior surgical incisions. There are no hernias noted. He has bowel sounds that are hyperactive and somewhat higher pitched and occasionally tinkling. There is no abdominal pain, rebound, or guarding. Digital rectal exam was performed, which showed no evidence of mass, blood and there was no stool in the rectal vault, but there was some brown liquid that was passed on removal of the finger. DIAGNOSTIC STUDIES/LAB DATA: Laboratory values today include white blood cell of 9.5 with a hemoglobin of 8.1. Sodium of 129 with a BUN and creatinine of 19 and 0.57. He has an albumin of 3.1. I did review the abdominal films done today. In addition, I reviewed the pelvic CT scan that was done on this admission, which was done for the hip fracture. This does show stool and air throughout the sigmoid colon extending down to the rectum without obvious evidence of a mass or obstruction. IMPRESSION: Recent left hip fracture, status post operative repair with postoperative ileus. Abdominal films are consistent with a postoperative ileus and I see no evidence of mechanical obstruction within the small bowel or the large bowel. I did perform a digital rectal exam today, which showed no evidence of stool in the rectal vault, but no evidence of mass, blood or undue discomfort. At this point, I do not have any specific or further surgical intervention or recommendations. Certainly avoiding narcotic pain medicine, increasing his activity as tolerated and he will be receiving enemas as well as some MiraLAX from above to see if this will improve. If there is no improvement we will consider and recommend gastroenterology consultation for further evaluation, but for now I would continue with the present care and we can follow him with you. [id number]/[facility] #: [id number] HELDER
--- NOTE | 2019-02-01 13:47 | PN ---
Progress Note - Progress Note Date of Service: 02/01/19 SOAP: Subjective: []Pt seen OOB in chair. He feels well without left hip pain, denies CP, dizziness, nausea. States he has had mild shortness of breath over several days that has not worsened. Objective: []General: Appears well, NAD LLE: Left hip proximal 2 incisions with mild serosanguinous drainage, per nursing also changed dressing this morning with serosanguinous drainage. No erythema, no purulence. thigh is soft, DF/PF intact, DP2+, sensation intact to light touch distally, DP2+. Calves supple and nontender without erythema, edema or palpable cords Assessment: s/p IMN left hip Plan: 1) PT/OT WBAT 2) hospitalist co-managing 3) will change dressing daily and watch closely 4) Continue current DVT prophylaxis (on heparin drip) Vital Signs Temp 97.6 F 02/01/19 11:41 Pulse 58 02/01/19 11:41 Resp 17 02/01/19 11:41 BP 119/51 02/01/19 11:41 Pulse Ox 93 02/01/19 11:41 Intake & Output 01/31/19 02/01/19 02/01/19 18:59 06:59 18:59 Intake Total 636 1413 0 Output Total 250 425 720 Balance 386 988 -720 Intake: IV Fluids 908 LR 908 Heparin 505 Oral 300 0 0 Packed Cells 336 Output: Urine 250 425 720 Other: Estimated Void Large Medium # Bowel Movements 0 # Voids 1 1 Laboratory Last Values WBC 9.5 10^3/uL (3.5-10.8) 02/01/19 05:28 RBC 2.57 10^6 /uL (4.18-5.48) L 02/01/19 05:28 Hgb 8.1 g/dL (14.0-18.0) L 02/01/19 05:28 Hct 24 % (36-46) L 02/01/19 05:28 MCV 91 fL (80-94) 02/01/19 05:28 MCH 31 pg (27-31) 02/01/19 05:28 MCHC 34 g/dL (31-36) 02/01/19 05:28 RDW 15 % (10.5-15) 02/01/19 05:28 Plt Count 176 10^3/uL (150-450) 02/01/19 05:28 MPV 8.0 fL (7.4-10.4) 02/01/19 05:28 Neut % (Auto) 80.2 % 02/01/19 05:28 Lymph % (Auto) 8.8 % 02/01/19 05:28 Simpson % (Auto) 8.5 % 02/01/19 05:28 Eos % (Auto) 1.6 % 02/01/19 05:28 Baso % (Auto) 0.9 % 02/01/19 05:28 Absolute Neuts (auto) 7.6 10^3/ul (1.5-7.7) 02/01/19 05:28 Absolute Lymphs (auto) 0.8 10^3/ul (1.0-4.8) L 02/01/19 05:28 Absolute Monos (auto) 0.8 10^3/ul (0-0.8) 02/01/19 05:28 Absolute Eos (auto) 0.2 10^3/ul (0-0.6) 02/01/19 05:28 Absolute Basos (auto) 0.1 10^3/ul (0-0.2) 02/01/19 05:28 Absolute Nucleated RBC 0 10^3/ul 02/01/19 05:28 Nucleated RBC % 0 02/01/19 05:28 INR (Anticoag Therapy) 2.79 (0.82-1.09) H 02/01/19 09:00 APTT 61.8 seconds (26.0-36.3) H 02/01/19 05:28 Sodium 129 mmol/L (135-145) L 02/01/19 05:28 Potassium 4.3 mmol/L (3.5-5.0) 02/01/19 05:28 Chloride 100 mmol/L (101-111) L 02/01/19 05:28 Carbon Dioxide 23 mmol/L (22-32) 02/01/19 05:28 Anion Gap 6 mmol/L (2-11) 02/01/19 05:28 BUN 19 mg/dL (6-24) 02/01/19 05:28 Creatinine 0.57 mg/dL (0.67-1.17) L 02/01/19 05:28 Est GFR ( Amer) 166.0 (>60) 02/01/19 05:28 Est GFR (Non-Af Amer) 137.2 (>60) 02/01/19 05:28 BUN/Creatinine Ratio 33.3 (8-20) H 02/01/19 05:28 Glucose 110 mg/dL (70-100) H 02/01/19 05:28 Serum Osmolality 262 mOsm/kg (275-295) L 01/28/19 05:33 Calcium 8.4 mg/dL (8.6-10.3) L 02/01/19 05:28 Phosphorus 2.9 mg/dL (2.5-5.0) 02/01/19 05:28 Magnesium 1.9 mg/dL (1.9-2.7) 02/01/19 05:28 Total Bilirubin 1.40 mg/dL (0.2-1.0) H 02/01/19 05:28 AST 30 U/L (13-39) 02/01/19 05:28 ALT 12 U/L (7-52) 02/01/19 05:28 Alkaline Phosphatase 62 U/L (34-104) 02/01/19 05:28 Troponin I 0.03 ng/mL (<0.04) 01/26/19 14:45 B-Natriuretic Peptide 303 pg/mL (<=100) H 01/26/19 14:45 Total Protein 6.0 g/dL (6.4-8.9) L 02/01/19 05:28 Albumin 3.1 g/dL (3.2-5.2) L 02/01/19 05:28 Globulin 2.9 g/dL (2-4) 02/01/19 05:28 Albumin/Globulin Ratio 1.1 (1-3) 02/01/19 05:28 Urine Osmolality 462 mOsm/kg (100-1150) 01/28/19 13:22 U Sodium Concentration < 18 mmol/L 01/28/19 13:22 Blood Type A Positive 01/31/19 08:15 Antibody Screen Negative 01/31/19 08:15 Crossmatch See Detail 01/31/19 08:15
--- NOTE | 2019-02-01 14:44 | PN ---
Subjective Date of Service: 02/01/19 Interval History: Pt seen and examined. Meds and labs reviewed. Pt mentioned he has been having mild SOB for the past 3 days, unfortunately, he mentions this to other staff members. CC: Mild SOB ROS: Denied SMALL/dizziness, F/C, N/V, CP, increased cough, sputum production, abd pain, diarrhea, constipation, dysuria, myalgias, arthralgias, throat pain, and new skin lesions. The rest of the 14 point ROS are unremarkable. PHYSICAL EXAM: GEN APPEARANCE: Awake, not in acute distress HEENT: NC/AT, PERRLA, moist oral mucosa, (-) throat erythema NECK: Soft, supple, (-) cervical LAD, (-)JVD HEART: S1S2 WNL, RRR, No MRG CHEST: CTA, BL, GAE, No W/R/R ABD: Soft, ND/slight distention, soft, (-) rebound, Hypoacticve 4x Q EXT: No C/C/E SKIN: Warm to touch PSYCH: No active psychosis, hallucinations, depression, SI/HI Objective Active Medications: Acetaminophen (Tylenol Tab*) 975 mg PO Q8H PRN PRN Reason: mild pain Last Admin: 02/01/19 07:38 Dose: 975 mg Cholecalciferol (Vitamin D Tab*) 800 unit PO DAILY [facility] Last Admin: 02/01/19 07:38 Dose: 800 unit Cyclobenzaprine HCl (Flexeril Tab*) 10 mg PO BID PRN PRN Reason: muscle spasm Last Admin: 01/29/19 11:05 Dose: 10 mg Diltiazem HCl (Cardizem Cd Cap*) 180 mg PO DAILY [facility] Last Admin: 02/01/19 07:38 Dose: 180 mg Docusate Sodium (Colace Cap*) 200 mg PO DAILY PRN PRN Reason: CONSTIPATION Latanoprost (Xalatan 0.005%*) 1 drop BOTH EYES BEDTIME [facility]; Protocol Last Admin: 01/31/19 20:30 Dose: 1 drop Oxycodone HCl (Roxycodone Tab*) 5 mg PO Q6H PRN PRN Reason: Mild to moderate pain Last Admin: 02/01/19 07:42 Dose: 5 mg Pharmacy Profile Note (Coumadin Per Pharmacy*) 1 note FOLLOW UP .PER PHARMACY PROTOC [facility]; Protocol Polyethylene Glycol/Electrolytes (Miralax*) 17 gm PO DAILY PRN PRN Reason: CONSTIPATION Senna (Senokot Tab*) 1 tab PO BEDTIME PRN PRN Reason: if no BM during day Tamsulosin HCl (Flomax Cap*) 0.4 mg PO BEDTIME [facility] Last Admin: 01/31/19 20:28 Dose: 0.4 mg Tiotropium [place] (Spiriva Cap.Inh*) 1 cap INH DAILY [facility] Last Admin: 02/01/19 07:37 Dose: 1 cap Warfarin Sodium (Coumadin Tab(*)) 3 mg PO DAILY@1700 [facility] Vital Signs - 8 hr 02/01/19 02/01/19 02/01/19 06:59 07:42 08:00 Temperature 98.2 F Pulse Rate 86 Respiratory 16 22 16 Rate Blood Pressure 152/48 (mmHg) O2 Sat by Pulse 89 Oximetry 02/01/19 11:41 Temperature 97.6 F Pulse Rate 58 Respiratory 17 Rate Blood Pressure 119/51 (mmHg) O2 Sat by Pulse 93 Oximetry Oxygen Devices in Use Now: Nasal Cannula Result Diagrams: 02/01/19 05:28 02/01/19 05:28 Additional Lab and Data: Lab Results 01/26/19 01/26/19 01/26/19 Range/Units 14:45 14:45 15:50 WBC 10.0 (3.5-10.8) 10^3/uL RBC 3.78 L (4.18-5.48) 10^6 /uL Hgb 11.7 L (14.0-18.0) g/dL Hct 34 L (36-46) % MCV 91 (80-94) fL MCH 31 (27-31) pg MCHC 34 (31-36) g/dL RDW 14 (10.5-15) % Plt Count 238 (150-450) 10^3/uL MPV 8.2 (7.4-10.4) fL INR (Anticoag Therapy) 2.59 H (0.77-1.02) Sodium 123 L (135-145) mmol/L Potassium 3.9 (3.5-5.0) mmol/L Chloride 89 L (101-111) mmol/L Carbon Dioxide 25 (22-32) mmol/L Anion Gap 9 (2-11) mmol/L BUN 16 (6-24) mg/dL Creatinine 0.82 (0.67-1.17) mg/dL Est GFR ( Amer) 109.1 (>60) Est GFR (Non-Af Amer) 90.2 (>60) BUN/Creatinine Ratio 19.5 (8-20) Glucose 125 H (70-100) mg/dL Calcium 9.3 (8.6-10.3) mg/dL Total Bilirubin 0.80 (0.2-1.0) mg/dL AST 29 (13-39) U/L ALT 15 (7-52) U/L Alkaline Phosphatase 82 (34-104) U/L Troponin I 0.03 (<0.04) ng/mL Total Protein 7.9 (6.4-8.9) g/dL Albumin 4.4 (3.2-5.2) g/dL Globulin 3.5 (2-4) g/dL Albumin/Globulin Ratio 1.3 (1-3) Blood Type Antibody Screen 01/26/19 Range/Units 15:50 WBC (3.5-10.8) 10^3/uL RBC (4.18-5.48) 10^6 /uL Hgb (14.0-18.0) g/dL Hct (36-46) % MCV (80-94) fL MCH (27-31) pg MCHC (31-36) g/dL RDW (10.5-15) % Plt Count (150-450) 10^3/uL MPV (7.4-10.4) fL INR (Anticoag Therapy) (0.77-1.02) Sodium (135-145) mmol/L Potassium (3.5-5.0) mmol/L Chloride (101-111) mmol/L Carbon Dioxide (22-32) mmol/L Anion Gap (2-11) mmol/L BUN (6-24) mg/dL Creatinine (0.67-1.17) mg/dL Est GFR ( Amer) (>60) Est GFR (Non-Af Amer) (>60) BUN/Creatinine Ratio (8-20) Glucose (70-100) mg/dL Calcium (8.6-10.3) mg/dL Total Bilirubin (0.2-1.0) mg/dL AST (13-39) U/L ALT (7-52) U/L Alkaline Phosphatase (34-104) U/L Troponin I (<0.04) ng/mL Total Protein (6.4-8.9) g/dL Albumin (3.2-5.2) g/dL Globulin (2-4) g/dL Albumin/Globulin Ratio (1-3) Blood Type A Positive Antibody Screen Pending Microbiology and Other Data: Microbiology 01/27/19 00:00 Nasal Screen MRSA (PCR) - Final Nasal Mrsa Not Detected Assess/Plan/Problems-Billing Assessment: 83M with afib on warfarin, HTN, COPD with pHTN, HFpEF, osteoporosis, CVA, presents after mechanical fall with L hip fracture, now s/p IMN 01/28, pending discharge to [facility] after INR therapeutic. - Patient Problems (1) Ileus Current Visit: Yes Status: Acute Code(s): K56.7 - ILEUS, UNSPECIFIED SNOMED Code(s): 006636283 Comment: -D/C LR given CXR concerns for congestion as we advance diet to clears -Able to move small amount of stool w/Miralax and Fleet enema -D/W Dr. Stokes yesterday and mentioned that pattern of distention is primarily colon and maybe constipated that cause some gasses to be seen in SB? -Repeat AXR in AM (2) SOB (shortness of breath) Current Visit: Yes Status: Acute Code(s): R06.02 - SHORTNESS OF BREATH SNOMED Code(s): 893210599 Comment: -Unclear cause, but congestion might be contributing; will D/C LR; obtain BNP -Was given 1x 20 mg IV Lasix earlier -CXR suggestive of emphysema---will obtain ABG (3) Anemia Current Visit: Yes Status: Acute Code(s): D64.9 - ANEMIA, UNSPECIFIED SNOMED Code(s): 238291696 Comment: -Likely post-op blood loss -S/P 1 unit PRBC (4) Hip fracture, left Current Visit: Yes Status: Acute Code(s): S72.002A - FRACTURE OF UNSP PART OF NECK OF LEFT FEMUR, INIT SNOMED Code(s): 779083150 Comment: -s/p L hip IMN on 01/28, POD #4. - APAP for mild pain, oxy for mod-severe, bowel regimen - will try muscle relaxant for spasms - WBAT, PT/OT - pending JOS[facility]UA (5) Hyponatremia Current Visit: Yes Status: Acute Code(s): E87.1 - HYPO-OSMOLALITY AND HYPONATREMIA SNOMED Code(s): 83302285 Comment: -Chronic. Previously on furosemide as outpatient. Very dry in ER, and sodium improved with fluids, but has now stabilized -D/C IVFs as discussed -Continue watchful waiting (6) Paroxysmal a-fib Current Visit: Yes Status: Acute Code(s): I48.0 - PAROXYSMAL ATRIAL FIBRILLATION SNOMED Code(s): 692014837 Comment: -INR now therapeutic; D/C Heprain gtt -Continue warfarin - can go to [facility] when INR therapeutic and off heparin drip ( unless [facility] can give heparin IV and check PTTs) (7) Hypertension Current Visit: Yes Status: Acute Code(s): I10 - ESSENTIAL (PRIMARY) HYPERTENSION SNOMED Code(s): 68502838 Comment: - cont home dilt - previously on furosemide and spironolatone for ANDREWS - holding these medications in house as patient with hyponatremia, hypovolemia, and prior TTE without e/o HF (8) COPD (chronic obstructive pulmonary disease) Current Visit: Yes Status: Acute Code(s): J44.9 - CHRONIC OBSTRUCTIVE PULMONARY DISEASE, UNSPECIFIED SNOMED Code(s): 71591222 Comment: - cont on Spiriva (9) Malnourished Current Visit: Yes Status: Acute Code(s): E46 - UNSPECIFIED PROTEIN-CALORIE MALNUTRITION SNOMED Code(s): 74073029 Comment: BMI 17 - appreciate nutrition input (10) CVA (cerebral vascular accident) Current Visit: Yes Status: Acute Code(s): I63.9 - CEREBRAL INFARCTION, UNSPECIFIED SNOMED Code(s): 763108154 Comment: per history - bridging with heparin (11) DVT prophylaxis Current Visit: Yes Status: Acute Code(s): UKA9600 - SNOMED Code(s): 044325239 Comment: on therapeutic AC Status and Disposition: -For [facility] placement when ready
[2019-02-01 16:09] LABS: INR 3.11 (0.82-1.09)
[2019-02-01] MEDS ORDERED: Warfarin TAB(*) 4 MG PO ONE (17:00)
[2019-02-01] MEDS ORDERED: Warfarin TAB(*) 3 MG PO SCH (17:00)
[2019-02-01] MEDS: Tamsulosin CAP* 0.4 MG PO SCH (22:11)
[2019-02-01] MEDS: Latanoprost 0.005%* 2.5 ml BTL BOTH EYES SCH (22:12)
[2019-02-02 05:36] LABS: Hematocrit 25 % (36-46); Hemoglobin 8.5 g/dL (14.0-18.0); Mean Corpuscular HGB Conc 34 g/dL (31-36); Mean Corpuscular Hemoglobin 31 pg (27-31); Mean Corpuscular Volume 91 fL (80-94); Mean Platelet Volume 7.7 fL (7.4-10.4); Platelet Count 215 10^3/uL (150-450); Red Blood Count 2.75 10^6 /uL (4.18-5.48); Red Cell Distribution Width 15 % (10.5-15); White Blood Count 10.4 10^3/uL (3.5-10.8)
[2019-02-02 05:45] LABS: INR 4.2 (0.82-1.09)
[2019-02-02] MEDS: oxyCODONE TAB* 5 MG TAB PO PRN ×2 (06:00→20:33)
[2019-02-02] MEDS: Acetaminophen TAB* 325 MG PO PRN ×2 (06:00→20:33)
[2019-02-02 06:08] LABS: Albumin 3.3 g/dL (3.2-5.2); Albumin/Globulin Ratio 1.1 (1-3); BUN/Creatinine Ratio 26.5 (8-20); Calcium 8.6 mg/dL (8.6-10.3); EGFR African American 197.7 (>60); EGFR Non-African American 163.4 (>60); Globulin 3.1 g/dL (2-4); Magnesium 1.7 mg/dL (1.9-2.7); Phosphorus 2.9 mg/dL (2.5-5.0); Total Bilirubin 1.6 mg/dL (0.2-1.0); Total Protein 6.4 g/dL (6.4-8.9)
[2019-02-02] MEDS ORDERED: Magnesium Sulfate IV* 3 GM in NS 0.9% 100 ML* 100 ML IVPB ONE (08:00)
[2019-02-02] MEDS: Furosemide TAB* 40 MG PO SCH ×2 (08:34→08:48)
[2019-02-02] MEDS: Spironolactone TAB* 25 MG PO SCH ×2 (08:34→08:48)
[2019-02-02] MEDS: Cholecalciferol TAB* 400 UNIT PO SCH (08:34)
[2019-02-02] MEDS: Diltiazem CD CAP* 180 MG PO SCH (08:35)
[2019-02-02] MEDS: Tiotropium CAP.INH* CAP.INH/18 MCG (USE ORDER SET !) INH SCH (08:35)
--- NOTE | 2019-02-02 13:25 | PN ---
Progress Note - Progress Note Date of Service: 02/02/19 SOAP: Subjective: No complaints of abdominal pain or nausea/vomiting Passed some flatus, not certain if he has had BM Objective: Temp Pulse Resp BP Pulse Ox 98.4 F 76 15 109/38 92 02/02/19 11:26 02/02/19 11:26 02/02/19 11:26 02/02/19 11:26 02/02/19 11:26 PEX: Comfortable Abd is soft and less distended than yesterday. Bowel sounds are present and are normoactive. No tenderness on palpation. Labs noted Assessment: Ileus s/p left hip fracture repair Plan: Continue present care No surgical intervention or specific recommendations Please call if needed.
--- NOTE | 2019-02-02 13:59 | PN ---
Progress Note - Progress Note Date of Service: 02/02/19 SOAP: Subjective: []Pt seen at bedside. Denies CP, dizziness, nausea. Reports SOB improves with lasix. Hip pain is well controlled. Objective: []General: Appears well, NAD, carrying on appropriate conversation LLE: Nursing changed dressing today, report left hip proximal 2 incisions with serous drainage, per nursing also changed dressing. Incisions are without erythema or purulence. There is very mild serous drainage on the new dressing. thigh is soft, DF/PF intact, DP2+, sensation intact to light touch distally, DP2 +. Calves supple and nontender without erythema, edema or palpable cords Assessment: s/p IMN left hip Plan: 1) PT/OT WBAT 2) hospitalist co-managing 3) will change dressing daily and watch closely 4) Continue current DVT prophylaxis (on warfarin) Vital Signs Temp 98.4 F 02/02/19 11:26 Pulse 76 02/02/19 11:26 Resp 15 02/02/19 11:26 BP 109/38 02/02/19 11:26 Pulse Ox 92 02/02/19 11:26 Intake & Output 02/01/19 02/02/19 02/02/19 18:59 06:59 18:59 Intake Total 218 600 380 Output Total 720 1250 741 Balance -502 -650 -361 Intake: IV Fluids 30 NS (0.9%) 30 IVPB 110 Magnesium 3 gm 110 Heparin 218 Oral 0 600 240 Output: Urine 720 1250 725 Post Void Residual 16 Laboratory Last Values WBC 10.4 10^3/uL (3.5-10.8) 02/02/19 05:18 RBC 2.75 10^6 /uL (4.18-5.48) L 02/02/19 05:18 Hgb 8.5 g/dL (14.0-18.0) L 02/02/19 05:18 Hct 25 % (36-46) L 02/02/19 05:18 MCV 91 fL (80-94) 02/02/19 05:18 MCH 31 pg (27-31) 02/02/19 05:18 MCHC 34 g/dL (31-36) 02/02/19 05:18 RDW 15 % (10.5-15) 02/02/19 05:18 Plt Count 215 10^3/uL (150-450) 02/02/19 05:18 MPV 7.7 fL (7.4-10.4) 02/02/19 05:18 Neut % (Auto) 80.2 % 02/01/19 05:28 Lymph % (Auto) 8.8 % 02/01/19 05:28 [place] % (Auto) 8.5 % 02/01/19 05:28 Eos % (Auto) 1.6 % 02/01/19 05:28 Baso % (Auto) 0.9 % 02/01/19 05:28 Absolute Neuts (auto) 7.6 10^3/ul (1.5-7.7) 02/01/19 05:28 Absolute Lymphs (auto) 0.8 10^3/ul (1.0-4.8) L 02/01/19 05:28 Absolute Monos (auto) 0.8 10^3/ul (0-0.8) 02/01/19 05:28 Absolute Eos (auto) 0.2 10^3/ul (0-0.6) 02/01/19 05:28 Absolute Basos (auto) 0.1 10^3/ul (0-0.2) 02/01/19 05:28 Absolute Nucleated RBC 0 10^3/ul 02/01/19 05:28 Nucleated RBC % 0 02/01/19 05:28 INR (Anticoag Therapy) 4.20 (0.82-1.09) H 02/02/19 05:18 APTT 61.8 seconds (26.0-36.3) H 02/01/19 05:28 Sodium 130 mmol/L (135-145) L 02/02/19 05:18 Potassium 4.0 mmol/L (3.5-5.0) 02/02/19 05:18 Chloride 99 mmol/L (101-111) L 02/02/19 05:18 Carbon Dioxide 24 mmol/L (22-32) 02/02/19 05:18 Anion Gap 7 mmol/L (2-11) 02/02/19 05:18 BUN 13 mg/dL (6-24) 02/02/19 05:18 Creatinine 0.49 mg/dL (0.67-1.17) L 02/02/19 05:18 Est GFR ( Amer) 197.7 (>60) 02/02/19 05:18 Est GFR (Non-Af Amer) 163.4 (>60) 02/02/19 05:18 BUN/Creatinine Ratio 26.5 (8-20) H 02/02/19 05:18 Glucose 103 mg/dL (70-100) H 02/02/19 05:18 Serum Osmolality 262 mOsm/kg (275-295) L 01/28/19 05:33 Calcium 8.6 mg/dL (8.6-10.3) 02/02/19 05:18 Phosphorus 2.9 mg/dL (2.5-5.0) 02/02/19 05:18 Magnesium 1.7 mg/dL (1.9-2.7) L 02/02/19 05:18 Total Bilirubin 1.60 mg/dL (0.2-1.0) H 02/02/19 05:18 AST 33 U/L (13-39) 02/02/19 05:18 ALT 14 U/L (7-52) 02/02/19 05:18 Alkaline Phosphatase 65 U/L (34-104) 02/02/19 05:18 Troponin I 0.03 ng/mL (<0.04) 01/26/19 14:45 B-Natriuretic Peptide 632 pg/mL (<=100) H 02/02/19 05:18 Total Protein 6.4 g/dL (6.4-8.9) 02/02/19 05:18 Albumin 3.3 g/dL (3.2-5.2) 02/02/19 05:18 Globulin 3.1 g/dL (2-4) 02/02/19 05:18 Albumin/Globulin Ratio 1.1 (1-3) 02/02/19 05:18 Urine Osmolality 462 mOsm/kg (100-1150) 01/28/19 13:22 U Sodium Concentration < 18 mmol/L 01/28/19 13:22 Blood Type A Positive 01/31/19 08:15 Antibody Screen Negative 01/31/19 08:15 Crossmatch See Detail 01/31/19 08:15
[2019-02-02 16:09] LABS: INR 4.8 (0.82-1.09)
--- NOTE | 2019-02-02 16:58 | PN ---
Subjective Date of Service: 02/02/19 Interval History: Pt seen and examined. Meds and labs reviewed. Pt mentioned he has been having mild SOB for the past 3 days, unfortunately, he mentions this to other staff members. CC: Mild SOB ROS: Denied SMALL/dizziness, F/C, N/V, CP, increased cough, sputum production, abd pain, diarrhea, constipation, dysuria, myalgias, arthralgias, throat pain, and new skin lesions. The rest of the 14 point ROS are unremarkable. PHYSICAL EXAM: GEN APPEARANCE: Awake, not in acute distress HEENT: NC/AT, PERRLA, moist oral mucosa, (-) throat erythema NECK: Soft, supple, (-) cervical LAD, (-)JVD HEART: S1S2 WNL, RRR, No MRG CHEST: CTA, BL, GAE, No W/R/R ABD: Soft, ND/slight distention, soft, (-) rebound, Hypoacticve 4x Q EXT: No C/C/E SKIN: Warm to touch PSYCH: No active psychosis, hallucinations, depression, SI/HI ASSESSMENT AND PLAN: Objective Active Medications: Acetaminophen (Tylenol Tab*) 975 mg PO Q8H PRN PRN Reason: mild pain Last Admin: 02/02/19 06:00 Dose: 975 mg Cholecalciferol (Vitamin D Tab*) 800 unit PO DAILY [facility] Last Admin: 02/02/19 08:34 Dose: 800 unit Cyclobenzaprine HCl (Flexeril Tab*) 10 mg PO BID PRN PRN Reason: muscle spasm Last Admin: 01/29/19 11:05 Dose: 10 mg Diltiazem HCl (Cardizem Cd Cap*) 180 mg PO DAILY [facility] Last Admin: 02/02/19 08:35 Dose: 180 mg Docusate Sodium (Colace Cap*) 200 mg PO DAILY PRN PRN Reason: CONSTIPATION Furosemide (Lasix Tab*) 80 mg PO DAILY [facility] Last Admin: 02/02/19 08:48 Dose: Not Given Latanoprost (Xalatan 0.005%*) 1 drop BOTH EYES BEDTIME [facility]; Protocol Last Admin: 02/01/19 22:12 Dose: 1 drop Oxycodone HCl (Roxycodone Tab*) 5 mg PO Q6H PRN PRN Reason: Mild to moderate pain Last Admin: 02/02/19 06:00 Dose: 5 mg Pharmacy Profile Note (Coumadin Per Pharmacy*) 1 note FOLLOW UP .PER PHARMACY PROTOC [facility]; Protocol Polyethylene Glycol/Electrolytes (Miralax*) 17 gm PO DAILY PRN PRN Reason: CONSTIPATION Polyethylene Glycol/Electrolytes (Golytely*) 2,000 ml PO ONCE ONE Stop: 02/02/19 17:01 Senna (Senokot Tab*) 1 tab PO BEDTIME PRN PRN Reason: if no BM during day Spironolactone (Aldactone Tab*) 25 mg PO DAILY [facility] Last Admin: 02/02/19 08:48 Dose: Not Given Tamsulosin HCl (Flomax Cap*) 0.4 mg PO BEDTIME [facility] Last Admin: 02/01/19 22:11 Dose: 0.4 mg Tiotropium [place] (Spiriva Cap.Inh*) 1 cap INH DAILY [facility] Last Admin: 02/02/19 08:35 Dose: 1 cap Vital Signs - 8 hr 02/02/19 11:26 Temperature 98.4 F Pulse Rate 76 Respiratory 15 Rate Blood Pressure 109/38 (mmHg) O2 Sat by Pulse 92 Oximetry Oxygen Devices in Use Now: Nasal Cannula Result Diagrams: 02/02/19 05:18 02/02/19 05:18 Additional Lab and Data: Lab Results 01/26/19 01/26/19 01/26/19 Range/Units 14:45 14:45 15:50 WBC 10.0 (3.5-10.8) 10^3/uL RBC 3.78 L (4.18-5.48) 10^6 /uL Hgb 11.7 L (14.0-18.0) g/dL Hct 34 L (36-46) % MCV 91 (80-94) fL MCH 31 (27-31) pg MCHC 34 (31-36) g/dL RDW 14 (10.5-15) % Plt Count 238 (150-450) 10^3/uL MPV 8.2 (7.4-10.4) fL INR (Anticoag Therapy) 2.59 H (0.77-1.02) Sodium 123 L (135-145) mmol/L Potassium 3.9 (3.5-5.0) mmol/L Chloride 89 L (101-111) mmol/L Carbon Dioxide 25 (22-32) mmol/L Anion Gap 9 (2-11) mmol/L BUN 16 (6-24) mg/dL Creatinine 0.82 (0.67-1.17) mg/dL Est GFR ( Amer) 109.1 (>60) Est GFR (Non-Af Amer) 90.2 (>60) BUN/Creatinine Ratio 19.5 (8-20) Glucose 125 H (70-100) mg/dL Calcium 9.3 (8.6-10.3) mg/dL Total Bilirubin 0.80 (0.2-1.0) mg/dL AST 29 (13-39) U/L ALT 15 (7-52) U/L Alkaline Phosphatase 82 (34-104) U/L Troponin I 0.03 (<0.04) ng/mL Total Protein 7.9 (6.4-8.9) g/dL Albumin 4.4 (3.2-5.2) g/dL Globulin 3.5 (2-4) g/dL Albumin/Globulin Ratio 1.3 (1-3) Blood Type Antibody Screen 01/26/19 Range/Units 15:50 WBC (3.5-10.8) 10^3/uL RBC (4.18-5.48) 10^6 /uL Hgb (14.0-18.0) g/dL Hct (36-46) % MCV (80-94) fL MCH (27-31) pg MCHC (31-36) g/dL RDW (10.5-15) % Plt Count (150-450) 10^3/uL MPV (7.4-10.4) fL INR (Anticoag Therapy) (0.77-1.02) Sodium (135-145) mmol/L Potassium (3.5-5.0) mmol/L Chloride (101-111) mmol/L Carbon Dioxide (22-32) mmol/L Anion Gap (2-11) mmol/L BUN (6-24) mg/dL Creatinine (0.67-1.17) mg/dL Est GFR ( Amer) (>60) Est GFR (Non-Af Amer) (>60) BUN/Creatinine Ratio (8-20) Glucose (70-100) mg/dL Calcium (8.6-10.3) mg/dL Total Bilirubin (0.2-1.0) mg/dL AST (13-39) U/L ALT (7-52) U/L Alkaline Phosphatase (34-104) U/L Troponin I (<0.04) ng/mL Total Protein (6.4-8.9) g/dL Albumin (3.2-5.2) g/dL Globulin (2-4) g/dL Albumin/Globulin Ratio (1-3) Blood Type A Positive Antibody Screen Pending Microbiology and Other Data: Microbiology 01/27/19 00:00 Nasal Screen MRSA (PCR) - Final Nasal Mrsa Not Detected Assess/Plan/Problems-Billing Assessment: 83M with afib on warfarin, HTN, COPD with pHTN, HFpEF, osteoporosis, CVA, presents after mechanical fall with L hip fracture, now s/p IMN 01/28, pending discharge to [facility] after INR therapeutic. - Patient Problems (1) Ileus Current Visit: Yes Status: Acute Code(s): K56.7 - ILEUS, UNSPECIFIED SNOMED Code(s): 983249739 Comment: -Improved bowel gas pattern with constipation -D/W Dr. Stokes yesterday and mentioned that pattern of distention is primarily colon and maybe constipated that cause some gasses to be seen in SB? -Will Place pt on Golytely given poor response of constipation to bowel regimen -Repeat AXR in AM (2) SOB (shortness of breath) Current Visit: Yes Status: Acute Code(s): R06.02 - SHORTNESS OF BREATH SNOMED Code(s): 404510959 Comment: -Unclear cause, but congestion might be contributing; will D/C LR; obtain BNP -Was given 1x 20 mg IV Lasix 02/01 -Will resume Lasix and Aldactone (3) Anemia Current Visit: Yes Status: Acute Code(s): D64.9 - ANEMIA, UNSPECIFIED SNOMED Code(s): 383243621 Comment: -Likely post-op blood loss -S/P 1 unit PRBC (4) Hip fracture, left Current Visit: Yes Status: Acute Code(s): S72.002A - FRACTURE OF UNSP PART OF NECK OF LEFT FEMUR, INIT SNOMED Code(s): 398053916 Comment: -s/p L hip IMN on 01/28, POD #5 - APAP for mild pain, oxy for mod-severe, bowel regimen - will try muscle relaxant for spasms - WBAT, PT/OT - pending [facility] (5) Hyponatremia Current Visit: Yes Status: Acute Code(s): E87.1 - HYPO-OSMOLALITY AND HYPONATREMIA SNOMED Code(s): 36383140 Comment: -Chronic. Previously on furosemide as outpatient. Very dry in ER, and sodium improved with fluids, but has now stabilized -D/C IVFs as discussed and placed on diuretics likely due to now hypervolemic hyponatremia; improved -Continue watchful waiting (6) Paroxysmal a-fib Current Visit: Yes Status: Acute Code(s): I48.0 - PAROXYSMAL ATRIAL FIBRILLATION SNOMED Code(s): 910817805 Comment: -INR mildly supratherapeutic -Hold Warfarin -Continue to follow INR daily (7) Hypertension Current Visit: Yes Status: Acute Code(s): I10 - ESSENTIAL (PRIMARY) HYPERTENSION SNOMED Code(s): 36918626 Comment: -Continue watchful waiting -Restart diuretics as discussed (8) COPD (chronic obstructive pulmonary disease) Current Visit: Yes Status: Acute Code(s): J44.9 - CHRONIC OBSTRUCTIVE PULMONARY DISEASE, UNSPECIFIED SNOMED Code(s): 45149940 Comment: - cont on Spiriva (9) Malnourished Current Visit: Yes Status: Acute Code(s): E46 - UNSPECIFIED PROTEIN-CALORIE MALNUTRITION SNOMED Code(s): 00066327 Comment: BMI 17 - appreciate nutrition input (10) CVA (cerebral vascular accident) Current Visit: Yes Status: Acute Code(s): I63.9 - CEREBRAL INFARCTION, UNSPECIFIED SNOMED Code(s): 079693162 Comment: per history - bridging with heparin (11) DVT prophylaxis Current Visit: Yes Status: Acute Code(s): YXZ1465 - SNOMED Code(s): 064308742 Comment: on therapeutic AC Status and Disposition: -For [facility] placement when ready
[2019-02-02] MEDS ORDERED: PEG 3000 GI LAVAGE* 1 GALLON PO ONE (17:00)
[2019-02-02] MEDS: Tamsulosin CAP* 0.4 MG PO SCH (20:33)
[2019-02-02] MEDS: Latanoprost 0.005%* 2.5 ml BTL BOTH EYES SCH (21:34)
[2019-02-03 08:09] LABS: Albumin 3.3 g/dL (3.2-5.2); Calcium 8.5 mg/dL (8.6-10.3); Potassium 4.2 mmol/L (3.5-5.0); Total Bilirubin 1.5 mg/dL (0.2-1.0)
[2019-02-03 08:11] LABS: Hematocrit 26 % (36-46); Hemoglobin 8.9 g/dL (14.0-18.0); Mean Corpuscular HGB Conc 34 g/dL (31-36); Mean Corpuscular Hemoglobin 31 pg (27-31); Mean Corpuscular Volume 93 fL (80-94); Mean Platelet Volume 7.9 fL (7.4-10.4); Platelet Count 257 10^3/uL (150-450); Red Blood Count 2.83 10^6 /uL (4.18-5.48); Red Cell Distribution Width 15 % (10.5-15); White Blood Count 9.8 10^3/uL (3.5-10.8)
[2019-02-03 08:15] LABS: Albumin/Globulin Ratio 1.3 (1-3); BUN/Creatinine Ratio 21.7 (8-20); EGFR African American 212.6 (>60); EGFR Non-African American 175.7 (>60); Globulin 2.5 g/dL (2-4); Phosphorus 2.8 mg/dL (2.5-5.0); Total Protein 5.8 g/dL (6.4-8.9)
[2019-02-03 08:23] LABS: INR 5.17 (0.82-1.09)
[2019-02-03] MEDS ORDERED: Phytonadione Oral Solution* 5 MG/25 ML UDC PO ONE (08:36)
[2019-02-03] MEDS ORDERED: Cephalexin CAP* 500 MG PO SCH (09:00)
[2019-02-03] MEDS: Tiotropium CAP.INH* CAP.INH/18 MCG (USE ORDER SET !) INH SCH (09:22)
[2019-02-03] MEDS: Diltiazem CD CAP* 180 MG PO SCH (09:23)
[2019-02-03] MEDS: Spironolactone TAB* 25 MG PO SCH (09:23)
[2019-02-03] MEDS: Cholecalciferol TAB* 400 UNIT PO SCH (09:23)
[2019-02-03] MEDS: Furosemide TAB* 40 MG PO SCH (09:23)
--- NOTE | 2019-02-03 09:33 | PN ---
Progress Note - Progress Note Date of Service: 02/03/19 Note: Pt seen and examined. Doing well. Mild discomfort able to walk in short bursts. Drainage reported at dressing starting on ancef. bruising along penis Temp Pulse Resp BP Pulse Ox 97.8 F 80 18 140/58 98 02/03/19 04:30 02/03/19 04:30 02/03/19 04:30 02/03/19 04:30 02/03/19 04:30 NAD. AAOx3. pleasant mood. resting in bed. comfortable. calf soft nontender, SILT grossly. able to DF/PF ankle. incision distally healing well. proximally some serosanguinous drainage. no obvious hematoma although significant bruising posteriorly. also pt has bruising about penis significantly. A/P s/p L hip IMN continue ancef for 24 hours. dressing changes. wbat continue to monitor. wound looks benign for now. pt back on coumadin pls call with questions.
--- NOTE | 2019-02-03 13:19 | PN ---
Subjective Date of Service: 02/03/19 Interval History: Pt seen and examined. Meds and labs reviewed. CC: ANDREWS ROS: Denied SMALL/dizziness, F/C, N/V, CP, increased cough, sputum production, abd pain, diarrhea, constipation, dysuria, myalgias, arthralgias, throat pain, and new skin lesions. The rest of the 14 point ROS are unremarkable. PHYSICAL EXAM: GEN APPEARANCE: Awake, not in acute distress HEENT: NC/AT, PERRLA, moist oral mucosa, (-) throat erythema NECK: Soft, supple, (-) cervical LAD, (-)JVD HEART: S1S2 WNL, RRR, No MRG CHEST: CTA, BL, GAE, No W/R/R ABD: Soft, ND/NT, NABS 4x Q EXT: No C/C/E SKIN: Warm to touch PSYCH: No active psychosis, hallucinations, depression, SI/HI Objective Active Medications: Acetaminophen (Tylenol Tab*) 975 mg PO Q8H PRN PRN Reason: mild pain Last Admin: 02/02/19 20:33 Dose: 975 mg Cephalexin HCl (Keflex Cap*) 500 mg PO TID PEYTON Last Admin: 02/03/19 09:23 Dose: 500 mg Cholecalciferol (Vitamin D Tab*) 800 unit PO DAILY PEYTON Last Admin: 02/03/19 09:23 Dose: 800 unit Cyclobenzaprine HCl (Flexeril Tab*) 10 mg PO BID PRN PRN Reason: muscle spasm Last Admin: 01/29/19 11:05 Dose: 10 mg Diltiazem HCl (Cardizem Cd Cap*) 180 mg PO DAILY PEYTON Last Admin: 02/03/19 09:23 Dose: 180 mg Docusate Sodium (Colace Cap*) 200 mg PO DAILY PRN PRN Reason: CONSTIPATION Furosemide (Lasix Tab*) 80 mg PO DAILY [facility] Last Admin: 02/03/19 09:23 Dose: 80 mg Furosemide (Lasix Iv*) 20 mg IV ONCE ONE Stop: 02/03/19 17:01 Latanoprost (Xalatan 0.005%*) 1 drop BOTH EYES BEDTIME PEYTON; Protocol Last Admin: 02/02/19 21:34 Dose: 1 drop Oxycodone HCl (Roxycodone Tab*) 5 mg PO Q6H PRN PRN Reason: Mild to moderate pain Last Admin: 02/02/19 20:33 Dose: 5 mg Polyethylene Glycol/Electrolytes (Miralax*) 17 gm PO DAILY PRN PRN Reason: CONSTIPATION Senna (Senokot Tab*) 1 tab PO BEDTIME PRN PRN Reason: if no BM during day Spironolactone (Aldactone Tab*) 25 mg PO DAILY PEYTON Last Admin: 02/03/19 09:23 Dose: 25 mg Tamsulosin HCl (Flomax Cap*) 0.4 mg PO BEDTIME PEYTON Last Admin: 02/02/19 20:33 Dose: 0.4 mg Tiotropium Dike (Spiriva Cap.Inh*) 1 cap INH DAILY PEYTON Last Admin: 02/03/19 09:22 Dose: 1 cap Vital Signs - 8 hr 02/03/19 02/03/19 02/03/19 07:23 08:00 11:29 Temperature 97.7 F 97.4 F Pulse Rate 71 81 Respiratory 16 16 16 Rate Blood Pressure 121/50 134/54 (mmHg) O2 Sat by Pulse 99 97 Oximetry Oxygen Devices in Use Now: Nasal Cannula Result Diagrams: 02/03/19 06:49 02/03/19 06:49 Additional Lab and Data: Lab Results 01/26/19 01/26/19 01/26/19 Range/Units 14:45 14:45 15:50 WBC 10.0 (3.5-10.8) 10^3/uL RBC 3.78 L (4.18-5.48) 10^6 /uL Hgb 11.7 L (14.0-18.0) g/dL Hct 34 L (36-46) % MCV 91 (80-94) fL MCH 31 (27-31) pg MCHC 34 (31-36) g/dL RDW 14 (10.5-15) % Plt Count 238 (150-450) 10^3/uL MPV 8.2 (7.4-10.4) fL INR (Anticoag Therapy) 2.59 H (0.77-1.02) Sodium 123 L (135-145) mmol/L Potassium 3.9 (3.5-5.0) mmol/L Chloride 89 L (101-111) mmol/L Carbon Dioxide 25 (22-32) mmol/L Anion Gap 9 (2-11) mmol/L BUN 16 (6-24) mg/dL Creatinine 0.82 (0.67-1.17) mg/dL Est GFR ( Amer) 109.1 (>60) Est GFR (Non-Af Amer) 90.2 (>60) BUN/Creatinine Ratio 19.5 (8-20) Glucose 125 H (70-100) mg/dL Calcium 9.3 (8.6-10.3) mg/dL Total Bilirubin 0.80 (0.2-1.0) mg/dL AST 29 (13-39) U/L ALT 15 (7-52) U/L Alkaline Phosphatase 82 (34-104) U/L Troponin I 0.03 (<0.04) ng/mL Total Protein 7.9 (6.4-8.9) g/dL Albumin 4.4 (3.2-5.2) g/dL Globulin 3.5 (2-4) g/dL Albumin/Globulin Ratio 1.3 (1-3) Blood Type Antibody Screen 01/26/19 Range/Units 15:50 WBC (3.5-10.8) 10^3/uL RBC (4.18-5.48) 10^6 /uL Hgb (14.0-18.0) g/dL Hct (36-46) % MCV (80-94) fL MCH (27-31) pg MCHC (31-36) g/dL RDW (10.5-15) % Plt Count (150-450) 10^3/uL MPV (7.4-10.4) fL INR (Anticoag Therapy) (0.77-1.02) Sodium (135-145) mmol/L Potassium (3.5-5.0) mmol/L Chloride (101-111) mmol/L Carbon Dioxide (22-32) mmol/L Anion Gap (2-11) mmol/L BUN (6-24) mg/dL Creatinine (0.67-1.17) mg/dL Est GFR ( Amer) (>60) Est GFR (Non-Af Amer) (>60) BUN/Creatinine Ratio (8-20) Glucose (70-100) mg/dL Calcium (8.6-10.3) mg/dL Total Bilirubin (0.2-1.0) mg/dL AST (13-39) U/L ALT (7-52) U/L Alkaline Phosphatase (34-104) U/L Troponin I (<0.04) ng/mL Total Protein (6.4-8.9) g/dL Albumin (3.2-5.2) g/dL Globulin (2-4) g/dL Albumin/Globulin Ratio (1-3) Blood Type A Positive Antibody Screen Pending Microbiology and Other Data: Microbiology 01/27/19 00:00 Nasal Screen MRSA (PCR) - Final Nasal Mrsa Not Detected Assess/Plan/Problems-Billing Assessment: 83M with afib on warfarin, HTN, COPD with pHTN, HFpEF, osteoporosis, CVA, presents after mechanical fall with L hip fracture, now s/p IMN 01/28, pending discharge to [facility] after INR therapeutic. - Patient Problems (1) Ileus Current Visit: Yes Status: Acute Code(s): K56.7 - ILEUS, UNSPECIFIED SNOMED Code(s): 235937708 Comment: -Improved bowel gas pattern with constipation -D/W Dr. Stokes and mentioned that pattern of distention is primarily colon and maybe constipated that cause some gasses to be seen in SB? -Pt only able to drink 1/3rd of Golytely; continue to encourage along with bowel regimen (2) SOB (shortness of breath) Current Visit: Yes Status: Acute Code(s): R06.02 - SHORTNESS OF BREATH SNOMED Code(s): 174117351 Comment: -Likely due to CHF, diastolic failure -Was given 1x 20 mg IV Lasix 02/01 -Resumed Lasix and Aldactone on 02/03 -Will give additional Lasix tonight -Defer w/colleague tomorrow to reassess to see if more diuretics are needed -Repeat CXR in AM (3) Anemia Current Visit: Yes Status: Acute Code(s): D64.9 - ANEMIA, UNSPECIFIED SNOMED Code(s): 868705603 Comment: -Stable -Likely post-op blood loss -S/P 1 unit PRBC (4) Hip fracture, left Current Visit: Yes Status: Acute Code(s): S72.002A - FRACTURE OF UNSP PART OF NECK OF LEFT FEMUR, INIT SNOMED Code(s): 139580753 Comment: -s/p L hip IMN on 01/28, POD #6 - APAP for mild pain, oxy for mod-severe, bowel regimen - will try muscle relaxant for spasms - WBAT, PT/OT - pending [facility] (5) Hyponatremia Current Visit: Yes Status: Acute Code(s): E87.1 - HYPO-OSMOLALITY AND HYPONATREMIA SNOMED Code(s): 83033521 Comment: -Continues to improve -Chronic. Previously on furosemide as outpatient. Very dry in ER, and sodium improved with fluids, but has now stabilized -D/C IVFs as discussed and placed on diuretics likely due to now hypervolemic hyponatremia; improved -Continue watchful waiting (6) Paroxysmal a-fib Current Visit: Yes Status: Acute Code(s): I48.0 - PAROXYSMAL ATRIAL FIBRILLATION SNOMED Code(s): 852270847 Comment: -INR mildly supratherapeutic -Continue to hold warfarin---warfarin last given last Friday -Continue to follow INR daily (7) Hypertension Current Visit: Yes Status: Acute Code(s): I10 - ESSENTIAL (PRIMARY) HYPERTENSION SNOMED Code(s): 14644267 Comment: -Continue watchful waiting -Restart diuretics as discussed (8) COPD (chronic obstructive pulmonary disease) Current Visit: Yes Status: Acute Code(s): J44.9 - CHRONIC OBSTRUCTIVE PULMONARY DISEASE, UNSPECIFIED SNOMED Code(s): 53581174 Comment: - cont on Spiriva (9) Malnourished Current Visit: Yes Status: Acute Code(s): E46 - UNSPECIFIED PROTEIN-CALORIE MALNUTRITION SNOMED Code(s): 31910512 Comment: BMI 17 - appreciate nutrition input (10) CVA (cerebral vascular accident) Current Visit: Yes Status: Acute Code(s): I63.9 - CEREBRAL INFARCTION, UNSPECIFIED SNOMED Code(s): 861994346 Comment: per history - bridging with heparin (11) DVT prophylaxis Current Visit: Yes Status: Acute Code(s): IPX3212 - SNOMED Code(s): 651732059 Comment: on therapeutic AC Status and Disposition: -For [facility] placement when ready
[2019-02-03] MEDS: ceFAZolin 1 GM ADVAN(*) 1 GM in NS 0.9% 50 ML* 50 ML IVPB SCH ×2 (15:12→21:37)
[2019-02-03] MEDS ORDERED: Furosemide IV* 10 MG/ML 2 ML VIAL (20 MG) IV ONE (17:00)
[2019-02-03] MEDS: Tamsulosin CAP* 0.4 MG PO SCH (21:34)
[2019-02-03] MEDS: Latanoprost 0.005%* 2.5 ml BTL BOTH EYES SCH (21:37)
[2019-02-04] MEDS: oxyCODONE TAB* 5 MG TAB PO PRN (04:51)
[2019-02-04] MEDS: ceFAZolin 1 GM ADVAN(*) 1 GM in NS 0.9% 50 ML* 50 ML IVPB SCH (05:56)
[2019-02-04 06:42] LABS: Hematocrit 25 % (36-46); Hemoglobin 8.3 g/dL (14.0-18.0); Mean Corpuscular HGB Conc 34 g/dL (31-36); Mean Corpuscular Hemoglobin 31 pg (27-31); Mean Corpuscular Volume 92 fL (80-94); Mean Platelet Volume 7.3 fL (7.4-10.4); Platelet Count 266 10^3/uL (150-450); Red Blood Count 2.68 10^6 /uL (4.18-5.48); Red Cell Distribution Width 15 % (10.5-15); White Blood Count 9.1 10^3/uL (3.5-10.8)
[2019-02-04 06:58] LABS: BUN/Creatinine Ratio 17.8 (8-20); EGFR African American 218.1 (>60); EGFR Non-African American 180.2 (>60); Potassium 3.4 mmol/L (3.5-5.0)
[2019-02-04] MEDS: Tiotropium CAP.INH* CAP.INH/18 MCG (USE ORDER SET !) INH SCH (08:46)
[2019-02-04] MEDS: Cholecalciferol TAB* 400 UNIT PO SCH (09:27)
[2019-02-04] MEDS: Furosemide TAB* 40 MG PO SCH (09:27)
[2019-02-04] MEDS: Diltiazem CD CAP* 180 MG PO SCH (09:27)
[2019-02-04] MEDS: Spironolactone TAB* 25 MG PO SCH (09:27)
[2019-02-04] MEDS: Acetaminophen TAB* 325 MG PO PRN (09:41)
--- NOTE | 2019-02-04 15:09 | PN ---
Progress Note - Progress Note Date of Service: 02/04/19 SOAP: Subjective: []Pt seen OOB in chair. Left hip is not painful. Denies CP, dizziness, nausea. Continues to feel SOB which is unchanged from yesterday. Objective: [] General: Appears well, NAD, carrying on appropriate conversation LLE: Dressing changed, proximal incisions with serous drainage. Incisions are without erythema or purulence. thigh is soft without induration or fluctuance, DF/PF intact, DP2+, sensation intact to light touch distally, DP2+. Calves supple and nontender without erythema, edema or palpable cords Assessment: s/p IMN left hip Plan: 1) PT/OT WBAT 2) hospitalist co-managing 3) will change dressing daily and watch closely. given 24 hr ancef then now on keflex x 5 days 4) Continue current DVT prophylaxis (on warfarin) 5) discussed SOB with medicine, titrating lasix Vital Signs Temp 98.2 F 02/04/19 11:15 Pulse 72 02/04/19 11:15 Resp 18 02/04/19 11:15 BP 113/48 02/04/19 11:15 Pulse Ox 96 02/04/19 11:15 Intake & Output 02/03/19 02/04/19 02/04/19 18:59 06:59 18:59 Intake Total 435 480 840 Output Total 910 202 0831 Balance -490 -120 -360 Intake: IV Fluids 20 NS (0.9%) 20 Medicated IV 55 Cefazolin 55 Oral 360 480 840 Output: Urine 748 743 5258 Liquid Stool 450 Other: Date of Last Bowel 02/03/19 Movement # Bowel Movements 1 0 Estimated Stool Amount Medium Large Laboratory Last Values WBC 9.1 10^3/uL (3.5-10.8) 02/04/19 06:30 RBC 2.68 10^6 /uL (4.18-5.48) L 02/04/19 06:30 Hgb 8.3 g/dL (14.0-18.0) L 02/04/19 06:30 Hct 25 % (36-46) L 02/04/19 06:30 MCV 92 fL (80-94) 02/04/19 06:30 MCH 31 pg (27-31) 02/04/19 06:30 MCHC 34 g/dL (31-36) 02/04/19 06:30 RDW 15 % (10.5-15) 02/04/19 06:30 Plt Count 266 10^3/uL (150-450) 02/04/19 06:30 MPV 7.3 fL (7.4-10.4) L 02/04/19 06:30 Neut % (Auto) 80.2 % 02/01/19 05:28 Lymph % (Auto) 8.8 % 02/01/19 05:28 Perry % (Auto) 8.5 % 02/01/19 05:28 Eos % (Auto) 1.6 % 02/01/19 05:28 Baso % (Auto) 0.9 % 02/01/19 05:28 Absolute Neuts (auto) 7.6 10^3/ul (1.5-7.7) 02/01/19 05:28 Absolute Lymphs (auto) 0.8 10^3/ul (1.0-4.8) L 02/01/19 05:28 Absolute Monos (auto) 0.8 10^3/ul (0-0.8) 02/01/19 05:28 Absolute Eos (auto) 0.2 10^3/ul (0-0.6) 02/01/19 05:28 Absolute Basos (auto) 0.1 10^3/ul (0-0.2) 02/01/19 05:28 Absolute Nucleated RBC 0 10^3/ul 02/01/19 05:28 Nucleated RBC % 0 02/01/19 05:28 INR (Anticoag Therapy) 5.17 (0.82-1.09) H* 02/03/19 06:49 APTT 61.8 seconds (26.0-36.3) H 02/01/19 05:28 Sodium 129 mmol/L (135-145) L 02/04/19 06:30 Potassium 3.4 mmol/L (3.5-5.0) L 02/04/19 06:30 Chloride 93 mmol/L (101-111) L 02/04/19 06:30 Carbon Dioxide 27 mmol/L (22-32) 02/04/19 06:30 Anion Gap 9 mmol/L (2-11) 02/04/19 06:30 BUN 8 mg/dL (6-24) 02/04/19 06:30 Creatinine 0.45 mg/dL (0.67-1.17) L 02/04/19 06:30 Est GFR ( Amer) 218.1 (>60) 02/04/19 06:30 Est GFR (Non-Af Amer) 180.2 (>60) 02/04/19 06:30 BUN/Creatinine Ratio 17.8 (8-20) 02/04/19 06:30 Glucose 99 mg/dL (70-100) 02/04/19 06:30 Serum Osmolality 262 mOsm/kg (275-295) L 01/28/19 05:33 Calcium 8.0 mg/dL (8.6-10.3) L 02/04/19 06:30 Phosphorus 2.8 mg/dL (2.5-5.0) 02/03/19 06:49 Magnesium 2.0 mg/dL (1.9-2.7) 02/03/19 06:49 Total Bilirubin 1.50 mg/dL (0.2-1.0) H 02/03/19 06:49 AST 30 U/L (13-39) 02/03/19 06:49 ALT 15 U/L (7-52) 02/03/19 06:49 Alkaline Phosphatase 67 U/L (34-104) 02/03/19 06:49 Troponin I 0.03 ng/mL (<0.04) 01/26/19 14:45 B-Natriuretic Peptide 481 pg/mL (<=100) H 02/04/19 06:30 Total Protein 5.8 g/dL (6.4-8.9) L 02/03/19 06:49 Albumin 3.3 g/dL (3.2-5.2) 02/03/19 06:49 Globulin 2.5 g/dL (2-4) 02/03/19 06:49 Albumin/Globulin Ratio 1.3 (1-3) 02/03/19 06:49 Urine Osmolality 462 mOsm/kg (100-1150) 01/28/19 13:22 U Sodium Concentration < 18 mmol/L 01/28/19 13:22 Blood Type A Positive 01/31/19 08:15 Antibody Screen Negative 01/31/19 08:15 Crossmatch See Detail 01/31/19 08:15
[2019-02-04 15:58] LABS: INR 1.96 (0.82-1.09)
--- NOTE | 2019-02-04 18:09 | PN ---
Subjective Date of Service: 02/04/19 Interval History: Patient seen and examined. Pleasant, only complaint is of unproductive cough with intermittent SOB, states O2 is helping and feels the furosemide has helped. No abdominal pain, no diarrhea or constipation. No fevers or chills. Objective Active Medications: Acetaminophen (Tylenol Tab*) 975 mg PO Q8H PRN PRN Reason: mild pain Last Admin: 02/04/19 09:41 Dose: 975 mg Cephalexin HCl (Keflex Cap*) 500 mg PO TID PEYTON Stop: 02/09/19 20:59 Cholecalciferol (Vitamin D Tab*) 800 unit PO DAILY PEYTON Last Admin: 02/04/19 09:27 Dose: 800 unit Cyclobenzaprine HCl (Flexeril Tab*) 10 mg PO BID PRN PRN Reason: muscle spasm Last Admin: 01/29/19 11:05 Dose: 10 mg Diltiazem HCl (Cardizem Cd Cap*) 180 mg PO DAILY PEYTON Last Admin: 02/04/19 09:27 Dose: 180 mg Docusate Sodium (Colace Cap*) 200 mg PO DAILY PRN PRN Reason: CONSTIPATION Furosemide (Lasix Tab*) 40 mg PO DAILY COUNT INCLUDES THE [facility] Latanoprost (Xalatan 0.005%*) 1 drop BOTH EYES BEDTIME PEYTON; Protocol Last Admin: 02/03/19 21:37 Dose: 1 drop Oxycodone HCl (Roxycodone Tab*) 5 mg PO Q6H PRN PRN Reason: Mild to moderate pain Last Admin: 02/04/19 04:51 Dose: 5 mg Polyethylene Glycol/Electrolytes (Miralax*) 17 gm PO DAILY PRN PRN Reason: CONSTIPATION Senna (Senokot Tab*) 1 tab PO BEDTIME PRN PRN Reason: if no BM during day Spironolactone (Aldactone Tab*) 25 mg PO DAILY PEYTON Last Admin: 02/04/19 09:27 Dose: 25 mg Tamsulosin HCl (Flomax Cap*) 0.4 mg PO BEDTIME PEYTON Last Admin: 02/03/19 21:34 Dose: 0.4 mg Tiotropium Craig (Spiriva Cap.Inh*) 1 cap INH DAILY PEYTON Last Admin: 02/04/19 08:46 Dose: 1 cap Vital Signs - 8 hr 02/04/19 02/04/19 11:15 15:54 Temperature 98.2 F 98.4 F Pulse Rate 72 75 Respiratory 18 22 Rate Blood Pressure 113/48 123/39 (mmHg) O2 Sat by Pulse 96 100 Oximetry Oxygen Devices in Use Now: Nasal Cannula Appearance: alert, NAD Eyes: No Scleral Icterus, PERRLA Ears/Nose/Mouth/Throat: NL Teeth, Lips, Gums, Mucous Membranes Moist Neck: NL Appearance and Movements; NL JVP, Trachea Midline Respiratory: - - diminished breath sounds throughout, no wheeze Cardiovascular: NL Sounds; No Murmurs; No JVD, RRR, No Edema Extremities: No Edema, No Clubbing, Cyanosis Skin: No Rash or Ulcers Neurological: Alert and Oriented x 3, NL Muscle Strength and Tone Nutrition: Taking PO's Result Diagrams: 02/04/19 06:30 02/04/19 06:30 Additional Lab and Data: Lab Results 01/26/19 01/26/19 01/26/19 Range/Units 14:45 14:45 15:50 WBC 10.0 (3.5-10.8) 10^3/uL RBC 3.78 L (4.18-5.48) 10^6 /uL Hgb 11.7 L (14.0-18.0) g/dL Hct 34 L (36-46) % MCV 91 (80-94) fL MCH 31 (27-31) pg MCHC 34 (31-36) g/dL RDW 14 (10.5-15) % Plt Count 238 (150-450) 10^3/uL MPV 8.2 (7.4-10.4) fL INR (Anticoag Therapy) 2.59 H (0.77-1.02) Sodium 123 L (135-145) mmol/L Potassium 3.9 (3.5-5.0) mmol/L Chloride 89 L (101-111) mmol/L Carbon Dioxide 25 (22-32) mmol/L Anion Gap 9 (2-11) mmol/L BUN 16 (6-24) mg/dL Creatinine 0.82 (0.67-1.17) mg/dL Est GFR ( Amer) 109.1 (>60) Est GFR (Non-Af Amer) 90.2 (>60) BUN/Creatinine Ratio 19.5 (8-20) Glucose 125 H (70-100) mg/dL Calcium 9.3 (8.6-10.3) mg/dL Total Bilirubin 0.80 (0.2-1.0) mg/dL AST 29 (13-39) U/L ALT 15 (7-52) U/L Alkaline Phosphatase 82 (34-104) U/L Troponin I 0.03 (<0.04) ng/mL Total Protein 7.9 (6.4-8.9) g/dL Albumin 4.4 (3.2-5.2) g/dL Globulin 3.5 (2-4) g/dL Albumin/Globulin Ratio 1.3 (1-3) Blood Type Antibody Screen 01/26/19 Range/Units 15:50 WBC (3.5-10.8) 10^3/uL RBC (4.18-5.48) 10^6 /uL Hgb (14.0-18.0) g/dL Hct (36-46) % MCV (80-94) fL MCH (27-31) pg MCHC (31-36) g/dL RDW (10.5-15) % Plt Count (150-450) 10^3/uL MPV (7.4-10.4) fL INR (Anticoag Therapy) (0.77-1.02) Sodium (135-145) mmol/L Potassium (3.5-5.0) mmol/L Chloride (101-111) mmol/L Carbon Dioxide (22-32) mmol/L Anion Gap (2-11) mmol/L BUN (6-24) mg/dL Creatinine (0.67-1.17) mg/dL Est GFR ( Amer) (>60) Est GFR (Non-Af Amer) (>60) BUN/Creatinine Ratio (8-20) Glucose (70-100) mg/dL Calcium (8.6-10.3) mg/dL Total Bilirubin (0.2-1.0) mg/dL AST (13-39) U/L ALT (7-52) U/L Alkaline Phosphatase (34-104) U/L Troponin I (<0.04) ng/mL Total Protein (6.4-8.9) g/dL Albumin (3.2-5.2) g/dL Globulin (2-4) g/dL Albumin/Globulin Ratio (1-3) Blood Type A Positive Antibody Screen Pending Microbiology and Other Data: Microbiology 01/27/19 00:00 Nasal Screen MRSA (PCR) - Final Nasal Mrsa Not Detected Diagnostic Imaging: Patient Name: VERA HARMAN Medical Record#: [id number] Ordering Physician: Otis Dos Santos MD Acct.#: [id number] : 1935 Age: 83 Sex: M Location: SURGICAL STAY UNIT Exam Date: 02/04/19699 ADM Status: ADM IN Order Information: CHEST AP OR PORT Accession Number: [id number] CPT: 35068 Indication: Dyspnea on exertion. Single frontal view of the chest performed at 0658 hours was reviewed. Comparison is made with previous exam dated February 01, 2019. Interstitial edema appears to be improved since previous exam. Residual infiltrate and likely right pleural effusion is noted. IMPRESSION: RIGHT LOWER LOBE INFILTRATE. INTERSTITIAL EDEMA APPEARS TO BE IMPROVED. <Electronically signed by Ana M Lopez MD in [place]> 02/04/19839 Dictated By: Ana M Lopez MD Dictated Date/Time: 02/04/19839 Transcribed Date/Time: 02/04/19826 Copy to: Assess/Plan/Problems-Billing Assessment: 83M with afib on warfarin, HTN, COPD with pHTN, HFpEF, osteoporosis, CVA, presents after mechanical fall with L hip fracture, s/p IMN 01/28. course complicated by supratherapeuric INR yesterday and post-op ileus. - Patient Problems (1) Hip fracture, left Code(s): S72.002A - FRACTURE OF UNSP PART OF NECK OF LEFT FEMUR, INIT SNOMED Code(s): 111564080 Comment: - POD7 IM Nail - POC as per ortho - WBAT, pain control, PT/OT - On keflex for wound drainage x5 days per ortho - Pending STR at [facility] (2) Anemia Code(s): D64.9 - ANEMIA, UNSPECIFIED SNOMED Code(s): 275475533 Comment: - post-operative blood loss, s/p 1 unit PRBCs 01/31, H&H stable (3) SOB (shortness of breath) Code(s): R06.02 - SHORTNESS OF BREATH SNOMED Code(s): 812533035 Comment: - Vascular congestion on CXR improved, LLL infiltrate clearing - Had IV lasix with good effect - Transition to PO lasix today and aldactone restarted - BNP trending down (4) COPD (chronic obstructive pulmonary disease) Code(s): J44.9 - CHRONIC OBSTRUCTIVE PULMONARY DISEASE, UNSPECIFIED SNOMED Code(s): 55141195 Comment: - With hx of pulmo HTN and tobacco use - continue spiriva (5) Hypertension Code(s): I10 - ESSENTIAL (PRIMARY) HYPERTENSION SNOMED Code(s): 05732729 Comment: - Stable on diltizem, lasix and spironolactone (6) Ileus Code(s): K56.7 - ILEUS, UNSPECIFIED SNOMED Code(s): 345273811 Comment: - Resolved - Pos BS x4 quad and passing flatus/loose stools - DC GoLytely - DC CLD - Start Soft/GI diet and advance tomorrow if tolerated - Continue PRN bowel regimen at DC (7) Paroxysmal a-fib Code(s): I48.0 - PAROXYSMAL ATRIAL FIBRILLATION SNOMED Code(s): 062876717 Comment: - Rate controlled on diltiazem - Supratherapeutic INR x4 days with Vit K given yesterday - Will restart coumadin at lower dose tonight (2mg) - CHADsVSC=5 (8) BPH (benign prostatic hyperplasia) Code(s): N40.0 - BENIGN PROSTATIC HYPERPLASIA WITHOUT LOWER URINRY TRACT SYMP SNOMED Code(s): 125831288 Comment: - continue flomax (9) DVT prophylaxis Code(s): RLI9389 - SNOMED Code(s): 464437624 Comment: - Restart coumadin tomorrow, INR was 5.17 yesterday (10) Full code status Code(s): Z78.9 - OTHER SPECIFIED HEALTH STATUS SNOMED Code(s): 867673901 (11) Electrolyte abnormality Code(s): E87.8 - OTH DISORDERS OF ELECTROLYTE AND FLUID BALANCE, NEC SNOMED Code(s): 518592540 Comment: - In presence of hypervolemia - Replete K, mag corrected - Chronic low sodium noted, should follow outpatient while on continue diuretics Status and Disposition: DC to [facility] tomorrow
[2019-02-04] MEDS ORDERED: Warfarin TAB(*) 2 MG PO ONE (20:00)
[2019-02-04] MEDS: Cephalexin CAP* 500 MG PO SCH (20:13)
[2019-02-04] MEDS: Tamsulosin CAP* 0.4 MG PO SCH (20:14)
[2019-02-04] MEDS: Latanoprost 0.005%* 2.5 ml BTL BOTH EYES SCH (20:16)
[2019-02-04] MEDS: Cyclobenzaprine TAB* 10 MG PO PRN (20:29)
[2019-02-05] MEDS: Cephalexin CAP* 500 MG PO SCH ×3 (09:56→20:55)
[2019-02-05] MEDS: Tiotropium CAP.INH* CAP.INH/18 MCG (USE ORDER SET !) INH SCH (09:56)
[2019-02-05] MEDS: Cholecalciferol TAB* 400 UNIT PO SCH (09:56)
[2019-02-05] MEDS: Furosemide TAB* 40 MG PO SCH (09:56)
[2019-02-05] MEDS: Diltiazem CD CAP* 180 MG PO SCH (09:57)
[2019-02-05] MEDS: Spironolactone TAB* 25 MG PO SCH (09:57)
[2019-02-05] MEDS: Potassium Chlor TAB* 20 MEQ TAB.ER PO SCH (09:57)
--- NOTE | 2019-02-05 17:19 | PN ---
Subjective Date of Service: 02/05/19 Interval History: Patient seen and examined. Remains confused and sleepy most of the time, this morning he was awake and eating breakfast and off pressors. Unable to obtain reliable ROS 2/2 confusion. Objective Active Medications: Acetaminophen (Tylenol Tab*) 975 mg PO Q8H PRN PRN Reason: mild pain Last Admin: 02/04/19 09:41 Dose: 975 mg Cephalexin HCl (Keflex Cap*) 500 mg PO TID [facility] Stop: 02/09/19 20:59 Last Admin: 02/05/19 15:05 Dose: 500 mg Cholecalciferol (Vitamin D Tab*) 800 unit PO DAILY [facility] Last Admin: 02/05/19 09:56 Dose: 800 unit Cyclobenzaprine HCl (Flexeril Tab*) 10 mg PO BID PRN PRN Reason: muscle spasm Last Admin: 02/04/19 20:29 Dose: 10 mg Diltiazem HCl (Cardizem Cd Cap*) 180 mg PO DAILY [facility] Last Admin: 02/05/19 09:57 Dose: 180 mg Docusate Sodium (Colace Cap*) 200 mg PO DAILY PRN PRN Reason: CONSTIPATION Furosemide (Lasix Tab*) 40 mg PO DAILY [facility] Last Admin: 02/05/19 09:56 Dose: 40 mg Latanoprost (Xalatan 0.005%*) 1 drop BOTH EYES BEDTIME [facility]; Protocol Last Admin: 02/04/19 20:16 Dose: 1 drop Oxycodone HCl (Roxycodone Tab*) 5 mg PO Q6H PRN PRN Reason: Mild to moderate pain Last Admin: 02/04/19 04:51 Dose: 5 mg Pharmacy Profile Note (Coumadin Daily Reminder*) 0 note FOLLOW UP 1700 [facility] Polyethylene Glycol/Electrolytes (Miralax*) 17 gm PO DAILY PRN PRN Reason: CONSTIPATION Potassium Chloride (Klor Con Er Tab*) 20 meq PO DAILY [facility] Last Admin: 02/05/19 09:57 Dose: 20 meq Spironolactone (Aldactone Tab*) 25 mg PO DAILY [facility] Last Admin: 02/05/19 09:57 Dose: 25 mg Tamsulosin HCl (Flomax Cap*) 0.4 mg PO BEDTIME [facility] Last Admin: 02/04/19 20:14 Dose: 0.4 mg Tiotropium [place] (Spiriva Cap.Inh*) 1 cap INH DAILY [facility] Last Admin: 02/05/19 09:56 Dose: 1 cap Vital Signs - 8 hr 02/05/19 11:31 Temperature 97.7 F Pulse Rate 75 Respiratory 20 Rate Blood Pressure 139/52 (mmHg) O2 Sat by Pulse 98 Oximetry Oxygen Devices in Use Now: Nasal Cannula Result Diagrams: 02/04/19 06:30 02/04/19 06:30 Additional Lab and Data: Lab Results 01/26/19 01/26/19 01/26/19 Range/Units 14:45 14:45 15:50 WBC 10.0 (3.5-10.8) 10^3/uL RBC 3.78 L (4.18-5.48) 10^6 /uL Hgb 11.7 L (14.0-18.0) g/dL Hct 34 L (36-46) % MCV 91 (80-94) fL MCH 31 (27-31) pg MCHC 34 (31-36) g/dL RDW 14 (10.5-15) % Plt Count 238 (150-450) 10^3/uL MPV 8.2 (7.4-10.4) fL INR (Anticoag Therapy) 2.59 H (0.77-1.02) Sodium 123 L (135-145) mmol/L Potassium 3.9 (3.5-5.0) mmol/L Chloride 89 L (101-111) mmol/L Carbon Dioxide 25 (22-32) mmol/L Anion Gap 9 (2-11) mmol/L BUN 16 (6-24) mg/dL Creatinine 0.82 (0.67-1.17) mg/dL Est GFR ( Amer) 109.1 (>60) Est GFR (Non-Af Amer) 90.2 (>60) BUN/Creatinine Ratio 19.5 (8-20) Glucose 125 H (70-100) mg/dL Calcium 9.3 (8.6-10.3) mg/dL Total Bilirubin 0.80 (0.2-1.0) mg/dL AST 29 (13-39) U/L ALT 15 (7-52) U/L Alkaline Phosphatase 82 (34-104) U/L Troponin I 0.03 (<0.04) ng/mL Total Protein 7.9 (6.4-8.9) g/dL Albumin 4.4 (3.2-5.2) g/dL Globulin 3.5 (2-4) g/dL Albumin/Globulin Ratio 1.3 (1-3) Blood Type Antibody Screen 01/26/19 Range/Units 15:50 WBC (3.5-10.8) 10^3/uL RBC (4.18-5.48) 10^6 /uL Hgb (14.0-18.0) g/dL Hct (36-46) % MCV (80-94) fL MCH (27-31) pg MCHC (31-36) g/dL RDW (10.5-15) % Plt Count (150-450) 10^3/uL MPV (7.4-10.4) fL INR (Anticoag Therapy) (0.77-1.02) Sodium (135-145) mmol/L Potassium (3.5-5.0) mmol/L Chloride (101-111) mmol/L Carbon Dioxide (22-32) mmol/L Anion Gap (2-11) mmol/L BUN (6-24) mg/dL Creatinine (0.67-1.17) mg/dL Est GFR ( Amer) (>60) Est GFR (Non-Af Amer) (>60) BUN/Creatinine Ratio (8-20) Glucose (70-100) mg/dL Calcium (8.6-10.3) mg/dL Total Bilirubin (0.2-1.0) mg/dL AST (13-39) U/L ALT (7-52) U/L Alkaline Phosphatase (34-104) U/L Troponin I (<0.04) ng/mL Total Protein (6.4-8.9) g/dL Albumin (3.2-5.2) g/dL Globulin (2-4) g/dL Albumin/Globulin Ratio (1-3) Blood Type A Positive Antibody Screen Pending Microbiology and Other Data: Microbiology 01/27/19 00:00 Nasal Screen MRSA (PCR) - Final Nasal Mrsa Not Detected Diagnostic Imaging: Patient Name: VERA HARMAN Medical Record#: [id number] Ordering Physician: Otis Dos Santos MD Acct.#: [id number] : 1935 Age: 83 Sex: M Location: SURGICAL STAY UNIT Exam Date: 02/04/19699 ADM Status: ADM IN Order Information: CHEST AP OR PORT Accession Number: [id number] CPT: 19134 Indication: Dyspnea on exertion. Single frontal view of the chest performed at 0658 hours was reviewed. Comparison is made with previous exam dated February 01, 2019. Interstitial edema appears to be improved since previous exam. Residual infiltrate and likely right pleural effusion is noted. IMPRESSION: RIGHT LOWER LOBE INFILTRATE. INTERSTITIAL EDEMA APPEARS TO BE IMPROVED. <Electronically signed by Ana M Lopez MD in [place]> 02/04/19839 Dictated By: Ana M Lopez MD Dictated Date/Time: 02/04/19839 Transcribed Date/Time: 02/04/19826 Copy to: Assess/Plan/Problems-Billing Assessment: 83M with afib on warfarin, HTN, COPD with pHTN, HFpEF, osteoporosis, CVA, presents after mechanical fall with L hip fracture, s/p IMN 01/28. course complicated by supratherapeuric INR yesterday and post-op ileus. - Patient Problems (1) Hip fracture, left Code(s): S72.002A - FRACTURE OF UNSP PART OF NECK OF LEFT FEMUR, INIT SNOMED Code(s): 747391216 Comment: - POD7 IM Nail - POC as per ortho - WBAT, pain control, PT/OT - On keflex for wound drainage x5 days per ortho - Pending STR at [facility] (2) Anemia Code(s): D64.9 - ANEMIA, UNSPECIFIED SNOMED Code(s): 347435571 Comment: - post-operative blood loss, s/p 1 unit PRBCs 01/31, H&H stable (3) SOB (shortness of breath) Code(s): R06.02 - SHORTNESS OF BREATH SNOMED Code(s): 719552763 Comment: - Vascular congestion on CXR improved, LLL infiltrate clearing - Had IV lasix with good effect - Transition to PO lasix today and aldactone restarted - BNP trending down (4) COPD (chronic obstructive pulmonary disease) Code(s): J44.9 - CHRONIC OBSTRUCTIVE PULMONARY DISEASE, UNSPECIFIED SNOMED Code(s): 86554272 Comment: - With hx of pulmo HTN and tobacco use - continue spiriva (5) Hypertension Code(s): I10 - ESSENTIAL (PRIMARY) HYPERTENSION SNOMED Code(s): 55446780 Comment: - Stable on diltizem, lasix and spironolactone (6) Ileus Code(s): K56.7 - ILEUS, UNSPECIFIED SNOMED Code(s): 591033576 Comment: - Resolved - Pos BS x4 quad and passing flatus/loose stools - DC GoLytely - DC CLD - Start Soft/GI diet and advance tomorrow if tolerated - Continue PRN bowel regimen at DC (7) Paroxysmal a-fib Code(s): I48.0 - PAROXYSMAL ATRIAL FIBRILLATION SNOMED Code(s): 392000694 Comment: - Rate controlled on diltiazem - Supratherapeutic INR x4 days with Vit K given yesterday - Will restart coumadin at lower dose tonight (2mg) - CHADsVSC=5 (8) BPH (benign prostatic hyperplasia) Code(s): N40.0 - BENIGN PROSTATIC HYPERPLASIA WITHOUT LOWER URINRY TRACT SYMP SNOMED Code(s): 080688150 Comment: - continue flomax (9) DVT prophylaxis Code(s): ONM3942 - SNOMED Code(s): 753310545 Comment: - Restart coumadin tomorrow, INR was 5.17 yesterday (10) Full code status Code(s): Z78.9 - OTHER SPECIFIED HEALTH STATUS SNOMED Code(s): 885759062 (11) Electrolyte abnormality Code(s): E87.8 - OTH DISORDERS OF ELECTROLYTE AND FLUID BALANCE, NEC SNOMED Code(s): 250144545 Comment: - In presence of hypervolemia - Replete K, mag corrected - Chronic low sodium noted, should follow outpatient while on continue diuretics Status and Disposition: DC to [facility] tomorrow
--- NOTE | 2019-02-05 17:27 | PN ---
Subjective Date of Service: 02/05/19 Interval History: Patient seen and examine, improved breathing today, less SOB, denies fevers or chills no further complaints. Objective Active Medications: Acetaminophen (Tylenol Tab*) 975 mg PO Q8H PRN PRN Reason: mild pain Last Admin: 02/04/19 09:41 Dose: 975 mg Cephalexin HCl (Keflex Cap*) 500 mg PO TID [facility] Stop: 02/09/19 20:59 Last Admin: 02/05/19 15:05 Dose: 500 mg Cholecalciferol (Vitamin D Tab*) 800 unit PO DAILY [facility] Last Admin: 02/05/19 09:56 Dose: 800 unit Cyclobenzaprine HCl (Flexeril Tab*) 10 mg PO BID PRN PRN Reason: muscle spasm Last Admin: 02/04/19 20:29 Dose: 10 mg Diltiazem HCl (Cardizem Cd Cap*) 180 mg PO DAILY [facility] Last Admin: 02/05/19 09:57 Dose: 180 mg Docusate Sodium (Colace Cap*) 200 mg PO DAILY PRN PRN Reason: CONSTIPATION Furosemide (Lasix Tab*) 40 mg PO DAILY [facility] Last Admin: 02/05/19 09:56 Dose: 40 mg Latanoprost (Xalatan 0.005%*) 1 drop BOTH EYES BEDTIME [facility]; Protocol Last Admin: 02/04/19 20:16 Dose: 1 drop Oxycodone HCl (Roxycodone Tab*) 5 mg PO Q6H PRN PRN Reason: Mild to moderate pain Last Admin: 02/04/19 04:51 Dose: 5 mg Pharmacy Profile Note (Coumadin Daily Reminder*) 0 note FOLLOW UP 1700 [facility] Polyethylene Glycol/Electrolytes (Miralax*) 17 gm PO DAILY PRN PRN Reason: CONSTIPATION Potassium Chloride (Klor Con Er Tab*) 20 meq PO DAILY [facility] Last Admin: 02/05/19 09:57 Dose: 20 meq Spironolactone (Aldactone Tab*) 25 mg PO DAILY [facility] Last Admin: 02/05/19 09:57 Dose: 25 mg Tamsulosin HCl (Flomax Cap*) 0.4 mg PO BEDTIME [facility] Last Admin: 02/04/19 20:14 Dose: 0.4 mg Tiotropium [place] (Spiriva Cap.Inh*) 1 cap INH DAILY [facility] Last Admin: 02/05/19 09:56 Dose: 1 cap Vital Signs - 8 hr 02/05/19 11:31 Temperature 97.7 F Pulse Rate 75 Respiratory 20 Rate Blood Pressure 139/52 (mmHg) O2 Sat by Pulse 98 Oximetry Oxygen Devices in Use Now: Nasal Cannula Appearance: alert, NAD Eyes: No Scleral Icterus, PERRLA Ears/Nose/Mouth/Throat: NL Teeth, Lips, Gums, Mucous Membranes Moist Neck: NL Appearance and Movements; NL JVP, Trachea Midline Respiratory: Symmetrical Chest Expansion and Respiratory Effort, - - diminshed throughout lung [place] Cardiovascular: NL Sounds; No Murmurs; No JVD, RRR, No Edema Abdominal: NL Sounds; No Tenderness; No Distention Extremities: No Edema, No Clubbing, Cyanosis Skin: No Rash or Ulcers Neurological: Alert and Oriented x 3, NL Muscle Strength and Tone Nutrition: Taking PO's Result Diagrams: 02/04/19 06:30 02/04/19 06:30 Additional Lab and Data: Lab Results 01/26/19 01/26/19 01/26/19 Range/Units 14:45 14:45 15:50 WBC 10.0 (3.5-10.8) 10^3/uL RBC 3.78 L (4.18-5.48) 10^6 /uL Hgb 11.7 L (14.0-18.0) g/dL Hct 34 L (36-46) % MCV 91 (80-94) fL MCH 31 (27-31) pg MCHC 34 (31-36) g/dL RDW 14 (10.5-15) % Plt Count 238 (150-450) 10^3/uL MPV 8.2 (7.4-10.4) fL INR (Anticoag Therapy) 2.59 H (0.77-1.02) Sodium 123 L (135-145) mmol/L Potassium 3.9 (3.5-5.0) mmol/L Chloride 89 L (101-111) mmol/L Carbon Dioxide 25 (22-32) mmol/L Anion Gap 9 (2-11) mmol/L BUN 16 (6-24) mg/dL Creatinine 0.82 (0.67-1.17) mg/dL Est GFR ( Amer) 109.1 (>60) Est GFR (Non-Af Amer) 90.2 (>60) BUN/Creatinine Ratio 19.5 (8-20) Glucose 125 H (70-100) mg/dL Calcium 9.3 (8.6-10.3) mg/dL Total Bilirubin 0.80 (0.2-1.0) mg/dL AST 29 (13-39) U/L ALT 15 (7-52) U/L Alkaline Phosphatase 82 (34-104) U/L Troponin I 0.03 (<0.04) ng/mL Total Protein 7.9 (6.4-8.9) g/dL Albumin 4.4 (3.2-5.2) g/dL Globulin 3.5 (2-4) g/dL Albumin/Globulin Ratio 1.3 (1-3) Blood Type Antibody Screen 01/26/19 Range/Units 15:50 WBC (3.5-10.8) 10^3/uL RBC (4.18-5.48) 10^6 /uL Hgb (14.0-18.0) g/dL Hct (36-46) % MCV (80-94) fL MCH (27-31) pg MCHC (31-36) g/dL RDW (10.5-15) % Plt Count (150-450) 10^3/uL MPV (7.4-10.4) fL INR (Anticoag Therapy) (0.77-1.02) Sodium (135-145) mmol/L Potassium (3.5-5.0) mmol/L Chloride (101-111) mmol/L Carbon Dioxide (22-32) mmol/L Anion Gap (2-11) mmol/L BUN (6-24) mg/dL Creatinine (0.67-1.17) mg/dL Est GFR ( Amer) (>60) Est GFR (Non-Af Amer) (>60) BUN/Creatinine Ratio (8-20) Glucose (70-100) mg/dL Calcium (8.6-10.3) mg/dL Total Bilirubin (0.2-1.0) mg/dL AST (13-39) U/L ALT (7-52) U/L Alkaline Phosphatase (34-104) U/L Troponin I (<0.04) ng/mL Total Protein (6.4-8.9) g/dL Albumin (3.2-5.2) g/dL Globulin (2-4) g/dL Albumin/Globulin Ratio (1-3) Blood Type A Positive Antibody Screen Pending Microbiology and Other Data: Microbiology 01/27/19 00:00 Nasal Screen MRSA (PCR) - Final Nasal Mrsa Not Detected Diagnostic Imaging: Patient Name: VERA HARMAN Medical Record#: [id number] Ordering Physician: Otis Dos Santos MD Acct.#: [id number] : 1935 Age: 83 Sex: M Location: SURGICAL STAY UNIT Exam Date: 02/04/19 07 ADM Status: ADM IN Order Information: CHEST AP OR PORT Accession Number: [id number] CPT: 03825 Indication: Dyspnea on exertion. Single frontal view of the chest performed at 0658 hours was reviewed. Comparison is made with previous exam dated February 01, 2019. Interstitial edema appears to be improved since previous exam. Residual infiltrate and likely right pleural effusion is noted. IMPRESSION: RIGHT LOWER LOBE INFILTRATE. INTERSTITIAL EDEMA APPEARS TO BE IMPROVED. <Electronically signed by Ana M Lopez MD in [facility]> 02/04/19839 Dictated By: Ana M Lopez MD Dictated Date/Time: 02/04/19839 Transcribed Date/Time: 02/04/19826 Copy to: Assess/Plan/Problems-Billing Assessment: 83M with afib on warfarin, HTN, COPD with pHTN, HFpEF, osteoporosis, CVA, presents after mechanical fall with L hip fracture, s/p IMN 01/28. course complicated by supratherapeuric INR yesterday and post-op ileus. - Patient Problems (1) Hip fracture, left Code(s): S72.002A - FRACTURE OF UNSP PART OF NECK OF LEFT FEMUR, INIT SNOMED Code(s): 951898201 Comment: - POD8 IM Nail - POC as per ortho - WBAT, pain control, PT/OT - On keflex for wound drainage x7 days per ortho - Pending STR at [facility] (2) Anemia Code(s): D64.9 - ANEMIA, UNSPECIFIED SNOMED Code(s): 867591127 Comment: - post-operative blood loss, s/p 1 unit PRBCs 01/31, H&H stable (3) SOB (shortness of breath) Code(s): R06.02 - SHORTNESS OF BREATH SNOMED Code(s): 630413846 Comment: - Vascular congestion on CXR improved, LLL infiltrate clearing - Had IV lasix with good effect - Transition to PO lasix 02/04 and aldactone restarted - BNP trending down (4) COPD (chronic obstructive pulmonary disease) Code(s): J44.9 - CHRONIC OBSTRUCTIVE PULMONARY DISEASE, UNSPECIFIED SNOMED Code(s): 72272004 Comment: - With hx of pulmo HTN and tobacco use - continue spiriva (5) Hypertension Code(s): I10 - ESSENTIAL (PRIMARY) HYPERTENSION SNOMED Code(s): 81637239 Comment: - Stable on diltizem, lasix and spironolactone (6) Ileus Code(s): K56.7 - ILEUS, UNSPECIFIED SNOMED Code(s): 347952642 Comment: - Resolved - Pos BS x4 quad and passing flatus/loose stools - DC GoLytely - DC CLD - Start Soft/GI diet and advance tomorrow if tolerated - Continue PRN bowel regimen at DC (7) Paroxysmal a-fib Code(s): I48.0 - PAROXYSMAL ATRIAL FIBRILLATION SNOMED Code(s): 716807632 Comment: - Rate controlled on diltiazem - Supratherapeutic INR x4 days with Vit K given yesterday - Will restart coumadin at lower dose tonight (2mg) - CHADsVSC=5 (8) BPH (benign prostatic hyperplasia) Code(s): N40.0 - BENIGN PROSTATIC HYPERPLASIA WITHOUT LOWER URINRY TRACT SYMP SNOMED Code(s): 110968158 Comment: - continue flomax (9) DVT prophylaxis Code(s): WOZ1225 - SNOMED Code(s): 648985467 Comment: - Restart coumadin 2mg, INR was 5.17 02/03 and treated (10) Full code status Code(s): Z78.9 - OTHER SPECIFIED HEALTH STATUS SNOMED Code(s): 650888433 (11) Electrolyte abnormality Code(s): E87.8 - OTH DISORDERS OF ELECTROLYTE AND FLUID BALANCE, NEC SNOMED Code(s): 239755720 Comment: - In presence of hypervolemia - Replete K, mag corrected - Chronic low sodium noted, should follow outpatient while on continue diuretics Status and Disposition: Patient was discharged to [facility] 02/05, however, [facility] refused to take the patient after 2pm, now they will not accept the patient until Friday.
[2019-02-05] MEDS: Warfarin TAB(*) 2 MG PO SCH (18:42)
[2019-02-05] MEDS: Tamsulosin CAP* 0.4 MG PO SCH (20:55)
[2019-02-05] MEDS: Acetaminophen TAB* 325 MG PO PRN (20:55)
[2019-02-05] MEDS: Latanoprost 0.005%* 2.5 ml BTL BOTH EYES SCH (20:55)
--- NOTE | 2019-02-06 00:46 | DS ---
CC: Dr. Deya Jean Baptiste; Dr. Mauro Ulloa; Dr. Kris Jarrett* DISCHARGE SUMMARY: DATE OF ADMISSION: 01/26/19 DATE OF DISCHARGE: 02/05/19 PRIMARY CARE PROVIDER: Dr. Mauro Ulloa. MY ATTENDING FOR TODAY: Dr. Kris Jarrett* (dictated by Nhi Stevens NP). ORTHOPEDICS: Dr. Deya Jean Baptiste. HOSPITAL COURSE: Please refer to admitting H and P by Dr. Saida Jacinto on but in short, Mr. Álvarez is an 83-year-old male patient with history of hypertension, COPD, glaucoma, atrial fib, TIA, and a remote history of alcohol abuse who presents to the emergency department with a report of mechanical fall and left hip pain. The patient states he was doing some laundry in his usual state of health and sustained a trip and and fall while carrying the laundry basket. He presented to the emergency department when he was unable to ambulate and continued to have his left hip pain. Imaging in the emergency department revealed a comminuted fracture of the left proximal femur with a subacute or chronic-appearing fracture of the left inferior pubic ramus and left superior acetabulum with osteopenia and osteoarthritis. Orthopedics was consulted for surgical intervention and significant to note that the patient is on Coumadin for his atrial fibrillation. INR was therapeutic at that time at 2.5; however, INR would be too high for surgery. He was admitted for surgical optimization and medical management in anticipation of surgical intervention. The patient's Coumadin was held. He was continued on his diltiazem for blood pressure and rate control. It was also noted that the patient was on some diuretics; however, is unclear as to the reason for his diuretic use. He was on Lasix and spironolactone. He denied any history of heart failure at the time or cirrhosis. However, he did have some electrolyte disturbances and hyponatremia, which appeared to be chronic. His diuretics were subsequently held prior to his surgical procedure. The patient underwent surgery and did not have any intraoperative complications. However postoperatively, the patient was started on heparin drip in anticipation of bridging back to his Coumadin for his prophylaxis for his atrial fibrillation. However, he did also start to have some abdominal distention and was noted to have a postoperative ileus. The patient had flat plate of the abdomen, which did show that his pattern of distention may have been constipation versus some dilatation and postoperative ileus. He was started on a bowel regimen and conservative measures. He also was persistently short of breath. Postoperatively, his chest x-ray showed some fluid overload. He was effectively diuresed with IV Lasix. He was placed on oxygen with good effect. He had an echocardiogram, which showed sufficient ejection fraction. He did have preserved systolic function. He appeared to have some diastolic dysfunction and appeared to have acute diastolic heart failure. Again it is unclear whether the patient had diastolic heart failure in the past; however, he again was effectively diuresed. His bowel function did return. The patient had positive bowel sounds and bowel function and was tolerating advancing diet. His postoperative course on the orthopedic side progressed as expected. He was participating in physical therapy. His O2 requirements had decreased over the past 24 to 48 hours. He was transitioned to oral Lasix and placed back on his oral spironolactone and has been tolerating p.o. intake and bowel movements have normalized. The patient did exhibit some physical therapy needs. He was accepted at [facility] for rehab, and the patient will be transferred to [facility] either today or tomorrow for physical rehab. DISCHARGE DIAGNOSES: 1. Mechanical fall with left hip fracture status post ORIF. 2. Acute on chronic hyponatremia, stable. 3. Paroxysmal atrial fibrillation. 4. History of hypertension. 5. COPD. 6. BPH. 7. History of TIA and CVA. 8. Acute diastolic heart failure, now resolved. 9. Acute postoperative anemia, now resolved. 10. Acute postoperative ileus, now resolved. DISCHARGE MEDICATIONS: Include: 1. Spiriva 1 cap inhaled daily. 2. Flomax 0.4 mg at bedtime. 3. Spironolactone 25 mg daily. 4. Potassium 20 mEq p.o. daily. 5. MiraLAX 17 g daily p.r.n. 6. Coumadin 2 mg p.o. in the evening. 7. Oxycodone 5 mg p.o. q.6 hours as needed. 8. Travatan eye drops 1 drop each eye at bedtime. 9. Lasix 40 mg two times daily. 10. Diltiazem 180 mg p.o. daily. 11. Flexeril 10 mg p.o. b.i.d. as needed. 12. Vitamin D 800 units p.o. daily. 13. Keflex 500 mg three times a day for 7 more days. 14. Tylenol 975 p.o. q.8 hours as needed. REVIEW OF SYSTEMS ON THE DAY OF DISCHARGE: The patient denies any fever, fatigue, or chills. No acute shortness of breath. He does endorse cough. No chest pains. No abdominal pain. No nausea. No vomiting. No urinary complaints. No bowel complaints. No arthralgias or myalgias. Surgical pain is well controlled and no further constitutional complaints. PHYSICAL EXAM: Reveals a frail-appearing elderly male but in no acute distress. Vital signs are blood pressure 139/52, heart rate 75, respiratory rate 20, O2 saturation 98% on room air with a temperature of 97.7. HEENT: The patient is atraumatic, normocephalic. PERRLA with nonicteric sclerae. Oral mucosa is moist. 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 Dentition is intact. Neck is supple, nontender. No JVD noted. No carotid bruits auscultated. Cardiovascular: S1, S2 present. No murmurs, gallops, or rubs noted. Rate is regular. No murmurs, gallops, or rubs noted. Lungs are clear at the apices bilaterally. Mildly diminished at the bases. No wheezing, rhonchi, or rales. Abdomen is soft, nontender, nondistended. Positive bowel sounds in all 4 quadrants. was deferred. Musculoskeletal: There is no clubbing, no cyanosis, no edema. He has +2 distal pulses palpable. His surgical dressing over the hip is clean, dry , and intact. Neurologic: Grossly intact. There are no focal deficits. Psychiatric: Cooperative and appropriate. LABORATORY DATA: WBCs 9.1, RBCs 2.68, hemoglobin 8.3, hematocrit 25, platelets 266. Sodium range of 129 to 131, potassium 3.4 to 4.2, chloride 93, BUN 8, creatinine 0.45, GFR 180.2, glucose 99, calcium 8.0, phosphorus 2.8, magnesium 2.0. AST 30, ALT 15, alk phos 67, BNP 481 down from 632, total protein 5.8. Urine osmolality 462, urine sodium concentration is less than 18. INR is 1.96 as of 04/25/19. IMAGING: Chest x-ray, most recent chest x-ray dated 02/04/19, shows right lower lobe infiltrate, which is showing some resolution with some interstitial edema that appears to be improved. DISPOSITION: The patient will be discharged to [facility] when bed is available. DIET: The patient should have a heart healthy diet, high protein as tolerated with Ensure Enlive at least 2 times a day with his meals. ACTIVITY: Progress activity as tolerated. FOLLOWUPS: The patient should follow up with Orthopedics in 14 days. Please also note daily dressing changes and note any exudate from his wound. He does have some high output from the wound site, which is why he has been kept on the Keflex for the next 7 days. Please contact orthopedic service if he noticed any change in the drainage, any erythema or any purulence to the surgical site. TIME SPENT: 45 minutes. [facility] [place], [place] [id number]/CPS #: [id number] [facility]
[2019-02-06 06:21] LABS: ABS Basophils 0 10^3/ul (0-0.2); ABS Eosinophils 0.3 10^3/ul (0-0.6); ABS Lymphocytes 1.1 10^3/ul (1.0-4.8); ABS Monocytes 0.8 10^3/ul (0-0.8); ABS Nucleated RBC 0 10^3/ul; Eosinophil % 3.2 %; Hematocrit 25 % (36-46); Hemoglobin 8.6 g/dL (14.0-18.0); Lymphocyte % 13.5 %; Mean Corpuscular HGB Conc 34 g/dL (31-36); Mean Corpuscular Hemoglobin 32 pg (27-31); Mean Corpuscular Volume 93 fL (80-94); Mean Platelet Volume 7.4 fL (7.4-10.4); Nucleated Red Blood Cells % 0; Platelet Count 317 10^3/uL (150-450); Red Blood Count 2.73 10^6 /uL (4.18-5.48); Red Cell Distribution Width 15 % (10.5-15); White Blood Count 8.2 10^3/uL (3.5-10.8)
[2019-02-06] MEDS: Tiotropium CAP.INH* CAP.INH/18 MCG (USE ORDER SET !) INH SCH (08:18)
--- NOTE | 2019-02-06 09:07 | PN ---
Subjective Date of Service: 02/06/19 Interval History: Patient reports he is "feeling pretty good today". he reports some increased SOB above his baseline reporting he was started on lasix last year by PCP then more recently added aldactone due to uncontrolled symptoms; seemed to work. He does report he has slowly been improvig over the last several days in regards to the sob. Denies cough or sputum production. Denies CP. No fevers or chills. Reports he has a good appetite and is tolerated his diet well. Denies abdominal distention, pain. No N/V. Objective Active Medications: Acetaminophen (Tylenol Tab*) 975 mg PO Q8H PRN PRN Reason: mild pain Last Admin: 02/05/19 20:55 Dose: 975 mg Cephalexin HCl (Keflex Cap*) 500 mg PO TID [facility] Stop: 02/09/19 20:59 Last Admin: 02/05/19 20:55 Dose: 500 mg Cholecalciferol (Vitamin D Tab*) 800 unit PO DAILY [facility] Last Admin: 02/05/19 09:56 Dose: 800 unit Cyclobenzaprine HCl (Flexeril Tab*) 10 mg PO BID PRN PRN Reason: muscle spasm Last Admin: 02/04/19 20:29 Dose: 10 mg Diltiazem HCl (Cardizem Cd Cap*) 180 mg PO DAILY [facility] Last Admin: 02/05/19 09:57 Dose: 180 mg Docusate Sodium (Colace Cap*) 200 mg PO DAILY PRN PRN Reason: CONSTIPATION Furosemide (Lasix Tab*) 40 mg PO DAILY [facility] Last Admin: 02/05/19 09:56 Dose: 40 mg Latanoprost (Xalatan 0.005%*) 1 drop BOTH EYES BEDTIME [facility]; Protocol Last Admin: 02/05/19 20:55 Dose: 1 drop Oxycodone HCl (Roxycodone Tab*) 5 mg PO Q6H PRN PRN Reason: Mild to moderate pain Last Admin: 02/04/19 04:51 Dose: 5 mg Pharmacy Profile Note (Coumadin Daily Reminder*) 0 note FOLLOW UP 1700 [facility] Last Admin: 02/05/19 18:05 Dose: 1 note Polyethylene Glycol/Electrolytes (Miralax*) 17 gm PO DAILY PRN PRN Reason: CONSTIPATION Potassium Chloride (Klor Con Er Tab*) 20 meq PO DAILY [facility] Last Admin: 02/05/19 09:57 Dose: 20 meq Spironolactone (Aldactone Tab*) 25 mg PO DAILY [facility] Last Admin: 02/05/19 09:57 Dose: 25 mg Tamsulosin HCl (Flomax Cap*) 0.4 mg PO BEDTIME [facility] Last Admin: 02/05/19 20:55 Dose: 0.4 mg Tiotropium [place] (Spiriva Cap.Inh*) 1 cap INH DAILY [facility] Last Admin: 02/06/19 08:18 Dose: 1 cap Warfarin Sodium (Coumadin Tab(*)) 2 mg PO DAILY@1700 [facility]; Protocol Last Admin: 02/05/19 18:42 Dose: 2 mg Vital Signs - 8 hr 02/06/19 02/06/19 03:31 08:19 Temperature 98.5 F Pulse Rate 72 68 Respiratory 16 18 Rate Blood Pressure 121/54 (mmHg) O2 Sat by Pulse 98 98 Oximetry Oxygen Devices in Use Now: Nasal Cannula Appearance: elderly male A+O x3 sitting up in chair feeding himself breakfast in NAD. Eyes: No Scleral Icterus, PERRLA Ears/Nose/Mouth/Throat: Mucous Membranes Moist Neck: NL Appearance and Movements; NL JVP Respiratory: Symmetrical Chest Expansion and Respiratory Effort, - - fine mild b /l crackles Cardiovascular: NL Sounds; No Murmurs; No JVD, RRR, No Edema Abdominal: NL Sounds; No Tenderness; No Distention Extremities: No Edema Skin: No Rash or Ulcers, No Nodules or Sclerosis Neurological: Alert and Oriented x 3, NL Sensation, NL Muscle Strength and Tone Lines/Tubes/Other Access: Clean, Dry and Intact Peripheral IV Nutrition: Taking PO's Result Diagrams: 02/06/19 05:58 02/04/19 06:30 Additional Lab and Data: Lab Results 01/26/19 01/26/19 01/26/19 Range/Units 14:45 14:45 15:50 WBC 10.0 (3.5-10.8) 10^3/uL RBC 3.78 L (4.18-5.48) 10^6 /uL Hgb 11.7 L (14.0-18.0) g/dL Hct 34 L (36-46) % MCV 91 (80-94) fL MCH 31 (27-31) pg MCHC 34 (31-36) g/dL RDW 14 (10.5-15) % Plt Count 238 (150-450) 10^3/uL MPV 8.2 (7.4-10.4) fL INR (Anticoag Therapy) 2.59 H (0.77-1.02) Sodium 123 L (135-145) mmol/L Potassium 3.9 (3.5-5.0) mmol/L Chloride 89 L (101-111) mmol/L Carbon Dioxide 25 (22-32) mmol/L Anion Gap 9 (2-11) mmol/L BUN 16 (6-24) mg/dL Creatinine 0.82 (0.67-1.17) mg/dL Est GFR ( Amer) 109.1 (>60) Est GFR (Non-Af Amer) 90.2 (>60) BUN/Creatinine Ratio 19.5 (8-20) Glucose 125 H (70-100) mg/dL Calcium 9.3 (8.6-10.3) mg/dL Total Bilirubin 0.80 (0.2-1.0) mg/dL AST 29 (13-39) U/L ALT 15 (7-52) U/L Alkaline Phosphatase 82 (34-104) U/L Troponin I 0.03 (<0.04) ng/mL Total Protein 7.9 (6.4-8.9) g/dL Albumin 4.4 (3.2-5.2) g/dL Globulin 3.5 (2-4) g/dL Albumin/Globulin Ratio 1.3 (1-3) Blood Type Antibody Screen 01/26/19 Range/Units 15:50 WBC (3.5-10.8) 10^3/uL RBC (4.18-5.48) 10^6 /uL Hgb (14.0-18.0) g/dL Hct (36-46) % MCV (80-94) fL MCH (27-31) pg MCHC (31-36) g/dL RDW (10.5-15) % Plt Count (150-450) 10^3/uL MPV (7.4-10.4) fL INR (Anticoag Therapy) (0.77-1.02) Sodium (135-145) mmol/L Potassium (3.5-5.0) mmol/L Chloride (101-111) mmol/L Carbon Dioxide (22-32) mmol/L Anion Gap (2-11) mmol/L BUN (6-24) mg/dL Creatinine (0.67-1.17) mg/dL Est GFR ( Amer) (>60) Est GFR (Non-Af Amer) (>60) BUN/Creatinine Ratio (8-20) Glucose (70-100) mg/dL Calcium (8.6-10.3) mg/dL Total Bilirubin (0.2-1.0) mg/dL AST (13-39) U/L ALT (7-52) U/L Alkaline Phosphatase (34-104) U/L Troponin I (<0.04) ng/mL Total Protein (6.4-8.9) g/dL Albumin (3.2-5.2) g/dL Globulin (2-4) g/dL Albumin/Globulin Ratio (1-3) Blood Type A Positive Antibody Screen Pending Microbiology and Other Data: Microbiology 01/27/19 00:00 Nasal Screen MRSA (PCR) - Final Nasal Mrsa Not Detected Diagnostic Imaging: Patient Name: VERA HARMAN Medical Record#: [id number] Ordering Physician: Otis Dos Santos MD Acct.#: [id number] : 1935 Age: 83 Sex: M Location: SURGICAL STAY UNIT Exam Date: 02/04/19 07 ADM Status: ADM IN Order Information: CHEST AP OR PORT Accession Number: [id number] CPT: 52330 Indication: Dyspnea on exertion. Single frontal view of the chest performed at 0658 hours was reviewed. Comparison is made with previous exam dated February 01, 2019. Interstitial edema appears to be improved since previous exam. Residual infiltrate and likely right pleural effusion is noted. IMPRESSION: RIGHT LOWER LOBE INFILTRATE. INTERSTITIAL EDEMA APPEARS TO BE IMPROVED. <Electronically signed by Ana M Lopez MD in [place]> 02/04/19839 Dictated By: Ana M Lopez MD Dictated Date/Time: 02/04/19839 Transcribed Date/Time: 02/04/1915 Copy to: Assess/Plan/Problems-Billing Assessment: 83M with afib on warfarin, HTN, COPD with pHTN, HFpEF, osteoporosis, CVA, presents after mechanical fall with L hip fracture, s/p IMN 01/28. course complicated by supratherapeuric INR yesterday and post-op ileus. - Patient Problems (1) Hip fracture, left Comment: - POD8 IM Nail - POC as per ortho - WBAT, pain control, PT/OT - On keflex for wound drainage x7 days per ortho - Pending STR at [facility] (2) SOB (shortness of breath) Comment: - Vascular congestion on CXR improved, LLL infiltrate clearing - Given IV lasix with good effect - Transition to PO lasix 02/04 and aldactone restarted - Continues on oxygen NC @ 3L; no home O2 - will attempt to titrate - Daily weights (3) Ileus Comment: - Resolved - Pos BS x4 quad and passing flatus; no pain/nausea - tolerating Soft/GI diet; advance as tolerates - Continue PRN bowel regimen at [facility] (4) Anemia Comment: - post-operative blood loss, s/p 1 unit PRBCs 01/31, H&H stable (5) BPH (benign prostatic hyperplasia) Comment: - continue flomax (6) COPD (chronic obstructive pulmonary disease) Comment: - With hx of pulmo HTN and tobacco use - continue spiriva (7) Electrolyte abnormality Comment: - In presence of hypervolemia - Repeat potassium - Chronic low sodium noted, should follow outpatient while on continue diuretics (8) Hypertension Comment: - Stable on diltizem, lasix and spironolactone (9) Paroxysmal a-fib Comment: - Rate controlled on diltiazem - Supratherapeutic INR x4 days; Vit K given reported to be given 02/05 ? but do not see the order. - Continue coumadin at lower dose (2mg) - CHADsVSC=5 (10) Full code status Status and Disposition: Patient was discharged to [facility] 02/05, however, [facility] refused to take the patient after 2pm, now they will not accept the patient until Friday.
[2019-02-06] MEDS: Acetaminophen TAB* 325 MG PO PRN (09:20)
[2019-02-06] MEDS: Spironolactone TAB* 25 MG PO SCH (09:21)
[2019-02-06] MEDS: Potassium Chlor TAB* 20 MEQ TAB.ER PO SCH (09:21)
[2019-02-06] MEDS: Diltiazem CD CAP* 180 MG PO SCH (09:21)
[2019-02-06] MEDS: Furosemide TAB* 40 MG PO SCH (09:21)
[2019-02-06] MEDS: Cephalexin CAP* 500 MG PO SCH ×2 (09:21→14:53)
[2019-02-06] MEDS: Cholecalciferol TAB* 400 UNIT PO SCH (09:21)
--- NOTE | 2019-02-06 09:59 | PN ---
Progress Note - Progress Note Date of Service: 02/06/19 SOAP: Subjective: [Pt reports minimal pain at rest. Increase pain with movement, rising, ambulation. Cont's to c/o SOB - unchanged from previous days. Jam CP, dizziness.] Objective: [A and O x 3, NAD Seated in chair eating breakfast. L hip dressing changed. Dressing with serous drainage. Surgical wounds benign. No active drainage, no sign of infxn. Significant ecchymosis from left buttocks to calf. Calf soft, NT Gross motor and NV function intact Vital Signs: Temp Pulse Resp BP Pulse Ox 98.5 F 68 18 121/54 98 02/06/19 03:31 02/06/19 08:19 02/06/19 08:19 02/06/19 03:31 02/06/19 08:19 Laboratory Results - last 24 hr 02/06/19 05:58 WBC 8.2 RBC 2.73 L Hgb 8.6 L Hct 25 L MCV 93 MCH 32 H MCHC 34 RDW 15 Plt Count 317 MPV 7.4 Neut % (Auto) 72.8 Lymph % (Auto) 13.5 [place] % (Auto) 10.1 Eos % (Auto) 3.2 Baso % (Auto) 0.4 Absolute Neuts (auto) 6.0 Absolute Lymphs (auto) 1.1 Absolute Monos (auto) 0.8 Absolute Eos (auto) 0.3 Absolute Basos (auto) 0 Absolute Nucleated RBC 0 Nucleated RBC % 0 ] Assessment: [s/p L hip IM nail POD #9] Plan: [PT/OT - WBAT L LE Pain management] Hospitalist co-managing
[2019-02-06 10:34] LABS: Calcium 8.7 mg/dL (8.6-10.3); Potassium 4.1 mmol/L (3.5-5.0)
[2019-02-06 10:40] LABS: BUN/Creatinine Ratio 20.4 (8-20); EGFR African American 176.7 (>60)
[2019-02-06 10:57] LABS: INR 1.71 (0.82-1.09)
[2019-02-06] MEDS: Warfarin TAB(*) 2 MG PO SCH (17:13)
[2019-02-07 08:16] LABS: ABS Basophils 0.1 10^3/ul (0-0.2); ABS Eosinophils 0.2 10^3/ul (0-0.6); ABS Monocytes 0.7 10^3/ul (0-0.8); ABS Neutrophils 7.7 10^3/ul (1.5-7.7); ABS Nucleated RBC 0 10^3/ul; Hematocrit 28 % (36-46); Hemoglobin 9.6 g/dL (14.0-18.0); Lymphocyte % 9.9 %; Mean Corpuscular HGB Conc 35 g/dL (31-36); Mean Corpuscular Hemoglobin 32 pg (27-31); Mean Corpuscular Volume 92 fL (80-94); Mean Platelet Volume 7.1 fL (7.4-10.4); Nucleated Red Blood Cells % 0.1; Platelet Count 408 10^3/uL (150-450); Red Blood Count 3.01 10^6 /uL (4.18-5.48); Red Cell Distribution Width 15 % (10.5-15); White Blood Count 9.7 10^3/uL (3.5-10.8)
[2019-02-07 08:21] LABS: INR 1.97 (0.82-1.09)
[2019-02-07 08:34] LABS: Albumin 3.5 g/dL (3.2-5.2); Albumin/Globulin Ratio 1.1 (1-3); BUN/Creatinine Ratio 19.3 (8-20); EGFR Non-African American 137.2 (>60); Globulin 3.2 g/dL (2-4); Potassium 4.4 mmol/L (3.5-5.0); Total Bilirubin 1.6 mg/dL (0.2-1.0); Total Protein 6.7 g/dL (6.4-8.9)
[2019-02-07] MEDS: Tiotropium CAP.INH* CAP.INH/18 MCG (USE ORDER SET !) INH SCH (08:58)
[2019-02-07] MEDS: Cholecalciferol TAB* 400 UNIT PO SCH (10:09)
[2019-02-07] MEDS: Diltiazem CD CAP* 180 MG PO SCH (10:09)
[2019-02-07] MEDS: Furosemide TAB* 40 MG PO SCH (10:10)
[2019-02-07] MEDS: Cephalexin CAP* 500 MG PO SCH ×4 (10:10→20:17)
[2019-02-07] MEDS: Spironolactone TAB* 25 MG PO SCH (10:10)
[2019-02-07] MEDS: Potassium Chlor TAB* 20 MEQ TAB.ER PO SCH (10:10)
[2019-02-07] MEDS: Acetaminophen TAB* 325 MG PO PRN (10:10)
[2019-02-07] MEDS ORDERED: NS 0.9% 1000 ML** 1,000 ML IV SCH (12:45)
--- NOTE | 2019-02-07 17:02 | PN ---
Subjective Date of Service: 02/07/19 Interval History: Pt reports he continues to feel well. Denies any dizziness. reports his mouth and tongue feel very dry. Reports he is tolerating his diet well w/o any abdominal pain. No fevers or chills. reports his pain is controlled Objective Active Medications: Acetaminophen (Tylenol Tab*) 975 mg PO Q8H PRN PRN Reason: mild pain Last Admin: 02/07/19 10:10 Dose: 975 mg Cephalexin HCl (Keflex Cap*) 500 mg PO TID [facility] Stop: 02/09/19 20:59 Last Admin: 02/07/19 13:55 Dose: 500 mg Cholecalciferol (Vitamin D Tab*) 800 unit PO DAILY [facility] Last Admin: 02/07/19 10:09 Dose: 800 unit Cyclobenzaprine HCl (Flexeril Tab*) 10 mg PO BID PRN PRN Reason: muscle spasm Last Admin: 02/04/19 20:29 Dose: 10 mg Diltiazem HCl (Cardizem Cd Cap*) 180 mg PO DAILY [facility] Last Admin: 02/07/19 10:09 Dose: 180 mg Docusate Sodium (Colace Cap*) 200 mg PO DAILY PRN PRN Reason: CONSTIPATION Furosemide (Lasix Tab*) 40 mg PO DAILY [facility] Last Admin: 02/07/19 10:10 Dose: 40 mg Sodium Chloride (Ns 0.9% 1000 Ml) 1,000 mls @ 75 mls/hr IV PER RATE [facility] Last Admin: 02/07/19 13:55 Dose: 75 mls/hr Latanoprost (Xalatan 0.005%*) 1 drop BOTH EYES BEDTIME [facility]; Protocol Last Admin: 02/07/19 00:00 Dose: 1 drop Pharmacy Profile Note (Coumadin Daily Reminder*) 0 note FOLLOW UP 1700 [facility] Last Admin: 02/06/19 17:16 Dose: 1 note Polyethylene Glycol/Electrolytes (Miralax*) 17 gm PO DAILY PRN PRN Reason: CONSTIPATION Potassium Chloride (Klor Con Er Tab*) 20 meq PO DAILY [facility] Last Admin: 02/07/19 10:10 Dose: 20 meq Spironolactone (Aldactone Tab*) 25 mg PO DAILY [facility] Last Admin: 02/07/19 10:10 Dose: 25 mg Tamsulosin HCl (Flomax Cap*) 0.4 mg PO BEDTIME [facility] Last Admin: 02/07/19 00:00 Dose: 0.4 mg Tiotropium [place] (Spiriva Cap.Inh*) 1 cap INH DAILY [facility] Last Admin: 02/07/19 08:58 Dose: 1 cap Warfarin Sodium (Coumadin Tab(*)) 2 mg PO DAILY@1700 [facility]; Protocol Last Admin: 02/06/19 17:13 Dose: 2 mg Vital Signs - 8 hr 02/07/19 02/07/19 02/07/19 08:59 11:31 11:36 Temperature 97.8 F Pulse Rate 67 83 Respiratory 18 18 Rate Blood Pressure 119/27 118/42 (mmHg) O2 Sat by Pulse 91 97 Oximetry 02/07/19 15:33 Temperature 97.5 F Pulse Rate 68 Respiratory 16 Rate Blood Pressure 132/54 (mmHg) O2 Sat by Pulse 98 Oximetry Oxygen Devices in Use Now: Nasal Cannula Appearance: eldelry male A+O x3 in NAD Eyes: PERRLA Ears/Nose/Mouth/Throat: - - dry MM Respiratory: Symmetrical Chest Expansion and Respiratory Effort, Clear to Auscultation Cardiovascular: NL Sounds; No Murmurs; No JVD, RRR, No Edema Abdominal: NL Sounds; No Tenderness; No Distention Extremities: No Edema, No Clubbing, Cyanosis Skin: No Rash or Ulcers, No Nodules or Sclerosis Neurological: Alert and Oriented x 3, NL Sensation Lines/Tubes/Other Access: Clean, Dry and Intact Peripheral IV Nutrition: Taking PO's Result Diagrams: 02/07/19 07:56 02/07/19 07:56 Additional Lab and Data: Lab Results 01/26/19 01/26/19 01/26/19 Range/Units 14:45 14:45 15:50 WBC 10.0 (3.5-10.8) 10^3/uL RBC 3.78 L (4.18-5.48) 10^6 /uL Hgb 11.7 L (14.0-18.0) g/dL Hct 34 L (36-46) % MCV 91 (80-94) fL MCH 31 (27-31) pg MCHC 34 (31-36) g/dL RDW 14 (10.5-15) % Plt Count 238 (150-450) 10^3/uL MPV 8.2 (7.4-10.4) fL INR (Anticoag Therapy) 2.59 H (0.77-1.02) Sodium 123 L (135-145) mmol/L Potassium 3.9 (3.5-5.0) mmol/L Chloride 89 L (101-111) mmol/L Carbon Dioxide 25 (22-32) mmol/L Anion Gap 9 (2-11) mmol/L BUN 16 (6-24) mg/dL Creatinine 0.82 (0.67-1.17) mg/dL Est GFR ( Amer) 109.1 (>60) Est GFR (Non-Af Amer) 90.2 (>60) BUN/Creatinine Ratio 19.5 (8-20) Glucose 125 H (70-100) mg/dL Calcium 9.3 (8.6-10.3) mg/dL Total Bilirubin 0.80 (0.2-1.0) mg/dL AST 29 (13-39) U/L ALT 15 (7-52) U/L Alkaline Phosphatase 82 (34-104) U/L Troponin I 0.03 (<0.04) ng/mL Total Protein 7.9 (6.4-8.9) g/dL Albumin 4.4 (3.2-5.2) g/dL Globulin 3.5 (2-4) g/dL Albumin/Globulin Ratio 1.3 (1-3) Blood Type Antibody Screen 01/26/19 Range/Units 15:50 WBC (3.5-10.8) 10^3/uL RBC (4.18-5.48) 10^6 /uL Hgb (14.0-18.0) g/dL Hct (36-46) % MCV (80-94) fL MCH (27-31) pg MCHC (31-36) g/dL RDW (10.5-15) % Plt Count (150-450) 10^3/uL MPV (7.4-10.4) fL INR (Anticoag Therapy) (0.77-1.02) Sodium (135-145) mmol/L Potassium (3.5-5.0) mmol/L Chloride (101-111) mmol/L Carbon Dioxide (22-32) mmol/L Anion Gap (2-11) mmol/L BUN (6-24) mg/dL Creatinine (0.67-1.17) mg/dL Est GFR ( Amer) (>60) Est GFR (Non-Af Amer) (>60) BUN/Creatinine Ratio (8-20) Glucose (70-100) mg/dL Calcium (8.6-10.3) mg/dL Total Bilirubin (0.2-1.0) mg/dL AST (13-39) U/L ALT (7-52) U/L Alkaline Phosphatase (34-104) U/L Troponin I (<0.04) ng/mL Total Protein (6.4-8.9) g/dL Albumin (3.2-5.2) g/dL Globulin (2-4) g/dL Albumin/Globulin Ratio (1-3) Blood Type A Positive Antibody Screen Pending Microbiology and Other Data: Microbiology 01/27/19 00:00 Nasal Screen MRSA (PCR) - Final Nasal Mrsa Not Detected Diagnostic Imaging: Patient Name: VERA HARMAN Medical Record#: [id number] Ordering Physician: Otis Dos Santos MD Acct.#: [id number] : 1935 Age: 83 Sex: M Location: SURGICAL STAY UNIT Exam Date: 02/04/19699 ADM Status: ADM IN Order Information: CHEST AP OR PORT Accession Number: [id number] CPT: 47554 Indication: Dyspnea on exertion. Single frontal view of the chest performed at 0658 hours was reviewed. Comparison is made with previous exam dated February 01, 2019. Interstitial edema appears to be improved since previous exam. Residual infiltrate and likely right pleural effusion is noted. IMPRESSION: RIGHT LOWER LOBE INFILTRATE. INTERSTITIAL EDEMA APPEARS TO BE IMPROVED. <Electronically signed by Ana M Lopez MD in [place]> 02/04/19839 Dictated By: Ana M Lopez MD Dictated Date/Time: 02/04/19839 Transcribed Date/Time: 02/04/19826 Copy to: Assess/Plan/Problems-Billing Assessment: 83M with afib on warfarin, HTN, COPD with pHTN, HFpEF, osteoporosis, CVA, presents after mechanical fall with L hip fracture, s/p IMN 01/28. course complicated by supratherapeuric INR yesterday and post-op ileus. - Patient Problems (1) Hip fracture, left Comment: - POD9 IM Nail - POC as per ortho - WBAT, pain control, PT/OT - On keflex for wound drainage x7 days per ortho - Pending STR at [facility] (2) SOB (shortness of breath) Comment: - Resolved; vascular congestion on CXR noted - Transition to PO lasix 02/04 and aldactone restarted - Continues on oxygen NC @ 2L; no home O2 - will attempt to titrate - Daily weights (3) Ileus Comment: - Resolved - Pos BS x4 quad and passing flatus; no pain/nausea - tolerating Soft/GI diet; advance to heart healthy - Continue PRN bowel regimen at [facility] (4) Anemia Comment: - post-operative blood loss, s/p 1 unit PRBCs 01/31, H&H stable (5) BPH (benign prostatic hyperplasia) Comment: - continue flomax (6) COPD (chronic obstructive pulmonary disease) Comment: - With hx of pulmo HTN and tobacco use - continue spiriva (7) Electrolyte abnormality Comment: - Sodium 125 today; patient appears dry. will given 1 L NS repeat sodium at 1999. - Decrease lasix to 20 mg PO (from 40mg) - Chronic low sodium noted, should follow outpatient while on continue diuretics (8) Hypertension Comment: - Stable on diltizem, lasix and spironolactone (9) Paroxysmal a-fib Comment: - Rate controlled on diltiazem - Supratherapeutic INR x4 days; Vit K given reported to be given 02/05 ? but do not see the order. INR 1.9 today - Continue coumadin at lower dose (2mg) - CHADsVSC=5 (10) Full code status Status and Disposition: Patient was discharged to [facility] 02/05, however, [facility] refused to take the patient after 2pm, now they will not accept the patient until Friday.
[2019-02-07] MEDS: Warfarin TAB(*) 2 MG PO SCH (17:16)
[2019-02-07] MEDS: Tamsulosin CAP* 0.4 MG PO SCH ×2 (20:17)
[2019-02-07] MEDS: Cyclobenzaprine TAB* 10 MG PO PRN (20:17)
[2019-02-07] MEDS: Latanoprost 0.005%* 2.5 ml BTL BOTH EYES SCH ×2 (20:20)
[2019-02-07 21:16] LABS: CO2 Carbon Dioxide 24 mmol/L (22-32); Calcium 8.8 mg/dL (8.6-10.3); Chloride 88 mmol/L (101-111); Sodium 121 mmol/L (135-145)
[2019-02-07 21:21] LABS: BUN/Creatinine Ratio 20.3 (8-20); Blood Urea Nitrogen 13 mg/dL (6-24); EGFR African American 145.2 (>60); Glucose 101 mg/dL (70-100)
[2019-02-07 21:27] LABS: Anion Gap 9 mmol/L (2-11)
[2019-02-08 06:57] LABS: ABS Basophils 0.1 10^3/ul (0-0.2); ABS Eosinophils 0.1 10^3/ul (0-0.6); ABS Lymphocytes 0.9 10^3/ul (1.0-4.8); ABS Monocytes 0.7 10^3/ul (0-0.8); ABS Neutrophils 10.1 10^3/ul (1.5-7.7); ABS Nucleated RBC 0 10^3/ul; Eosinophil % 1.2 %; Hematocrit 26 % (36-46); Hemoglobin 8.6 g/dL (14.0-18.0); Lymphocyte % 7.5 %; Mean Corpuscular HGB Conc 33 g/dL (31-36); Mean Corpuscular Hemoglobin 30 pg (27-31); Mean Corpuscular Volume 92 fL (80-94); Mean Platelet Volume 7.5 fL (7.4-10.4); Nucleated Red Blood Cells % 0; Platelet Count 428 10^3/uL (150-450); Red Blood Count 2.85 10^6 /uL (4.18-5.48); Red Cell Distribution Width 15 % (10.5-15); White Blood Count 11.9 10^3/uL (3.5-10.8)
[2019-02-08 07:01] LABS: BUN/Creatinine Ratio 21.1 (8-20); EGFR Non-African American 137.2 (>60); Potassium 4.6 mmol/L (3.5-5.0)
[2019-02-08] MEDS: Tiotropium CAP.INH* CAP.INH/18 MCG (USE ORDER SET !) INH SCH (08:09)
[2019-02-08] MEDS ORDERED: Furosemide TAB* 20 MG PO SCH (09:00)
[2019-02-08] MEDS: Potassium Chlor TAB* 20 MEQ TAB.ER PO SCH (09:59)
[2019-02-08] MEDS: Cephalexin CAP* 500 MG PO SCH ×3 (09:59→22:40)
[2019-02-08] MEDS: Cholecalciferol TAB* 400 UNIT PO SCH (09:59)
[2019-02-08] MEDS: Spironolactone TAB* 25 MG PO SCH (09:59)
[2019-02-08] MEDS: Diltiazem CD CAP* 180 MG PO SCH (10:00)
--- NOTE | 2019-02-08 10:11 | PN ---
Subjective Date of Service: 02/08/19 Interval History: VS: Low O2, requiring 2L NC Labs: Slighty leukocytosis, anemia; hyponatremia Pt states that his L hip is feeling better and that he is walking okay. He is a 1 person assist now. He denies CP, SOB, abd pain, n/v/d, pain in LE. Objective Active Medications: Acetaminophen (Tylenol Tab*) 975 mg PO Q8H PRN Cephalexin HCl (Keflex Cap*) 500 mg PO TID [facility] Cholecalciferol (Vitamin D Tab*) 800 unit PO DAILY [facility] Cyclobenzaprine HCl (Flexeril Tab*) 10 mg PO BID PRN Diltiazem HCl (Cardizem Cd Cap*) 180 mg PO DAILY [facility] Docusate Sodium (Colace Cap*) 200 mg PO DAILY [facility] Furosemide (Lasix Tab*) 20 mg PO DAILY [facility] Latanoprost (Xalatan 0.005%*) [address] [facility]; Protocol Pharmacy Profile Note (Coumadin Daily Reminder*) 0 note FOLLOW UP 1700 [facility] Polyethylene Glycol/Electrolytes (Miralax*) 17 gm PO DAILY [facility] Potassium Chloride (Klor Con Er Tab*) 20 meq PO DAILY [facility] Spironolactone (Aldactone Tab*) 25 mg PO DAILY [facility] Tamsulosin HCl (Flomax Cap*) 0.4 mg PO BEDTIME [facility] Tiotropium [place] (Spiriva Cap.Inh*) 1 cap INH DAILY [facility] Warfarin Sodium (Coumadin Tab(*)) 2 mg PO DAILY@1700 [facility]; Protocol Vital Signs: Temp Pulse Resp BP Pulse Ox 98.4 F 66 14 123/94 88 02/08/19 08:09 02/08/19 07:39 02/08/19 07:39 02/08/19 07:39 02/08/19 07:39 Oxygen Devices in Use Now: Nasal Cannula Appearance: Pt is sitting up in bed. He is frail, but appears well and in good spirits. No acute distress. Eyes: No Scleral Icterus, PERRLA Ears/Nose/Mouth/Throat: NL Teeth, Lips, Gums, Clear Oropharnyx - Mucous membranes dry Neck: NL Appearance and Movements; NL JVP, Trachea Midline Respiratory: Symmetrical Chest Expansion and Respiratory Effort, Clear to Auscultation Cardiovascular: NL Sounds; No Murmurs; No JVD, - - Irregular rate, rhythm control. 1+ pitting edema LLE Abdominal: NL Sounds; No Tenderness; No Distention, No Hepatosplenomegaly Extremities: No Clubbing, Cyanosis, - - B/l UE, LE pulses intact. RLE WNL. LLE with ecchymosis to L extremity. LLE 1+ pittind edema with no calf tenderness. Neurological: Alert and Oriented x 3 Result Diagrams: 02/08/19 06:21 02/08/19 06:21 Additional Lab and Data: Lab Results 01/26/19 01/26/19 01/26/19 Range/Units 14:45 14:45 15:50 WBC 10.0 (3.5-10.8) 10^3/uL RBC 3.78 L (4.18-5.48) 10^6 /uL Hgb 11.7 L (14.0-18.0) g/dL Hct 34 L (36-46) % MCV 91 (80-94) fL MCH 31 (27-31) pg MCHC 34 (31-36) g/dL RDW 14 (10.5-15) % Plt Count 238 (150-450) 10^3/uL MPV 8.2 (7.4-10.4) fL INR (Anticoag Therapy) 2.59 H (0.77-1.02) Sodium 123 L (135-145) mmol/L Potassium 3.9 (3.5-5.0) mmol/L Chloride 89 L (101-111) mmol/L Carbon Dioxide 25 (22-32) mmol/L Anion Gap 9 (2-11) mmol/L BUN 16 (6-24) mg/dL Creatinine 0.82 (0.67-1.17) mg/dL Est GFR ( Amer) 109.1 (>60) Est GFR (Non-Af Amer) 90.2 (>60) BUN/Creatinine Ratio 19.5 (8-20) Glucose 125 H (70-100) mg/dL Calcium 9.3 (8.6-10.3) mg/dL Total Bilirubin 0.80 (0.2-1.0) mg/dL AST 29 (13-39) U/L ALT 15 (7-52) U/L Alkaline Phosphatase 82 (34-104) U/L Troponin I 0.03 (<0.04) ng/mL Total Protein 7.9 (6.4-8.9) g/dL Albumin 4.4 (3.2-5.2) g/dL Globulin 3.5 (2-4) g/dL Albumin/Globulin Ratio 1.3 (1-3) Blood Type Antibody Screen 01/26/19 Range/Units 15:50 WBC (3.5-10.8) 10^3/uL RBC (4.18-5.48) 10^6 /uL Hgb (14.0-18.0) g/dL Hct (36-46) % MCV (80-94) fL MCH (27-31) pg MCHC (31-36) g/dL RDW (10.5-15) % Plt Count (150-450) 10^3/uL MPV (7.4-10.4) fL INR (Anticoag Therapy) (0.77-1.02) Sodium (135-145) mmol/L Potassium (3.5-5.0) mmol/L Chloride (101-111) mmol/L Carbon Dioxide (22-32) mmol/L Anion Gap (2-11) mmol/L BUN (6-24) mg/dL Creatinine (0.67-1.17) mg/dL Est GFR ( Amer) (>60) Est GFR (Non-Af Amer) (>60) BUN/Creatinine Ratio (8-20) Glucose (70-100) mg/dL Calcium (8.6-10.3) mg/dL Total Bilirubin (0.2-1.0) mg/dL AST (13-39) U/L ALT (7-52) U/L Alkaline Phosphatase (34-104) U/L Troponin I (<0.04) ng/mL Total Protein (6.4-8.9) g/dL Albumin (3.2-5.2) g/dL Globulin (2-4) g/dL Albumin/Globulin Ratio (1-3) Blood Type A Positive Antibody Screen Pending Microbiology and Other Data: Microbiology 01/27/19 00:00 Nasal Screen MRSA (PCR) - Final Nasal Mrsa Not Detected Diagnostic Imaging: Patient Name: VERA HARMAN Medical Record#: [id number] Ordering Physician: Otis Dos Santos MD Acct.#: [id number] : 1935 Age: 83 Sex: M Location: SURGICAL STAY UNIT Exam Date: 02/04/19699 ADM Status: ADM IN Order Information: CHEST AP OR PORT Accession Number: [id number] CPT: 79135 Indication: Dyspnea on exertion. Single frontal view of the chest performed at 0658 hours was reviewed. Comparison is made with previous exam dated February 01, 2019. Interstitial edema appears to be improved since previous exam. Residual infiltrate and likely right pleural effusion is noted. IMPRESSION: RIGHT LOWER LOBE INFILTRATE. INTERSTITIAL EDEMA APPEARS TO BE IMPROVED. <Electronically signed by Ana M Lopez MD in [facility]> 02/04/19839 Dictated By: Ana M Lopez MD Dictated Date/Time: 02/04/19839 Transcribed Date/Time: 02/04/19826 Copy to: Assess/Plan/Problems-Billing Assessment: 83M with afib on warfarin, HTN, COPD with pHTN, HFpEF, osteoporosis, CVA, presents after mechanical fall with L hip fracture, s/p IMN 01/28. Course complicated by supratherapeuric INR yesterday and post-op ileus. - Patient Problems (1) Hip fracture, left Comment: -POD10 IM Nail -POC as per ortho -WBAT, pain control, PT/OT -On keflex for wound drainage x7 days per ortho -Pending STR at [facility] (2) Electrolyte abnormality Comment: -Sodium 121 today; pt given 1L NS with no change in sodium -Fluid restriction and Lasix 40 PO -Urine Na and urine osmo ordered -Chronic low sodium noted, should follow outpatient while on diuretics (3) Anemia Comment: -Post-operative blood loss, s/p 1 unit PRBCs 01/31 -H&H stable (4) Paroxysmal a-fib Comment: -Rate controlled on diltiazem -Supratherapeutic INR x4 days; Vit K given reported to be given 02/05 ? but do not see the order -INR 2.17 today -Continue Coumadin at 2.0 -CHADsVSC=5 (5) Hypertension Comment: -Stable on diltizem, lasix and spironolactone (6) COPD (chronic obstructive pulmonary disease) Comment: -With hx of pulmo HTN and tobacco use -Not in exacerbation -continue spiriva (7) Ileus Comment: -Resolved -Pos BS x4 quad and passing flatus; no pain/nausea -tolerating Soft/GI diet; advance to heart healthy -Continue PRN bowel regimen at [facility] (8) SOB (shortness of breath) Comment: -Resolved; vascular congestion on CXR noted -Transition to PO lasix 02/04 and aldactone restarted -Continues on oxygen NC @ 2L; no home O2 - will attempt to titrate -Daily weights (9) BPH (benign prostatic hyperplasia) Comment: -continue flomax (10) DVT prophylaxis Comment: -Restart coumadin 2mg on 02/05, INR was 5.17 02/03 and treated -INR 2.17 today; continue 2mg Coumadin (11) Full code status Status and Disposition: Patient was discharged to [facility] 02/05, however, [facility] refused to take the patient after 2pm, now they will not accept the patient until Friday. Likely discharge tomorrow, pending resolution of hyponatremia.
--- NOTE | 2019-02-08 10:24 | PN ---
Progress Note - Progress Note Date of Service: 02/08/19 SOAP: Subjective: []Pt seen at bedside. He feels well today without left hip pain. Denies CP, dizziness, nausea, fever or chills. SOB has improved some. Objective: []General: NAD, carrying on appropriate conversation LLE: Proximal incisions with continued serous drainage, no purulence or erythema. Thigh is soft, there is ecchymosis of the posterior thigh, no induration or fluctuance. DF/PF intact, DP2+, sensation intact to light touch distally. DP2+ Calves supple and nontender without erythema or edema Assessment: []SP L IM Nail POD 11 Plan: []WBAT PT/OT Continue keflex for remainder of 5 days, report to ortho any erythema, increased drainage, purulence, increasing pain, fever or chills warfarin for DVT prophy FU Dr Jean Baptiste 14 days post op. Due to drainage opt to leave vic in place for now and follow up with ortho in a few days Vital Signs Temp 98.4 F 02/08/19 08:09 Pulse 66 02/08/19 07:39 Resp 14 02/08/19 07:39 BP 123/94 02/08/19 07:39 Pulse Ox 88 02/08/19 07:39 Intake & Output 02/07/19 02/08/19 02/08/19 18:59 06:59 18:59 Intake Total 1300 1100 Output Total 600 450 Balance 700 650 Weight 119 lb 12.8 oz Intake: Oral 1300 1100 Output: Urine 600 450 Other: Estimated Void Medium # Bowel Movements 1 1 Estimated Stool Amount Medium # Voids 1 Laboratory Last Values WBC 11.9 10^3/uL (3.5-10.8) H 02/08/19 06:21 RBC 2.85 10^6 /uL (4.18-5.48) L 02/08/19 06:21 Hgb 8.6 g/dL (14.0-18.0) L 02/08/19 06:21 Hct 26 % (36-46) L 02/08/19 06:21 MCV 92 fL (80-94) 02/08/19 06:21 MCH 30 pg (27-31) 02/08/19 06:21 MCHC 33 g/dL (31-36) 02/08/19 06:21 RDW 15 % (10.5-15) 02/08/19 06:21 Plt Count 428 10^3/uL (150-450) 02/08/19 06:21 MPV 7.5 fL (7.4-10.4) 02/08/19 06:21 Neut % (Auto) 84.6 % 02/08/19 06:21 Lymph % (Auto) 7.5 % 02/08/19 06:21 [place] % (Auto) 5.6 % 02/08/19 06:21 Eos % (Auto) 1.2 % 02/08/19 06:21 Baso % (Auto) 1.1 % 02/08/19 06:21 Absolute Neuts (auto) 10.1 10^3/ul (1.5-7.7) H 02/08/19 06:21 Absolute Lymphs (auto) 0.9 10^3/ul (1.0-4.8) L 02/08/19 06:21 Absolute Monos (auto) 0.7 10^3/ul (0-0.8) 02/08/19 06:21 Absolute Eos (auto) 0.1 10^3/ul (0-0.6) 02/08/19 06:21 Absolute Basos (auto) 0.1 10^3/ul (0-0.2) 02/08/19 06:21 Absolute Nucleated RBC 0 10^3/ul 02/08/19 06:21 Nucleated RBC % 0 02/08/19 06:21 INR (Anticoag Therapy) 1.97 (0.82-1.09) H 02/07/19 07:56 APTT 61.8 seconds (26.0-36.3) H 02/01/19 05:28 Sodium 121 mmol/L (135-145) L 02/08/19 06:21 Potassium 4.6 mmol/L (3.5-5.0) 02/08/19 06:21 Chloride 86 mmol/L (101-111) L 02/08/19 06:21 Carbon Dioxide 26 mmol/L (22-32) 02/08/19 06:21 Anion Gap 9 mmol/L (2-11) 02/08/19 06:21 BUN 12 mg/dL (6-24) 02/08/19 06:21 Creatinine 0.57 mg/dL (0.67-1.17) L 02/08/19 06:21 Est GFR ( Amer) 166.0 (>60) 02/08/19 06:21 Est GFR (Non-Af Amer) 137.2 (>60) 02/08/19 06:21 BUN/Creatinine Ratio 21.1 (8-20) H 02/08/19 06:21 Glucose 105 mg/dL (70-100) H 02/08/19 06:21 Serum Osmolality 262 mOsm/kg (275-295) L 01/28/19 05:33 Calcium 9.0 mg/dL (8.6-10.3) 02/08/19 06:21 Phosphorus 2.8 mg/dL (2.5-5.0) 02/03/19 06:49 Magnesium 2.0 mg/dL (1.9-2.7) 02/03/19 06:49 Total Bilirubin 1.60 mg/dL (0.2-1.0) H 02/07/19 07:56 AST 31 U/L (13-39) 02/07/19 07:56 ALT 15 U/L (7-52) 02/07/19 07:56 Alkaline Phosphatase 83 U/L (34-104) 02/07/19 07:56 Troponin I 0.03 ng/mL (<0.04) 01/26/19 14:45 B-Natriuretic Peptide 481 pg/mL (<=100) H 02/04/19 06:30 Total Protein 6.7 g/dL (6.4-8.9) 02/07/19 07:56 Albumin 3.5 g/dL (3.2-5.2) 02/07/19 07:56 Globulin 3.2 g/dL (2-4) 02/07/19 07:56 Albumin/Globulin Ratio 1.1 (1-3) 02/07/19 07:56 Urine Osmolality 462 mOsm/kg (100-1150) 01/28/19 13:22 U Sodium Concentration < 18 mmol/L 01/28/19 13:22 Blood Type A Positive 01/31/19 08:15 Antibody Screen Negative 01/31/19 08:15 Crossmatch See Detail 01/31/19 08:15
[2019-02-08] MEDS ORDERED: Furosemide TAB* 20 MG PO ONE (10:38)
[2019-02-08 11:37] LABS: INR 2.17 (0.82-1.09)
[2019-02-08] MEDS: Cyclobenzaprine TAB* 10 MG PO PRN ×2 (15:46→22:40)
[2019-02-08] MEDS ORDERED: Warfarin TAB(*) 2 MG PO SCH (17:00)
[2019-02-08] MEDS ORDERED: Warfarin TAB(*) 2.5 MG PO SCH (17:00)
[2019-02-08] MEDS: Warfarin TAB(*) 2 MG PO SCH (17:31)
[2019-02-08 18:18] LABS: Potassium 5.3 mmol/L (3.5-5.0)
[2019-02-08 19:25] LABS: TSH (Thyroid Stimulating Horm) 3.04 mcIU/mL (0.34-5.60)
--- NOTE | 2019-02-08 22:26 | PN ---
Hospitalist Progress Note Date of Service: 02/08/19 83 yo M with unwitnessed fall this evening-pt slightly drowsy post fall per RN report, sent for non con head CT, in the CT tube was quite active, poor study though no active bleed on cursory read. Neurologically intact and pt evaluated by Laura Olmos, follows all commands, mildly confused at baseline, CN intact No other acute events overnight
[2019-02-08] MEDS: Tamsulosin CAP* 0.4 MG PO SCH (22:40)
[2019-02-08] MEDS: Latanoprost 0.005%* 2.5 ml BTL BOTH EYES SCH (22:40)
[2019-02-09 05:30] LABS: ABS Basophils 0.1 10^3/ul (0-0.2); ABS Eosinophils 0.1 10^3/ul (0-0.6); ABS Lymphocytes 0.7 10^3/ul (1.0-4.8); ABS Monocytes 0.7 10^3/ul (0-0.8); ABS Neutrophils 11.2 10^3/ul (1.5-7.7); ABS Nucleated RBC 0 10^3/ul; Eosinophil % 0.9 %; Hematocrit 26 % (36-46); Hemoglobin 8.9 g/dL (14.0-18.0); Lymphocyte % 5.6 %; Mean Corpuscular HGB Conc 34 g/dL (31-36); Mean Corpuscular Hemoglobin 31 pg (27-31); Mean Corpuscular Volume 92 fL (80-94); Mean Platelet Volume 7.3 fL (7.4-10.4); Nucleated Red Blood Cells % 0; Platelet Count 429 10^3/uL (150-450); Red Blood Count 2.87 10^6 /uL (4.18-5.48); Red Cell Distribution Width 15 % (10.5-15); White Blood Count 12.9 10^3/uL (3.5-10.8)
[2019-02-09 05:42] LABS: BUN/Creatinine Ratio 18.5 (8-20); Calcium 8.9 mg/dL (8.6-10.3); EGFR African American 142.7 (>60); EGFR Non-African American 117.9 (>60); Potassium 4.7 mmol/L (3.5-5.0)
--- NOTE | 2019-02-09 10:09 | PN ---
Subjective Date of Service: 02/09/19 Interval History: VS: WNL with occasional HTN Labs: Leukocytosis; Anemia- improving; hyponatremia- slightly improved Pt seen in a.m., and appeared fatigued. He intermittently answered questions and had a hard time focusing. This afternoon, he was more cooperative and answered questions appropriately. Pt c/o cough. He has no other complaints. Nursing states that pt is occasionally agitated. Also noted to have bruising on back, as well as LLE. UOP good. Objective Active Medications: Acetaminophen (Tylenol Tab*) 975 mg PO Q8H PRN Cephalexin HCl (Keflex Cap*) 500 mg PO TID PEYTON Cholecalciferol (Vitamin D Tab*) 800 unit PO DAILY PEYTON Cyclobenzaprine HCl (Flexeril Tab*) 10 mg PO BID PRN Diltiazem HCl (Cardizem Cd Cap*) 180 mg PO DAILY PEYTON Docusate Sodium (Colace Cap*) 200 mg PO DAILY PRN Furosemide (Lasix Tab*) 40 mg PO DAILY PEYTON Latanoprost (Xalatan 0.005%*) 1 drop BOTH EYES BEDTIME PEYTON; Protocol Polyethylene Glycol/Electrolytes (Miralax*) 17 gm PO DAILY PRN Potassium Chloride (Klor Con Er Tab*) 20 meq PO DAILY PEYTON Spironolactone (Aldactone Tab*) 25 mg PO DAILY PEYTON Tamsulosin HCl (Flomax Cap*) 0.4 mg PO BEDTIME PEYTON Tiotropium Melvin (Spiriva Cap.Inh*) 1 cap INH DAILY PEYTON Warfarin Sodium (Coumadin Tab(*)) 2 mg PO DAILY@1700 PEYTON; Protocol Vital Signs: Temp Pulse Resp BP Pulse Ox 99.2 F 86 15 138/49 98 02/09/19 11:50 02/09/19 11:50 02/09/19 11:50 02/09/19 11:50 02/09/19 11:50 Oxygen Devices in Use Now: Nasal Cannula Appearance: Pt is laying in bed with HOB elevated. UE tremors noted, which appear to be baseline. He is hard of hearing, but answers questions and responds appropriately. Eyes: No Scleral Icterus, PERRLA Ears/Nose/Mouth/Throat: NL Teeth, Lips, Gums, Clear Oropharnyx, Mucous Membranes Moist Neck: NL Appearance and Movements; NL JVP, Trachea Midline Respiratory: Symmetrical Chest Expansion and Respiratory Effort, - - Faint crackles at R base Cardiovascular: NL Sounds; No Murmurs; No JVD, RRR, No Edema Abdominal: NL Sounds; No Tenderness; No Distention, No Hepatosplenomegaly Extremities: No Edema, - - Ecchymosis in strip across back. Ecchymosis LLE from hip to mid-calf. Neurological: Alert and Oriented x 3 - Nutrition: Malnutrition Diagnosis/Plan Malnutrition Assessment by Registered Dietitian: Malnutrition Assessment Clinical Characteristics Acute,Severe Malnutrition Assessment: - moderate subcutaneous fat loss Criteria - moderate clavicular and temporal wasting - po intake <50% EEE x > 5 days (primarily d/t need for NPO/clear liquid diet) * BMI only 17 (though not a specific criterion for malnutrition) Malnutrition Assessment: Ensure Enlive @ B daily (350 kcal, 20 g pro per Interventions serving) Malnutrition Assessment: Goals 1. pt will tolerate diet progression without adverse GI effects 2. adequate po intake to promote gradual wt repletion of approx 20# 3. achieve and maintain serum electrolytes levels WNL 4. achieve and maintain regulated bowel pattern without c/o constipation (or diarrhea) Result Diagrams: 02/09/19 05:04 02/09/19 05:04 Additional Lab and Data: Lab Results 01/26/19 01/26/19 01/26/19 Range/Units 14:45 14:45 15:50 WBC 10.0 (3.5-10.8) 10^3/uL RBC 3.78 L (4.18-5.48) 10^6 /uL Hgb 11.7 L (14.0-18.0) g/dL Hct 34 L (36-46) % MCV 91 (80-94) fL MCH 31 (27-31) pg MCHC 34 (31-36) g/dL RDW 14 (10.5-15) % Plt Count 238 (150-450) 10^3/uL MPV 8.2 (7.4-10.4) fL INR (Anticoag Therapy) 2.59 H (0.77-1.02) Sodium 123 L (135-145) mmol/L Potassium 3.9 (3.5-5.0) mmol/L Chloride 89 L (101-111) mmol/L Carbon Dioxide 25 (22-32) mmol/L Anion Gap 9 (2-11) mmol/L BUN 16 (6-24) mg/dL Creatinine 0.82 (0.67-1.17) mg/dL Est GFR ( Amer) 109.1 (>60) Est GFR (Non-Af Amer) 90.2 (>60) BUN/Creatinine Ratio 19.5 (8-20) Glucose 125 H (70-100) mg/dL Calcium 9.3 (8.6-10.3) mg/dL Total Bilirubin 0.80 (0.2-1.0) mg/dL AST 29 (13-39) U/L ALT 15 (7-52) U/L Alkaline Phosphatase 82 (34-104) U/L Troponin I 0.03 (<0.04) ng/mL Total Protein 7.9 (6.4-8.9) g/dL Albumin 4.4 (3.2-5.2) g/dL Globulin 3.5 (2-4) g/dL Albumin/Globulin Ratio 1.3 (1-3) Blood Type Antibody Screen 01/26/19 Range/Units 15:50 WBC (3.5-10.8) 10^3/uL RBC (4.18-5.48) 10^6 /uL Hgb (14.0-18.0) g/dL Hct (36-46) % MCV (80-94) fL MCH (27-31) pg MCHC (31-36) g/dL RDW (10.5-15) % Plt Count (150-450) 10^3/uL MPV (7.4-10.4) fL INR (Anticoag Therapy) (0.77-1.02) Sodium (135-145) mmol/L Potassium (3.5-5.0) mmol/L Chloride (101-111) mmol/L Carbon Dioxide (22-32) mmol/L Anion Gap (2-11) mmol/L BUN (6-24) mg/dL Creatinine (0.67-1.17) mg/dL Est GFR ( Amer) (>60) Est GFR (Non-Af Amer) (>60) BUN/Creatinine Ratio (8-20) Glucose (70-100) mg/dL Calcium (8.6-10.3) mg/dL Total Bilirubin (0.2-1.0) mg/dL AST (13-39) U/L ALT (7-52) U/L Alkaline Phosphatase (34-104) U/L Troponin I (<0.04) ng/mL Total Protein (6.4-8.9) g/dL Albumin (3.2-5.2) g/dL Globulin (2-4) g/dL Albumin/Globulin Ratio (1-3) Blood Type A Positive Antibody Screen Pending Microbiology and Other Data: Microbiology 01/27/19 00:00 Nasal Screen MRSA (PCR) - Final Nasal Mrsa Not Detected Diagnostic Imaging: Patient Name: VERA HARMAN Medical Record#: [id number] Ordering Physician: Otis Dos Santos MD Acct.#: [id number] : 1935 Age: 83 Sex: M Location: SURGICAL STAY UNIT Exam Date: 02/04/19699 ADM Status: ADM IN Order Information: CHEST AP OR PORT Accession Number: [id number] CPT: 59292 Indication: Dyspnea on exertion. Single frontal view of the chest performed at 0658 hours was reviewed. Comparison is made with previous exam dated February 01, 2019. Interstitial edema appears to be improved since previous exam. Residual infiltrate and likely right pleural effusion is noted. IMPRESSION: RIGHT LOWER LOBE INFILTRATE. INTERSTITIAL EDEMA APPEARS TO BE IMPROVED. <Electronically signed by Ana M Lopez MD in [place]> 02/04/19839 Dictated By: Ana M Lopez MD Dictated Date/Time: 02/04/19839 Transcribed Date/Time: 02/04/19826 Copy to: Assess/Plan/Problems-Billing Assessment: 83M with afib on warfarin, HTN, COPD with pHTN, HFpEF, osteoporosis, CVA, presents after mechanical fall with L hip fracture, s/p IMN 01/28. Course complicated by supratherapeuric INR yesterday and post-op ileus. - Patient Problems (1) Hip fracture, left Comment: -POD 11 IM Nail -POC as per ortho -WBAT, pain control, PT/OT -On keflex for wound drainage x7 days per ortho -Pending STR at [facility] (2) Cough Comment: -Pt c/o cough; with leukocytosis, afebrile; CXR shows R sided consolidation suspicious for pna -Flu A/B negative; Urine S. pneumo, Legionella negative. -Ceftriaxone, azithromycin ordered -Will continue to monitor for improvement (3) Ecchymosis Comment: -Ecchymosis in small area across lower back and down LLE -H/H stable; pt on Coumadin with INR approaching upper limit -Continue Coumadin at decreased dose -Will continue to monitor H/H and INR (4) Electrolyte abnormality Comment: -Sodium 122 today, slight improvement -Fluid restriction and Lasix 40 PO -Urine Na and urine osmo ordered and pending -Diet to Regular to avoid Na restriction in heart healthy -Chronic low sodium noted, should follow outpatient while on diuretics (5) Anemia Comment: -Post-operative blood loss, s/p 1 unit PRBCs 01/31 -H&H stable (6) Paroxysmal a-fib Comment: -Rate controlled on diltiazem -Supratherapeutic INR x4 days; Vit K given reported to be given 02/05 ? but do not see the order -INR 2.77 today -Continue Coumadin, will decrease to 1mg for today and recheck INR in a.m. -CHADsVSC=5 (7) Hypertension Comment: -Stable on diltizem, lasix and spironolactone (8) COPD (chronic obstructive pulmonary disease) Comment: -With hx of pulm HTN and tobacco use -Not in exacerbation -continue spiriva (9) Ileus Comment: -Resolved -Pos BS x4 quad and passing flatus; no pain/nausea -tolerating diet advance -Continue PRN bowel regimen at [place] (10) SOB (shortness of breath) Comment: -Resolved; vascular congestion on CXR noted -Transition to PO lasix 02/04 and aldactone restarted -Continues on oxygen NC @ 2L; no home O2 - will attempt to titrate -Daily weights (11) BPH (benign prostatic hyperplasia) Comment: -continue flomax (12) DVT prophylaxis Comment: -Restart coumadin on 02/05, INR was 5.17 02/03 and treated (13) Full code status Status and Disposition: Patient was discharged to [facility] 02/05, however, [facility] refused to take the patient after 2pm, now they will not accept the patient until Friday. Likely discharge tomorrow, pending resolution of hyponatremia.
[2019-02-09 10:11] LABS: Urine Appearance Clear; Urine Bilirubin Negative (Negative); Urine Blood Negative (Negative); Urine Color Yellow; Urine Glucose Negative (Negative); Urine Ketones 1+ (Negative); Urine Nitrite Negative (Negative); Urine Protein Negative (Negative); Urine Specific Gravity 1.013 (1.010-1.030); Urine Urobilinogen Negative (Negative)
--- NOTE | 2019-02-09 10:17 | PN ---
Progress Note - Progress Note Date of Service: 02/09/19 SOAP: Subjective: []Pt seen at bedside. He is alert but unable to communicate with me today, he grabs my hand and answers only that we are at a hospital, does not respond to my other questions. Patient had an unwitnessed fall last night. Objective: []General: NAD, not communicating with me today LLE: Proximal incisions with continued serous drainage decreased from yesterday , no purulence or erythema. Thigh is soft, there is ecchymosis of the posterior thigh, no induration or fluctuance. DP2+ Calves supple and nontender without erythema or edema BL UE: No obvious teri deformity and no obvious pain with forward flexion of bilateral f/e wrist and elbows, or with forward flexion shoulders above the head BL LE: No obvious teri deformity and no obvious pain with f/e of ankle, knee, hip Assessment: []SP L IM Nail POD 12 Plan: []WBAT PT/OT Continue keflex for remainder of 5 days, report to ortho any erythema, increased drainage, purulence, increasing pain, fever or chills warfarin for DVT prophy FU Dr Jean Baptiste 14 days post op. Due to drainage opt to leave vic in place for now and follow up with ortho in a few days Undergoing workup for fall. Hyponatremia 122 L hip/femur Xrays ordered due to unwitnessed fall. No obvious teri deformity or pain with ROM Vital Signs Temp 97.4 F 02/09/19 08:15 Pulse 96 02/09/19 08:15 Resp 17 02/09/19 08:15 BP 154/61 02/09/19 08:15 Pulse Ox 97 02/09/19 08:15 Intake & Output 02/08/19 02/09/19 02/09/19 18:59 06:59 18:59 Intake Total 700 100 Output Total 950 250 Balance 700 -850 -250 Weight 113 lb 6.4 oz Intake: Oral 700 100 Output: Urine 500 Straight Cath 450 250 Other: Estimated Void Large # Bowel Movements 1 Estimated Stool Amount Small # Voids 1 Laboratory Last Values WBC 12.9 10^3/uL (3.5-10.8) H 02/09/19 05:04 RBC 2.87 10^6 /uL (4.18-5.48) L 02/09/19 05:04 Hgb 8.9 g/dL (14.0-18.0) L 02/09/19 05:04 Hct 26 % (36-46) L 02/09/19 05:04 MCV 92 fL (80-94) 02/09/19 05:04 MCH 31 pg (27-31) 02/09/19 05:04 MCHC 34 g/dL (31-36) 02/09/19 05:04 RDW 15 % (10.5-15) 02/09/19 05:04 Plt Count 429 10^3/uL (150-450) 02/09/19 05:04 MPV 7.3 fL (7.4-10.4) L 02/09/19 05:04 Neut % (Auto) 87.2 % 02/09/19 05:04 Lymph % (Auto) 5.6 % 02/09/19 05:04 [place] % (Auto) 5.6 % 02/09/19 05:04 Eos % (Auto) 0.9 % 02/09/19 05:04 Baso % (Auto) 0.7 % 02/09/19 05:04 Absolute Neuts (auto) 11.2 10^3/ul (1.5-7.7) H 02/09/19 05:04 Absolute Lymphs (auto) 0.7 10^3/ul (1.0-4.8) L 02/09/19 05:04 Absolute Monos (auto) 0.7 10^3/ul (0-0.8) 02/09/19 05:04 Absolute Eos (auto) 0.1 10^3/ul (0-0.6) 02/09/19 05:04 Absolute Basos (auto) 0.1 10^3/ul (0-0.2) 02/09/19 05:04 Absolute Nucleated RBC 0 10^3/ul 02/09/19 05:04 Nucleated RBC % 0 02/09/19 05:04 INR (Anticoag Therapy) 2.17 (0.82-1.09) H 02/08/19 11:17 APTT 61.8 seconds (26.0-36.3) H 02/01/19 05:28 Sodium 122 mmol/L (135-145) L 02/09/19 05:04 Potassium 4.7 mmol/L (3.5-5.0) 02/09/19 05:04 Chloride 88 mmol/L (101-111) L 02/09/19 05:04 Carbon Dioxide 25 mmol/L (22-32) 02/09/19 05:04 Anion Gap 9 mmol/L (2-11) 02/09/19 05:04 BUN 12 mg/dL (6-24) 02/09/19 05:04 Creatinine 0.65 mg/dL (0.67-1.17) L 02/09/19 05:04 Est GFR ( Amer) 142.7 (>60) 02/09/19 05:04 Est GFR (Non-Af Amer) 117.9 (>60) 02/09/19 05:04 BUN/Creatinine Ratio 18.5 (8-20) 02/09/19 05:04 Glucose 89 mg/dL (70-100) 02/09/19 05:04 Serum Osmolality 262 mOsm/kg (275-295) L 01/28/19 05:33 Calcium 8.9 mg/dL (8.6-10.3) 02/09/19 05:04 Phosphorus 2.8 mg/dL (2.5-5.0) 02/03/19 06:49 Magnesium 2.0 mg/dL (1.9-2.7) 02/03/19 06:49 Total Bilirubin 1.60 mg/dL (0.2-1.0) H 02/07/19 07:56 AST 31 U/L (13-39) 02/07/19 07:56 ALT 15 U/L (7-52) 02/07/19 07:56 Alkaline Phosphatase 83 U/L (34-104) 02/07/19 07:56 Troponin I 0.03 ng/mL (<0.04) 01/26/19 14:45 B-Natriuretic Peptide 481 pg/mL (<=100) H 02/04/19 06:30 Total Protein 6.7 g/dL (6.4-8.9) 02/07/19 07:56 Albumin 3.5 g/dL (3.2-5.2) 02/07/19 07:56 Globulin 3.2 g/dL (2-4) 02/07/19 07:56 Albumin/Globulin Ratio 1.1 (1-3) 02/07/19 07:56 TSH 3.04 mcIU/mL (0.34-5.60) 02/08/19 17:21 Urine Color Yellow 02/09/19 09:55 Urine Appearance Clear 02/09/19 09:55 Urine pH 7.0 (5-9) 02/09/19 09:55 Ur Specific [place] 1.013 (1.010-1.030) 02/09/19 09:55 Urine Protein Negative (Negative) 02/09/19 09:55 Urine Ketones 1+ (Negative) A 02/09/19 09:55 Urine Blood Negative (Negative) 02/09/19 09:55 Urine Nitrate Negative (Negative) 02/09/19 09:55 Urine Bilirubin Negative (Negative) 02/09/19 09:55 Urine Urobilinogen Negative (Negative) 02/09/19 09:55 Ur Leukocyte Esterase Negative (Negative) 02/09/19 09:55 Urine Osmolality 462 mOsm/kg (100-1150) 01/28/19 13:22 U Sodium Concentration < 18 mmol/L 01/28/19 13:22 Urine Glucose Negative (Negative) 02/09/19 09:55 Blood Type A Positive 01/31/19 08:15 Antibody Screen Negative 01/31/19 08:15 Crossmatch See Detail 01/31/19 08:15
[2019-02-09] MEDS: Diltiazem CD CAP* 180 MG PO SCH (10:20)
[2019-02-09] MEDS: Cephalexin CAP* 500 MG PO SCH ×2 (10:20→13:48)
[2019-02-09] MEDS: Spironolactone TAB* 25 MG PO SCH (10:20)
[2019-02-09] MEDS: Furosemide TAB* 40 MG PO SCH (10:22)
[2019-02-09] MEDS: Potassium Chlor TAB* 20 MEQ TAB.ER PO SCH (10:22)
[2019-02-09] MEDS: Cholecalciferol TAB* 400 UNIT PO SCH (10:22)
[2019-02-09 10:23] LABS: Urine Creatinine Concentration 51.27 mg/dL
[2019-02-09] MEDS: Tiotropium CAP.INH* CAP.INH/18 MCG (USE ORDER SET !) INH SCH (10:27)
[2019-02-09] MEDS: Cyclobenzaprine TAB* 10 MG PO PRN (11:30)
[2019-02-09] MEDS: Acetaminophen TAB* 325 MG PO PRN ×2 (11:30→22:54)
[2019-02-09 11:47] LABS: Influenza A Molecular NEGATIVE (Negative); Influenza B Molecular NEGATIVE (Negative)
[2019-02-09] MEDS ORDERED: Azithromycin 500 mg/250 ml NS 500 MG/250 ML BAG IVPB ONE (12:03)
[2019-02-09 14:28] LABS: INR 2.77 (0.82-1.09)
[2019-02-09] MEDS ORDERED: Warfarin TAB(*) 2 MG PO SCH (17:00)
[2019-02-09] MEDS: Warfarin TAB(*) 2 MG PO SCH (17:13)
[2019-02-09] MEDS ORDERED: Warfarin TAB(*) 1 MG PO SCH (17:15)
[2019-02-09] MEDS: Tamsulosin CAP* 0.4 MG PO SCH (22:54)
[2019-02-09] MEDS: Latanoprost 0.005%* 2.5 ml BTL BOTH EYES SCH (23:02)
[2019-02-10 06:46] LABS: Hematocrit 27 % (36-46); Hemoglobin 9.3 g/dL (14.0-18.0); Mean Corpuscular HGB Conc 34 g/dL (31-36); Mean Corpuscular Hemoglobin 31 pg (27-31); Mean Corpuscular Volume 92 fL (80-94); Mean Platelet Volume 7.3 fL (7.4-10.4); Platelet Count 384 10^3/uL (150-450); Red Blood Count 2.96 10^6 /uL (4.18-5.48); Red Cell Distribution Width 15 % (10.5-15); White Blood Count 11.4 10^3/uL (3.5-10.8)
[2019-02-10 06:49] LABS: INR 3.39 (0.82-1.09)
[2019-02-10 07:08] LABS: Albumin 3.5 g/dL (3.2-5.2); Albumin/Globulin Ratio 1.2 (1-3); Calcium 8.8 mg/dL (8.6-10.3); EGFR African American 156.5 (>60); EGFR Non-African American 129.3 (>60); Potassium 4.3 mmol/L (3.5-5.0); Total Bilirubin 1.5 mg/dL (0.2-1.0); Total Protein 6.5 g/dL (6.4-8.9)
[2019-02-10] MEDS: Tiotropium CAP.INH* CAP.INH/18 MCG (USE ORDER SET !) INH SCH (08:01)
[2019-02-10] MEDS: Furosemide TAB* 40 MG PO SCH (10:21)
[2019-02-10] MEDS: Potassium Chlor TAB* 20 MEQ TAB.ER PO SCH (10:21)
[2019-02-10] MEDS: Spironolactone TAB* 25 MG PO SCH (10:21)
[2019-02-10] MEDS: Diltiazem CD CAP* 180 MG PO SCH (10:21)
[2019-02-10] MEDS: Cholecalciferol TAB* 400 UNIT PO SCH (10:21)
[2019-02-10] MEDS: cefTRIAXone(*) 1 GM in NS 0.9% 50 ML* 50 ML IVPB SCH (10:21)
[2019-02-10] MEDS: Acetaminophen TAB* 325 MG PO PRN (10:35)
--- NOTE | 2019-02-10 11:02 | PN ---
Subjective Date of Service: 02/10/19 Interval History: VS: 99% on 2L NC Labs: leukocytosis- trending down; anemia- trending up; hyponatremia- trending up with fluid restriction; INR: 3.39 Pt is more talkative today, and states that he doesn't feel well. He denies CP , fever, chills/sweats. He c/o cough with occasional wheeze, although denies wheeze now. He denies pain in extremities, back/flank pain. Fall on 02/08 overnight- head CT negatvive, L hip negative Noted that pt has chronic L facial droop. He states that he has had this forever. Denies h/o stroke. 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 Chart notes h/o TIA. Objective Active Medications: Acetaminophen (Tylenol Tab*) 975 mg PO Q8H PRN Cholecalciferol (Vitamin D Tab*) 800 unit PO DAILY PEYTON Cyclobenzaprine HCl (Flexeril Tab*) 10 mg PO BID PRN Diltiazem HCl (Cardizem Cd Cap*) 180 mg PO DAILY PEYTON Docusate Sodium (Colace Cap*) 200 mg PO DAILY PRN Furosemide (Lasix Tab*) 40 mg PO DAILY PEYTON Azithromycin 250 mg/ Sodium (Chloride) 250 mls @ 250 mls/hr IVPB Q24H PEYTON Ceftriaxone Sodium 1 gm/ (Sodium Chloride) 50 mls @ 200 mls/hr IVPB Q24H PEYTON Latanoprost (Xalatan 0.005%*) 1 drop BOTH EYES BEDTIME PEYTON; Protocol Polyethylene Glycol/Electrolytes (Miralax*) 17 gm PO DAILY PRN Potassium Chloride (Klor Con Er Tab*) 20 meq PO DAILY PEYTON Spironolactone (Aldactone Tab*) 25 mg PO DAILY PEYTON Tamsulosin HCl (Flomax Cap*) 0.4 mg PO BEDTIME PEYTON Tiotropium [place] (Spiriva Cap.Inh*) 1 cap INH DAILY PEYTON Vital Signs: Temp Pulse Resp BP Pulse Ox 97.7 F 68 18 144/53 99 02/10/19 07:26 02/10/19 08:01 02/10/19 08:01 02/10/19 07:26 02/10/19 08:01 Oxygen Devices in Use Now: Nasal Cannula Appearance: Pt is frail. He is in no acute distress. He is more alert and talkative than in the past. Chronic UE tremors. Chronic L facial droop. Eyes: No Scleral Icterus, PERRLA Ears/Nose/Mouth/Throat: NL Teeth, Lips, Gums, Clear Oropharnyx, Mucous Membranes Moist Neck: NL Appearance and Movements; NL JVP, Trachea Midline Respiratory: Symmetrical Chest Expansion and Respiratory Effort, - - Slight wheeze t/o b/l lungs. No rales, rhonchi. Cardiovascular: NL Sounds; No Murmurs; No JVD, RRR, No Edema Abdominal: NL Sounds; No Tenderness; No Distention, No Hepatosplenomegaly Extremities: No Edema, No Clubbing, Cyanosis Skin: - - Moves all extremities. Bruise across lower back, down Lleg, from hip to heel; appears to have expanded just slightly. Nontender to palpation. Neurological: Alert and Oriented x 3 - Nutrition: Malnutrition Diagnosis/Plan Malnutrition Assessment by Registered Dietitian: Malnutrition Assessment Clinical Characteristics Acute,Severe Malnutrition Assessment: - moderate subcutaneous fat loss Criteria - moderate clavicular and temporal wasting - po intake <50% EEE x > 5 days (primarily d/t need for NPO/clear liquid diet) * BMI only 17 (though not a specific criterion for malnutrition) Malnutrition Assessment: Ensure Enlive @ B daily (350 kcal, 20 g pro per Interventions serving) Malnutrition Assessment: Goals 1. pt will tolerate diet progression without adverse GI effects 2. adequate po intake to promote gradual wt repletion of approx 20# 3. achieve and maintain serum electrolytes levels WNL 4. achieve and maintain regulated bowel pattern without c/o constipation (or diarrhea) Result Diagrams: 02/10/19 06:16 02/10/19 06:16 Additional Lab and Data: Lab Results 01/26/19 01/26/19 01/26/19 Range/Units 14:45 14:45 15:50 WBC 10.0 (3.5-10.8) 10^3/uL RBC 3.78 L (4.18-5.48) 10^6 /uL Hgb 11.7 L (14.0-18.0) g/dL Hct 34 L (36-46) % MCV 91 (80-94) fL MCH 31 (27-31) pg MCHC 34 (31-36) g/dL RDW 14 (10.5-15) % Plt Count 238 (150-450) 10^3/uL MPV 8.2 (7.4-10.4) fL INR (Anticoag Therapy) 2.59 H (0.77-1.02) Sodium 123 L (135-145) mmol/L Potassium 3.9 (3.5-5.0) mmol/L Chloride 89 L (101-111) mmol/L Carbon Dioxide 25 (22-32) mmol/L Anion Gap 9 (2-11) mmol/L BUN 16 (6-24) mg/dL Creatinine 0.82 (0.67-1.17) mg/dL Est GFR ( Amer) 109.1 (>60) Est GFR (Non-Af Amer) 90.2 (>60) BUN/Creatinine Ratio 19.5 (8-20) Glucose 125 H (70-100) mg/dL Calcium 9.3 (8.6-10.3) mg/dL Total Bilirubin 0.80 (0.2-1.0) mg/dL AST 29 (13-39) U/L ALT 15 (7-52) U/L Alkaline Phosphatase 82 (34-104) U/L Troponin I 0.03 (<0.04) ng/mL Total Protein 7.9 (6.4-8.9) g/dL Albumin 4.4 (3.2-5.2) g/dL Globulin 3.5 (2-4) g/dL Albumin/Globulin Ratio 1.3 (1-3) Blood Type Antibody Screen 01/26/19 Range/Units 15:50 WBC (3.5-10.8) 10^3/uL RBC (4.18-5.48) 10^6 /uL Hgb (14.0-18.0) g/dL Hct (36-46) % MCV (80-94) fL MCH (27-31) pg MCHC (31-36) g/dL RDW (10.5-15) % Plt Count (150-450) 10^3/uL MPV (7.4-10.4) fL INR (Anticoag Therapy) (0.77-1.02) Sodium (135-145) mmol/L Potassium (3.5-5.0) mmol/L Chloride (101-111) mmol/L Carbon Dioxide (22-32) mmol/L Anion Gap (2-11) mmol/L BUN (6-24) mg/dL Creatinine (0.67-1.17) mg/dL Est GFR ( Amer) (>60) Est GFR (Non-Af Amer) (>60) BUN/Creatinine Ratio (8-20) Glucose (70-100) mg/dL Calcium (8.6-10.3) mg/dL Total Bilirubin (0.2-1.0) mg/dL AST (13-39) U/L ALT (7-52) U/L Alkaline Phosphatase (34-104) U/L Troponin I (<0.04) ng/mL Total Protein (6.4-8.9) g/dL Albumin (3.2-5.2) g/dL Globulin (2-4) g/dL Albumin/Globulin Ratio (1-3) Blood Type A Positive Antibody Screen Pending Microbiology and Other Data: Microbiology 01/27/19 00:00 Nasal Screen MRSA (PCR) - Final Nasal Mrsa Not Detected Diagnostic Imaging: Patient Name: VERA HARMAN Medical Record#: [id number] Ordering Physician: Otis Dos Santos MD Acct.#: [id number] : 1935 Age: 83 Sex: M Location: SURGICAL STAY UNIT Exam Date: 02/04/19699 ADM Status: ADM IN Order Information: CHEST AP OR PORT Accession Number: [id number] CPT: 78177 Indication: Dyspnea on exertion. Single frontal view of the chest performed at 0658 hours was reviewed. Comparison is made with previous exam dated February 01, 2019. Interstitial edema appears to be improved since previous exam. Residual infiltrate and likely right pleural effusion is noted. IMPRESSION: RIGHT LOWER LOBE INFILTRATE. INTERSTITIAL EDEMA APPEARS TO BE IMPROVED. <Electronically signed by Ana M Lopez MD in OV> 02/04/19839 Dictated By: Ana M Lopez MD Dictated Date/Time: 02/04/19839 Transcribed Date/Time: 02/04/19826 Copy to: Assess/Plan/Problems-Billing Assessment: 83M with afib on warfarin, HTN, COPD with pHTN, HFpEF, osteoporosis, CVA, presents after mechanical fall with L hip fracture, s/p IMN 01/28. Course complicated by supratherapeuric INR yesterday and post-op ileus. - Patient Problems (1) Hip fracture, left Comment: -POD 12 IM Nail -POC as per ortho -WBAT, pain control, PT/OT -On keflex for wound drainage x7 days per ortho- finished yesterday -Pending STR at [facility] (2) Cough Comment: -Pt c/o cough; with leukocytosis, afebrile; CXR shows R sided consolidation suspicious for pna -Flu A/B negative; Urine S. pneumo, Legionella negative. 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 TSH WNL; ACTH, a.m. cortisol ordered to r/o glucocort insufficiency -Sodium trending up, at 125 today -Continue fluid restriction and Lasix 40 PO -Diet to Regular to avoid Na restriction in heart healthy -Chronic low sodium noted in past, should follow outpatient while on diuretics (5) Anemia Comment: -Post-operative blood loss, s/p 1 unit PRBCs 01/31 -H&H stable (6) Paroxysmal a-fib Comment: -Rate controlled on diltiazem -Supratherapeutic INR x4 days; Vit K given reported to be given 02/05 ? but do not see the order -INR supratherapeutic today -Hold Coumadin for today; continue to follow -CHADsVSC=5 (7) Hypertension Comment: -Stable on diltizem, lasix and spironolactone (8) COPD (chronic obstructive pulmonary disease) Comment: -With hx of pulm HTN and tobacco use -Treated for CAP now. Developed wheeze today, but suspect this is due to CAP -Add Albuterol -Continue spiriva (9) Ileus Comment: -Resolved -Pos BS x4 quad and passing flatus; no pain/nausea -tolerating diet advance -Continue PRN bowel regimen at DC (10) SOB (shortness of breath) Comment: -Resolved; vascular congestion on CXR noted -Transition to PO lasix 02/04 and aldactone restarted -Continues on oxygen NC @ 2L; no home O2 - will attempt to titrate -Daily weights (11) BPH (benign prostatic hyperplasia) Comment: -continue flomax (12) DVT prophylaxis Comment: -Restart coumadin on 02/05, INR was 5.17 02/03 and treated (13) Full code status Status and Disposition: Patient was discharged to [facility] 02/05, however, [facility] refused to take the patient after 2pm, now they will not accept the patient until Friday. Likely discharge tomorrow, pending resolution of hyponatremia.
[2019-02-10] MEDS ORDERED: Albuterol 2.5 MG/3 ML NEB.SOL* (0.083%) INH PRN (11:35)
--- NOTE | 2019-02-10 11:42 | PN ---
Progress Note - Progress Note Date of Service: 02/10/19 SOAP: Subjective: []Pt seen OOB in chair. He is more alert and interactive today. Denies LLE pain. No other complaints today. Objective: [] General: NAD, interacts and answers questions appropriately today LLE: Very minimal serous drainage on dressing of middle and proximal incision, no active drainage, distal incision completely dry. No purulence or erythema. Thigh is soft, there is ecchymosis of the posterior thigh, no induration or fluctuance. DP2+, sensation intact to light touch distally, DF/PF intact. Calves supple and nontender without erythema or edema Assessment: []SP L IM Nail POD 13 Plan: []WBAT PT/OT warfarin for DVT prophy L femur Xrays no new fracture s/p fall per radiology, still unable to view image will make IT aware hyponatremia improving, wbc trending down, afebrile Vital Signs Temp 98.6 F 02/10/19 11:06 Pulse 62 02/10/19 11:06 Resp 14 02/10/19 11:06 BP 134/53 02/10/19 11:06 Pulse Ox 93 02/10/19 11:06 Intake & Output 02/09/19 02/10/19 02/10/19 18:59 06:59 18:59 Intake Total 0 50 Output Total 250 400 Balance -250 -350 Weight 110 lb 1.6 oz Intake: Oral 0 50 Output: Urine 400 Straight Cath 250 Other: Estimated Void Small Medium # Bowel Movements 0 # Voids 1 1 Laboratory Last Values WBC 11.4 10^3/uL (3.5-10.8) H 02/10/19 06:16 RBC 2.96 10^6 /uL (4.18-5.48) L 02/10/19 06:16 Hgb 9.3 g/dL (14.0-18.0) L 02/10/19 06:16 Hct 27 % (36-46) L 02/10/19 06:16 MCV 92 fL (80-94) 02/10/19 06:16 MCH 31 pg (27-31) 02/10/19 06:16 MCHC 34 g/dL (31-36) 02/10/19 06:16 RDW 15 % (10.5-15) 02/10/19 06:16 Plt Count 384 10^3/uL (150-450) 02/10/19 06:16 MPV 7.3 fL (7.4-10.4) L 02/10/19 06:16 Neut % (Auto) 87.2 % 02/09/19 05:04 Lymph % (Auto) 5.6 % 02/09/19 05:04 Faulkner % (Auto) 5.6 % 02/09/19 05:04 Eos % (Auto) 0.9 % 02/09/19 05:04 Baso % (Auto) 0.7 % 02/09/19 05:04 Absolute Neuts (auto) 11.2 10^3/ul (1.5-7.7) H 02/09/19 05:04 Absolute Lymphs (auto) 0.7 10^3/ul (1.0-4.8) L 02/09/19 05:04 Absolute Monos (auto) 0.7 10^3/ul (0-0.8) 02/09/19 05:04 Absolute Eos (auto) 0.1 10^3/ul (0-0.6) 02/09/19 05:04 Absolute Basos (auto) 0.1 10^3/ul (0-0.2) 02/09/19 05:04 Absolute Nucleated RBC 0 10^3/ul 02/09/19 05:04 Nucleated RBC % 0 02/09/19 05:04 INR (Anticoag Therapy) 3.39 (0.82-1.09) H 02/10/19 06:16 APTT 61.8 seconds (26.0-36.3) H 02/01/19 05:28 Sodium 125 mmol/L (135-145) L 02/10/19 06:16 Potassium 4.3 mmol/L (3.5-5.0) 02/10/19 06:16 Chloride 90 mmol/L (101-111) L 02/10/19 06:16 Carbon Dioxide 25 mmol/L (22-32) 02/10/19 06:16 Anion Gap 10 mmol/L (2-11) 02/10/19 06:16 BUN 12 mg/dL (6-24) 02/10/19 06:16 Creatinine 0.60 mg/dL (0.67-1.17) L 02/10/19 06:16 Est GFR ( Amer) 156.5 (>60) 02/10/19 06:16 Est GFR (Non-Af Amer) 129.3 (>60) 02/10/19 06:16 BUN/Creatinine Ratio 20.0 (8-20) 02/10/19 06:16 Glucose 86 mg/dL (70-100) 02/10/19 06:16 Serum Osmolality 262 mOsm/kg (275-295) L 01/28/19 05:33 Calcium 8.8 mg/dL (8.6-10.3) 02/10/19 06:16 Phosphorus 2.8 mg/dL (2.5-5.0) 02/03/19 06:49 Magnesium 2.0 mg/dL (1.9-2.7) 02/03/19 06:49 Total Bilirubin 1.50 mg/dL (0.2-1.0) H 02/10/19 06:16 AST 38 U/L (13-39) 02/10/19 06:16 ALT 15 U/L (7-52) 02/10/19 06:16 Alkaline Phosphatase 90 U/L (34-104) 02/10/19 06:16 Troponin I 0.03 ng/mL (<0.04) 01/26/19 14:45 B-Natriuretic Peptide 481 pg/mL (<=100) H 02/04/19 06:30 Total Protein 6.5 g/dL (6.4-8.9) 02/10/19 06:16 Albumin 3.5 g/dL (3.2-5.2) 02/10/19 06:16 Globulin 3.0 g/dL (2-4) 02/10/19 06:16 Albumin/Globulin Ratio 1.2 (1-3) 02/10/19 06:16 TSH 3.04 mcIU/mL (0.34-5.60) 02/08/19 17:21 Urine Color Yellow 02/09/19 09:55 Urine Appearance Clear 02/09/19 09:55 Urine pH 7.0 (5-9) 02/09/19 09:55 Ur Specific Fleming 1.013 (1.010-1.030) 02/09/19 09:55 Urine Protein Negative (Negative) 02/09/19 09:55 Urine Ketones 1+ (Negative) A 02/09/19 09:55 Urine Blood Negative (Negative) 02/09/19 09:55 Urine Nitrate Negative (Negative) 02/09/19 09:55 Urine Bilirubin Negative (Negative) 02/09/19 09:55 Urine Urobilinogen Negative (Negative) 02/09/19 09:55 Ur Leukocyte Esterase Negative (Negative) 02/09/19 09:55 Urine Osmolality 462 mOsm/kg (100-1150) 01/28/19 13:22 Ur Creatinine Concen 51.27 mg/dL 02/09/19 09:55 U Sodium Concentration 141 mmol/L 02/09/19 09:55 Ur Urea Nitrogen Conc 441 mg/dL 02/09/19 09:55 Urine Glucose Negative (Negative) 02/09/19 09:55 Influenza A (Rapid) Negative (Negative) 02/09/19 10:55 Influenza B (Rapid) Negative (Negative) 02/09/19 10:55 Blood Type A Positive 01/31/19 08:15 Antibody Screen Negative 01/31/19 08:15 Crossmatch See Detail 01/31/19 08:15
[2019-02-10] MEDS: Azithromycin IV(*) 250 MG in NS 0.9% 250 ML* 250 ML IVPB SCH (13:03)
[2019-02-10] MEDS: Benzonatate CAP* 100 MG PO PRN (13:03)
[2019-02-10] MEDS: Latanoprost 0.005%* 2.5 ml BTL BOTH EYES SCH (23:26)
[2019-02-10] MEDS: Tamsulosin CAP* 0.4 MG PO SCH (23:27)
[2019-02-11] MEDS: Acetaminophen TAB* 325 MG PO PRN (00:44)
[2019-02-11] MEDS: Benzonatate CAP* 100 MG PO PRN (00:45)
[2019-02-11 07:57] LABS: INR 3.68 (0.82-1.09)
[2019-02-11 08:11] LABS: Blood Urea Nitrogen 9 mg/dL (6-24); CO2 Carbon Dioxide 25 mmol/L (22-32); Calcium 8.7 mg/dL (8.6-10.3); Chloride 91 mmol/L (101-111); EGFR African American 180.5 (>60); EGFR Non-African American 149.2 (>60); Glucose 86 mg/dL (70-100); Sodium 125 mmol/L (135-145)
[2019-02-11 08:13] LABS: Hematocrit 29 % (42-52); Hemoglobin 9.8 g/dL (14.0-18.0); Mean Corpuscular HGB Conc 34 g/dL (31-36); Mean Corpuscular Hemoglobin 32 pg (27-31); Mean Corpuscular Volume 93 fL (80-94); Mean Platelet Volume 7.4 fL (7.4-10.4); Platelet Count 464 10^3/uL (150-450); Red Cell Distribution Width 15 % (10.5-15); White Blood Count 10.8 10^3/uL (3.5-10.8)
[2019-02-11] MEDS: Tiotropium CAP.INH* CAP.INH/18 MCG (USE ORDER SET !) INH SCH (08:13)
[2019-02-11 08:21] LABS: Anion Gap 9 mmol/L (2-11)
[2019-02-11] MEDS: Potassium Chlor TAB* 20 MEQ TAB.ER PO SCH (09:08)
[2019-02-11] MEDS: Spironolactone TAB* 25 MG PO SCH (09:08)
[2019-02-11] MEDS: Cholecalciferol TAB* 400 UNIT PO SCH (09:08)
[2019-02-11] MEDS: cefTRIAXone(*) 1 GM in NS 0.9% 50 ML* 50 ML IVPB SCH (09:08)
[2019-02-11] MEDS: Diltiazem CD CAP* 180 MG PO SCH (09:08)
[2019-02-11] MEDS: Furosemide TAB* 40 MG PO SCH (09:09)
[2019-02-11 12:01] VITALS: BP 117/58
[2019-02-11] MEDS: Azithromycin IV(*) 250 MG in NS 0.9% 250 ML* 250 ML IVPB SCH (13:28)
--- NOTE | 2019-02-11 14:04 | DS ---
CC: Mauro Ulloa MD; Deya Jean Baptiste MD * DISCHARGE SUMMARY: DATE OF ADMISSION: DATE OF DISCHARGE: PRIMARY CARE PROVIDER: Mauro Ulloa MD. ORTHOPEDIC SURGEON: Deya Jean Baptiste MD. ATTENDING PHYSICIAN: Ketty Pratt DO * (dictated by CUBA Cartwright) PRIMARY DIAGNOSES: 1. Left hip intertrochanteric fracture, status post IM nail 01/28/19. 2. Hyponatremia, acute on chronic. 3. Congestive heart failure, acute on chronic. 4. Community-acquired pneumonia. SECONDARY DIAGNOSES: 1. Atrial fibrillation. 2. Hypertension. 3. History of transient ischemic attack. 4. Osteoporosis. 5. Glaucoma. 6. History of alcohol abuse. 7. Edema. Recent echo on 01/27/19 shows EF 60% although the patient is noted to be on furosemide, spironolactone outpatient. PROCEDURES WHILE IN THE HOSPITAL: 01/28/19, surgery on the left hip due to intertrochanteric hip fracture, left hip intramedullary nail. STUDIES WHILE IN THE HOSPITAL: Transthoracic echo 01/27/19. Conclusion: The study is technically limited due to poor acoustic window. The left ventricular chamber size is decreased. There is normal left ventricular systolic function, normal wall motion. The estimated ejection fraction is 60%. The right ventricular systolic function is normal. The right ventricle is mildly dilated. There is [id number]-[id number] aortic regurgitation with AV sclerosis. There is mild mitral regurgitation. There is mild tricuspid regurgitation, possibly greater as seen on subcostal views. The right ventricular systolic pressure is estimated at 28 mmHg (normal). Compared with prior echo of 11/18/16, LV function is stable, RV systolic function is previously normal, AI is new, MR plus TR are stable. PA pressure previously 38 mmHg. Abdominal x-ray on 01/31/19, impression: Findings suggestive of adynamic ileus without evidence of free air. Brain CT 02/08/19, impression: Significant limitation by motion artifact. This could appear early evidence for infarct or a small bleed. No definite intracranial hemorrhage, mass or mass effect; however, if symptoms persist, repeat or close followup study would be recommended. There is low attenuation change in the white matter most consistent with chronic age-related small vessel ischemic change. No acute territorial infarct is seen, these can be initially occult on head CT. Chest x-ray 02/09/19, impression: Persistent right lower lung consolidation. Femur x-ray 02/09/19, impression: No new acute evidence. ORIF intertrochanteric fracture left femur as described. DISCHARGE MEDICATIONS: Home Medications: 1. Spironolactone 25 mg p.o. daily. 2. Alendronate 150 mg p.o. every month. 3. Travoprost Z 0.004% ophthalmic 1 drop to both eyes at bedtime. 4. Furosemide 80 mg p.o. daily. 5. Diltiazem 180 mg p.o. daily. 6. Potassium chloride tab 30 mEq p.o. daily. New home medications: 1. Oxycodone 5 mg p.o. q.6 hours p.r.n. dnia-[id number]-ghriqhyv pain x5 days. 2. Tiotropium 1 cap inhalation daily. 3. Tamsulosin 0.4 mg p.o. at bedtime. 4. Polyethylene glycol 17 g p.o. daily p.r.n. 5. Cyclobenzaprine 10 mg p.o. b.i.d. p.r.n. muscle spasm. 6. Cholecalciferol 800 units p.o. daily. 7. Benzonatate 100 mg p.o. b.i.d. p.r.n. cough. 8. Albuterol 2.5/3 inhalation q.6 hours p.r.n. shortness of breath, wheezing. 9. Acetaminophen 975 mg p.o. q.8 hours p.r.n. mild pain. 10. Azithromycin 250 mg p.o. daily x3 days. 11. Augmentin 875 mg p.o. b.i.d. x8 days starting tomorrow. 12. Apixaban 5 mg p.o. b.i.d., start when INR less than 2.0. Discontinued medications: Warfarin. HISTORY OF PRESENT ILLNESS/HOSPITAL COURSE: Mr. Álvarez is an 83-year-old male with a past medical history of hypertension, AFib, and history of TIA and osteoporosis, who presents to the ER on 01/26/19 after sustaining a mechanical fall. He states he tripped, fell, and landed on the left hip and elbow. He denies loss of consciousness or head injury. Upon arrival to the ER, the patient received a CT of the pelvis, which showed comminuted fracture of the proximal left femur with subacute to chronic appearing fractures of the left inferior pubic ramus and left superior acetabulum with osteopenia and osteoarthritis. The patient was admitted and Orthopedic Surgery was consulted. A transthoracic echo was ordered to ensure medical optimization and the plan was for surgical intervention. The patient was noted to have an elevated INR. He was given vitamin K for this and his Coumadin was withheld. Surgery was postponed until the 01/28/19 when the patient's INR was noted to be within range for surgical intervention. Intramedullary nail was placed on 01/28/19. The patient struggled with hyponatremia throughout his stay. He was given fluids, which improved hyponatremia. 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 He appears to have a chronically low sodium and with fluid restriction and Lasix, appears to be back to his baseline. He was recommended to continue his fluid restriction of approximately 1 L per day and follow up with his primary care provider as outpatient. He is also recommended to recheck his BMP particularly his sodium to ensure that it does not drop. It is also noted that the patient developed postoperative ileus. He was placed on lactated Ringer's and an NG tube was placed. Surgery was consulted regarding this. Abdominal films were ordered. They were consistent with postoperative ileus. No evidence of mechanical obstruction in small or large bowel. There is concern that there may be constipation and the patient was placed on bowel regimen. The ileus eventually resolved. The patient was found to have some shortness of breath and chest x-ray showed vascular congestion. He was given Lasix due to elevated BNP. This resolved somewhat later in his stay, he then developed a more productive cough. The patient was shown to have right lower lobe lung consolidation on x-ray. He also had leukocytosis. He was treated with azithromycin and ceftriaxone for presumed pneumonia. The patient will be discharged on these medications. On the day of discharge, the patient continues to have an occasionally productive cough. He is feeling better, but is still coughing. He is using oxygen at 2 L. He states that he has no shortness of breath, but does experience shortness of breath with walking which he states has been occurring since admission. This is presumed to be due to a mixture of deconditioning and pneumonia. The patient reports he had a bowel movement today. He states he is urinating regularly. He denies fever, chills, abdominal pain, nausea, vomiting, diarrhea. He denies pain in the left hip. He denies chest pain or pain in the calves. Mr. Álvarez is stable for discharge. PHYSICAL EXAMINATION: Vital signs are temperature 97.5 oral, heart rate 59, respiratory rate 18, oxygen saturation 98% on 2 L O2, blood pressure 119/41. General: Mr. Álvarez is a well-developed thin elderly male. He is sitting upright in the chair. He appears frail. He is alert and talkative. He has a chronic upper extremity tremors and chronic left facial droop. HEENT: Visual whitting[place] are grossly intact. Pupils are equally round and reactive to light. Extraocular movements are intact. Sclerae are without icterus. Hearing is grossly intact. Oral mucous membranes are moist. There are no lesions. The pharynx is clear. Neck with full range of motion. Trachea is at midline. Cardiovascular: Irregular rhythm, rate controlled. S1, S2 present. There are no murmurs, rubs, or gallops. There is no JVD. Respiratory: Symmetrical chest expansion without the use of accessory muscles. The lungs are clear without rhonchi, wheezes, or rubs. Abdomen: Bowel sounds noted in all 4 quadrants. The abdomen is soft and nontender to palpation. There is no hepatosplenomegaly. There is bruising at the posterior lower back in a strip across the back. This appears to have decreased. There is no tenderness in the area of bruising. Extremities: Skin is warm and smooth bilaterally. There is no clubbing, cyanosis, or edema. Radial and pedal pulses are palpable. Sensation is intact. The left hip incision site is dressed and dressings are clean, dry and intact. There is some bruising along the length of the left leg that is nontender to palpation. Neuro: The patient is awake. He is alert and oriented x3. He is able to move all of his extremities. DISCHARGE PLAN: Mr. Álvarez will be discharged to [facility] for rehabilitation. ACTIVITY: As tolerated. DIET: Heart healthy, add Ensure Enlive with meals 2 times daily. 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 EDUCATION: 1. Recheck CBC, INR, BMP on 02/14/19 to assess hemoglobin/hematocrit, platelets , INR, sodium. 2. Continue to check INR daily thereafter until less than 2.0, then start Eliquis 5 mg p.o. b.i.d. and discontinue daily INR. 3. Continue fluid restriction of 1 L per day due to SIADH and continue to monitor sodium. Follow up with PCP regarding future management and evaluation. 4. Follow up with primary care physician regarding recent hospitalization, SIADH, hyponatremia. 5. Follow up with Ortho on 02/15/19. Address staple removal at that time. 6. Return to the ER or nearest hospital if you experience any redness, increased drainage, pain or other signs of infection at the left hip surgical site. 7. Return if you experience any increase in shortness of breath, chest discomfort, high fevers, chills, night sweats, lightheadedness, dizziness, loss of consciousness or any other worrisome signs or symptoms. This is a summarized report of a complex medical history and hospital stay. For further details, please see the entire medical record. TIME SPENT: Approximately 40 minutes was spent on this discharge, greater than half that time was spent [id number] with the patient discussing discharge plans and instructions. CUBA ALEJANDRA [id number]/[facility] #: [id number] HELDER
--- NOTE | 2019-02-11 15:01 | PN ---
Progress Note - Progress Note Date of Service: 02/11/19 SOAP: Subjective: []Pt seen at beside. He feels better today without complaints. Objective: []General: NAD, interacts and answers questions appropriately today LLE: Today there is no drainage, dressings are completely dry. No purulence or erythema. Thigh is soft, there is ecchymosis of the posterior thigh, no induration or fluctuance. DP2+, sensation intact to light touch distally, DF/PF intact. vic removed from distal incision, steri strips placed. Nontender to palpation of the left hip and femur Calves supple and nontender without erythema or edema Assessment: []SP L IM Nail POD 14 Plan: []WBAT PT/OT warfarin for DVT prophy FU ortho 02/15 for post op fu and eval removal of rest of vic. left in place due to drainage post op stopping within the past 2 days though wounds appear to be healing well Laboratory Last Values WBC 10.8 10^3/uL (3.5-10.8) 02/11/19 07:35 RBC 3.10 10^6 /uL (4.18-5.48) L 02/11/19 07:35 Hgb 9.8 g/dL (14.0-18.0) L 02/11/19 07:35 Hct 29 % (42-52) L 02/11/19 07:35 MCV 93 fL (80-94) 02/11/19 07:35 MCH 32 pg (27-31) H 02/11/19 07:35 MCHC 34 g/dL (31-36) 02/11/19 07:35 RDW 15 % (10.5-15) 02/11/19 07:35 Plt Count 464 10^3/uL (150-450) H D 02/11/19 07:35 MPV 7.4 fL (7.4-10.4) 02/11/19 07:35 Neut % (Auto) 87.2 % 02/09/19 05:04 Lymph % (Auto) 5.6 % 02/09/19 05:04 [place] % (Auto) 5.6 % 02/09/19 05:04 Eos % (Auto) 0.9 % 02/09/19 05:04 Baso % (Auto) 0.7 % 02/09/19 05:04 Absolute Neuts (auto) 11.2 10^3/ul (1.5-7.7) H 02/09/19 05:04 Absolute Lymphs (auto) 0.7 10^3/ul (1.0-4.8) L 02/09/19 05:04 Absolute Monos (auto) 0.7 10^3/ul (0-0.8) 02/09/19 05:04 Absolute Eos (auto) 0.1 10^3/ul (0-0.6) 02/09/19 05:04 Absolute Basos (auto) 0.1 10^3/ul (0-0.2) 02/09/19 05:04 Absolute Nucleated RBC 0 10^3/ul 02/09/19 05:04 Nucleated RBC % 0 02/09/19 05:04 INR (Anticoag Therapy) 3.68 (0.82-1.09) H 02/11/19 07:35 APTT 61.8 seconds (26.0-36.3) H 02/01/19 05:28 Sodium 125 mmol/L (135-145) L 02/11/19 07:35 Potassium 4.2 mmol/L (3.5-5.0) 02/11/19 08:59 Chloride 91 mmol/L (101-111) L 02/11/19 07:35 Carbon Dioxide 25 mmol/L (22-32) 02/11/19 07:35 Anion Gap 9 mmol/L (2-11) 02/11/19 07:35 BUN 9 mg/dL (6-24) 02/11/19 07:35 Creatinine 0.53 mg/dL (0.67-1.17) L 02/11/19 07:35 Est GFR ( Amer) 180.5 (>60) 02/11/19 07:35 Est GFR (Non-Af Amer) 149.2 (>60) 02/11/19 07:35 BUN/Creatinine Ratio 17.0 (8-20) 02/11/19 07:35 Glucose 86 mg/dL (70-100) 02/11/19 07:35 Serum Osmolality 262 mOsm/kg (275-295) L 01/28/19 05:33 Calcium 8.7 mg/dL (8.6-10.3) 02/11/19 07:35 Phosphorus 2.8 mg/dL (2.5-5.0) 02/03/19 06:49 Magnesium 2.0 mg/dL (1.9-2.7) 02/03/19 06:49 Total Bilirubin 1.50 mg/dL (0.2-1.0) H 02/10/19 06:16 AST 38 U/L (13-39) 02/10/19 06:16 ALT 15 U/L (7-52) 02/10/19 06:16 Alkaline Phosphatase 90 U/L (34-104) 02/10/19 06:16 Troponin I 0.03 ng/mL (<0.04) 01/26/19 14:45 B-Natriuretic Peptide 481 pg/mL (<=100) H 02/04/19 06:30 Total Protein 6.5 g/dL (6.4-8.9) 02/10/19 06:16 Albumin 3.5 g/dL (3.2-5.2) 02/10/19 06:16 Globulin 3.0 g/dL (2-4) 02/10/19 06:16 Albumin/Globulin Ratio 1.2 (1-3) 02/10/19 06:16 TSH 3.04 mcIU/mL (0.34-5.60) 02/08/19 17:21 Cortisol 12.81 mcg/dL 02/11/19 07:35 ACTH 20 pg/mL 02/11/19 07:35 Urine Color Yellow 02/09/19 09:55 Urine Appearance Clear 02/09/19 09:55 Urine pH 7.0 (5-9) 02/09/19 09:55 Ur Specific [place] 1.013 (1.010-1.030) 02/09/19 09:55 Urine Protein Negative (Negative) 02/09/19 09:55 Urine Ketones 1+ (Negative) A 02/09/19 09:55 Urine Blood Negative (Negative) 02/09/19 09:55 Urine Nitrate Negative (Negative) 02/09/19 09:55 Urine Bilirubin Negative (Negative) 02/09/19 09:55 Urine Urobilinogen Negative (Negative) 02/09/19 09:55 Ur Leukocyte Esterase Negative (Negative) 02/09/19 09:55 Urine Osmolality 462 mOsm/kg (100-1150) 01/28/19 13:22 Ur Creatinine Concen 51.27 mg/dL 02/09/19 09:55 U Sodium Concentration 141 mmol/L 02/09/19 09:55 Ur Urea Nitrogen Conc 441 mg/dL 02/09/19 09:55 Urine Glucose Negative (Negative) 02/09/19 09:55 Influenza A (Rapid) Negative (Negative) 02/09/19 10:55 Influenza B (Rapid) Negative (Negative) 02/09/19 10:55 Miscellaneous Test See comment 02/09/19 09:55 Blood Type A Positive 01/31/19 08:15 Antibody Screen Negative 01/31/19 08:15 Crossmatch See Detail 01/31/19 08:15 Vital Signs Temp 97.7 F 02/11/19 11:51 Pulse 64 02/11/19 11:51 Resp 16 02/11/19 11:51 BP 117/58 02/11/19 11:51 Pulse Ox 98 02/11/19 11:51
== END 2019-02-11 14:45 | DRG 480 ==
LOC: ED 13:10 → SSU 17:05
PROVIDERS: ADMIT Internal Medicine; ATTEND Internal Medicine
PROC: 0QS706Z Reposition Left Upper Femur with Intramedullary Internal Fixation Device, Open Approach (ICD-10-PCS; principal; 2019-01-28 16:00)
PROC: 30233N1 Transfusion of Nonautologous Red Blood Cells into Peripheral Vein, Percutaneous Approach (ICD-10-PCS; 2019-01-31)
PROC: 0D9670Z Drainage of Stomach with Drainage Device, Via Natural or Artificial Opening (ICD-10-PCS; 2019-02-01)
DX: S72.142A Displaced intertrochanteric fracture of left femur, initial encounter for closed fracture (principal); I50.33 Acute on chronic diastolic (congestive) heart failure; J18.9 Pneumonia, unspecified organism; E87.1 Hypo-osmolality and hyponatremia; E46 Unspecified protein-calorie malnutrition; K56.7 Ileus, unspecified; Z68.1 Body mass index [BMI] 19.9 or less, adult; W01.0XXA Fall on same level from slipping, tripping and stumbling without subsequent striking against object, initial encounter; I11.0 Hypertensive heart disease with heart failure; M81.0 Age-related osteoporosis without current pathological fracture; M85.88 Other specified disorders of bone density and structure, other site; M16.12 Unilateral primary osteoarthritis, left hip; H40.9 Unspecified glaucoma; I48.0 Paroxysmal atrial fibrillation; J44.9 Chronic obstructive pulmonary disease, unspecified; I27.20 Pulmonary hypertension, unspecified; N40.1 Benign prostatic hyperplasia with lower urinary tract symptoms; R33.8 Other retention of urine; R29.810 Facial weakness; S30.0XXA Contusion of lower back and pelvis, initial encounter; I08.3 Combined rheumatic disorders of mitral, aortic and tricuspid valves; R54 Age-related physical debility; G51.0 Bell's palsy; K59.00 Constipation, unspecified; D50.0 Iron deficiency anemia secondary to blood loss (chronic); R79.1 Abnormal coagulation profile; E83.42 Hypomagnesemia; Z98.42 Cataract extraction status, left eye; Z91.013 Allergy to seafood; Z72.89 Other problems related to lifestyle; Z98.41 Cataract extraction status, right eye; Z82.3 Family history of stroke; Z87.891 Personal history of nicotine dependence; Z86.73 Personal history of transient ischemic attack (TIA), and cerebral infarction without residual deficits; Z79.01 Long term (current) use of anticoagulants; Y92.009 Unspecified place in unspecified non-institutional (private) residence as the place of occurrence of the external cause
CPT/HCPCS: 36415; 36600; 70450; 71045; 72192; 74019; 76000; 80048; 80051; 80053; 81003; 82024; 82533; 82565; 82570; 83735; 83880; 83930; 83935; 84100; 84300; 84443; 84484; 84520; 84540; 85025; 85027; 85610; 85730; 86850; 86900; 86901; 86922; 87641; 87899; 93005; 93306; 94640; 99285; A9270-GY; C8929; G8978-GP-CL; G8979-GP-CJ; G8987-GO-CK; G8988-GO-CI; J0456; J0690; J0696; J1644; J1940; J2001; J2250; J2704; J3010; J3430; J3475; J3480; J3490; P9040

== ENCOUNTER 2019-02-26 13:32 | Inpatient (IN) | payer MEDICARE, BC ==
[~2019-02-26 13:32] MED LIST: Midazolam* 1 MG/ML 10 ML VIAL (10 MG) ONE
--- NOTE | 2019-02-26 13:48 | ED ---
Altered Mental Status - HPI Summary HPI Summary: LEVEL 5 CAVEAT: Patient is unresponsive. History given by EMS. This patient is an 83 year old M brought in by ambulance to [facility] with a chief complaint of altered mental status since 1 hour ago. He has been at [facility] for the last month following a hip surgery. Patient is warm to the touch and has a wound on his penis. - History Of Current Complaint Stated Complaint: UNRESPONSIVE PER EMS Time Seen by Provider: 02/26/19 13:38 Hx Obtained From: EMS Hx From Patient Unobtainable Due To: Altered Mental Status Onset/Duration: Still Present, Suddenly Timing: Lasting Hours Severity Currently: Severe - Allergies/Home Medications Allergies/Adverse Reactions: Allergies Allergy/AdvReac Type Severity Reaction Status Date / Time shellfish derived AdvReac Vomiting Verified 01/26/19 17:54 Home Medications: Home Medications Diltiazem CD CAP* [Cardizem CD CAP*] 180 mg PO DAILY 02/26/19 [History Confirmed 02/26/19] Docusate CAP* [Colace Cap*] 200 mg PO DAILY PRN 02/26/19 [History Confirmed ] Latanoprost 0.005%* [Xalatan 0.005%*] 1 drop BOTH EYES BEDTIME 02/26/19 [ History Confirmed 02/26/19] Mupirocin 2% OINT* [Bactroban 2 % Oint*] 1 applic TOPICAL BID 02/26/19 [History Confirmed 02/26/19] Polyethylene Glycol 3350* [Miralax*] 17 gm PO DAILY PRN 02/26/19 [History Confirmed 02/26/19] Senna TAB* [Senokot TAB*] 1 tab PO BEDTIME PRN 02/26/19 [History Confirmed 02/26] Tamsulosin CAP* [Flomax CAP*] 0.4 mg PO BEDTIME 02/26/19 [History Confirmed ] Warfarin TAB(*) [Coumadin TAB(*)] 1 mg PO DAILY 02/26/19 [History Confirmed ] PMH/Surg Hx/FS Hx/Imm Hx Previously Healthy: No - LEVEL 5 CAVEAT: Patient is unresponsive. History given by EMS. Cardiovascular History: Reports: Hx Hypertension, Other Cardiovascular Problems/ Disorders - A-Fib Denies: Hx Pacemaker/ICD Respiratory History: Reports: Hx Chronic Obstructive Pulmonary Disease (COPD) Denies: Hx Asthma Musculoskeletal History: Reports: Hx Osteoporosis Sensory History: Reports: Hx Cataracts, Hx Contacts or Glasses, Hx Glaucoma, Hx Vision Problem, Hx Hearing Aid Denies: Other Sensory Impairments Opthamlomology History: Reports: Hx Cataracts, Hx Contacts or Glasses, Hx Glaucoma, Hx Vision Problem Denies: Other Sensory Impairments Psychiatric History: Denies: Hx Panic Disorder - Surgical History Surgery Procedure, Year, and Place: cleft palate surgery, cataract removal both eyes - Immunization History Date of Tetanus Vaccine: 2011 Date of Influenza Vaccine: July 2016 Infectious Disease History: Denies: Traveled Outside the [place] in Last 30 Days - Family History Known Family History: Positive: Other - CVA - Social History Alcohol Use: Daily Alcohol Amount: 2 beverages a day Hx Substance Use: No Substance Use Type: Reports: None Hx Tobacco Use: No Smoking Status (MU): Former Smoker Type: Cigarettes Have You Smoked in the Last Year: No Review of Systems - ROS Summary Review of Systems Summary: LEVEL 5 CAVEAT: Patient is unresponsive. History given by EMS. Positive: Fever Positive: other - Wound on his penis Neurological: Other - Unresponsive All Other Systems Reviewed And Are Negative: No Physical Exam - Summary Physical Exam Summary: Constitutional: Well-developed, Well-nourished. (-) Distressed Skin: Skin hot to the touch HENT: Normocephalic; Atraumatic Eyes: Conjunctiva normal Neck: Musculoskeletal ROM normal neck. (-) JVD, (-) Stridor, (-) Tracheal deviation Cardio: Rhythm regular, rate normal, Heart sounds normal; Intact distal pulses; The pedal pulses are 2+ and symmetric. Radial pulses are 2+ and symmetric. (-) Murmur Pulmonary/Chest wall: Crackles on the left side, Tachypnea, (-) Rales Abd: Soft, (-) tenderness, (-) Distension, (-) Guarding, (-) Rebound Musculoskeletal: (-) Edema Lymph: (-) Cervical adenopathy Neuro: Responds to commands but not opening his eyes or answering questions Psych: Mood and affect Normal Triage Information Reviewed: Yes Vital Signs On Initial Exam: Initial Vitals BP 120/58 02/26/19 13:39 Vital Signs Reviewed: Yes Diagnostics - Laboratory Result Diagrams: 02/26/19 14:02/26/19 14:01 Lab Statement: Any lab studies that have been ordered have been reviewed, and results considered in the medical decision making process. - Radiology Chest X-Ray Radiology Interpretation Completed By: Radiologist Summary of Radiographic Findings: 14:26 - EMPHYSEMA WITH PULMONARY FIBROTIC CHANGES. ED Physician has reviewed this imaging report. - EKG 13:55 Cardiac Rate: Tachycardia - 113 BPM EKG Rhythm: Atrial Fibrillation Summary of EKG Findings: No STEMI Re-Evaluation - Re-Evaluation 1 Re-Evaluation Time: 15:15 Change: Improved Comment: Mental status has improved. Altered Mental Statu Course/Dx - Course Course Of Treatment: Did consider multiple sources of infection including orthopedic hardware (incisions are intact and were nonerythematous), penis cellulitis (wound actually appeared to be healing, no evidence of hernias gangrene or scrotal cellulitis, more likely dermatitis from incontinence), most likely pneumonia with wet cough and tachypnea and rhonchorous breath sounds, also urine appeared infected as well. [employer] Registrar was at the bedside, Dr. Marinelli. We discussed putting the patient on pressors, central venous access will be placed in ICU. - Diagnoses Provider Diagnoses: PNA (pneumonia), Sepsis, Lesion of penis, Septic shock - Provider Notifications Discussed Care Of Patient With: Eri Amaya - Hospitalist Time Discussed With Above Provider: 15:10 Instructed by Provider To: Admit As Inpatient - Critical Care Time Critical Care Time: 75-104 min - 75 mins Discharge - Sign-Out/Discharge Documenting (check all that apply): Patient Departure - Admit Patient Received Moderate/Deep Sedation with Procedure: No - Discharge Plan Condition: Stable Disposition: ADMITTED TO [facility] - Billing Disposition and Condition Condition: STABLE Disposition: Admitted to [facility] - Attestation Statements Document Initiated by Scribe: Yes Documenting Scribe: Mj Chaudhry Provider For Whom Scribe is Documenting (Include Credential): Wilner Rizzo MD Scribe Attestation: Mj Lazo, scribed for Wilner Rizzo MD on 02/26/19 at 1753. Scribe Documentation Reviewed: Yes Provider Attestation: The documentation as recorded by the Mj sims accurately reflects the service I personally performed and the decisions made by me, Wilner Rizzo MD Status of Scribe Document: Viewed
[2019-02-26] MEDS ORDERED: Cefepime 2 GM in Dextrose(*) 2 GM/50 ML BAG IV ONE (13:50)
[2019-02-26] MEDS ORDERED: Ciprofloxacin 400MG IVPREMIX(* 400 MG/200 ML BAG IVPB ONE (13:50)
[2019-02-26] MEDS ORDERED: Acetaminophen SUPP* 650 MG SUPP PR ONE (13:57)
[2019-02-26] MEDS: NS 0.9% 1000 ML** 1,000 ML IV.FLUID IV ONE ×2 (14:08→14:09)
[2019-02-26 14:27] LABS: Hematocrit 37 % (42-52); Hemoglobin 11.7 g/dL (14.0-18.0); Mean Corpuscular HGB Conc 32 g/dL (31-36); Mean Corpuscular Hemoglobin 30 pg (27-31); Mean Corpuscular Volume 94 fL (80-94); Mean Platelet Volume 8.2 fL (7.4-10.4); Platelet Count 323 10^3/uL (150-450); Red Cell Distribution Width 16 % (10.5-15); White Blood Count 23.6 10^3/uL (3.5-10.8)
[2019-02-26 14:29] LABS: Activated Partial Thrombo Time 46.2 seconds (26.0-36.3); INR 2.54 (0.82-1.09)
[2019-02-26 14:30] LABS: Albumin 3.3 g/dL (3.2-5.2); Calcium 8.7 mg/dL (8.6-10.3); Potassium 4.1 mmol/L (3.5-5.0); Total Bilirubin 1.1 mg/dL (0.2-1.0)
[2019-02-26 14:36] LABS: BUN/Creatinine Ratio 17.3 (8-20); EGFR African American 42.7 (>60); EGFR Non-African American 35.3 (>60); Globulin 3.4 g/dL (2-4); Total Protein 6.7 g/dL (6.4-8.9)
[2019-02-26 14:53] LABS: Troponin I 0.1 ng/mL (<0.04)
[2019-02-26 15:16] LABS: ABS Neutrophils 23.1 10^3/ul (1.5-7.7)
[2019-02-26 15:21] LABS: Urine Appearance Cloudy; Urine Bacteria Absent (Absent); Urine Bilirubin Negative (Negative); Urine Blood 1+ (Negative); Urine Color Amber; Urine Glucose Negative (Negative); Urine Ketones Negative (Negative); Urine Nitrite Negative (Negative); Urine Protein 2+(100 mg/dL) (Negative); Urine Red Blood Cell 2+(6-10/hpf) (Absent); Urine Specific Gravity 1.019 (1.010-1.030); Urine Squamous Epithelial Cell Present (Absent); Urine Urobilinogen Negative (Negative); Urine White Blood Cell 3+(>20/hpf) (Absent)
[2019-02-26] MEDS ORDERED: NS 0.9% 1000 ML** 1,000 ML IV ONE (15:33)
[2019-02-26] MEDS ORDERED: Vancomycin(*) 1,250 MG in NS 0.9% 250 ML* 250 ML IVPB ONE (16:05)
[2019-02-26] MEDS: Norepinephrine 16MCG/ML IVPRE* 4,000 MCG/250 ML BAG IV SCH (16:14)
[2019-02-26] MEDS ORDERED: Albuterol 2.5 MG/3 ML NEB.SOL* (0.083%) INH PRN (16:52)
[2019-02-26] MEDS ORDERED: Acetaminophen ADULT LIQ* 650 MG/20.3 ML UDC PO PRN (16:54)
[2019-02-26] MEDS ORDERED: Vancomycin per Pharmacy* NOTE FOLLOW UP SCH (17:00)
--- NOTE | 2019-02-26 17:08 | HP ---
H&P (Free Text) History and Physical: History and Physical -- Critical Care Limitations in history/physical: delirium HPI: 83y M w/pmhx of COPD, Afib on warfarin, h/o TIA, history of alcohol abuse but still using daily, CHF?; recent admission after he was found to have Left IC femoral fracture and had Intramedullary nailing performed 02/07/2019, course complicated by Right lower lobe pneumonia, hyponatremia. He was treated and discharged to [facility] on 02/11. he comes [place] [facility] [place] in mental status from [place]. in ER, he was febrile 105.6, tachycardic, hypotensive, tachypneic, not hypoxic. Started on sepsis protocol, given a total of 4 liters of NS, bp labile but back to 80s/30s, tachycardia improved, given IV abx including cefepime/cipro/vancomycin IV. He was lethargic initially but mental status has improved. He is not reliable for history and not responding to questions appropriately but does not appear to be in more distress now. CXR demonstrated no new focla infiltrate/congestion/effusion compared to prior CXR at [facility] (which showed RLL consolidation/effusioin) Urinalysis - cloudy, wbc+, no bacteria, trace LE, neg nitrite ED/floor Course: as above ROS: ROS limited due to change in mental status/delirium PMHx: COPD, Afib on warfarin, h/o TIA, history of alcohol abuse but still using daily, osteoporosis, glaucoma PSHx: Left IC femoral Fracture s/p IM nailling 02/07/2019 Family History: noncontributory Social History: Alcohol-past heavy drinking but still drinks 2drinks/day, [id number] in his 40s, Drug use-none as per chart; Use to work as [employer] at [employer]; lives alone Allergies: Allergies Allergy/AdvReac Type Severity Reaction Status Date / Time shellfish derived AdvReac Vomiting Verified 01/26/19 17:54 Home Medications: Acetaminophen TAB* [Tylenol TAB*] 975 mg PO Q8H PRN tab 02/05/19 [Rx Confirmed 02/26/19] Cholecalciferol TAB* [Vitamin D TAB*] 800 unit PO DAILY #0 tab 02/05/19 [Rx Confirmed 02/26/19] Cyclobenzaprine TAB* [Flexeril 10 MG TAB*] 10 mg PO BID PRN tab 02/05/19 [Rx Confirmed 02/26/19] Tiotropium CAP.INH* [Spiriva CAP.INH*] 1 cap INH DAILY cap.inh 02/05/19 [Rx Confirmed 02/26/19] oxyCODONE TAB* [Roxycodone TAB 5 mg*] 5 mg PO Q6H PRN tab 02/05/19 [Rx Confirmed 02/26/19] Diltiazem CD CAP* [Cardizem CD CAP*] 180 mg PO DAILY 02/26/19 [History Confirmed 02/26/19] Docusate CAP* [Colace Cap*] 200 mg PO DAILY PRN 02/26/19 [History Confirmed ] Latanoprost 0.005%* [Xalatan 0.005%*] 1 drop BOTH EYES BEDTIME 02/26/19 [ History Confirmed 02/26/19] Mupirocin 2% OINT* [Bactroban 2 % Oint*] 1 applic TOPICAL BID 02/26/19 [History Confirmed 02/26/19] Polyethylene Glycol 3350* [Miralax*] 17 gm PO DAILY PRN 02/26/19 [History Confirmed 02/26/19] Senna TAB* [Senokot TAB*] 1 tab PO BEDTIME PRN 02/26/19 [History Confirmed 02/26] Tamsulosin CAP* [Flomax CAP*] 0.4 mg PO BEDTIME 02/26/19 [History Confirmed ] Warfarin TAB(*) [Coumadin TAB(*)] 1 mg PO DAILY 02/26/19 [History Confirmed ] Tele: Afib, tachy Vitals: Vital Signs Temp 105.6 F 02/26/19 13:54 Pulse 92 02/26/19 15:43 Resp 40 02/26/19 15:43 BP 80/32 02/26/19 15:50 Pulse Ox 100 02/26/19 15:43 Intake & Output 02/25/19 02/26/19 02/26/19 18:59 06:59 18:59 Intake Total 3250 Balance 3250 Weight 65.771 kg Intake: IV Fluids 3250 O2/Vent: oximask 15L Infusions: NS infusion; to be started on levophed infusion Current Medications: Norepinephrine Bitartrate (Levophed 16 Mcg/Ml Premix Bag*) 4,000 mcg in 250 mls @ 18.75 mls/hr IV .INITIAL RATE PEYTON; Protocol Last Admin: 02/26/19 16:14 Dose: 18.75 mls/hr Vancomycin HCl 1,250 mg/ (Sodium Chloride) 250 mls @ 166.667 mls/hr IVPB ONCE ONE; Protocol Stop: 02/26/19 17:34 Last Admin: 02/26/19 16:37 Dose: 166.667 mls/hr Physical Exam: Constitutional: awake, semi-alert, confused, not able to answer questions, no distress, no diaphoresis Head: normocephalic, atraumatic Eyes: no pallor, no icterus ENT: DRY mucous membranes Neck: soft, supple, no jvd, no stridor CVS: tachy, irregular, no murmur Resp: bilateral air entry, no rhales, no wheeze, no rhonchi, no acc muscle use Abdomen/GI: soft, nontender, nondistended, BS+ Ext/Msk: warm, pulses+, no edema; Left femoral Surgical site at upper/lower portions of femur intact without erythema/induration/drainage, sutures intact Skin: intact, warm Neuro: awake, alert, [id number], moving all extremities; pupils reactive, unable to obtain full neuro exam Genitourinary: small escar at base of meatus with some purulent drainage noted, mild erythema, no bleeding Labs: Laboratory Results - last 24 hr 02/26/19 02/26/19 02/26/19 14:01 14:01 14:01 WBC 23.6 H RBC 3.90 L Hgb 11.7 L Hct 37 L MCV 94 MCH 30 MCHC 32 RDW 16 H Plt Count 323 MPV 8.2 Neut % (Auto) Not Reportable Lymph % (Auto) Not Reportable [place] % (Auto) Not Reportable Eos % (Auto) Not Reportable Baso % (Auto) Not Reportable Absolute Neuts (auto) Not Reportable Absolute Lymphs (auto) Not Reportable Absolute Monos (auto) Not Reportable Absolute Eos (auto) Not Reportable Absolute Basos (auto) Not Reportable Absolute Nucleated RBC Not Reportable Immature Gran % 10.0 H Neutrophils % 88.0 Band Neutrophils % 10.0 H Lymphocytes % 1.0 Monocytes % 1.0 Nucleated RBC % Not Reportable Abs Neuts (Manual) 23.1 H Abs Lymphs (Manual) 0.2 L Abs Monocytes (Manual) 0.2 Normal RBC Morphology Normal INR (Anticoag Therapy) 2.54 H APTT 46.2 H Patient Temperature ABG pH ABG pH (Temp Correct) ABG pCO2 ABG pCO2 (Temp Corrct ABG pO2 ABG pO2 (Temp Correct ABG HCO3 ABG O2 Saturation ABG Base Excess Respiration Rate O2 Delivery Device Ventilator Type Vent Mode FiO2 Inspiratory Time PEEP Pressure Support Pressure Control EPAP IPAP BiPAP Sodium 133 L Potassium 4.1 Chloride 101 Carbon Dioxide 19 L Anion Gap 13 H BUN 32 H Creatinine 1.85 H Est GFR ( Amer) 42.7 Est GFR (Non-Af Amer) 35.3 BUN/Creatinine Ratio 17.3 Glucose 75 Lactic Acid Calcium 8.7 Total Bilirubin 1.10 H AST 70 H ALT 19 Alkaline Phosphatase 105 H Troponin I 0.10 H* Total Protein 6.7 Albumin 3.3 Globulin 3.4 Albumin/Globulin Ratio 1.0 Urine Color Urine Appearance Urine pH Ur Specific [place] Urine Protein Urine Ketones Urine Blood Urine Nitrate Urine Bilirubin Urine Urobilinogen Ur Leukocyte Esterase Urine WBC (Auto) Urine RBC (Auto) Ur Squamous Epith Cells Urine Bacteria Hyaline Casts Urine Glucose 02/26/19 02/26/19 02/26/19 14:06 14:11 14:35 WBC RBC Hgb Hct MCV MCH MCHC RDW Plt Count MPV Neut % (Auto) Lymph % (Auto) [place] % (Auto) Eos % (Auto) Baso % (Auto) Absolute Neuts (auto) Absolute Lymphs (auto) Absolute Monos (auto) Absolute Eos (auto) Absolute Basos (auto) Absolute Nucleated RBC Immature Gran % Neutrophils % Band Neutrophils % Lymphocytes % Monocytes % Nucleated RBC % Abs Neuts (Manual) Abs Lymphs (Manual) Abs Monocytes (Manual) Normal RBC Morphology INR (Anticoag Therapy) APTT Patient Temperature Not Reportable ABG pH 7.46 H ABG pH (Temp Correct) Not Reportable ABG pCO2 29 L ABG pCO2 (Temp Corrct Not Reportable ABG pO2 182 H ABG pO2 (Temp Correct Not Reportable ABG HCO3 23.3 ABG O2 Saturation 100.0 H ABG Base Excess -2.1 L Respiration Rate Not Reportable O2 Delivery Device Nrb Ventilator Type Not Reportable Vent Mode Not Reportable FiO2 100 Inspiratory Time Not Reportable PEEP Not Reportable Pressure Support Not Reportable Pressure Control Not Reportable EPAP Not Reportable IPAP Not Reportable BiPAP Not Reportable Sodium Potassium Chloride Carbon Dioxide Anion Gap BUN Creatinine Est GFR ( Amer) Est GFR (Non-Af Amer) BUN/Creatinine Ratio Glucose Lactic Acid 3.2 H* Calcium Total Bilirubin AST ALT Alkaline Phosphatase Troponin I Total Protein Albumin Globulin Albumin/Globulin Ratio Urine Color Kim Urine Appearance Cloudy Urine pH 5.0 Ur Specific [place] 1.019 Urine Protein 2+(100 mg/dl) A Urine Ketones Negative Urine Blood 1+ A Urine Nitrate Negative Urine Bilirubin Negative Urine Urobilinogen Negative Ur Leukocyte Esterase Trace A Urine WBC (Auto) 3+(>20/hpf) A Urine RBC (Auto) 2+(6-10/hpf) A Ur Squamous Epith Cells Present A Urine Bacteria Absent Hyaline Casts Present A Urine Glucose Negative Imaging: CXR 02/26 - hyperinflated appearing, no focal infiltrate/effusion, improved from prior CXR 02/09 Assessment: 83y M w/pmhx of COPD, Afib on warfarin, h/o TIA, history of alcohol abuse but still using daily, CHF?; recent admission after he was found to have Left IC femoral fracture and had Intramedullary nailing performed 02/07/2019, course complicated by Right lower lobe pneumonia, hyponatremia. He was treated and discharged to [facility] on 02/11. he comes [place] [facility] [place] mental status from [place]. in ER, he was febrile 105.6, tachycardic, hypotensive, tachypneic, not hypoxic. Started on sepsis protocol, given a total of 4 liters of NS, bp labile but back to 80s/30s, tachycardia improved, given IV abx including cefepime/cipro/vancomycin IV. He was lethargic initially but mental status has improved. He is not reliable for history and not responding to questions appropriately but does not appear to be in more distress now. -Severe Sepsis with shock -Metabolic encephalopathy suspected -HELLEN -Unclear source of sepsis; r/o penile ulcer vs UTI -Acute hypoxic respiratory failure -hyponatremia AFib, on warfarin COPD Recent Left IC femoral fracture s/p nailing 01/2019 Plan: Neuro- -was lethargic but improving mental status slowly; more alert, not well responsive to questions -neurochecks q4h -nonfocal findings; reassess after continued treatment -Delirium prec; avoid BDZ CVS- -Hypotension; sepsis criteria+; unclear source -s/p IVF 4 L bolus; making urine -hold further IVF, montior uop -started levophed for BP support -Titrate Pressors to Maintain MAP>65 -IV abx -trend LA -hold antihypertensives; hold CCB -Afib, tachy; improved with IVF bolus; hold rate control agents -hold warfarin tonight, therapueutic INR, will bridge to IV heparin if critically ill still Resp- -Hypoxic, unclear etiology; cxr without new focal changes, may be related to sepsis and demand -wean down fio2 as toelrtaed -COPD stable, no wheezing noted; cont spiriva -Wean Fio2 to keep sat>92% -Bronchodilators PRN, Aspiration prec ID-febrile 105.6, wbc 23, bands 10% -CXR no new focal process; noted previous admission with RLL pneumonia post op -check urine culture -send penile wound swab, though small lesion, has+ drainage -blood cultures -left hip wound intact -Agree with Cefepime 2gm q24h (renal dosing) (day#1), Vanco 1gm x1 (day#1) ( pharmacy dosing) GI- -NPO -GI prophylaxis -h2b Renal- -HELLEN; nonoliguric; suspect septic ATN + pre-renal azotemia/hypovolemia -k okay; Metabolic acidosis with elevated LA -s/p 4 L NS; will start NS 75cc/hr -check urine cultures -urology consult for penile wound -sepulveda+ -strict I/O, replete to keep K>4, Mg>2 -sepulveda as indicated Heme- -hg 11 -plt stable -INR 2.5, on warfarin; hold warfarin tonight -DVT proph - SCD and Warfarin Endo- Maintain BG<200, insulin protocol as needed Musculsk- pressure ulcer prophylaxis. Bedrest. Wounds- penile wound, culture sent, urology consult to evaluate -left hip wound intact without erythema/induration/drainage; low suspicion as source of infection; pain control prn Nutrition- NPO DVT prophylaxis: SCD, warfarin GI prophylaxis: h2b Central Line: no Arterial Line: no Sepulveda Cathetor: yes Disposition: Admit to ICU: Patient requires Critical Care/ICU for septic shock , HELLEN, metabolic encephalopathy Patient Clinical Status: unstable, critical Code Status: full code Total Critical Care time is 50 minutes, excluding procedures/teaching Eric Marinelli MD [employer] (Electronically Signed)
[2019-02-26] MEDS ORDERED: NS 0.9% 1000 ML** 1,000 ML IV SCH (17:15)
--- NOTE | 2019-02-26 18:05 | PN ---
Progress Note - Progress Note Date of Service: 02/26/19 Note: Central Line Procedure Note Indication: venous access Diagnosis: septic shock, HELLEN Performed by: Eric Marinelli MD Consent: Informed ; placed in bedside chart Risks of procedure were explained if possible, all risks of pain/discomfort, bleeding, infection, PTX, Hemotx, need for chest tube, air/wire embolism, vessel injury, , and failed procedure disclosed and understanding verbalized [place] Protocol: Time-out was performed and the correct patient and site were verified - Prior labs/history was reviewed prior to procedure - Full sterile precautions with chlorhexidine/full drapes/gowns/gloves utilized - [facility] Internal jugular vein visualized with ultrasound - Vessel accessed under ultrasound guidance with return of nonpulsatile blood. A guidewire was passed into vessel and confirmed in vessel with ultrasound. 1 attempt was made to access vessel. Vessel was dilated and cathetor was passed over wire into vessel. All ports demonstrated good blood return and flushed. Catheter was sutured to site and dressing applied. Adequate hemostasis was achieved EBL <5 cc No immediate complications noted, patient tolerated procedure well. Post Procedure CXR: Pending Eric Marinelli MD Securities Compliance Examiner (Electronically Signed)
[2019-02-26] MEDS: Neomycin/Polym/Bacit TOP OINT* 15 GM TOPICAL SCH (20:38)
[2019-02-26 21:17] LABS: Troponin I 0.12 ng/mL (<0.04)
[2019-02-26] MEDS ORDERED: NS 0.9% 500 ML* 500 ML IV ONE (22:00)
[2019-02-27] MEDS: Norepinephrine 16MCG/ML IVPRE* 4,000 MCG/250 ML BAG IV SCH ×2 (01:09→07:35)
[2019-02-27] MEDS ORDERED: NS 0.9% 1000 ML** 1,000 ML IV SCH ×2 (01:27→11:54)
[2019-02-27 02:47] LABS: Troponin I 0.08 ng/mL (<0.04)
[2019-02-27] MEDS: Vancomycin(*) 750 MG in NS 0.9% 250 ML* 250 ML IVPB SCH ×2 (04:58→20:19)
[2019-02-27 05:18] LABS: Hematocrit 28 % (42-52); Hemoglobin 8.9 g/dL (14.0-18.0); Mean Corpuscular HGB Conc 32 g/dL (31-36); Mean Corpuscular Hemoglobin 30 pg (27-31); Mean Corpuscular Volume 93 fL (80-94); Mean Platelet Volume 8.3 fL (7.4-10.4); Platelet Count 225 10^3/uL (150-450); Red Cell Distribution Width 16 % (10.5-15); White Blood Count 18.6 10^3/uL (3.5-10.8)
[2019-02-27 05:34] LABS: Albumin 2.6 g/dL (3.2-5.2); BUN/Creatinine Ratio 26.2 (8-20); Calcium 7.3 mg/dL (8.6-10.3); EGFR African American 58.4 (>60); EGFR Non-African American 48.2 (>60); Globulin 2.7 g/dL (2-4); Indirect Bilirubin 0.4 mg/dL (0.3-1.0); Magnesium 1.3 mg/dL (1.9-2.7); Potassium 3.4 mmol/L (3.5-5.0); Total Bilirubin 0.9 mg/dL (0.2-1.0); Total Protein 5.3 g/dL (6.4-8.9)
[2019-02-27] MEDS ORDERED: Magnesium Sulf 4 GM/100 ML IV* 4,000 MG/100 ML BAG IVPB ONE (05:50)
[2019-02-27] MEDS ORDERED: Potassium Chlor TAB* 20 MEQ TAB.ER PO ONE (05:51)
[2019-02-27 06:20] LABS: Fibrinogen 285.4 mg/dL (110.8-404.3); INR 3.33 (0.82-1.09)
[2019-02-27] MEDS: KCL 20 MEQ/100 ML IVPREMIX* 20 MEQ/100 ML BAG IV SCH ×2 (06:36→09:30)
[2019-02-27] MEDS: Tiotropium CAP.INH* CAP.INH/18 MCG (USE ORDER SET !) INH SCH (07:55)
[2019-02-27] MEDS ORDERED: Magnesium Sulfate 2 GM IV* 2 GM/50 ML BAG IVPB ONE (08:43)
[2019-02-27] MEDS ORDERED: KCL 20 MEQ/100 ML IVPREMIX* 20 MEQ/100 ML BAG IV ONE (08:43)
[2019-02-27] MEDS ORDERED: Magnesium Oxide TAB* 400 MG PO SCH (09:00)
[2019-02-27] MEDS ORDERED: Spiriva Inhaler DEVICE* 1 EACH DEVICE INH ONE (09:00)
[2019-02-27] MEDS: Famotidine IV* 10 MG/ML 2 ML (20 mg) IV SLOW PU SCH (09:30)
[2019-02-27] MEDS: Neomycin/Polym/Bacit TOP OINT* 15 GM TOPICAL SCH ×2 (09:32→20:46)
--- NOTE | 2019-02-27 11:50 | PN ---
Progress Note - Progress Note Date of Service: 02/27/19 Note: Progress Note -- Critical Care 24 hour events -remains on levophed -awakens, follows commands, hard of hearing -still some delirium, confusion -afebrile, temps 96 -making urine+ -no distress noted; not tachypneic Tele: Afib, rate controlled Vitals: Vital Signs Temp 96.3 F 02/27/19 07:45 Pulse 77 02/27/19 07:57 Resp 24 02/27/19 07:57 BP 113/56 02/27/19 07:45 Pulse Ox 93 02/27/19 07:57 Intake & Output 02/26/19 02/27/19 02/27/19 18:59 06:59 18:59 Intake Total 4450 2009 Output Total 50 208 Balance 4400 1802 Weight 49.895 kg 49.804 kg Intake: IV Fluids 4450 1488 ABX - VANCOMYCIN 200 NS (0.9%) 1488 IVPB 84 ABX - VANCOMYCIN 84 Medicated IV 438 CC - Norepinephrine/ 438 Levophed Output: Sepulveda 50 208 O2/Vent: oximask 5L Infusions: NS, levophed Current Medications: Acetaminophen (Tylenol Adult Liq*) 650 mg PO Q4H PRN PRN Reason: fever or pain Albuterol (Ventolin 2.5 Mg/3 Ml Neb.Sharon*) 2.5 mg INH Q4H PRN PRN Reason: SOB/WHEEZING Famotidine (Pepcid Iv*) 20 mg IV SLOW PU DAILY [facility] Last Admin: 02/27/19 09:30 Dose: 20 mg Norepinephrine Bitartrate (Levophed 16 Mcg/Ml Premix Bag*) 4,000 mcg in 250 mls @ 18.75 mls/hr IV .INITIAL RATE [facility]; Protocol Last Admin: 02/27/19 07:35 Dose: 30 mls/hr Cefepime HCl (Maxipime 2 Gm In Dextrose Duplex (*)) 2 gm in 50 mls @ 100 mls/ hr IV Q24HR [facility] Vancomycin HCl 750 mg/ Sodium (Chloride) 250 mls @ 166.667 mls/hr IVPB Q12H [facility] Last Admin: 02/27/19 04:58 Dose: 166.667 mls/hr Sodium Chloride (Ns 0.9% 1000 Ml) 1,000 mls @ 125 mls/hr IV PER RATE [facility] Last Admin: 02/27/19 01:29 Dose: 125 mls/hr Neomycin/Polymyxin/Bacitracin (Neosporin Top Oint Tube*) 1 applic TOPICAL BID [facility] Last Admin: 02/27/19 09:32 Dose: 1 applic Pharmacy Consult (Vancomycin Per Pharmacy*) 1 note FOLLOW UP .VANC PER PHARMACY [facility]; Protocol Pharmacy Profile Note (Vancomycin Trough Check) 1 note FOLLOW UP ONCE ONE Stop: 02/28/19 05:31 Tiotropium [place] (Spiriva Cap.Inh*) 1 cap INH DAILY [facility] Last Admin: 02/27/19 07:55 Dose: 1 cap Physical Exam: Constitutional: awake, alert, more responsive, mild confusion, no distress, no diaphoresis Head: normocephalic, atraumatic Eyes: no pallor, no icterus ENT: DRY mucous membranes Neck: soft, supple, no jvd, no stridor CVS: normal rate, irregular, no murmur Resp: bilateral air entry, no rhales, no wheeze, no rhonchi, no acc muscle use Abdomen/GI: soft, nontender, nondistended, BS+ Ext/Msk: warm, pulses+, no edema; Left femoral Surgical site at upper/lower portions of femur intact without erythema/induration/drainage, sutures intact Skin: intact, warm Neuro: awake, alert, orientation difficult due to speech/hearing, moving all extremities; pupils reactive Genitourinary: small escar at base of meatus, no purulent drainage, mild erythema Labs: Laboratory Results - last 24 hr 02/26/19 02/26/19 02/26/19 14:01 14:01 14:01 WBC 23.6 H RBC 3.90 L Hgb 11.7 L Hct 37 L MCV 94 MCH 30 MCHC 32 RDW 16 H Plt Count 323 MPV 8.2 Neut % (Auto) Not Reportable Lymph % (Auto) Not Reportable [place] % (Auto) Not Reportable Eos % (Auto) Not Reportable Baso % (Auto) Not Reportable Absolute Neuts (auto) Not Reportable Absolute Lymphs (auto) Not Reportable Absolute Monos (auto) Not Reportable Absolute Eos (auto) Not Reportable Absolute Basos (auto) Not Reportable Absolute Nucleated RBC Not Reportable Immature Gran % 10.0 H Neutrophils % 88.0 Band Neutrophils % 10.0 H Lymphocytes % 1.0 Monocytes % 1.0 Nucleated RBC % Not Reportable Abs Neuts (Manual) 23.1 H Abs Lymphs (Manual) 0.2 L Abs Monocytes (Manual) 0.2 Normal RBC Morphology Normal INR (Anticoag Therapy) 2.54 H APTT 46.2 H Fibrinogen Patient Temperature ABG pH ABG pH (Temp Correct) ABG pCO2 ABG pCO2 (Temp Corrct ABG pO2 ABG pO2 (Temp Correct ABG HCO3 ABG O2 Saturation ABG Base Excess Respiration Rate O2 Delivery Device Ventilator Type Vent Mode FiO2 Inspiratory Time PEEP Pressure Support Pressure Control EPAP IPAP BiPAP Sodium 133 L Potassium 4.1 Chloride 101 Carbon Dioxide 19 L Anion Gap 13 H BUN 32 H Creatinine 1.85 H Est GFR ( Amer) 42.7 Est GFR (Non-Af Amer) 35.3 BUN/Creatinine Ratio 17.3 Glucose 75 Lactic Acid Calcium 8.7 Magnesium Total Bilirubin 1.10 H Direct Bilirubin Indirect Bilirubin AST 70 H ALT 19 Alkaline Phosphatase 105 H Total Creatine Kinase Troponin I 0.10 H* Total Protein 6.7 Albumin 3.3 Globulin 3.4 Albumin/Globulin Ratio 1.0 Cortisol Urine Color Urine Appearance Urine pH Ur Specific [place] Urine Protein Urine Ketones Urine Blood Urine Nitrate Urine Bilirubin Urine Urobilinogen Ur Leukocyte Esterase Urine WBC (Auto) Urine RBC (Auto) Ur Squamous Epith Cells Urine Bacteria Hyaline Casts U Sodium Concentration Urine Glucose 02/26/19 02/26/19 02/26/19 14:06 14:11 14:35 WBC RBC Hgb Hct MCV MCH MCHC RDW Plt Count MPV Neut % (Auto) Lymph % (Auto) [place] % (Auto) Eos % (Auto) Baso % (Auto) Absolute Neuts (auto) Absolute Lymphs (auto) Absolute Monos (auto) Absolute Eos (auto) Absolute Basos (auto) Absolute Nucleated RBC Immature Gran % Neutrophils % Band Neutrophils % Lymphocytes % Monocytes % Nucleated RBC % Abs Neuts (Manual) Abs Lymphs (Manual) Abs Monocytes (Manual) Normal RBC Morphology INR (Anticoag Therapy) APTT Fibrinogen Patient Temperature Not Reportable ABG pH 7.46 H ABG pH (Temp Correct) Not Reportable ABG pCO2 29 L ABG pCO2 (Temp Corrct Not Reportable ABG pO2 182 H ABG pO2 (Temp Correct Not Reportable ABG HCO3 23.3 ABG O2 Saturation 100.0 H ABG Base Excess -2.1 L Respiration Rate Not Reportable O2 Delivery Device Nrb Ventilator Type Not Reportable Vent Mode Not Reportable FiO2 100 Inspiratory Time Not Reportable PEEP Not Reportable Pressure Support Not Reportable Pressure Control Not Reportable EPAP Not Reportable IPAP Not Reportable BiPAP Not Reportable Sodium Potassium Chloride Carbon Dioxide Anion Gap BUN Creatinine Est GFR ( Amer) Est GFR (Non-Af Amer) BUN/Creatinine Ratio Glucose Lactic Acid 3.2 H* Calcium Magnesium Total Bilirubin Direct Bilirubin Indirect Bilirubin AST ALT Alkaline Phosphatase Total Creatine Kinase Troponin I Total Protein Albumin Globulin Albumin/Globulin Ratio Cortisol Urine Color Kim Urine Appearance Cloudy Urine pH 5.0 Ur Specific [place] 1.019 Urine Protein 2+(100 mg/dl) A Urine Ketones Negative Urine Blood 1+ A Urine Nitrate Negative Urine Bilirubin Negative Urine Urobilinogen Negative Ur Leukocyte Esterase Trace A Urine WBC (Auto) 3+(>20/hpf) A Urine RBC (Auto) 2+(6-10/hpf) A Ur Squamous Epith Cells Present A Urine Bacteria Absent Hyaline Casts Present A U Sodium Concentration Urine Glucose Negative 02/26/19 02/26/19 02/26/19 18:00 20:45 20:45 WBC RBC Hgb Hct MCV MCH MCHC RDW Plt Count MPV Neut % (Auto) Lymph % (Auto) [place] % (Auto) Eos % (Auto) Baso % (Auto) Absolute Neuts (auto) Absolute Lymphs (auto) Absolute Monos (auto) Absolute Eos (auto) Absolute Basos (auto) Absolute Nucleated RBC Immature Gran % Neutrophils % Band Neutrophils % Lymphocytes % Monocytes % Nucleated RBC % Abs Neuts (Manual) Abs Lymphs (Manual) Abs Monocytes (Manual) Normal RBC Morphology INR (Anticoag Therapy) APTT Fibrinogen Patient Temperature ABG pH ABG pH (Temp Correct) ABG pCO2 ABG pCO2 (Temp Corrct ABG pO2 ABG pO2 (Temp Correct ABG HCO3 ABG O2 Saturation ABG Base Excess Respiration Rate O2 Delivery Device Ventilator Type Vent Mode FiO2 Inspiratory Time PEEP Pressure Support Pressure Control EPAP IPAP BiPAP Sodium Potassium Chloride Carbon Dioxide Anion Gap BUN Creatinine Est GFR ( Amer) Est GFR (Non-Af Amer) BUN/Creatinine Ratio Glucose Lactic Acid 1.8 Calcium Magnesium Total Bilirubin Direct Bilirubin Indirect Bilirubin AST ALT Alkaline Phosphatase Total Creatine Kinase Troponin I 0.12 H* Total Protein Albumin Globulin Albumin/Globulin Ratio Cortisol 25.77 Urine Color Urine Appearance Urine pH Ur Specific [place] Urine Protein Urine Ketones Urine Blood Urine Nitrate Urine Bilirubin Urine Urobilinogen Ur Leukocyte Esterase Urine WBC (Auto) Urine RBC (Auto) Ur Squamous Epith Cells Urine Bacteria Hyaline Casts U Sodium Concentration 21 Urine Glucose 02/27/19 02/27/19 02/27/19 02:15 05:00 05:00 WBC 18.6 H RBC 3.00 L Hgb 8.9 L Hct 28 L MCV 93 MCH 30 MCHC 32 RDW 16 H Plt Count 225 MPV 8.3 Neut % (Auto) Lymph % (Auto) [place] % (Auto) Eos % (Auto) Baso % (Auto) Absolute Neuts (auto) Absolute Lymphs (auto) Absolute Monos (auto) Absolute Eos (auto) Absolute Basos (auto) Absolute Nucleated RBC Immature Gran % Neutrophils % Band Neutrophils % Lymphocytes % Monocytes % Nucleated RBC % Abs Neuts (Manual) Abs Lymphs (Manual) Abs Monocytes (Manual) Normal RBC Morphology INR (Anticoag Therapy) APTT Fibrinogen Patient Temperature ABG pH ABG pH (Temp Correct) ABG pCO2 ABG pCO2 (Temp Corrct ABG pO2 ABG pO2 (Temp Correct ABG HCO3 ABG O2 Saturation ABG Base Excess Respiration Rate O2 Delivery Device Ventilator Type Vent Mode FiO2 Inspiratory Time PEEP Pressure Support Pressure Control EPAP IPAP BiPAP Sodium 137 Potassium 3.4 L Chloride 111 Carbon Dioxide 17 L Anion Gap 9 BUN 37 H Creatinine 1.41 H Est GFR ( Amer) 58.4 Est GFR (Non-Af Amer) 48.2 BUN/Creatinine Ratio 26.2 H Glucose 97 Lactic Acid Calcium 7.3 L Magnesium 1.3 L Total Bilirubin 0.90 Direct Bilirubin 0.50 H Indirect Bilirubin 0.4 AST 62 H ALT 20 Alkaline Phosphatase 79 Total Creatine Kinase 673 H Troponin I 0.08 H* Total Protein 5.3 L Albumin 2.6 L Globulin 2.7 Albumin/Globulin Ratio 1.0 Cortisol Urine Color Urine Appearance Urine pH Ur Specific [place] Urine Protein Urine Ketones Urine Blood Urine Nitrate Urine Bilirubin Urine Urobilinogen Ur Leukocyte Esterase Urine WBC (Auto) Urine RBC (Auto) Ur Squamous Epith Cells Urine Bacteria Hyaline Casts U Sodium Concentration Urine Glucose 02/27/19 02/27/19 02/27/19 05:00 05:00 08:55 WBC RBC Hgb Hct MCV MCH MCHC RDW Plt Count MPV Neut % (Auto) Lymph % (Auto) [place] % (Auto) Eos % (Auto) Baso % (Auto) Absolute Neuts (auto) Absolute Lymphs (auto) Absolute Monos (auto) Absolute Eos (auto) Absolute Basos (auto) Absolute Nucleated RBC Immature Gran % Neutrophils % Band Neutrophils % Lymphocytes % Monocytes % Nucleated RBC % Abs Neuts (Manual) Abs Lymphs (Manual) Abs Monocytes (Manual) Normal RBC Morphology INR (Anticoag Therapy) 3.33 H APTT Fibrinogen 285.4 Patient Temperature ABG pH 7.35 ABG pH (Temp Correct) ABG pCO2 26 L ABG pCO2 (Temp Corrct ABG pO2 86 ABG pO2 (Temp Correct ABG HCO3 17.5 L ABG O2 Saturation 98.5 H ABG Base Excess -9.5 L Respiration Rate O2 Delivery Device Ventilator Type Vent Mode FiO2 Inspiratory Time PEEP Pressure Support Pressure Control EPAP IPAP BiPAP Sodium Potassium Chloride Carbon Dioxide Anion Gap BUN Creatinine Est GFR ( Amer) Est GFR (Non-Af Amer) BUN/Creatinine Ratio Glucose Lactic Acid 1.5 Calcium Magnesium Total Bilirubin Direct Bilirubin Indirect Bilirubin AST ALT Alkaline Phosphatase Total Creatine Kinase Troponin I Total Protein Albumin Globulin Albumin/Globulin Ratio Cortisol Urine Color Urine Appearance Urine pH Ur Specific [place] Urine Protein Urine Ketones Urine Blood Urine Nitrate Urine Bilirubin Urine Urobilinogen Ur Leukocyte Esterase Urine WBC (Auto) Urine RBC (Auto) Ur Squamous Epith Cells Urine Bacteria Hyaline Casts U Sodium Concentration Urine Glucose Imaging: CXR 02/26 - hyperinflated appearing, no focal infiltrate/effusion, improved from prior CXR 02/09 Assessment: 83y M w/pmhx of COPD, Afib on warfarin, h/o TIA, history of alcohol abuse but still using daily, CHF?; recent admission after he was found to have Left IC femoral fracture and had Intramedullary nailing performed 02/07/2019, course complicated by Right lower lobe pneumonia, hyponatremia. He was treated and discharged to [facility] on 02/11. he comes to [facility] ER for change in mental status from [place]. in ER, he was febrile 105.6, tachycardic, hypotensive, tachypneic, not hypoxic. Started on sepsis protocol, given a total of 4 liters of NS, bp labile but back to 80s/30s, tachycardia improved, given IV abx including cefepime/cipro/vancomycin IV. He was lethargic initially but mental status has improved. He is not reliable for history and not responding to questions appropriately but does not appear to be in more distress now. -Severe Sepsis with shock -Metabolic encephalopathy, improving -HELLEN -metabolic acidosis -Unclear source of sepsis -Acute hypoxic respiratory failure -hyponatremia AFib, on warfarin COPD Recent Left IC femoral fracture s/p nailing 01/2019 Plan: Neuro- -more alert and responsive than admission; likely metabolic etiology -neurochecks q4h -Delirium prec; avoid BDZ, asp prec CVS- -Septic Shock; cont levophed -Dec NS to 75cc/hr -overall poor urine output, oliguric -Titrate Pressors to Maintain MAP>65 -IV abx -Afib, rate controlled; hold antihypertensives; hold CCB -INR 3; hold warfarin for now -hg drop to 8.9; no bleeding Resp- -down to 5L NC; suspect poor ventilation yesterday -no resp distress -wean down fio2 as toelrtaed -COPD stable, no wheezing noted; cont spiriva -Wean Fio2 to keep sat>92% -Bronchodilators PRN, Aspiration prec ID- -afebrile now, temps 96; wbc 23-18 -CXR 02/26 no new focal process; noted previous admission with RLL pneumonia post op -urine culture in lab -penile wound cx with MRSA+ -blood cultures pending -left hip wound intact -Cont Cefepime 2gm q24h (renal dosing) (day#1), Vanco 1gm x1 (day#1) (pharmacy dosing) GI- -NPO -speech and swallow, can start PO diet then -GI prophylaxis -h2b Renal- -HELLEN; nonoliguric; suspect septic ATN + pre-renal azotemia/hypovolemia -Cr decreased, UOP not much overnight but increasing this morning now -Dec NS to 75cc/hr -metabolic acidosis likely from renal insuff; LA cleared though -discussed with urology; no sig infection to cause sepsis, topical triple abx ointment for now; noted MRSA growth -sepulveda+ -strict I/O, replete to keep K>4, Mg>2 Heme- -hg 11.7-8.9 -no bleeding; check cbc at 6pm -plt 200s -INR 3.3; holding warfarin; no bleeding noted -DVT proph - SCD and Warfarin(on hold) Endo- Maintain BG<200, insulin protocol as needed Musculsk- pressure ulcer prophylaxis. Bedrest. Wounds- penile wound, MRSA+; topical abx; no drainage noted; dry dressing as needed -left hip wound intact without erythema/induration/drainage; low suspicion as source of infection; pain control prn Nutrition- swallow eval first; NPO now DVT prophylaxis: SCD, warfarin on hold GI prophylaxis: h2b Central Line: RIJ TLC 02/26 Arterial Line: no Sepulveda Cathetor: yes Disposition: Patient requires Critical Care/ICU for septic shock, HELLEN Patient Clinical Status: guarded, critical Code Status: full code Total Critical Care time is 35 minutes, excluding procedures/teaching Eric Marinelli MD Volumetric Weigher (Electronically Signed)
[2019-02-27] MEDS: Cefepime 2 GM in Dextrose(*) 2 GM/50 ML BAG IV SCH (13:25)
[2019-02-27 17:40] LABS: ABS Basophils 0.1 10^3/ul (0-0.2); ABS Eosinophils 0.2 10^3/ul (0-0.6); ABS Lymphocytes 0.4 10^3/ul (1.0-4.8); ABS Monocytes 0.5 10^3/ul (0-0.8); ABS Neutrophils 15.5 10^3/ul (1.5-7.7); Eosinophil % 0.9 %; Hematocrit 29 % (42-52); Hemoglobin 9.4 g/dL (14.0-18.0); Lymphocyte % 2.6 %; Mean Corpuscular HGB Conc 32 g/dL (31-36); Mean Corpuscular Hemoglobin 30 pg (27-31); Mean Corpuscular Volume 94 fL (80-94); Mean Platelet Volume 8.3 fL (7.4-10.4); Platelet Count 233 10^3/uL (150-450); Red Blood Count 3.12 10^6 /uL (4.18-5.48); Red Cell Distribution Width 16 % (10.5-15); White Blood Count 16.7 10^3/uL (3.5-10.8)
[2019-02-27 17:56] LABS: BUN/Creatinine Ratio 32.5 (8-20); Calcium 7.7 mg/dL (8.6-10.3); EGFR African American 72.4 (>60); EGFR Non-African American 59.8 (>60)
[2019-02-27] MEDS ORDERED: Furosemide IV* 10 MG/ML VIAL (40 MG) IV ONE (22:24)
[2019-02-27] MEDS ORDERED: Furosemide IV* 10 MG/ML VIAL (40 MG) ONE (22:36)
--- NOTE | 2019-02-27 22:55 | PN ---
Progress Note - Progress Note Date of Service: 02/27/19 Note: Critical Care Patient had some tachypnea, on 2 L NC CXR done stat; demonstrating bilateral pulmonary congestion d/c IVF cont NC and nebulizers PRN Lasix 40mg IV x1 remains on low dose levophed at 2mcg awake/alert, verbalizing, making urine through sepulveda hypothermic 95 noted BMP and CBC from earlier evening; hg stable, K okay, Cr downtrending, Bicarb 16 Eric Marinelli MD
[2019-02-28] MEDS ORDERED: Morphine 4 MG/ML VIAL (1 ml) 4 MG/ML VIAL IV ONE (01:27)
[2019-02-28] MEDS ORDERED: Furosemide IV* 10 MG/ML VIAL (40 MG) IV ONE (03:10)
[2019-02-28] MEDS ORDERED: Vancomycin Trough Check NOTE FOLLOW UP ONE (05:30)
[2019-02-28 05:44] LABS: Hematocrit 29 % (42-52); Hemoglobin 9.4 g/dL (14.0-18.0); Mean Corpuscular HGB Conc 33 g/dL (31-36); Mean Corpuscular Hemoglobin 30 pg (27-31); Mean Corpuscular Volume 93 fL (80-94); Mean Platelet Volume 8.5 fL (7.4-10.4); Platelet Count 223 10^3/uL (150-450); Red Blood Count 3.11 10^6 /uL (4.18-5.48); Red Cell Distribution Width 16 % (10.5-15); White Blood Count 13.9 10^3/uL (3.5-10.8)
[2019-02-28 05:53] LABS: INR 3.25 (0.82-1.09)
[2019-02-28 06:01] LABS: Albumin 2.7 g/dL (3.2-5.2); Albumin/Globulin Ratio 0.9 (1-3); BUN/Creatinine Ratio 33.6 (8-20); Calcium 7.6 mg/dL (8.6-10.3); EGFR Non-African American 58.7 (>60); Indirect Bilirubin 0.4 mg/dL (0.3-1.0); Magnesium 2.5 mg/dL (1.9-2.7); Potassium 3.9 mmol/L (3.5-5.0); Total Bilirubin 0.8 mg/dL (0.2-1.0); Total Protein 5.7 g/dL (6.4-8.9)
[2019-02-28 06:33] LABS: Vancomycin Trough 20.5 mcg/mL
[2019-02-28] MEDS: Vancomycin(*) 750 MG in NS 0.9% 250 ML* 250 ML IVPB SCH (06:38)
[2019-02-28] MEDS: Tiotropium CAP.INH* CAP.INH/18 MCG (USE ORDER SET !) INH SCH (07:54)
[2019-02-28] MEDS: Famotidine IV* 10 MG/ML 2 ML (20 mg) IV SLOW PU SCH (08:14)
[2019-02-28] MEDS: Cefepime 2 GM in Dextrose(*) 2 GM/50 ML BAG IV SCH ×2 (08:15→20:04)
[2019-02-28] MEDS: Neomycin/Polym/Bacit TOP OINT* 15 GM TOPICAL SCH ×2 (08:15→20:04)
[2019-02-28] MEDS ORDERED: methylPREDNISolone 125 MG* 2 ML VIAL IV ONE (09:35)
[2019-02-28] MEDS ORDERED: Furosemide IV* 10 MG/ML 2 ML VIAL (20 MG) IV ONE (09:36)
[2019-02-28] MEDS ORDERED: Albuterol 2.5 MG/3 ML NEB.SOL* (0.083%) INH PRN (09:37)
[2019-02-28] MEDS ORDERED: KCL 20 MEQ/100 ML IVPREMIX* 20 MEQ/100 ML BAG IV ONE (09:38)
--- NOTE | 2019-02-28 09:40 | PN ---
Progress Note - Progress Note Date of Service: 02/28/19 Note: Progress Note -- Critical Care 24 hour events -off pressors overnight -last night had some increased resp distress, wheezing+, crackles+ -on NC now, mild tachpnea noted -awake/alert, not as responsive to questions today though -afebrile -made urine overnight with lasix -still has soem wheezing now scattered Tele: Afib, rate controlled Vitals: Vital Signs Temp 96.3 F 02/28/19 06:00 Pulse 84 02/28/19 07:58 Resp 18 02/28/19 07:58 BP 105/62 02/28/19 06:00 Pulse Ox 99 02/28/19 07:58 Intake & Output 02/27/19 02/28/19 02/28/19 18:59 06:59 18:59 Intake Total 2381 931.2 Output Total 380 976 Balance 2000 -44.8 Weight 51.211 kg Intake: IV Fluids 1581 587.9 NS (0.9%) 1535 587.9 NS KVO w/meds 46 IVPB 596 279 ABX - VANCOMYCIN 279 NS (0.9%) 421 NS KVO w/meds 175 Medicated IV 204 64.3 CC - Norepinephrine/ 204 64.3 Levophed Output: Urine 380 Sepulveda 976 Other: # Bowel Movements 1 O2/Vent: 3 L NC Infusions: heplock Current Medications: Acetaminophen (Tylenol Adult Liq*) 650 mg PO Q4H PRN PRN Reason: fever or pain Albuterol (Ventolin 2.5 Mg/3 Ml Neb.Sharon*) 2.5 mg INH Q2H PRN PRN Reason: SOB/WHEEZING Famotidine (Pepcid Iv*) 20 mg IV SLOW PU DAILY [facility] Last Admin: 02/28/19 08:14 Dose: 20 mg Norepinephrine Bitartrate (Levophed 16 Mcg/Ml Premix Bag*) 4,000 mcg in 250 mls @ 18.75 mls/hr IV .INITIAL RATE [facility]; Protocol Last Admin: 02/27/19 07:35 Dose: 30 mls/hr Cefepime HCl (Maxipime 2 Gm In Dextrose Duplex (*)) 2 gm in 50 mls @ 100 mls/ hr IV Q24HR [facility] Last Admin: 02/28/19 08:15 Dose: 100 mls/hr Vancomycin HCl 1,250 mg/ (Sodium Chloride) 250 mls @ 166.667 mls/hr IVPB Q24H [facility] Potassium Chloride (Potassium Chloride 20 Meq/100 Ml Ivpremix*) 20 meq in 100 mls @ 50 mls/hr IV ONCE ONE Stop: 02/28/19 11:37 Methylprednisolone Sodium Succinate (Solu-Medrol 40 Mg) 40 mg IV Q12H [facility] Neomycin/Polymyxin/Bacitracin (Neosporin Top Oint Tube*) 1 applic TOPICAL BID [facility] Last Admin: 02/28/19 08:15 Dose: 1 applic Pharmacy Consult (Vancomycin Per Pharmacy*) 1 note FOLLOW UP .VANC PER PHARMACY [facility]; Protocol Pharmacy Profile Note (Vancomycin Trough Check) 1 note FOLLOW UP ONCE ONE Stop: 03/02/19 11:31 Tiotropium [place] (Spiriva Cap.Inh*) 1 cap INH DAILY [facility] Last Admin: 02/28/19 07:54 Dose: Not Given Physical Exam: Constitutional: awake, alert, not as responsive to questions, tachypnea+, no diaphoresis Head: normocephalic, atraumatic Eyes: no pallor, no icterus ENT: moist mucous membranes Neck: soft, supple, no jvd, no stridor CVS: normal rate, irregular, no murmur Resp: bilateral air entry, no rhales, ++scattered wheeze, no rhonchi, no acc muscle use Abdomen/GI: soft, nontender, nondistended, BS+ Ext/Msk: warm, pulses+, no edema; Left femoral Surgical site at upper/lower portions of femur intact without erythema/induration/drainage, sutures intact Skin: intact, warm Neuro: awake, alert, not answering questions as much, there is speech and hearing difficulties as prior, moving all extremities; pupils reactive Genitourinary: small escar at base of meatus, no purulent drainage, mild erythema Labs: Laboratory Results - last 24 hr 02/27/19 02/27/19 02/28/19 17:30 17:34 05:30 WBC 16.7 H RBC 3.12 L Hgb 9.4 L Hct 29 L MCV 94 MCH 30 MCHC 32 RDW 16 H Plt Count 233 MPV 8.3 Neut % (Auto) 92.8 Lymph % (Auto) 2.6 [place] % (Auto) 2.9 Eos % (Auto) 0.9 Baso % (Auto) 0.8 Absolute Neuts (auto) 15.5 H Absolute Lymphs (auto) 0.4 L Absolute Monos (auto) 0.5 Absolute Eos (auto) 0.2 Absolute Basos (auto) 0.1 Absolute Nucleated RBC 0.0 Nucleated RBC % 0.0 INR (Anticoag Therapy) Sodium 138 140 Potassium 4.0 3.9 Chloride 114 H 115 H Carbon Dioxide 16 L 17 L Anion Gap 8 8 BUN 38 H 40 H Creatinine 1.17 1.19 H Est GFR ( Amer) 72.4 71.0 Est GFR (Non-Af Amer) 59.8 58.7 BUN/Creatinine Ratio 32.5 H 33.6 H Glucose 107 H 112 H Calcium 7.7 L 7.6 L Magnesium 2.5 Total Bilirubin 0.80 Direct Bilirubin 0.40 H Indirect Bilirubin 0.4 AST 45 H ALT 22 Alkaline Phosphatase 83 Total Creatine Kinase 194 Total Protein 5.7 L Albumin 2.7 L Globulin 3.0 Albumin/Globulin Ratio 0.9 L Vancomycin Trough 02/28/19 02/28/19 02/28/19 05:30 05:30 05:30 WBC 13.9 H RBC 3.11 L Hgb 9.4 L Hct 29 L MCV 93 MCH 30 MCHC 33 RDW 16 H Plt Count 223 MPV 8.5 Neut % (Auto) Lymph % (Auto) [place] % (Auto) Eos % (Auto) Baso % (Auto) Absolute Neuts (auto) Absolute Lymphs (auto) Absolute Monos (auto) Absolute Eos (auto) Absolute Basos (auto) Absolute Nucleated RBC Nucleated RBC % INR (Anticoag Therapy) 3.25 H Sodium Potassium Chloride Carbon Dioxide Anion Gap BUN Creatinine Est GFR ( Amer) Est GFR (Non-Af Amer) BUN/Creatinine Ratio Glucose Calcium Magnesium Total Bilirubin Direct Bilirubin Indirect Bilirubin AST ALT Alkaline Phosphatase Total Creatine Kinase Total Protein Albumin Globulin Albumin/Globulin Ratio Vancomycin Trough 20.5 Imaging: CXR 02/26 - hyperinflated appearing, no focal infiltrate/effusion, improved from prior CXR 02/09 cxr 02/27 - reviewed report; to me appears to have show more congestion, ?left retrocardiadc infiltrate/congestion, and some on RLL Assessment: 83y M w/pmhx of COPD, Afib on warfarin, h/o TIA, history of alcohol abuse but still using daily, CHF?; recent admission after he was found to have Left IC femoral fracture and had Intramedullary nailing performed 02/07/2019, course complicated by Right lower lobe pneumonia, hyponatremia. He was treated and discharged to [facility] on 02/11. he comes to [facility] ER for change in mental status from [place]. in ER, he was febrile 105.6, tachycardic, hypotensive, tachypneic, not hypoxic. Started on sepsis protocol, given a total of 4 liters of NS, bp labile but back to 80s/30s, tachycardia improved, given IV abx including cefepime/cipro/vancomycin IV. He was lethargic initially but mental status has improved. He is not reliable for history and not responding to questions appropriately but does not appear to be in more distress now. -Severe Sepsis with shock -Metabolic encephalopathy, improving -HELLEN -metabolic acidosis -Unclear source of sepsis -Acute hypoxic respiratory failure -Bronchospasm -hyponatremia AFib, on warfarin COPD Recent Left IC femoral fracture s/p nailing 01/2019 Plan: Neuro- -awake, alert -neurochecks q4h -Delirium prec; avoid BDZ, asp prec CVS- -Sepsis improved; off pressors -BP stable -afebrile otherwise -noted some congestion on CXR; s/p lasix last night -repeat lasix 20mg IV x1 today -no IVF -Maintain MAP>65 -IV abx -Afib, rate controlled; hold antihypertensives; hold CCB for now for low normal BP and rate controlled AFib; will re-initiate once needed -INR 3.25; hold warfarin today; restart tomorrow if INR 2-3 at 1mg night -hg 9-10; no bleeding Resp- -increased resp distress ovenright; wheezing+; suspect pulm congestion -IV lasix repeat 20mg x1 -solumedrol 125mg x1; then 40mg IV q12h -bronchodilators q2h prn -cont NC -no noted cough/sputum -if not improving later today, will obtain CT chest to r/o infiltrate -wean down fio2 as tolerated -COPD ; now with wheezing though suspect congestion, will treat bronchospasm as above; cont spiriva -Wean Fio2 to keep sat>92% -Bronchodilators PRN, Aspiration prec ID- -hypothermic 95-96; warming blanket now -wbc 23-18-16-14 -CXR 02/27 - congestion +/- atelectasis/infiltrate -culture neg so far; penile culture with MRSA -left hip wound intact -Cont Cefepime 2gm q24h (renal dosing) (day#3\), Vanco 1gm x1 (2days); will d/c vancomycin since no sig growth on blood cultures GI- -if resp status improved and seems alert, bedside swallow , start PO diet -GI prophylaxis -h2b Renal- -HELLEN; nonoliguric; suspect septic ATN + pre-renal azotemia/hypovolemia -Cr 1.19, BUN slightly up -CXR mild congestion; s/p lasix 40mg; redose 20mg x1 today -off IVF, observe -metabolic acidosis likely from renal insuff; LA cleared though -discussed with urology; no sig infection to cause sepsis, topical triple abx ointment for now; noted MRSA growth -sepulveda+ -strict I/O, replete to keep K>4, Mg>2 Heme- -hg 9-10; stable now -plt 200s -INR 3.25; holding warfarin tonight; will restart tomorrow 1mg night -DVT proph - SCD and Warfarin(on hold) Endo- Maintain BG<200, insulin protocol as needed -check tsh level Musculsk- pressure ulcer prophylaxis. Bedrest. Wounds- penile wound, MRSA+; topical abx; no drainage noted; dry dressing as needed -left hip wound intact without erythema/induration/drainage; low suspicion as source of infection; pain control prn Nutrition- swallow eval first; NPO now DVT prophylaxis: SCD, warfarin on hold GI prophylaxis: h2b Central Line: RIJ TLC 02/26 Arterial Line: no Sepulveda Cathetor: yes Disposition: Patient requires Critical Care/ICU for acute hypoxic respiratory failure/respiratory distress, hypothermia Patient Clinical Status: guarded Code Status: full code Total Critical Care time is 35 minutes, excluding procedures/teaching Eric Marinelli MD Car Wash Attendant (Electronically Signed)
[2019-02-28 10:26] LABS: TSH (Thyroid Stimulating Horm) 4.77 mcIU/mL (0.34-5.60)
[2019-02-28] MEDS ORDERED: Etomidate* 2 MG/ML 10 ML VIAL ONE (11:21)
[2019-02-28] MEDS ORDERED: Succinylcholine* 20 MG/ML 10 ML VIAL ONE (11:26)
[2019-02-28] MEDS: Norepinephrine 16MCG/ML IVPRE* 4,000 MCG/250 ML BAG IV SCH ×3 (11:44→22:06)
--- NOTE | 2019-02-28 11:53 | PN ---
Progress Note - Progress Note Date of Service: 02/28/19 Note: Endotracheal Intubation Procedure Note Indication: respiratory failure Diagnosis: acute hypercapneic respiratory failure, encephalopathy, copd exaccerbation Performed by: Dr Eric Marinelli Consent: Emergent Prior labs/imaging/history reviewed as needed. Patient preoxygenated/denitrogenated with 100% FiO2 using oximask Patient was medicated with etomidate 20mg IV push and versed 2mg IV push for sedation Visualization of vocal cords with Grade 2 view obtained using MAC 4. Dried secretions/mucous plugs were noted in pharynx and suctioned out. 8.0 ETT was passed through the vocal cords under direct visualization and confirmed with condensation, chest rise with bilateral breath sounds and positive color change x3 on qualitative capnography. ETT was secured at 24 cm at lip. Patient tolerated procedure without immediate complication. Post Procedure CXR: ETT above tosin; OGT noted to be in stomach; bilateral congestion, +/- infiltrates/consolidation RLL Will have Resp push down ETT by 1 cm Eric Marinelli MD Shrub Planter (Electronically Signed)
--- NOTE | 2019-02-28 11:56 | PN ---
Progress Note - Progress Note Date of Service: 02/28/19 Note: patient lethargic, mild tachypnea but not responsive now. ABG with 7. , bicarb 17 Called Sister in law who is HCP, discussed likley intubation given poor mental status and respiratory failure/wheezing. She agreed with anything to treat him. Based on clincal status, change in mental status, resp distress and metabolic acidosis with now incomplete resp compensation we have decided to intubate him. He is now intubated by me by direct laryngoscopy. BP is low after, given NS and now on levophed. CXR reviewed; may require CT chest to evaluation for consolidation vs congestion Will given IVF for now and re-evaluate afterward based on hemodynamics. Sputum cultures. IV abx. ABG at 2pm Total Critical Care time 45 min, not including procedures Total of 80 min so far today 02/28 Eric Marinelli MD Marine Pipe Welder
[2019-02-28] MEDS: fentaNYL* 50 MCG/ML 2 ML VIAL (100 MCG VIAL) IV SLOW PU PRN (12:00)
[2019-02-28] MEDS ORDERED: Propofol* 100 ML IV SCH (12:00)
[2019-02-28] MEDS ORDERED: Vancomycin(*) 1,250 MG in NS 0.9% 250 ML* 250 ML IVPB SCH ×2 (12:00→16:00)
[2019-02-28] MEDS ORDERED: Lorazepam PYXIS KEY ONE (12:27)
[2019-02-28] MEDS ORDERED: LORazepam INJ* 2 MG/ML 1 ML VIAL ONE (12:27)
[2019-02-28] MEDS: Midazolam* 1 MG/ML 2 ML VIAL (2 MG) IV SLOW PU PRN (12:30)
--- NOTE | 2019-02-28 12:40 | PN ---
Progress Note - Progress Note Date of Service: 02/28/19 Note: Arterial Line Procedure Note Indication: frequent arterial blood gases , invasive hemodynamic monitoring Diagnosis: shock, acute hypoxic and hypercapneic respiratory failure, encephalopathy Performed by: Eric Marinelli MD Consent: Emergent [place] Protocol: Time-out was performed and the correct patient and site were verified - Prior labs/history was reviewed prior to procedure; noted he was on warfarin, INR 3.2 last - Full sterile precautions with chlorhexidine/full drapes/gowns/gloves utilized - Left radial artery visualized with US - Vessel accessed with return of pulsatile blood. One attempt was made to access vessel. A cathetor was threaded over wire into vessel. Good arterial waveform was observed on monitor. - Arterial Catheter was sutured to site; dressing applied to site. EBL <3 cc No immediate complications noted, patient tolerated procedure well. Eric Marinelli MD Optical Instrument Assembly Supervisor (Electronically Signed)
[2019-02-28] MEDS ORDERED: Vasopressin* 100 UNITS in D5W 250 ML BAG* 245 ML IVPB SCH (13:00)
[2019-02-28] MEDS ORDERED: NS 0.9% 1000 ML** 1,000 ML IV ONE (13:04)
[2019-02-28] MEDS: Chlorhexidine MOUTHWASH 0.12%* 15 ML UDC TOPICAL SCH ×3 (15:00→22:05)
[2019-02-28] MEDS ORDERED: Vancomycin(*) 1,250 MG in NS 0.9% 250 ML* 250 ML IVPB ONE (16:00)
[2019-02-28] MEDS ORDERED: Vancomycin per Pharmacy* NOTE FOLLOW UP SCH (16:00)
[2019-02-28] MEDS: metroNIDAZOLE IV 500 MG/100ML* 500 MG/100 ML BAG IVPB SCH (18:11)
--- NOTE | 2019-02-28 19:22 | CONS ---
CONSULTATION REPORT: DATE OF CONSULT: 02/28/19 REQUESTING PHYSICIAN: Dr. Eric Marinelli. REASON FOR CONSULT: Abnormal movements in the setting of declining mental status. HISTORY OF PRESENT ILLNESS: Mr. Álvarez is an 83-year-old gentleman with a history of atrial fibrillation, on Coumadin, history of COPD and history of alcohol use with possible congestive heart failure history, who had a recent admission with a left femoral fracture requiring surgery on 02/07/19. His course was complicated by right lower lobe pneumonia. He was discharged to [place] in the beginning of February and now returned to hospital febrile to over 105, tachycardic and hypotensive. He responded to IV fluid 4 L as well as treatment with antibiotics including listed cefepime, Cipro, and vancomycin; although Cipro, I am not seeing documented in the MAR (only ICU attending note). His mental status improved, and on initial consult, was noted to be lethargic; however, nursing staff indicates yesterday at this point he was interacting with them with some single words. His white count slowly improved from 23.6 to 13.9. He was no longer febrile. A source could not be found in urine or blood cultures. He had a penile lesion, which grew MRSA. This morning, he became hypercapnic, was intubated, required pressors and fluid , was given 4 mg of Versed, 2 mg of Ativan, propofol, and etomidate. In this process, he was noted to have posturing and clonic movements in upper and lower extremities, which have now slowed, but still can occur. CT of the brain did show evidence of bleed, this one was reviewed directly. Chest CT showed bilateral pleural effusions and airspace disease in the right upper lobe. PAST MEDICAL HISTORY: Include COPD; atrial fibrillation, on warfarin; alcohol use; left femoral fracture in January 2019, requiring surgery complicated by right lower lobe pneumonia and hyponatremia; glaucoma; osteoporosis; history of alcohol use. PAST SURGICAL HISTORY: Left femoral fracture surgery in January 2019. CURRENT MEDICATIONS: Include: 1. Acetaminophen 650 mg p.o. q.4 hours p.r.n. fever or pain. 2. Albuterol 2.5 mg inhaled q.2 hours p.r.n. shortness of breath or wheezing. 3. Cefepime 2 g IV q.12 hours. 4. Chlorhexidine 15 mL q.4 hours. 5. Famotidine 20 mg IV daily. 6. Fentanyl 50 mcg IV q.1 hour p.r.n. sedation, pain. 7. Heparin 1 mL to 3 mL flush as scheduled. 8. Methylprednisolone 40 mg IV q.12 hours. 9. Midazolam 2 mg IV q.1 hour p.r.n. sedation. 10. Neomycin. 11. Polymyxin. 12. Bacitracin. 13. Levophed as prescribed. 14. Vancomycin, which had been stopped and now restarted. 15. Propofol IV as ordered for sedation. 16. Spiriva 1 cap inhaled daily. 17. Vancomycin per pharmacy. 18. Vasopressin 100 units q.24 hours. ALLERGIES: Include SHELLFISH. FAMILY HISTORY: At this time point, is noncontributory. SOCIAL HISTORY: There is a history of heavy drinking noted in the chart, but, however, he still drinks 2 drinks a day. He is an ex-smoker. 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 This history had to be obtained from chart as the patient could not communicate. PHYSICAL EXAM: (After intubation off Propofol) Temperature is 96.3 degrees Fahrenheit Coleman probe, pulse was 107, respiratory rate 23, saturation 99%, blood pressure 105/62. He had irregular- irregular rhythm. There were crackles at the basis in his lungs. No carotid bruit was noted. Lines were in place including arterial line and what appeared to be a jugular line. Bruising was noted. Penile lesion was noted. He had no bowel sounds. Abdomen was relatively soft. He had pinpoint pupils. His neck was stiff to lateral movement; flexion was supple. There was no blink to threat. His facial expression was symmetric. There was corneal on the right, not on the left. He could not participate in further cranial nerves exam. In his upper extremities , he would posture straightening both arms with flexion at the wrists with stimulation. In his lower extremities, he would withdraw his legs with equivocal Babinski. He could not participate in further coordination, sensory or gait exam. Reflexes were hard to obtain because of posturing. DIAGNOSTIC STUDIES/LAB DATA: Includes white count of 13.9, hemoglobin 9.4, hematocrit 29, platelets 223. Metabolic panel with normal sodium and potassium , chloride elevated at 115, CO2 low at 17, BUN elevated at 40, creatinine 1.19, elevated BUN and creatinine ratio, glucose elevated at 112, lactate yesterday was 1.5, calcium was low at 7.6. He had an elevated AST. His total protein and albumin were both low. TSH was 4.77. Chest CT was as noted above. Please see report for further details. CT of the brain showed no evidence of bleed; please see reports for further details, this scan was reviewed directly. IMPRESSION: An 83-year-old gentleman with history of atrial fibrillation, on Coumadin, history of chronic obstructive pulmonary disease, and congestive heart failure, admitted with fever to 105.6, tachycardic, hypotensive, and tachypneic in the setting of recent surgery for femur fracture, who improved with fluids and antibiotics with improvement in white count and fever, and acutely declined today suggesting pulmonary-cardiac events. The posturing raises question of diffuse hypoxic ischemic injury. CT of the brain showed no evidence of bleed. pulmonary function technologist is coming for an EEG to look for any subclinical seizure activity. ICU attending is doing ongoing workup for sepsis. Penile lesion is noted with blood cultures pending, and culture of the lesion positive for MRSA. Respiratory source versus findings because of aspiration are questioned, and question role of pleural effusion in his decline. To rule out FIRMWARE ENGINEER involvement, he needs an LP; however, he is on therapeutic Coumadin. This was discussed with ICU attending, who plans to restart vancomycin and increase antibiotics for FIRMWARE ENGINEER coverage. TIME SPENT: Over an hour and a half was spent in direct patient care, and further care will be given with EEG and further input according to EEG. [id number]/[facility] #: [id number] [facility]IDE HOSPITALCarmelo
[2019-02-28] MEDS: methylPREDNISolone SOD 40 MG* 1 ML VIAL IV SCH (20:04)
--- NOTE | 2019-02-28 21:41 | EEG ---
ELECTROENCEPHALOGRAPHY: DATE OF STUDY: 02/28/19 CLINICAL PROBLEM: Mr. Álvarez is an 83-year-old gentleman with history of atrial fibrillation, COPD, p ossible congestive heart failure, who was admitted to hospital with sepsis, who today had change in m ental status in the setting of respiratory decline requiring intubation followed by posturing movemen ts of his arms and legs in a rhythmic manner raising question of seizure. REPORT: This was a 16-channel EEG performed at bedside. In the beginning of the record, the backgro und rhythm was slow. At times, it was almost flat with intermittent theta. There was some superimpo sed muscle artifact. As the record went on, the background rhythm remained symmetric. In observation of patient movement and recording, there was no clear correlate of the movement in theta activity. Throughout the record , there was no sharp or spike wave activity. CLINICAL IMPRESSION: This was an abnormal EEG. There was diffuse slowing. In some parts of the rec ord, there was intermittent suppression of the background rhythm. There was no evidence of epileptif orm activity. [id number]/[facility] #: [id number]
[2019-02-28 22:30] LABS: Calcium 7.8 mg/dL (8.6-10.3); Magnesium 2.1 mg/dL (1.9-2.7); Potassium 4.5 mmol/L (3.5-5.0)
[2019-02-28 22:35] LABS: BUN/Creatinine Ratio 38.5 (8-20); EGFR African American 78.6 (>60); EGFR Non-African American 64.9 (>60)
[2019-03-01] MEDS: Sodium Bicarbonate 8.4% IV* 150 MEQ in D5W 1000 ML BAG* 1,000 ML IVPB SCH ×2 (00:23→10:44)
[2019-03-01] MEDS: metroNIDAZOLE IV 500 MG/100ML* 500 MG/100 ML BAG IVPB SCH ×4 (02:15→23:39)
[2019-03-01] MEDS: Chlorhexidine MOUTHWASH 0.12%* 15 ML UDC TOPICAL SCH ×6 (02:15→23:26)
[2019-03-01 06:39] LABS: Hematocrit 26 % (42-52); Hemoglobin 8.6 g/dL (14.0-18.0); Mean Corpuscular HGB Conc 33 g/dL (31-36); Mean Corpuscular Hemoglobin 30 pg (27-31); Mean Corpuscular Volume 92 fL (80-94); Mean Platelet Volume 8.8 fL (7.4-10.4); Platelet Count 182 10^3/uL (150-450); Red Blood Count 2.84 10^6 /uL (4.18-5.48); Red Cell Distribution Width 16 % (10.5-15); White Blood Count 7.2 10^3/uL (3.5-10.8)
[2019-03-01 06:54] LABS: Albumin 2.4 g/dL (3.2-5.2); Albumin/Globulin Ratio 0.9 (1-3); Calcium 7.6 mg/dL (8.6-10.3); EGFR African American 74.6 (>60); EGFR Non-African American 61.7 (>60); Globulin 2.7 g/dL (2-4); Indirect Bilirubin 0.4 mg/dL (0.3-1.0); Magnesium 2.1 mg/dL (1.9-2.7); Potassium 3.7 mmol/L (3.5-5.0); Total Bilirubin 0.8 mg/dL (0.2-1.0); Total Protein 5.1 g/dL (6.4-8.9)
[2019-03-01 07:06] LABS: INR 5.61 (0.82-1.09)
[2019-03-01] MEDS: Tiotropium CAP.INH* CAP.INH/18 MCG (USE ORDER SET !) INH SCH (07:17)
[2019-03-01] MEDS: methylPREDNISolone SOD 40 MG* 1 ML VIAL IV SCH (08:42)
[2019-03-01] MEDS: Famotidine IV* 10 MG/ML 2 ML (20 mg) IV SLOW PU SCH (08:43)
[2019-03-01] MEDS: Cefepime 2 GM in Dextrose(*) 2 GM/50 ML BAG IV SCH ×2 (08:43→20:28)
[2019-03-01] MEDS: Neomycin/Polym/Bacit TOP OINT* 15 GM TOPICAL SCH ×2 (09:27→20:28)
[2019-03-01] MEDS: Vancomycin(*) 750 MG in NS 0.9% 250 ML* 250 ML IVPB SCH ×2 (09:27→20:28)
--- NOTE | 2019-03-01 12:09 | PN ---
Subjective Date of Service: 03/01/19 Length of Stay: 3 Days Interval History: Patient examined today at the bedside. He is intubated and on propofol. He is unable to give any history. Review of Systems: Denied CP, SOB, or palpitations. Objective Active Medications: Albuterol (Ventolin 2.5 Mg/3 Ml Neb.Sharon*) 2.5 mg INH Q2H PRN PRN Reason: SOB/WHEEZING Chlorhexidine Gluconate (Peridex Mouth Wash 0.12%*) 15 ml TOPICAL Q4H [facility] Last Admin: 03/01/19 08:42 Dose: 15 ml Famotidine (Pepcid Iv*) 20 mg IV SLOW PU DAILY [facility] Last Admin: 03/01/19 08:43 Dose: 20 mg Fentanyl Citrate (Fentanyl*) 50 mcg IV SLOW PU Q1H PRN PRN Reason: sedation, pain Last Admin: 02/28/19 12:00 Dose: 50 mcg Heparin Sodium (Porcine) (Heparin Flush Picc/Ml/Cvc(*)) 1 - 3 ml FLUSH 0600, 1800 [facility]; Protocol Last Admin: 03/01/19 08:42 Dose: Not Given Norepinephrine Bitartrate (Levophed 16 Mcg/Ml Premix Bag*) 4,000 mcg in 250 mls @ 18.75 mls/hr IV .INITIAL RATE [facility]; Protocol Last Admin: 02/28/19 22:06 Dose: 18.75 mls/hr Propofol (Diprivan*) 100 mls @ 6.145 mls/hr IV .(Initial Rate) [facility]; Protocol Last Admin: 02/28/19 12:08 Dose: 6.145 mls/hr Cefepime HCl (Maxipime 2 Gm In Dextrose Duplex (*)) 2 gm in 50 mls @ 100 mls/ hr IV Q12H [facility] Last Admin: 03/01/19 08:43 Dose: 100 mls/hr Metronidazole/Sodium Chloride (Flagyl 500 Mg Ivpb*) 500 mg in 100 mls @ 100 mls /hr IVPB Q8H [facility] Last Admin: 03/01/19 08:43 Dose: 100 mls/hr Vancomycin HCl 750 mg/ Sodium (Chloride) 250 mls @ 166.667 mls/hr IVPB Q12H [facility] Methylprednisolone Sodium Succinate (Solu-Medrol 40 Mg) 40 mg IV Q12H [facility] Last Admin: 03/01/19 08:42 Dose: 40 mg Midazolam HCl (Versed 2mg/2ml*) 2 mg IV SLOW PU Q1H PRN PRN Reason: sedation Last Admin: 02/28/19 12:30 Dose: 2 mg Neomycin/Polymyxin/Bacitracin (Neosporin Top Oint Tube*) 1 applic TOPICAL BID [facility] Last Admin: 02/28/19 20:04 Dose: 1 applic Pharmacy Consult (Vancomycin Per Pharmacy*) 1 note FOLLOW UP .VANC PER PHARMACY [facility]; Protocol Pharmacy Profile Note (Vancomycin Trough Check) 1 note FOLLOW UP 0830 ONE Stop: 03/02/19 08:31 Vital Signs 02/28/19 02/28/19 02/28/19 12:10 12:13 12:16 Temperature 96.6 F 96.6 F 96.6 F Pulse Rate 87 99 93 Respiratory Rate Blood Pressure 103/51 114/78 111/50 (mmHg) O2 Sat by Pulse 100 100 100 Oximetry 02/28/19 02/28/19 02/28/19 12:18 12:20 12:23 Temperature 96.6 F 96.6 F 96.6 F Pulse Rate 88 84 91 Respiratory Rate Blood Pressure 99/52 87/48 86/50 (mmHg) O2 Sat by Pulse 100 100 100 Oximetry 02/28/19 02/28/19 02/28/19 12:25 12:28 12:30 Temperature 96.6 F 96.8 F 96.8 F Pulse Rate 85 88 81 Respiratory Rate Blood Pressure 80/46 90/45 84/44 (mmHg) O2 Sat by Pulse 100 100 100 Oximetry 02/28/19 02/28/19 02/28/19 12:33 12:35 12:38 Temperature 96.8 F 96.8 F 96.8 F Pulse Rate 81 83 78 Respiratory 23 Rate Blood Pressure 88/38 99/52 96/57 (mmHg) O2 Sat by Pulse 100 100 100 Oximetry 02/28/19 02/28/19 02/28/19 12:40 12:43 12:45 Temperature 96.8 F 96.8 F 96.8 F Pulse Rate 81 82 83 Respiratory Rate Blood Pressure 105/61 110/56 109/54 (mmHg) O2 Sat by Pulse 100 100 100 Oximetry 02/28/19 02/28/19 02/28/19 12:48 12:50 12:53 Temperature 96.8 F 96.8 F 96.8 F Pulse Rate 78 81 82 Respiratory Rate Blood Pressure 105/47 105/47 105/45 (mmHg) O2 Sat by Pulse 100 100 100 Oximetry 02/28/19 02/28/19 02/28/19 12:55 12:58 13:00 Temperature 96.8 F 96.8 F 96.8 F Pulse Rate 78 80 80 Respiratory 22 Rate Blood Pressure 103/53 103/48 113/53 (mmHg) O2 Sat by Pulse 100 100 100 Oximetry 02/28/19 02/28/19 02/28/19 13:03 13:05 13:08 Temperature 96.8 F 96.8 F 96.8 F Pulse Rate 76 82 81 Respiratory Rate Blood Pressure 100/61 102/60 102/52 (mmHg) O2 Sat by Pulse 100 100 100 Oximetry 02/28/19 02/28/19 02/28/19 13:10 13:13 13:15 Temperature 96.8 F 96.8 F 96.8 F Pulse Rate 82 81 80 Respiratory Rate Blood Pressure 106/59 108/56 113/52 (mmHg) O2 Sat by Pulse 100 100 100 Oximetry 02/28/19 02/28/19 02/28/19 13:18 13:20 13:23 Temperature 96.8 F 96.8 F 96.8 F Pulse Rate 83 74 78 Respiratory Rate Blood Pressure 104/78 112/61 118/61 (mmHg) O2 Sat by Pulse 100 100 100 Oximetry 02/28/19 02/28/19 02/28/19 13:25 13:28 13:30 Temperature 96.8 F 96.8 F 96.6 F Pulse Rate 79 83 76 Respiratory Rate Blood Pressure 116/76 113/53 119/62 (mmHg) O2 Sat by Pulse 100 100 100 Oximetry 02/28/19 02/28/19 02/28/19 13:33 13:35 13:38 Temperature 96.6 F 96.6 F 96.6 F Pulse Rate 77 73 79 Respiratory Rate Blood Pressure 129/60 116/71 123/55 (mmHg) O2 Sat by Pulse 100 100 100 Oximetry 02/28/19 02/28/19 02/28/19 13:40 14:00 15:00 Temperature 97.0 F Pulse Rate 78 82 Respiratory 18 23 Rate Blood Pressure 122/72 (mmHg) O2 Sat by Pulse 100 100 Oximetry 02/28/19 02/28/19 02/28/19 16:00 17:00 18:00 Temperature 97.3 F 97.5 F 97.3 F Pulse Rate 85 71 Respiratory 24 23 23 Rate Blood Pressure (mmHg) O2 Sat by Pulse 94 100 Oximetry 02/28/19 02/28/19 02/28/19 19:00 20:00 21:00 Temperature 97.3 F 97.3 F 97.2 F Pulse Rate 71 70 Respiratory 22 22 22 Rate Blood Pressure 131/54 (mmHg) O2 Sat by Pulse 100 100 Oximetry 02/28/19 02/28/19 02/28/19 22:00 22:01 23:00 Temperature 97.2 F 97.2 F 97.3 F Pulse Rate 68 71 67 Respiratory 22 22 Rate Blood Pressure 147/68 130/65 (mmHg) O2 Sat by Pulse 100 100 100 Oximetry 02/28/19 03/01/19 03/01/19 23:18 00:00 01:00 Temperature 97.3 F 97.5 F 97.2 F Pulse Rate 65 65 69 Respiratory 22 22 Rate Blood Pressure 137/71 101/89 (mmHg) O2 Sat by Pulse 100 100 100 Oximetry 03/01/19 03/01/19 03/01/19 02:00 02:01 03:00 Temperature 96.6 F 96.6 F 96.6 F Pulse Rate Respiratory 22 22 Rate Blood Pressure 135/68 146/90 (mmHg) O2 Sat by Pulse Oximetry 03/01/19 03/01/19 03/01/19 04:00 05:00 06:00 Temperature 96.8 F 97.2 F 97.5 F Pulse Rate 79 80 72 Respiratory 22 22 22 Rate Blood Pressure 141/70 147/80 120/78 (mmHg) O2 Sat by Pulse 97 97 97 Oximetry 03/01/19 03/01/19 03/01/19 07:00 07:02 07:57 Temperature 97.7 F 97.7 F Pulse Rate 67 69 Respiratory 22 25 Rate Blood Pressure 141/56 (mmHg) O2 Sat by Pulse 95 95 Oximetry 03/01/19 03/01/19 03/01/19 08:00 09:00 09:01 Temperature 97.9 F 98.2 F 98.2 F Pulse Rate 68 73 73 Respiratory 25 Rate Blood Pressure 131/69 (mmHg) O2 Sat by Pulse 96 97 96 Oximetry 03/01/19 03/01/19 10:00 11:00 Temperature 98.1 F Pulse Rate 74 Respiratory 25 24 Rate Blood Pressure 101/58 (mmHg) O2 Sat by Pulse 94 Oximetry Intake and Output Last 24 Hours 02/27/19 02/28/19 03/01/19 03/02/19 06:59 06:59 06:59 06:59 Intake Total 6460 3312.2 3730 Output Total 258 1356 2790 350 Balance 6202 1956.2 940 -350 Weight 109 lb 12.8 oz 112 lb 14.4 oz 109 lb 6.4 oz Intake: IV Fluids 5938 2168.9 2016 ABX - VANCOMYCIN 200 NS (0.9%) 1488 2122.9 2016 NS KVO w/meds 46 IVPB 84 875 371 ABX - VANCOMYCIN 84 279 NS (0.9%) 421 371 NS KVO w/meds 175 Medicated IV 438 268.3 1342 CC - Norepinephrine/ 438 268.3 615 Levophed CC - Propofol/Diprivan 77 CC - Vasopressin/ 100 Pitressin sodium 550 Output: Urine 380 Coleman 355 114 9765 350 Other: Date of Last Bowel 02/27/19 Movement # Bowel Movements 1 1 Oxygen Devices in Use Now: Endotracheal Tube, Mechanical Ventilator Neurology Exam: General: well developed, and in no acute distress, Cachexix HEENT: Normocephelic/atraumatic, sclera anicteric, mucous membranes dry Neck: Supple Chest: Clear to auscultation bilaterally Cardiovascular: Regular rate and rhythm without murmurs, rubs, gallops Abdomen: Soft, non-tender/non-distended Extremities: No clubbing, cyanosis, or edema, no micro haemorrhages to the digits, Neurological Findings: Sedated on propofol, and intubated, Speech: Sedated on propfol Cranial Nerve: PERRL pin point minimally reactive, negative dolls eyes, cough and gag intact, Motor: withdraws to pain at the lower exts and the upper exts, Sensation: with drawing to pain, Deep Tendon Reflex: down throughout trace, no hyperreflexia seen, symmetric in the upper/lower extremities, Babinski - down going Gait: intubated and sedated on propofol, Result Diagrams: 03/01/19 06:00 03/01/19 06:00 Microbiology and Other Data: Microbiology 02/26/19 16:13 Skin and Soft Tissue MRSA/MSSA (PCR - Final Groin Mrsa Positive S.aureus Positive Gram Stain - Final Wound Culture - Preliminary MRSA Enterococcus Faecalis 02/26/19 14:01 Aerobic Blood Culture - Preliminary Blood Venous No Growth Day 2 Anaerobic Blood Culture - Preliminary No Growth Day 2 02/26/19 14:06 Aerobic Blood Culture - Preliminary Blood Venous No Growth Day 2 Anaerobic Blood Culture - Preliminary No Growth Day 2 02/26/19 14:35 Urine Culture - Final Urine No Growth (<1,000 CFU/mL) 02/26/19 18:09 Nasal Screen MRSA (PCR) - Final Nasal Mrsa Detected Diagnostic Imaging: Diagnostics Summary of Radiographic 14:26 - EMPHYSEMA WITH PULMONARY FIBROTIC CHANGES. Findings [Chest X-Ray] ED Physician has reviewed this imaging report. Summary of EKG Findings [13:55 No STEMI ] Diagnostics Assessment/Plan 83 y/o male patient presenting to [facility] from [facility] with recent hospitalization secondary to a hip fracture complicated by PNA now with complaints of tachycardia fever 105 coming from [facility]. He was admitted and started on broad spectrum abx. He was initially improving however yesterday was noted to have an episode of confusion was hypercarbic and was intubated during intubation was noted to be posturing and to be having tonic clonic type movements. AMS: Multifactorial most likely secondary to his underlying sepsis and infection, also has hx of etoh use in the past, although source unclear, exam limited given sedation would continue current antibiotics and supportive care, less likely although should be monitor for anoxic brain injury if no improvement in the coming days would consider repeat EEG and possibly LP but given the abrupt decline my suspicion for meningitis is low would continue vanco and ceftriaxone for now, Posturing/Tonic Clonic movements:Likely myoclonus Possible due to hypoperfusion in setting of intubation. EEG obtained and patient was having tonic clonic movement with no correlation, low suspicion for seizures, would continue to monitor, consider repeating eeg if no improvement, Sepsis: Certainly AMS could be from this causing a metabolic encephalopathy, continue management per ICU team. 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
--- NOTE | 2019-03-01 15:14 | PN ---
Date of Service: 03/01/19 Critical Care Services: Clinical status basically unchanged over past 24 hours. Is on cefepime, vancomycin, and flagyl for presumed sepsis, but no organism has been isolated. Unable to perform an LP because INR is 5, but suspicion of a menongoencephalitis is low. Vital Signs: Temp Pulse Resp BP SpO2 FiO2 97.5 F 74 24 97/55 95 25 Physical Exam: Gen:Unresponsive (on sedation with versed and propofol) HEENT: No facial asymmetry Lungs: Clear Cardiac: Irreg rhythm Extremities:1+ edema. Fluid Balance (Past 24 Hours): 02/27/19 02/28/19 03/01/19 06:59 06:59 06:59 Intake Total 6460 3312.2 3730 Output Total 258 1356 2790 Balance 6202 1956.2 940 Weight 109 lb 12.8 oz 112 lb 14.4 oz 109 lb 6.4 oz Intake: IV Fluids 5938 2168.9 2017 ABX - VANCOMYCIN 200 NS (0.9%) 1488 2122.9 2017 NS KVO w/meds 46 IVPB 84 875 371 ABX - VANCOMYCIN 84 279 NS (0.9%) 421 371 NS KVO w/meds 175 Medicated IV 438 268.3 1342 CC - Norepinephrine/ 438 268.3 615 Levophed CC - Propofol/Diprivan 77 CC - Vasopressin/ 100 Pitressin sodium 550 Output: Urine 380 Coleman 102 838 8629 Other: Date of Last Bowel 02/27/19 Movement # Bowel Movements 1 1 NOTE: Positive fluid balance of 8 liters over past 48 hours. Labs: 02/26/19 02/28/19 20:45 15:15 ABG pH 7.28 L ABG pH (Temp Correct) ABG pCO2 30 L ABG pCO2 (Temp Corrct ABG pO2 156 H ABG pO2 (Temp Correct ABG HCO3 16.1 L ABG O2 Saturation 100.0 H ABG Base Excess -11.3 L Respiration Rate Ventilator Type Vent Mode FiO2 Inspiratory Time PEEP Pressure Support Pressure Control EPAP IPAP BiPAP Sodium Potassium Chloride Carbon Dioxide Anion Gap BUN Creatinine Est GFR ( Amer) Est GFR (Non-Af Amer) BUN/Creatinine Ratio Glucose POC Glucose (mg/dL) Lactic Acid Calcium Magnesium Total Bilirubin Direct Bilirubin Indirect Bilirubin AST ALT Alkaline Phosphatase Total Protein Albumin Globulin Albumin/Globulin Ratio Procalcitonin 21 Cortisol 02/28/19 03/01/19 03/01/19 21:20 06:00 06:00 WBC RBC Hgb Hct MCV MCH MCHC RDW Plt Count MPV INR (Anticoag Therapy) ABG pH 7.41 ABG pCO2 25 ABG pO2 98 ABG HCO3 19.4 ABG O2 Saturation 99.6 H ABG Base Excess -7.1 L Respiration Rate 22 Ventilator Type 500 FiO2 25 PEEP 5 Sodium 141 143 Potassium 4.5 3.7 Chloride 116 H 115 H Carbon Dioxide 14 L* 16 L Anion Gap 11 12 H BUN 42 H 41 H Creatinine 1.09 1.14 Est GFR ( Amer) 78.6 74.6 Est GFR (Non-Af Amer) 64.9 61.7 BUN/Creatinine Ratio 38.5 H 36.0 H Glucose 174 H 252 H POC Glucose (mg/dL) Lactic Acid Calcium 7.8 L 7.6 L Magnesium 2.1 2.1 Total Bilirubin 0.80 Direct Bilirubin 0.40 H Indirect Bilirubin 0.4 AST 29 ALT 19 Alkaline Phosphatase 74 Total Protein 5.1 L Albumin 2.4 L Globulin 2.7 Albumin/Globulin Ratio 0.9 L Procalcitonin Cortisol 03/01/19 03/01/19 03/01/19 06:00 06:00 12:18 WBC 7.2 Hgb 8.6 L Hct 26 L MCV 92 MCH 30 MCHC 33 RDW 16 H Plt Count 182 MPV 8.8 INR (Anticoag Therapy) 5.61 Lactic Acid 1.7 Calcium Magnesium Total Bilirubin Direct Bilirubin Indirect Bilirubin AST ALT Alkaline Phosphatase Total Protein Albumin Globulin Albumin/Globulin Ratio Procalcitonin Cortisol 10.88 Studies: CT scan Nutrition: Tube feedings started - Jevity 1.2 at 50 cc/hr Impression: Altered mental status and hypotension - still no definitive answer. Sepsis is the working Dx but no pathogen has been isolated. Could be anoxic encephalopathy duwe to hypotension. Should also consider thiamine deficiency, although no ophthalmoplegia or lactic acidosis. INR remains elevated after d/ cing coumadin -nothing to suggest DIC. patient also has bordeline adrenal insufficiency (i.e, poor adrenal reserve). Plan: 1. Will start thiamine at 200 mg BID 2. Continue antibiotics 3. Monitor INR 4. Continue steroids for now. Have spoken to the family about the guarded prognosis in this case. patient is a DNR. Critical Care Time: 50 minutes
[2019-03-01] MEDS ORDERED: THIAMINE IV SCH (16:00)
[2019-03-01] MEDS ORDERED: NS 0.9% IV SCH (16:00)
[2019-03-01] MEDS: Thiamine IV* 500 MG in NS 0.9% 250 ML* 250 ML IV SCH (17:37)
[2019-03-01] MEDS: Hydrocortisone INJ* 100 MG VIAL IV SCH (17:37)
[2019-03-01] MEDS ORDERED: NS 0.9% 250 ML* 250 ML ONE (20:25)
[2019-03-01] MEDS: Norepinephrine 16MCG/ML IVPRE* 4,000 MCG/250 ML BAG IV SCH (23:18)
[2019-03-01] MEDS: Lactated Ringers 1000 ML Bag* 1,000 ML IV SCH (23:36)
[2019-03-02] MEDS: Chlorhexidine MOUTHWASH 0.12%* 15 ML UDC TOPICAL SCH ×6 (04:20→23:08)
[2019-03-02] MEDS: Hydrocortisone INJ* 100 MG VIAL IV SCH ×2 (04:20→18:15)
[2019-03-02 05:09] LABS: Hematocrit 30 % (42-52); Hemoglobin 9.5 g/dL (14.0-18.0); Mean Corpuscular HGB Conc 32 g/dL (31-36); Mean Corpuscular Hemoglobin 29 pg (27-31); Mean Corpuscular Volume 91 fL (80-94); Mean Platelet Volume 9.1 fL (7.4-10.4); Platelet Count 214 10^3/uL (150-450); Red Blood Count 3.25 10^6 /uL (4.18-5.48); Red Cell Distribution Width 15 % (10.5-15)
[2019-03-02 05:25] LABS: BUN/Creatinine Ratio 40.5 (8-20); Calcium 7.6 mg/dL (8.6-10.3); EGFR African American 76.9 (>60); EGFR Non-African American 63.6 (>60); Potassium 3.3 mmol/L (3.5-5.0)
[2019-03-02 05:43] LABS: INR 5.74 (0.82-1.09)
[2019-03-02] MEDS: metroNIDAZOLE IV 500 MG/100ML* 500 MG/100 ML BAG IVPB SCH ×2 (07:17→18:15)
[2019-03-02] MEDS: Cefepime 2 GM in Dextrose(*) 2 GM/50 ML BAG IV SCH ×2 (08:17→21:45)
[2019-03-02] MEDS ORDERED: Vancomycin Trough Check NOTE FOLLOW UP ONE ×2 (08:30→11:30)
[2019-03-02] MEDS: KCL 20 MEQ/100 ML IVPREMIX* 20 MEQ/100 ML BAG IV SCH ×2 (09:17→14:03)
[2019-03-02] MEDS: Famotidine IV* 10 MG/ML 2 ML (20 mg) IV SLOW PU SCH (09:18)
[2019-03-02] MEDS: Neomycin/Polym/Bacit TOP OINT* 15 GM TOPICAL SCH ×2 (09:18→21:46)
[2019-03-02] MEDS: Lactated Ringers 1000 ML Bag* 1,000 ML IV SCH (14:04)
--- NOTE | 2019-03-02 14:12 | PN ---
Subjective Date of Service: 03/02/19 Length of Stay: 4 Days Interval History: Patient remains intubated, off of propofol but unresponsive. Unable to provide any history. No new issues reported. Family History: Unchanged from Admission Social History: Unchanged from Admission Past Medical History: Unchanged from Admission Objective Active Medications: Albuterol (Ventolin 2.5 Mg/3 Ml Neb.Sharon*) 2.5 mg INH Q2H PRN PRN Reason: SOB/WHEEZING Chlorhexidine Gluconate (Peridex Mouth Wash 0.12%*) 15 ml TOPICAL Q4H [facility] Last Admin: 03/02/19 11:03 Dose: 15 ml Famotidine (Pepcid Iv*) 20 mg IV SLOW PU DAILY [facility] Last Admin: 03/02/19 09:18 Dose: 20 mg Fentanyl Citrate (Fentanyl*) 50 mcg IV SLOW PU Q1H PRN PRN Reason: sedation, pain Last Admin: 02/28/19 12:00 Dose: 50 mcg Heparin Sodium (Porcine) (Heparin Flush Picc/Ml/Cvc(*)) 1 - 3 ml FLUSH 0600, 1800 [facility]; Protocol Last Admin: 03/02/19 05:02 Dose: Not Given Hydrocortisone Sodium Succinate (Solu-Cortef*) 100 mg IV Q12H [facility] Last Admin: 03/02/19 04:20 Dose: 100 mg Norepinephrine Bitartrate (Levophed 16 Mcg/Ml Premix Bag*) 4,000 mcg in 250 mls @ 18.75 mls/hr IV .INITIAL RATE [facility]; Protocol Last Admin: 03/01/19 23:18 Dose: 37.5 mls/hr Propofol (Diprivan*) 100 mls @ 6.145 mls/hr IV .(Initial Rate) [facility]; Protocol Last Admin: 02/28/19 12:08 Dose: 6.145 mls/hr Cefepime HCl (Maxipime 2 Gm In Dextrose Duplex (*)) 2 gm in 50 mls @ 100 mls/ hr IV Q12H [facility] Last Admin: 03/02/19 08:17 Dose: 100 mls/hr Metronidazole/Sodium Chloride (Flagyl 500 Mg Ivpb*) 500 mg in 100 mls @ 100 mls /hr IVPB Q8H [facility] Last Admin: 03/02/19 07:17 Dose: 100 mls/hr Thiamine HCl 500 mg/ Sodium (Chloride) 255 mls @ 255 mls/hr IV Q24H [facility] Stop: 03/04/19 16:00 Last Admin: 03/01/19 17:37 Dose: 255 mls/hr Lactated Ringer's (Lactated Ringers 1000 Ml Bag*) 1,000 mls @ 75 mls/hr IV PER RATE [facility] Last Admin: 03/02/19 14:04 Dose: 75 mls/hr Midazolam HCl (Versed 2mg/2ml*) 2 mg IV SLOW PU Q1H PRN PRN Reason: sedation Last Admin: 02/28/19 12:30 Dose: 2 mg Neomycin/Polymyxin/Bacitracin (Neosporin Top Oint Tube*) 1 applic TOPICAL BID [facility] Last Admin: 03/02/19 09:18 Dose: 1 applic Pharmacy Consult (Vancomycin Per Pharmacy*) 1 note FOLLOW UP .VANC PER [facility]Y [facility]; Protocol Pharmacy Consult (Vancomycin Random Level*) 1 note FOLLOW UP 0600 [facility] Vital Signs 03/01/19 03/01/19 03/01/19 15:00 15:01 16:00 Temperature 97.2 F 97.2 F 97.2 F Pulse Rate 86 81 87 Respiratory 24 24 Rate Blood Pressure 85/83 86/47 (mmHg) O2 Sat by Pulse 95 95 95 Oximetry 03/01/19 03/01/19 03/01/19 17:00 18:00 19:00 Temperature 97.2 F 97.2 F 97.0 F Pulse Rate 83 84 78 Respiratory 24 24 25 Rate Blood Pressure 74/58 (mmHg) O2 Sat by Pulse 96 97 96 Oximetry 03/01/19 03/01/19 03/01/19 19:55 20:00 20:01 Temperature 97.0 F 97.0 F Pulse Rate 86 85 Respiratory 25 Rate Blood Pressure 85/74 (mmHg) O2 Sat by Pulse 92 93 93 Oximetry 03/01/19 03/01/19 03/01/19 21:00 22:00 23:00 Temperature 97.0 F 97.3 F 98.1 F Pulse Rate 87 96 109 Respiratory 25 18 20 Rate Blood Pressure (mmHg) O2 Sat by Pulse 93 93 86 Oximetry 03/01/19 03/01/19 03/01/19 23:15 23:30 23:45 Temperature 98.2 F 98.2 F 98.4 F Pulse Rate 80 80 80 Respiratory Rate Blood Pressure (mmHg) O2 Sat by Pulse 91 93 94 Oximetry 03/01/19 03/02/19 03/02/19 23:48 00:00 00:05 Temperature 98.2 F 98.2 F Pulse Rate 84 77 Respiratory 19 Rate Blood Pressure 103/47 (mmHg) O2 Sat by Pulse 95 96 Oximetry 03/02/19 03/02/19 03/02/19 00:55 01:00 02:00 Temperature 98.2 F 98.2 F Pulse Rate 84 89 Respiratory 22 22 Rate Blood Pressure (mmHg) O2 Sat by Pulse 95 92 Oximetry 03/02/19 03/02/19 03/02/19 03:00 04:00 04:01 Temperature 98.2 F 98.4 F 98.4 F Pulse Rate 90 98 99 Respiratory 23 23 Rate Blood Pressure 94/51 (mmHg) O2 Sat by Pulse 95 96 95 Oximetry 03/02/19 03/02/19 03/02/19 05:00 05:56 06:00 Temperature 98.2 F 97.7 F Pulse Rate 101 98 Respiratory 23 28 Rate Blood Pressure (mmHg) O2 Sat by Pulse 92 93 Oximetry 03/02/19 03/02/19 03/02/19 07:00 08:00 09:00 Temperature 97.9 F 97.9 F 97.9 F Pulse Rate 90 101 104 Respiratory 24 24 24 Rate Blood Pressure (mmHg) O2 Sat by Pulse 94 93 94 Oximetry 03/02/19 03/02/19 03/02/19 10:00 11:00 12:00 Temperature 97.9 F 97.9 F 98.1 F Pulse Rate 91 103 102 Respiratory 24 24 24 Rate Blood Pressure (mmHg) O2 Sat by Pulse 95 94 93 Oximetry Intake and Output Last 24 Hours 02/28/19 03/01/19 03/02/19 03/03/19 06:59 06:59 06:59 06:59 Intake Total 3312.2 3730 3099.7 Output Total 1356 2790 1425 240 Balance 1956.2 940 1674.7 -240 Weight 112 lb 14.4 oz 109 lb 6.4 oz 117 lb 9.6 oz Intake: IV Fluids 2168.9 2016 701.7 ABX - VANCOMYCIN 549 NS (0.9%) 2122.9 2016 152.7 NS KVO w/meds 46 IVPB 875 371 419 ABX - VANCOMYCIN 279 260 NS (0.9%) 421 371 159 NS KVO w/meds 175 Medicated IV 268.3 1342 1806 CC - Norepinephrine/ 268.3 615 Levophed CC - Propofol/Diprivan 77 78 CC - Vasopressin/ 100 17 Pitressin LR 476 Sodium Bicarb 1135 cefipime 100 sodium 550 Tube Feeding 173 Output: Urine 380 Coleman 976 2790 1425 240 Other: Date of Last Bowel 02/27/19 Movement # Bowel Movements 1 1 Oxygen Devices in Use Now: Endotracheal Tube, Mechanical Ventilator Neurology Exam: General: HEENT: Normocephalic/atraumatic, sclera anicteric, intubated Neck: Supple Chest: Clear to auscultation bilaterally Cardiovascular: Irreg irreg Abdomen: Soft, diminished BS Extremities: NO cyanosis, no significant edema Neurological Findings: Unresponsive, intubated. No significant response to painful stimuli. Did open his eyes spontaneously at one point, not to command W/D to pain and grimaces X 4 Positive Gag, Positive corneals. Negative Dolls Pupils 3-->1, sluggish DTS: Down throughout Result Diagrams: 03/02/19 04:25 03/02/19 04:25 Microbiology and Other Data: Microbiology 02/26/19 16:13 Skin and Soft Tissue MRSA/MSSA (PCR - Final Groin Mrsa Positive S.aureus Positive Gram Stain - Final Wound Culture - Preliminary MRSA Enterococcus Faecalis 02/26/19 14:01 Aerobic Blood Culture - Preliminary Blood Venous No Growth Day 2 Anaerobic Blood Culture - Preliminary No Growth Day 2 02/26/19 14:06 Aerobic Blood Culture - Preliminary Blood Venous No Growth Day 2 Anaerobic Blood Culture - Preliminary No Growth Day 2 02/26/19 14:35 Urine Culture - Final Urine No Growth (<1,000 CFU/mL) 02/26/19 18:09 Nasal Screen MRSA (PCR) - Final Nasal Mrsa Detected Diagnostic Imaging: Diagnostics Summary of Radiographic 14:26 - EMPHYSEMA WITH PULMONARY FIBROTIC CHANGES. Findings [Chest X-Ray] ED Physician has reviewed this imaging report. Summary of EKG Findings [13:55 No STEMI ] Diagnostics Assessment/Plan 83 y/o male patient presenting to [facility] [place] from [facility] with recent hospitalization secondary to a hip fracture complicated by PNA now with complaints of tachycardia fever 105 coming from [facility]. He was admitted and started on broad spectrum abx. He was initially improving however yesterday was noted to have an episode of confusion was hypercarbic and was intubated during intubation was noted to be posturing and to be having tonic clonic type movements. --AMS: Remains unresponsive off of propofol. Considerations include: --Metabolic, multifactorial encephalopathy. --Drugs may be slow to clear --Underlying infection/sepsis--source unclear (penile lesion?) --Anoxic injury from prior hypoperfusion/hypotensive episode --OXIDATION OPERATOR infection, less likely. On Coumadin and LP would be very difficulty. Continue broad spectrum OXIDATION OPERATOR abx coverage --Non-convulsive status. No more movements reported, prior EEG shows no seizure like activity. If he does not improve, consider repeat EEG --In the setting of A.fib, consider new stroke. If no improvement in the next 24 hours, consider repeat CT scan --T/C like movements: most likely myoclonic activity, no evidence of seizures on EEG. --Sepsis: On broad spectrum abx. Management per primary team --A.fib: Supratherapeutic: INR elevated. Management per primary team. History of old stroke Will continue to follow.
--- NOTE | 2019-03-02 16:16 | PN ---
Date of Service: 03/02/19 Critical Care Services: Patient remains on the ventilator and remains unresponsive. Is receiving no sedatives. INR remains markedly elevated. Vital Signs: Temp Pulse Resp BP SpO2 FiO2 98.1 F 92 27 94/51 94 21 Physical Exam: Gen:Unresponsive to deep pain. HEENT:Pupils reactive. Has spontaneous breathing efforts. Lungs: Clear Extremities:occasional myoclonic jerks. Fluid Balance (Past 24 Hours): 03/01/19 03/02/19 06:59 06:59 Intake Total 3730 3099.7 Output Total 2790 1425 Balance 940 1674.7 Weight 109 lb 117 lb Intake: IV Fluids 2016 701.7 ABX - VANCOMYCIN 549 NS (0.9%) 2017 152.7 NS KVO w/meds IVPB 371 419 ABX - VANCOMYCIN 260 NS (0.9%) 371 159 NS KVO w/meds Medicated IV 1342 1806 CC - Norepinephrine/ 615 Levophed CC - Propofol/Diprivan 77 78 CC - Vasopressin/ 100 17 Pitressin LR 476 Sodium Bicarb 1135 cefipime 100 sodium 550 Tube Feeding 173 Output: Urine Coleman 2790 1425 Other: Date of Last Bowel 02/27/19 Movement # Bowel Movements 1 Labs: 03/02/19 03/02/19 03/02/19 04:25 04:25 04:25 WBC 14.0 Hgb 9.5 L Hct 30 L MCV 91 MCH 29 MCHC 32 RDW 15 Plt Count 214 MPV 9.1 INR (Anticoag Therapy) 5.74 Sodium 144 Potassium 3.3 L Chloride 112 H Carbon Dioxide 22 Anion Gap 10 BUN 45 H Creatinine 1.11 BUN/Creatinine Ratio 40.5 Glucose 198 H Calcium 7.6 L Magnesium 2.0 Studies: None Nutrition: Tube feeding with jevity 1.2 Impression: Unexplained coma - DDx is intracranial bleed, brainstem stroke, nonconvulsive status, anoxic encephalopathy. Plan: 1. CT scan today to r/o bleed (because of the persistently elevated INR). 2. Potassium replacement 3. General supportive care. 4. Continued input from neurology service. Prognosis is very poor in this case (regardless of the proposed etiologies). Critical Care Time: 40 minutes
--- NOTE | 2019-03-02 17:12 | CONSULT ---
Subjective Date of Service: 03/02/19 Interval History: Mr. Álvarez is an 83 yo male with PMH significant for COPD, TIA, and history of alcohol abuse, who was recently hospitalized the end of January for a left hip fracture s/p ORIF. He was discharged to [facility] on 02/11/19. He presented to the emergency room for altered mental status and was admitted for severe sepsis, metabolic encephalopathy, HELLEN, and acute hypoxic respiratory failure requiring intubation and mechanical ventilation. He was noted to have a penile ulcer on admission. Patient seen and examined at bedside. Family History: Unchanged from Admission Social History: Unchanged from Admission Past Medical History: Unchanged from Admission Review of Systems - Measurements Intake and Output: Intake and Output Last 24 Hours 02/28/19 03/01/19 03/02/19 03/03/19 06:59 06:59 06:59 06:59 Intake Total 3312.2 3730 3099.7 Output Total 1356 2790 1425 405 Balance 1956.2 940 1674.7 -405 Weight 112 lb 14.4 oz 109 lb 6.4 oz 117 lb 9.6 oz Intake: IV Fluids 2168.9 2017 701.7 ABX - VANCOMYCIN 549 NS (0.9%) 2122.9 2017 152.7 NS KVO w/meds 46 IVPB 875 371 419 ABX - VANCOMYCIN 279 260 NS (0.9%) 421 371 159 NS KVO w/meds 175 Medicated IV 268.3 1342 1806 CC - Norepinephrine/ 268.3 615 Levophed CC - Propofol/Diprivan 77 78 CC - Vasopressin/ 100 17 Pitressin LR 476 Sodium Bicarb 1135 cefipime 100 sodium 550 Tube Feeding 173 Output: Urine 380 Coleman 976 2790 1425 405 Other: Date of Last Bowel 02/27/19 Movement # Bowel Movements 1 1 - Review of Systems General Comments: Unable to perform ROS, patient is sedated and intubated. Objective Active Medications: Albuterol (Ventolin 2.5 Mg/3 Ml Neb.Sharon*) 2.5 mg INH Q2H PRN Reason: SOB/ WHEEZING Chlorhexidine Gluconate (Peridex Mouth Wash 0.12%*) 15 ml TOPICAL Q4H [facility] Famotidine (Pepcid Iv*) 20 mg IV SLOW PU DAILY [facility] Fentanyl Citrate (Fentanyl*) 50 mcg IV SLOW PU Q1H PRN Reason: sedation, pain Heparin Sodium (Porcine) (Heparin Flush Picc/Ml/Cvc(*)) 1 - 3 ml FLUSH 0600, 1800 [facility]; Protocol Hydrocortisone Sodium Succinate (Solu-Cortef*) 100 mg IV Q12H [facility] Norepinephrine Bitartrate (Levophed 16 Mcg/Ml Premix Bag*) 4,000 mcg in 250 mls @ 18.75 mls/hr IV .INITIAL RATE [facility]; Protocol Propofol (Diprivan*) 100 mls @ 6.145 mls/hr IV .(Initial Rate) [facility]; Protocol Cefepime HCl (Maxipime 2 Gm In Dextrose Duplex (*)) 2 gm in 50 mls @ 100 mls/ hr IV Q12H [facility] Metronidazole/Sodium Chloride (Flagyl 500 Mg Ivpb*) 500 mg in 100 mls @ 100 mls /hr IVPB Q8H [facility] Thiamine HCl 500 mg/ Sodium (Chloride) 255 mls @ 255 mls/hr IV Q24H [facility] Stop: 03/04/19 16:00 Lactated Ringer's (Lactated Ringers 1000 Ml Bag*) 1,000 mls @ 75 mls/hr IV PER RATE [facility] Midazolam HCl (Versed 2mg/2ml*) 2 mg IV SLOW PU Q1H PRN Reason: sedation Neomycin/Polymyxin/Bacitracin (Neosporin Top Oint Tube*) 1 applic TOPICAL BID [facility] Pharmacy Consult (Vancomycin Per Pharmacy*) 1 note FOLLOW UP .VANC PER PHARMACY [facility]; Protocol Pharmacy Consult (Vancomycin Random Level*) 1 note FOLLOW UP 0600 [facility] Vital Signs - 8 hr 03/02/19 03/02/19 03/02/19 10:00 11:00 12:00 Temperature 97.9 F 97.9 F 98.1 F Pulse Rate 91 103 102 Respiratory 24 24 24 Rate O2 Sat by Pulse 95 94 93 Oximetry 03/02/19 03/02/19 03/02/19 13:00 14:00 15:00 Temperature 98.2 F 98.2 F 98.1 F Pulse Rate 93 102 92 Respiratory 24 25 27 Rate O2 Sat by Pulse 94 93 94 Oximetry Oxygen Devices in Use Now: Endotracheal Tube, Mechanical Ventilator Appearance: NAD, sitting up in bed Ears/Nose/Mouth/Throat: Mucous Membranes Moist Respiratory: Symmetrical Chest Expansion and Respiratory Effort Skin: - - See skin note below Neurological: - - Sedated Lines/Tubes/Other Access: Clean, Dry and Intact Endotracheal Tube, Clean, Dry and Intact Coleman Result Diagrams: 03/05/19 03:40 03/05/19 03:40 Microbiology and Other Data: Microbiology 02/26/19 16:13 Skin and Soft Tissue MRSA/MSSA (PCR - Final Groin Mrsa Positive S.aureus Positive Gram Stain - Final Wound Culture - Preliminary MRSA Enterococcus Faecalis 02/26/19 14:01 Aerobic Blood Culture - Preliminary Blood Venous No Growth Day 2 Anaerobic Blood Culture - Preliminary No Growth Day 2 02/26/19 14:06 Aerobic Blood Culture - Preliminary Blood Venous No Growth Day 2 Anaerobic Blood Culture - Preliminary No Growth Day 2 02/26/19 14:35 Urine Culture - Final Urine No Growth (<1,000 CFU/mL) 02/26/19 18:09 Nasal Screen MRSA (PCR) - Final Nasal Mrsa Detected Diagnostic Imaging: Diagnostics Summary of Radiographic 14:26 - EMPHYSEMA WITH PULMONARY FIBROTIC CHANGES. Findings [Chest X-Ray] ED Physician has reviewed this imaging report. Summary of EKG Findings [13:55 No STEMI ] Diagnostics Skin Deviation Note - Skin Deviation Findings Penile lesion - There is an areas of black eschar, total area measuring 1.2 cm x 3 cm x 0.1 cm. At the base of the coronal sulcus there is an open area. The surrounding skin is intact, no drainage noted. Assessment/Plan: Mr. Álvarez is an 83 yo male with PMH significant for COPD, TIA, and history of alcohol abuse, who was recently hospitalized the end of January for a left hip fracture s/p ORIF. He was discharged to [facility] on 02/11/19. He presented to the emergency room for altered mental status and was admitted for severe sepsis, metabolic encephalopathy, HELLEN, and acute hypoxic respiratory failure requiring intubation and mechanical ventilation. 1. Penile wound. Unclear cause, does not appear to be secondary to pressure or a medical case worker. Recommend washing the area daily with soap and water. Apply antibiotic ointment to the open area and area of eschar daily to BID. 2. Diet. Tube feeding 3. Code status. Full code status 4. Disposition. Inpatient, disposition per primary medicine team. TIME SPENT: Time for this wound consultation was 20 minutes and 10 minutes was spent at bedside assessing the skin, measuring and photographing the wound. Wound Problem/Plan Is Patient a Wound Clinic Patient: No Attending: Theresa Calderon
[2019-03-02] MEDS: Thiamine IV* 500 MG in NS 0.9% 250 ML* 250 ML IV SCH (17:58)
[2019-03-03] MEDS: metroNIDAZOLE IV 500 MG/100ML* 500 MG/100 ML BAG IVPB SCH ×3 (00:11→16:05)
[2019-03-03] MEDS: Lactated Ringers 1000 ML Bag* 1,000 ML IV SCH (03:08)
[2019-03-03] MEDS ORDERED: Vancomycin Random Level* NOTE FOLLOW UP SCH (06:00)
[2019-03-03 06:03] LABS: Hematocrit 27 % (42-52); Hemoglobin 8.8 g/dL (14.0-18.0); Mean Corpuscular HGB Conc 33 g/dL (31-36); Mean Corpuscular Hemoglobin 30 pg (27-31); Mean Corpuscular Volume 92 fL (80-94); Mean Platelet Volume 9.1 fL (7.4-10.4); Platelet Count 160 10^3/uL (150-450); Red Blood Count 2.94 10^6 /uL (4.18-5.48); Red Cell Distribution Width 16 % (10.5-15); White Blood Count 11.5 10^3/uL (3.5-10.8)
[2019-03-03 06:22] LABS: Vancomycin Random 20.4 mcg/mL
[2019-03-03 06:23] LABS: BUN/Creatinine Ratio 47.1 (8-20); Calcium 7.4 mg/dL (8.6-10.3); EGFR African American 101.9 (>60); EGFR Non-African American 84.2 (>60); Potassium 2.9 mmol/L (3.5-5.0)
[2019-03-03 06:28] LABS: INR 4.79 (0.82-1.09)
[2019-03-03] MEDS: Cefepime 2 GM in Dextrose(*) 2 GM/50 ML BAG IV SCH ×2 (08:13→21:12)
[2019-03-03] MEDS: Famotidine IV* 10 MG/ML 2 ML (20 mg) IV SLOW PU SCH (08:14)
[2019-03-03] MEDS: Chlorhexidine MOUTHWASH 0.12%* 15 ML UDC TOPICAL SCH ×6 (08:14→22:57)
[2019-03-03] MEDS: Neomycin/Polym/Bacit TOP OINT* 15 GM TOPICAL SCH ×2 (08:14→21:14)
--- NOTE | 2019-03-03 10:00 | PN ---
Subjective Date of Service: 03/03/19 Length of Stay: 5 Days Interval History: Intubated but on room air, overbreathing vent. Has become slightly more responsive overnight, has more spontaneous movement, still not responsive to voice and minimally responsive to painful stim. No other new issues overnight. CT: negative for acute changes or bleeding Family History: Unchanged from Admission Social History: Unchanged from Admission Past Medical History: Unchanged from Admission Objective Active Medications: Albuterol (Ventolin 2.5 Mg/3 Ml Neb.Sharon*) 2.5 mg INH Q2H PRN PRN Reason: SOB/WHEEZING Chlorhexidine Gluconate (Peridex Mouth Wash 0.12%*) 15 ml TOPICAL Q4H [facility] Last Admin: 03/03/19 08:14 Dose: 15 ml Famotidine (Pepcid Iv*) 20 mg IV SLOW PU DAILY [facility] Last Admin: 03/03/19 08:14 Dose: 20 mg Fentanyl Citrate (Fentanyl*) 50 mcg IV SLOW PU Q1H PRN PRN Reason: sedation, pain Last Admin: 02/28/19 12:00 Dose: 50 mcg Heparin Sodium (Porcine) (Heparin Flush Picc/Ml/Cvc(*)) 1 - 3 ml FLUSH 0600, 1800 [facility]; Protocol Last Admin: 03/02/19 18:16 Dose: Not Given Hydrocortisone Sodium Succinate (Solu-Cortef*) 100 mg IV Q12H [facility] Last Admin: 03/02/19 18:15 Dose: 100 mg Norepinephrine Bitartrate (Levophed 16 Mcg/Ml Premix Bag*) 4,000 mcg in 250 mls @ 18.75 mls/hr IV .INITIAL RATE [facility]; Protocol Last Admin: 03/01/19 23:18 Dose: 37.5 mls/hr Propofol (Diprivan*) 100 mls @ 6.145 mls/hr IV .(Initial Rate) [facility]; Protocol Last Admin: 02/28/19 12:08 Dose: 6.145 mls/hr Cefepime HCl (Maxipime 2 Gm In Dextrose Duplex (*)) 2 gm in 50 mls @ 100 mls/ hr IV Q12H [facility] Last Admin: 03/03/19 08:13 Dose: 100 mls/hr Metronidazole/Sodium Chloride (Flagyl 500 Mg Ivpb*) 500 mg in 100 mls @ 100 mls /hr IVPB Q8H [facility] Last Admin: 03/03/19 08:13 Dose: 100 mls/hr Thiamine HCl 500 mg/ Sodium (Chloride) 255 mls @ 255 mls/hr IV Q24H [facility] Stop: 03/04/19 16:00 Last Admin: 03/02/19 17:58 Dose: 255 mls/hr Lactated Ringer's (Lactated Ringers 1000 Ml Bag*) 1,000 mls @ 75 mls/hr IV PER RATE [facility] Last Admin: 03/03/19 03:08 Dose: 75 mls/hr Midazolam HCl (Versed 2mg/2ml*) 2 mg IV SLOW PU Q1H PRN PRN Reason: sedation Last Admin: 02/28/19 12:30 Dose: 2 mg Neomycin/Polymyxin/Bacitracin (Neosporin Top Oint Tube*) 1 applic TOPICAL BID [facility] Last Admin: 03/03/19 08:14 Dose: 1 applic Pharmacy Consult (Vancomycin Per Pharmacy*) 1 note FOLLOW UP .VANC PER PHARMACY [facility]; Protocol Pharmacy Consult (Vancomycin Random Level*) 1 note FOLLOW UP 0600 [facility] Vital Signs 03/02/19 03/02/19 03/02/19 10:00 11:00 12:00 Temperature 97.9 F 97.9 F 98.1 F Pulse Rate 91 103 102 Respiratory 24 24 24 Rate O2 Sat by Pulse 95 94 93 Oximetry 03/02/19 03/02/19 03/02/19 13:00 14:00 15:00 Temperature 98.2 F 98.2 F 98.1 F Pulse Rate 93 102 92 Respiratory 24 25 27 Rate O2 Sat by Pulse 94 93 94 Oximetry 03/02/19 03/02/19 03/02/19 15:57 16:00 17:00 Temperature 98.1 F 98.1 F Pulse Rate 94 101 Respiratory 27 22 Rate O2 Sat by Pulse 94 94 Oximetry 03/02/19 03/02/19 03/02/19 18:00 19:00 19:48 Temperature 98.2 F 97.9 F Pulse Rate 100 88 Respiratory 22 24 Rate O2 Sat by Pulse 93 93 93 Oximetry 03/02/19 03/02/19 03/02/19 19:55 20:00 21:00 Temperature 97.9 F 97.9 F Pulse Rate 99 93 Respiratory 24 23 Rate O2 Sat by Pulse 93 93 Oximetry 0503/02/19 03/02/19 21:55 22:00 23:00 Temperature 97.7 F 97.9 F Pulse Rate 96 91 Respiratory 23 23 Rate O2 Sat by Pulse 93 100 Oximetry 03/03/19 03/03/19 03/03/19 00:00 00:12 01:00 Temperature 97.9 F 97.7 F 97.7 F Pulse Rate 91 99 88 Respiratory 23 22 Rate O2 Sat by Pulse 92 93 92 Oximetry 03/03/19 03/03/19 03/03/19 02:00 03:00 04:00 Temperature 97.7 F Pulse Rate 99 102 109 Respiratory 24 25 25 Rate O2 Sat by Pulse 92 91 97 Oximetry 03/03/19 03/03/19 03/03/19 05:00 05:59 06:00 Temperature Pulse Rate 75 96 Respiratory 25 25 Rate O2 Sat by Pulse 93 92 Oximetry 03/03/19 03/03/19 03/03/19 07:00 07:59 08:00 Temperature 98.2 F Pulse Rate 91 96 Respiratory 21 Rate O2 Sat by Pulse 93 100 Oximetry 03/03/19 09:00 Temperature Pulse Rate 100 Respiratory 21 Rate O2 Sat by Pulse 93 Oximetry Intake and Output Last 24 Hours 03/01/19 03/02/19 03/03/19 03/04/19 06:59 06:59 06:59 06:59 Intake Total 3730 3099.7 2399 1106 Output Total 2790 1425 1162 250 Balance 940 1674.7 1237 856 Weight 109 lb 6.4 oz 117 lb 9.6 oz 129 lb 3.2 oz Intake: IV Fluids 2016 701.7 1186 1106 ABX 156 ABX - VANCOMYCIN 549 LR 1134 777 NS (0.9%) 2017 152.7 52 173 IVPB 371 419 451 ABX 114 ABX - VANCOMYCIN 260 LR 64 NS (0.9%) 371 159 Thiamine 273 Medicated IV 1342 1806 58 CC - Norepinephrine/ 615 Levophed CC - Propofol/Diprivan 77 78 CC - Vasopressin/ 100 17 Pitressin LR 476 Sodium Bicarb 1135 cefipime 100 58 sodium 550 Tube Feeding 173 634 Tube Feeding Flush Amount 70 Output: Coleman 2790 1425 1162 250 Other: Date of Last Bowel 02/27/19 Movement # Bowel Movements 1 Oxygen Devices in Use Now: Endotracheal Tube, Mechanical Ventilator Neurology Exam: General: HEENT: Normocephalic/atraumatic, sclera anicteric, intubated Neck: Supple Chest: Clear to auscultation bilaterally Cardiovascular: Irreg irreg Abdomen: Soft, diminished BS Extremities: No cyanosis, no significant edema Neurological Findings: Minimally responsive, he did open his eyes one time to painful stim, did not respond to voice with hearing aids in place, intubated. No following any commands W/D to pain and grimaces X Positive Gag, Positive corneals. Negative Dolls Pupils 2-->1, sluggish DTS: Down throughout Result Diagrams: 03/03/19 05:27 03/03/19 05:27 Microbiology and Other Data: Microbiology 02/26/19 16:13 Skin and Soft Tissue MRSA/MSSA (PCR - Final Groin Mrsa Positive S.aureus Positive Gram Stain - Final Wound Culture - Preliminary MRSA Enterococcus Faecalis 02/26/19 14:01 Aerobic Blood Culture - Preliminary Blood Venous No Growth Day 2 Anaerobic Blood Culture - Preliminary No Growth Day 2 02/26/19 14:06 Aerobic Blood Culture - Preliminary Blood Venous No Growth Day 2 Anaerobic Blood Culture - Preliminary No Growth Day 2 02/26/19 14:35 Urine Culture - Final Urine No Growth (<1,000 CFU/mL) 02/26/19 18:09 Nasal Screen MRSA (PCR) - Final Nasal Mrsa Detected Diagnostic Imaging: Diagnostics Summary of Radiographic 14:26 - EMPHYSEMA WITH PULMONARY FIBROTIC CHANGES. Findings [Chest X-Ray] ED Physician has reviewed this imaging report. Summary of EKG Findings [13:55 No STEMI ] Diagnostics Assessment/Plan 83 y/o male patient [place] [facility] [facility] with recent hospitalization secondary to a hip fracture complicated by PNA now with complaints of tachycardia fever 105 coming from [facility]. He was admitted and started on broad spectrum abx. He has failed to wake up despite slowly stabilizing medically --AMS: Remains unresponsive off of propofol. Perhaps very slightly improved. Considerations include: --Metabolic, multifactorial encephalopathy. --Drugs may be slow to clear --Underlying infection/sepsis--source unclear (penile lesion?) --Reported h/o prior Etoh use: Agree with checking Ammonia --Anoxic injury from prior hypoperfusion/hypotensive episode --DATE PULLER infection, less likely. Continue broad spectrum DATE PULLER abx coverage --Non-convulsive status. No more movements reported, prior EEG shows no seizure like activity. --Repeat EEG today --In the setting of A.fib, consider new stroke. --Repeat CT shows no acute changes. INR is elevated. 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 --T/C like movements: most likely myoclonic activity, no evidence of seizures on prior EEG, repeat today --Sepsis: On broad spectrum abx. Management per primary team --A.fib: Supratherapeutic: INR elevated. Management per primary team. History of old stroke Will continue to follow.
[2019-03-03] MEDS ORDERED: levETIRAcetam 1000MG IVPREMIX* 1,000 MG/100 ML BAG IVPB ONE (11:00)
--- NOTE | 2019-03-03 11:17 | PN ---
Date of Service: 03/03/19 Critical Care Services: Continues to be unresponsive, and CT scan yesterday was unrevealing. However, EEG today shows intermittent seizure activity (!), and patient has been started on Keppra Vital Signs: Temp Pulse Resp BP SpO2 FiO2 98.0 F 86 21 94/51 94 21 Physical Exam: Gen:Unresponsive HEENT:Pupils midposition and reactive Lungs:Clear Extremities: No cyanosis or edema Fluid Balance (Past 24 Hours): 03/02/19 03/03/19 06:59 06:59 Intake Total 3099.7 2399 Output Total 1425 1162 Balance 1674.7 1237 Weight 117 lb 129 lb Intake: IV Fluids 701.7 1186 ABX ABX - VANCOMYCIN 549 LR 1134 NS (0.9%) 152.7 52 IVPB 419 451 ABX 114 ABX - VANCOMYCIN 260 LR 64 NS (0.9%) 159 Thiamine 273 Medicated IV 1806 58 CC - Norepinephrine/ Levophed CC - Propofol/Diprivan 78 CC - Vasopressin/ 17 Pitressin LR 476 Sodium Bicarb 1135 cefipime 100 58 sodium Tube Feeding 173 634 Tube Feeding Flush Amount 70 Output: Coleman 1425 1162 Other: Date of Last Bowel Movement # Bowel Movements Labs: 03/03/19 03/03/19 03/03/19 05:27 05:27 05:27 WBC 11.5 H Hgb 8.8 L Hct 27 L MCV 92 Plt Count 160 MPV 9.1 INR (Anticoag Therapy) 4.79 Sodium 148 Potassium 2.9 Chloride 117 Carbon Dioxide 24 Anion Gap 7 BUN 41 Creatinine 0.87 BUN/Creatinine Ratio 47.1 Glucose 188 H Random Vancomycin 20.4 Studies: EEG: Results as mentioned Nutrition: Tube feedings Impression: 1. Nonconvulsive seizures. 2. Hypokalemia 3. Net free water loss by electrolytes Plan: 1. Start IV Keppra and monitor EEG continuously. 2. Replace potassium Neurology service is actively following. Critical Care Time: 30 minutes
[2019-03-03] MEDS: KCL 20 MEQ/100 ML IVPREMIX* 20 MEQ/100 ML BAG IV SCH ×3 (12:01→14:30)
[2019-03-03] MEDS: NS 0.9% IVPB SCH ×2 (12:17→21:12)
[2019-03-03] MEDS: ACYCLOVIR IVPB SCH ×2 (12:17→21:12)
[2019-03-03] MEDS ORDERED: Vancomycin(*) 750 MG in NS 0.9% 250 ML* 250 ML IVPB ONE (13:00)
[2019-03-03] MEDS ORDERED: NS 0.9% IVPB ONE (13:43)
[2019-03-03] MEDS ORDERED: FOSPHENYTOIN IVPB ONE (13:43)
[2019-03-03] MEDS ORDERED: Norepinephrine 16MCG/ML IVPRE* 4,000 MCG/250 ML BAG IV ONE (15:04)
[2019-03-03] MEDS: Norepinephrine 16MCG/ML IVPRE* 4,000 MCG/250 ML BAG IV SCH (15:05)
[2019-03-03] MEDS: Hydrocortisone INJ* 100 MG VIAL IV SCH ×2 (15:33→15:56)
[2019-03-03] MEDS: Thiamine IV* 500 MG in NS 0.9% 250 ML* 250 ML IV SCH (16:43)
[2019-03-03] MEDS ORDERED: NS 0.9% 100 ML* 100 ML ONE (19:30)
[2019-03-03] MEDS: levETIRAcetam IV* 750 MG in NS 0.9% 100 ML* 100 ML IVPB SCH (21:12)
[2019-03-03] MEDS: Insulin LISPRO* 1 UNITS UNIT SUBCUT SCH (21:13)
--- NOTE | 2019-03-03 21:34 | EEG ---
ELECTROENCEPHALOGRAPHY: DATE OF STUDY: 03/03/19 REQUESTING PHYSICIAN: Dr. Bryce Lea.* LOCATION: The patient is in ICU room 5. CLINICAL PROBLEM: Alvaro Álvarez is an 83-year-old gentleman who was admitted to [facility] from [facility] [place] with tachycardia and fever of 105. He initially responded to antibiotics and fluid bolus. On 02/28/19, he went into respiratory distress, required intubation, became hypotensive with decreased response to stimuli and posturing. He continues to have only slight response to painful stimuli. EEG was requested to look for epileptiform activity. REPORT: This was a 16-channel EEG performed at bedside. There are 3 segments of this EEG performed throughout the day with intermittent recording in the ICU. The initial recording was at 10:26 in the morning. In the beginning of this record, there were generalized discharges noted on a regular basis at less than or equal to 1 Hz frequency with superimposed muscle artifact. As the record continued, the background rhythm remained symmetric. When the discharges stopped, the background rhythm was slow, at times with suppressed background activity, other times with delta and theta activity. Soon after once again, generalized discharges were noted. During this recording, levetiracetam was started. Towards the end of the recording, diffuse slowing was noted, and eventually once again generalized discharges. The second recording at 11:25 in the morning was performed at bedside. Initially, there was quite a bit of movement and lead artifact. Clearly, generalized discharges could be noted despite the artifact. These continued at approximately frequency of 1 Hz. At times, the background rhythm would show generalized slowing with some short periods, which appeared to be consistent with suppression. As the record continued, the generalized discharges were noted intermittently and were ongoing in a regular manner. The last recording was at 1717 and initially there were some lead artifacts noted, particularly in the left hemisphere. In the leads that were interpretable, there was slowing noted in the theta and delta range. This recording was performed after fosphenytoin was added to the patient's regimen. The background rhythm remained slow with theta and delta activity. At times, there were short periods of suppression of the background rhythm that could last for approximately 1 second. There was no evidence of ongoing discharges, generalized discharges were noted during this recording. CLINICAL IMPRESSION: This was an abnormal EEG. There were generalized discharges consistent with electrographic seizures. In this clinical setting , it could be consistent with status epilepticus. Progressive improvement in the EEG recording was noted with addition of medications. Diffuse slowing was noted in the final record without ongoing seizure activity. Occasional suppression of the background rhythm was noted. [id number]/[facility] #: [id number] [facility]
[2019-03-03] MEDS: Fosphenytoin(*) 100 MG in NS 0.9% 50 ML* 50 ML IVPB SCH (22:57)
[2019-03-04] MEDS: Insulin LISPRO* 1 UNITS UNIT SUBCUT SCH ×6 (00:26→19:47)
[2019-03-04] MEDS: metroNIDAZOLE IV 500 MG/100ML* 500 MG/100 ML BAG IVPB SCH ×2 (00:42→08:16)
[2019-03-04] MEDS ORDERED: NS 0.9% 100 ML* 100 ML ONE (03:28)
[2019-03-04] MEDS: ACYCLOVIR IVPB SCH ×2 (03:33→11:22)
[2019-03-04] MEDS: Chlorhexidine MOUTHWASH 0.12%* 15 ML UDC TOPICAL SCH ×6 (03:33→22:47)
[2019-03-04] MEDS: Hydrocortisone INJ* 100 MG VIAL IV SCH ×2 (03:33→15:13)
[2019-03-04] MEDS: NS 0.9% IVPB SCH ×2 (03:33→11:22)
[2019-03-04 04:29] LABS: Hematocrit 27 % (42-52); Hemoglobin 8.9 g/dL (14.0-18.0); Mean Corpuscular HGB Conc 33 g/dL (31-36); Mean Corpuscular Hemoglobin 30 pg (27-31); Mean Corpuscular Volume 92 fL (80-94); Mean Platelet Volume 9.4 fL (7.4-10.4); Platelet Count 213 10^3/uL (150-450); Red Blood Count 2.95 10^6 /uL (4.18-5.48); Red Cell Distribution Width 16 % (10.5-15); White Blood Count 13.6 10^3/uL (3.5-10.8)
[2019-03-04 04:48] LABS: Calcium 7.4 mg/dL (8.6-10.3); EGFR African American 101.9 (>60); EGFR Non-African American 84.2 (>60); Phenytoin 20.2 mcg/mL (10-20); Potassium 3.5 mmol/L (3.5-5.0); Vancomycin Random 17.7 mcg/mL
[2019-03-04] MEDS: Fosphenytoin(*) 100 MG in NS 0.9% 50 ML* 50 ML IVPB SCH ×3 (05:49→22:05)
[2019-03-04] MEDS ORDERED: Vancomycin Random Level* NOTE FOLLOW UP ONE (06:00)
[2019-03-04] MEDS: Cefepime 2 GM in Dextrose(*) 2 GM/50 ML BAG IV SCH (08:16)
[2019-03-04] MEDS: Famotidine IV* 10 MG/ML 2 ML (20 mg) IV SLOW PU SCH (08:16)
[2019-03-04] MEDS ORDERED: Vancomycin(*) 1,000 MG in NS 0.9% 250 ML* 250 ML IVPB ONE (09:00)
[2019-03-04] MEDS: levETIRAcetam IV* 750 MG in NS 0.9% 100 ML* 100 ML IVPB SCH (09:02)
[2019-03-04] MEDS: Neomycin/Polym/Bacit TOP OINT* 15 GM TOPICAL SCH ×2 (09:03→20:02)
[2019-03-04] MEDS ORDERED: levETIRAcetam 1000MG IVPREMIX* 1,000 MG/100 ML BAG IVPB SCH (10:00)
[2019-03-04] MEDS: cefTRIAXone(*) 2 GM in NS 0.9% 100 ML* 100 ML IVPB SCH ×2 (10:44→22:05)
[2019-03-04] MEDS ORDERED: NS 0.9% IVPB ONE (11:15)
[2019-03-04] MEDS ORDERED: LEVETIRACETAM IVPB ONE (11:15)
[2019-03-04] MEDS: Ampicillin ADVAN(*) 2 GM in NS 0.9% 100 ML* 100 ML IVPB SCH ×3 (12:06→19:46)
--- NOTE | 2019-03-04 13:36 | PN ---
Date of Service: 03/04/19 Critical Care Services: Seizures controlled with keppra and fosphenytoin, but remains unresponsive. Vital Signs: Temp Pulse Resp BP SpO2 FiO2 98.1 F 93 22 103/62 95 21 Physical Exam: Gen:Unresponsive HEENT:No facial asymmetry Lungs:Diminished BS both bases Extremities:Cool. 1+edema/ No cyanosis. Fluid Balance (Past 24 Hours): 03/03/19 03/04/19 06:59 06:59 Intake Total 2399 4538 Output Total 1162 1310 Balance 1237 3228 Weight 129 lb 3.2 oz 131 lb 4.43 oz Intake: IV Fluids 1186 3026 ABX 966 ABX - VANCOMYCIN KCL in Sterile Water 300 LR 1134 1246 NS (0.9%) 52 410 fosphenytoin 104 IVPB 451 ABX 114 ABX - VANCOMYCIN LR 64 NS (0.9%) Thiamine 273 Medicated IV 58 159 CC - Propofol/Diprivan CC - Vasopressin/ Pitressin LEVOPHED 159 LR Sodium Bicarb cefipime 58 Tube Feeding 634 1303 Tube Feeding Flush Amount 70 50 Output: Coleman 1162 1310 Other: Date of Last Bowel 03/04/19 Movement # Bowel Movements 1 Estimated Stool Amount Large Labs: 03/03/19 03/03/19 03/04/19 18:38 23:09 03:40 WBC RBC Hgb Hct MCV MCH MCHC RDW Plt Count MPV Sodium 147 H Potassium 3.5 Chloride 118 H Carbon Dioxide 22 Anion Gap 7 BUN 40 Creatinine 0.87 BUN/Creatinine Ratio 46.0 Glucose 253 POC Glucose (mg/dL) 285 H 295 H Calcium 7.4 L Random Vancomycin 17.7 Phenytoin 20.2 03/04/19 03/04/19 03/04/19 03:40 03:46 07:28 WBC 13.6 H Hgb 8.9 L Hct 27 L MCV 92 MCH 30 MCHC 33 RDW 16 H Plt Count 213 MPV 9.4 Sodium Potassium Chloride Carbon Dioxide Anion Gap BUN Creatinine Est GFR ( Amer) Est GFR (Non-Af Amer) BUN/Creatinine Ratio Glucose POC Glucose (mg/dL) 273 H 270 H Calcium Random Vancomycin Phenytoin 03/04/19 11:28 WBC RBC Hgb Hct MCV MCH MCHC RDW Plt Count MPV Sodium Potassium Chloride Carbon Dioxide Anion Gap BUN Creatinine Est GFR ( Amer) Est GFR (Non-Af Amer) BUN/Creatinine Ratio Glucose POC Glucose (mg/dL) 223 H Calcium Random Vancomycin Phenytoin Studies: Continuous EEG monitoring Nutrition: Tube feeding with glucerna at 55 cc/hr Impression: Continuing coma despite supression of nonconvulsive seizures Plan: Continue present management. Neurology service to advise about anticonvulsant Rx and prognosis. Critical Care Time: 55 minutes (including time spent discussing case with neurology service).
--- NOTE | 2019-03-04 16:57 | CONS ---
NEUROLOGY FOLLOWUP CONSULTATION: DATE OF FOLLOWUP: 03/04/19 LOCATION: He is in the ICU bed #5. ASSISTED LIVING HOUSEKEEPER: Dr. Richards. CHIEF COMPLAINT: Coma. INTERVAL HISTORY: Since yesterday Mr. Álvarez remains intubated, but has not been receiving sedation. He has not had any overt seizures. The chart has been reviewed. MEDICATIONS: Currently consist of ampicillin 2 g IV q.4 hours, ceftriaxone IV 2 g q.12 hours, famotidine 20 mg IV daily, fentanyl 20 mg IV p.r.n. sedation, fosphenytoin 100 mg IV q.8 hours, Solu-Cortef 100 mg IV q.12 hours, sliding scale insulin, Keppra 1000 mg IV q.12 hours, Levophed infusion, thiamine 500 mg IV q.24 hours. PHYSICAL EXAM: He is intubated. Temperature 97.9 by Coleman probe, blood pressure 122/42, heart rate 84, respiratory rate 23, and oxygen saturation is 94 %. Neurologically, pupils react sluggishly from 3 to 2 mm. The left eye deviates outward. There is some roving disconjugate eye movements particularly when he is stimulated. There is occasional mild facial movements, but no grimacing. There is a response to nasal tickle to cotton symmetrically on both sides, but I cannot get a clear corneal reflex. There are no oculocephalic response, but some roving disconjugate eye movements only. Motor exam reveals increased muscle tone in all limbs. There is no spontaneous movement of the limbs. To deep nail bed pressure, he has a triple flexion response in both legs fairly symmetrically. Deep nail bed pressure in the upper extremities generally produces mild flexion on the right and extension on the left. Plantar responses are extensor bilaterally. There is no myoclonus. He does not respond to voice. He does not otherwise response to sternal rub. He does not respond to supraorbital pressure. DIAGNOSTIC STUDIES/LABORATORY DATA: Includes chemistries this morning notable for sodium of 147, BUN up to 40, electrolytes otherwise unremarkable. Glucose is 253 this morning, calcium 7.4. Liver enzymes from 03/01/19 notable for normal AST and ALT and on 03/03/19 ammonia was 49. TSH on 02/28/19 was normal at 4.77, cortisol on 03/01/19 was 10.88. Urinalysis on 02/26/19 notable for 3+ white blood cells, 2+ red blood cells, hyaline casts. Negative nitrite, negative ketones, 2+ protein. Phenytoin this morning was 20.2. CT scans of the brain were reviewed. 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 Both of these appear old compared to prior CAT scans going back at least 2017. EEG is being done with intermittent monitoring. It reveals generalized slowing with some intermittent suppression of background rhythms and some muscle artifact. There are no epileptiform discharges. IMPRESSION AND PLAN: Impression is that of a persistent coma in a patient, who presented with sepsis and in status epilepticus. Currently, he is not on any sedatives other than his anticonvulsants and is not waking up. He has prior cerebrovascular disease, which looks pretty significant on his CT scans. Earlier today I increased his Keppra 750 mg b.i.d. to a 1000 mg b.i.d. I recommended to Dr. Richards that we switch his cefepime to ceftriaxone because of the epileptogenic potential of cefepime. Recommend repeating his phenytoin level tomorrow morning. We will continue to do intermittent EEG monitoring. I spoke with his nurse who has been talking with their family over the phone. At this point, his prognosis is very guarded and it is unlikely he is going to return to any form of independent living. I will reassess tomorrow and try to get more feedback to the family. [id number]/[facility] #: [id number] MTDD
[2019-03-04] MEDS: Norepinephrine 16MCG/ML IVPRE* 4,000 MCG/250 ML BAG IV SCH (17:02)
[2019-03-04] MEDS: Acyclovir IV(*) 600 MG in NS 0.9% 100 ML* 100 ML IVPB SCH (19:46)
[2019-03-04] MEDS: levETIRAcetam 1000MG IVPREMIX* 1,000 MG/100 ML BAG IVPB SCH (20:02)
[2019-03-05] MEDS: Ampicillin ADVAN(*) 2 GM in NS 0.9% 100 ML* 100 ML IVPB SCH ×6 (00:09→20:22)
[2019-03-05 00:12] VITALS: BP 85/34
[2019-03-05] MEDS: Insulin LISPRO* 1 UNITS UNIT SUBCUT SCH ×6 (00:48→23:21)
[2019-03-05] MEDS: Hydrocortisone INJ* 100 MG VIAL IV SCH ×2 (03:30→16:39)
[2019-03-05] MEDS: Acyclovir IV(*) 600 MG in NS 0.9% 100 ML* 100 ML IVPB SCH ×3 (03:30→20:22)
[2019-03-05] MEDS: Chlorhexidine MOUTHWASH 0.12%* 15 ML UDC TOPICAL SCH ×6 (03:47→22:46)
[2019-03-05 04:21] LABS: Hematocrit 28 % (42-52); Hemoglobin 9.2 g/dL (14.0-18.0); Mean Corpuscular HGB Conc 33 g/dL (31-36); Mean Corpuscular Hemoglobin 30 pg (27-31); Mean Corpuscular Volume 92 fL (80-94); Mean Platelet Volume 9.5 fL (7.4-10.4); Platelet Count 213 10^3/uL (150-450); Red Blood Count 3.08 10^6 /uL (4.18-5.48); Red Cell Distribution Width 16 % (10.5-15); White Blood Count 15.1 10^3/uL (3.5-10.8)
[2019-03-05 04:36] LABS: BUN/Creatinine Ratio 46.4 (8-20); Calcium 7.5 mg/dL (8.6-10.3); EGFR African American 106.1 (>60); EGFR Non-African American 87.7 (>60)
[2019-03-05 04:40] LABS: Vancomycin Random 20.8 mcg/mL
[2019-03-05] MEDS ORDERED: Vancomycin Random Level* NOTE FOLLOW UP ONE (06:00)
[2019-03-05] MEDS: Fosphenytoin(*) 100 MG in NS 0.9% 50 ML* 50 ML IVPB SCH ×3 (06:06→22:40)
[2019-03-05] MEDS: cefTRIAXone(*) 2 GM in NS 0.9% 100 ML* 100 ML IVPB SCH ×2 (08:14→22:40)
[2019-03-05] MEDS: levETIRAcetam 1000MG IVPREMIX* 1,000 MG/100 ML BAG IVPB SCH ×2 (08:15→22:09)
[2019-03-05] MEDS: Famotidine IV* 10 MG/ML 2 ML (20 mg) IV SLOW PU SCH (08:28)
[2019-03-05] MEDS: Neomycin/Polym/Bacit TOP OINT* 15 GM TOPICAL SCH ×2 (10:13→22:09)
[2019-03-05] MEDS: KCL 20 MEQ/100 ML IVPREMIX* 20 MEQ/100 ML BAG IV SCH ×2 (10:34→12:32)
[2019-03-05] MEDS ORDERED: Vancomycin(*) 750 MG in NS 0.9% 250 ML* 250 ML IVPB SCH (13:00)
[2019-03-05] MEDS: KCL premix 10MEQ/50 ML x 2 BAGS IV SCH ×2 (14:15→18:37)
--- NOTE | 2019-03-05 14:43 | CONS ---
NEUROLOGY FOLLOWUP CONSULTATION: DATE OF FOLLOWUP: 03/05/19 FILM PROCESSOR: Dr. Richards. LOCATION: He is in inpatient ICU bed 5. CHIEF COMPLAINT: Seizures, coma. INTERVAL HISTORY: Since yesterday, Mr. Álvarez has remained unresponsive. He remains on a ventilator. He has not had any clinical seizures. MEDICATIONS: Reviewed and he remains on: 1. Ampicillin 2 g IV q.4 hours. 2. Ceftriaxone 2 g IV q.12 hours. 3. Famotidine 20 mg IV daily. 4. Fosphenytoin 100 mg IV q.8 hours. 5. Insulin sliding scale. 6. Solu-Cortef 100 mg IV q.12 hours. 7. Levetiracetam 1000 mg IV q.12 hours. 8. Levophed p.r.n. 9. Vancomycin per pharmacy dosing. PHYSICAL EXAM: On exam, he is intubated. Most recent temperature 97.5 by Coleman , blood pressure 167/66, heart rate in the 90s, respiratory rate is 24, and oxygen saturation is 93% on supplemental oxygen. Neurologically, pupils react minimally to light from 3 down to about by 2.5 mm. Eyes are divergent and there are no spontaneous eye movements. There are no oculocephalic responses. There is a nasal tickle response with turning of the head. There are spontaneous chewing movements. There is extensive posturing of the upper extremities. There is a rigidity of all 4 limbs. There is extensive posturing of the lower extremities. Deep nail bed pressure produces some mild flexion at the elbows. Deep nail bed pressure in the lower extremities produces a mild triple flexion response bilaterally. He has bilateral Babinski signs. He does not respond to sternal rub. He does not respond to supraorbital pressure. LABORATORY DATA: From today notable for chemistries with a sodium up to 153, potassium low at 3.0, chloride 120. Glucose is 135 and calcium is 75 today. CBC notable for further elevation of white blood cell count to 15.1, hemoglobin relatively stable at 9.2, platelet count 213,000. EEG reveals diffuse slowing. There are no epileptiform discharges. Rhythms are bit more continuous without as much periods of suppression. IMPRESSION: Coma following sepsis and status epilepticus. He remains unresponsive in spite of not having sedatives for several days. There is no evidence he is having electroencephalographic seizures currently. I recommend continuing fosphenytoin and Keppra. I will discontinue his EEG monitoring, has been no evidence of seizures for several days or EEG abnormalities. His prognosis for a meaningful recovery is grim. I will continue to follow him along with you. [id number]/[facility] #: [id number] HELDER
--- NOTE | 2019-03-05 15:46 | PN ---
Date of Service: 03/05/19 Critical Care Services: Patient remains comatose. He opens his eyes occasionally but does not localize to sound or pain. No evidence of seizure activity on the EEG recording. Vital Signs: Temp Pulse Resp BP SpO2 FiO2 97.5 F 101 22 85/34 93 21 Physical Exam: Gen:Unresponsive HEENT:Pupils midposition and reactive Lungs:Clear Extremities:Cool. No cyanosis. Fluid Balance (Past 24 Hours): 03/04/19 03/05/19 06:59 06:59 Intake Total 4538 2798.3 Output Total 1310 1365 Balance 3228 1433.3 Weight 131 lb 4.43 oz 135 lb 4.8 oz Intake: IV Fluids 3026 852 ABX 966 300 KCL in Sterile Water 300 LR 1246 NS (0.9%) 410 125 acyclovir 100 fosphenytoin 104 102 keppra 225 IVPB 1164 ABX 667 LR NS (0.9%) 112 Thiamine acyclovir 120 fosphenytoin 50 keppra 215 Medicated IV 159 99.3 LEVOPHED 159 99.3 cefipime Tube Feeding 1303 683 Tube Feeding Flush Amount 50 Output: Coleman 1310 1365 Other: Date of Last Bowel 03/04/19 03/05/19 Movement # Bowel Movements 1 2 Estimated Stool Amount Large Medium Labs: Laboratory Results - last 24 hr 03/04/19 03/04/19 03/05/19 14:45 19:42 00:42 WBC RBC Hgb Hct MCV MCH MCHC RDW Plt Count MPV Sodium Potassium Chloride Carbon Dioxide Anion Gap BUN Creatinine Est GFR ( Amer) Est GFR (Non-Af Amer) BUN/Creatinine Ratio Glucose POC Glucose (mg/dL) 132 H 161 H 169 H Calcium Random Vancomycin 03/05/19 03/05/19 03/05/19 03:40 03:40 03:42 WBC 15.1 RBC 3.08 L Hgb 9.2 L Hct 28 L MCV 92 MCH 30 MCHC 33 RDW 16 H Plt Count 213 MPV 9.5 Sodium 153 Potassium 3.0 Chloride 120 H Carbon Dioxide 23 Anion Gap 10 BUN 39 Creatinine 0.84 Est GFR ( Amer) 106.1 Est GFR (Non-Af Amer) 87.7 BUN/Creatinine Ratio 46.4 H Glucose 135 H POC Glucose (mg/dL) 149 H Calcium 7.5 L Random Vancomycin 20.8 03/05/19 03/05/19 07:10 11:41 WBC RBC Hgb Hct MCV MCH MCHC RDW Plt Count MPV Sodium Potassium Chloride Carbon Dioxide Anion Gap BUN Creatinine Est GFR ( Amer) Est GFR (Non-Af Amer) BUN/Creatinine Ratio Glucose POC Glucose (mg/dL) 150 H 188 H Calcium Random Vancomycin Studies: None today Nutrition: Tube feedings Impression: Continuing coma despite control of nonconvulsive seizures - prognosis for satisfactory neurologic recovery is very poor (and neurology service agrees) .This condition fulfills the criteria for removing life support per patient's living will. Plan: I have spoken to the patient's sister about withdrawing life support, and his family is on their way from [place].
--- NOTE | 2019-03-05 17:14 | EEG ---
ELECTROENCEPHALOGRAM REPORT: DATE OF STUDY: 03/03/19 REFERRING PHYSICIAN: Dr. Richards. LOCATION: He is an inpatient in the intensive care unit. CLINICAL PROBLEM: Sepsis, unresponsiveness, subsequent electroencephalographic status epilepticus. MEDICATIONS: Include: 1. Fosphenytoin. 2. Keppra. REPORT: This 19-channel EEG is remarkable for background rhythms consisting of diffuse slowing and suppression of background activity. Rhythms are in the delta and theta range. There are periods of background suppression lasting a second to 2 seconds. There are no sharp wave or spike wave discharges. There are no clinical events. The patient does not sleep. There are no focal or epileptiform discharges. CLINICAL IMPRESSION: Abnormal EEG due to slowing and disorganization of background rhythms consistent with diffuse cerebral dysfunction. There are no epileptiform features to this recording. [id number]/[facility] #: [id number] [facility]
--- NOTE | 2019-03-05 17:57 | EEG ---
ELECTROENCEPHALOGRAPHY: DATE OF STUDY: 03/04/19 REFERRING PHYSICIAN: Dr. Richards. LOCATION: He is an inpatient in the ICU, bed 5. CLINICAL PROBLEM: Sepsis, subsequent status epilepticus. The patient is intubated and comatose. MEDICATIONS: Include: 1. Fosphenytoin. 2. Keppra. REPORT: This 19-channel EEG is recorded over multiple epochs over an almost 5- hour interval through the night of 03/04/19. The tracing becomes largely unreadable by about 3:00 in the morning. Earlier in the evening, background rhythms consist of diffuse alpha and delta rhythms. There are occasional central sharp waves noted. There are periods of background suppression lasting a second to a second and a half. There are no focal abnormalities. There are no clinical events. There are no clearly epileptiform discharges. There is no evidence of reactivity. CLINICAL IMPRESSION: Abnormal EEG due to diffuse slowing and disorganization of background rhythms consistent with diffuse cerebral dysfunction. There are occasional central sharp waves noted, but no clear epileptiform discharges. The last several hours of the tracing recorded in multiple epochs are unreadable due to artifact. [id number]/[facility] #: [id number] [facility]
--- NOTE | 2019-03-05 17:57 | EEG ---
ELECTROENCEPHALOGRAPHY: DATE OF STUDY: 03/03/19 REFERRING PHYSICIAN: Dr. Richards. LOCATION: He is an inpatient in the ICU, bed 5. CLINICAL PROBLEM: Coma after sepsis, history of status epilepticus. MEDICATIONS: Include: 1. Keppra. 2. Fosphenytoin. REPORT: This 19-channel EEG is performed over multiple intervals between 2216 and 0634 the following morning in multiple epochs. Total recording time was 2 hours and 17 minutes. Background activity consists of mixed theta and delta rhythms. Rhythms are generally symmetrical. There are some periods of background suppression. There are no clinical events. There are no focal or epileptiform discharges. CLINICAL IMPRESSION: Abnormal EEG due to diffuse slowing of background rhythms consistent with diffuse cerebral dysfunction. There are no epileptiform features to this recording. [id number]/[facility] #: [id number] [facility]
[2019-03-06] MEDS: fentaNYL* 50 MCG/ML 2 ML VIAL (100 MCG VIAL) IV SLOW PU PRN ×6 (01:27→23:01)
[2019-03-06] MEDS: Ampicillin ADVAN(*) 2 GM in NS 0.9% 100 ML* 100 ML IVPB SCH ×3 (01:27→08:06)
[2019-03-06] MEDS: Chlorhexidine MOUTHWASH 0.12%* 15 ML UDC TOPICAL SCH ×6 (03:08→23:06)
[2019-03-06] MEDS: Acyclovir IV(*) 600 MG in NS 0.9% 100 ML* 100 ML IVPB SCH (03:32)
[2019-03-06] MEDS: Hydrocortisone INJ* 100 MG VIAL IV SCH (03:38)
[2019-03-06] MEDS: Insulin LISPRO* 1 UNITS UNIT SUBCUT SCH ×3 (05:21→18:15)
[2019-03-06] MEDS: Fosphenytoin(*) 100 MG in NS 0.9% 50 ML* 50 ML IVPB SCH ×3 (06:22→23:05)
[2019-03-06] MEDS: Norepinephrine 16MCG/ML IVPRE* 4,000 MCG/250 ML BAG IV SCH (06:59)
[2019-03-06] MEDS: Midazolam* 1 MG/ML 2 ML VIAL (2 MG) IV SLOW PU PRN ×3 (09:05→20:17)
[2019-03-06] MEDS: Famotidine IV* 10 MG/ML 2 ML (20 mg) IV SLOW PU SCH (09:05)
[2019-03-06] MEDS: Neomycin/Polym/Bacit TOP OINT* 15 GM TOPICAL SCH ×2 (09:40→20:17)
[2019-03-06] MEDS: levETIRAcetam 1000MG IVPREMIX* 1,000 MG/100 ML BAG IVPB SCH ×2 (10:34→20:16)
[2019-03-06] MEDS ORDERED: Vancomycin Trough Check NOTE FOLLOW UP ONE (12:30)
[2019-03-06 13:01] LABS: Vancomycin Trough 18.3 mcg/mL
[2019-03-06 13:18] LABS: EGFR African American 100.6 (>60); EGFR Non-African American 83.1 (>60)
--- NOTE | 2019-03-06 13:43 | PN ---
Date of Service: 03/06/19 Critical Care Services: Continues to be comatose, and is now DNR per request of his sister - family will be here tomorrow from [place]. ET tube replaced last night because of persistent leak. Vital Signs: Temp Pulse Resp BP SpO2 FiO2 97.5 F 85 22 85/34 94 21 Physical Exam: Gen: Unresponsive HEENT:Pupils midposition and reactive Lungs: Coarse rhonchi Extremities: Warm. No cyanosis or edema. Fluid Balance (Past 24 Hours): 03/05/19 03/06/19 06:59 06:59 Intake Total 2798.3 3270 Output Total 1365 1410 Balance 1433.3 1860 Weight 135 lb 143 lb Intake: IV Fluids 852 637 ABX 300 33 KCL in Sterile Water LR NS (0.9%) 125 155 acyclovir 100 190 ceftriaxone 105 fosphenytoin 102 54 keppra 225 100 IVPB 1164 1401 ABX 667 560 Ampicillin 105 KCL in Sterile Water 165 NS (0.9%) 112 150 acyclovir 120 316 fosphenytoin 50 keppra 215 105 Medicated IV 99.3 LEVOPHED 99.3 Tube Feeding 683 1232 Tube Feeding Flush Amount Output: Coleman 1365 1410 Other: Date of Last Bowel 03/05/19 03/05/19 Movement # Bowel Movements 2 1 Estimated Stool Amount Medium Medium Labs: 03/06/19 03/06/19 06:19 12:00 BUN 40 H Creatinine 0.88 Est GFR ( Amer) 100.6 Est GFR (Non-Af Amer) 83.1 Glucose 184 H Vancomycin Trough 18.3 Phenytoin 14.3 Nutrition: Tube Feedings Impression: Persistent coma and unlikely to recover independent function. Plan: I have discontinued antibiotics, and will also stop monitoring electrolytes, etc. Our plan is to eventually remove ventilatory support.
[2019-03-06] MEDS: Vancomycin(*) 750 MG in NS 0.9% 250 ML* 250 ML IVPB SCH (20:59)
[2019-03-07] MEDS: Midazolam* 1 MG/ML 2 ML VIAL (2 MG) IV SLOW PU PRN (00:09)
[2019-03-07] MEDS: Insulin LISPRO* 1 UNITS UNIT SUBCUT SCH ×2 (00:10→05:17)
[2019-03-07] MEDS: Chlorhexidine MOUTHWASH 0.12%* 15 ML UDC TOPICAL SCH ×2 (05:13→08:25)
[2019-03-07] MEDS: Fosphenytoin(*) 100 MG in NS 0.9% 50 ML* 50 ML IVPB SCH (05:13)
[2019-03-07] MEDS: Famotidine IV* 10 MG/ML 2 ML (20 mg) IV SLOW PU SCH (08:25)
[2019-03-07] MEDS: Neomycin/Polym/Bacit TOP OINT* 15 GM TOPICAL SCH (08:26)
[2019-03-07] MEDS: levETIRAcetam 1000MG IVPREMIX* 1,000 MG/100 ML BAG IVPB SCH (08:26)
[2019-03-07] MEDS ORDERED: Morphine 10 MG/ML VIAL (1 ml) IV ONE (10:15)
[2019-03-07] MEDS ORDERED: LORazepam INJ* 2 MG/ML 1 ML VIAL IV PUSH ONE (10:15)
[2019-03-07] MEDS ORDERED: Lorazepam PYXIS KEY PRN (10:15)
[2019-03-07] MEDS ORDERED: Morphine PCA 5 MG/ML * Titrate per Protocol PCA SCH (11:00)
[2019-03-07] MEDS ORDERED: LORazepam VIAL (for drip)* 100 MG in D5W 50 ML BAG* 50 ML IVPB SCH (11:00)
--- NOTE | 2019-03-07 20:51 | DS ---
SUMMARY: DATE OF ADMISSION: 02/26/19 DATE OF : 03/07/19 TIME OF : 3:30 p.m. HISTORY OF PRESENT ILLNESS: This was an 83-year-old white male who was admitted on 02/26/19 with fev er and change in mental status. Initial diagnosis was septic shock but no source of infection was di scovered. The patient eventually required intubation and mechanical ventilation and continued to hav e depressed consciousness. Lumbar puncture could not be performed because of an elevated INR. The pa matthew was empirically treated for an infectious meningoencephalitis but did not improve. EEG subsequ ently revealed nonconvulsive seizures which were controlled with Dilantin and Keppra. However, this did not result in the patient's regaining consciousness and because of the persistent coma without a high likelihood of awakening, the family decided to institute comfort measures which were done on . The patient was extubated and started on lorazepam and morphine infusion and later in the day , the patient became apneic and pulseless and was pronounced at 3:30 p.m. The patient's fam mariely had been present in the room earlier in the day and they were contacted after the time of . Autopsy was denied. FINAL DIAGNOSES: 1. Nonconvulsive seizures. 2. Persistent coma, possibly related to nonconvulsive status epilepticus. 3. Circulatory shock, possibly related to sepsis. [id number]/[facility] #: [id number]
== END 2019-03-07 15:53 | disposition expired | DRG 870 ==
LOC: ED 13:32 → ICU 16:28
PROVIDERS: ADMIT Internal Medicine Critical Care Medicine; ATTEND Internal Medicine Critical Care Medicine
PROC: 02HV33Z Insertion of Infusion Device into Superior Vena Cava, Percutaneous Approach (ICD-10-PCS; 2019-02-26)
PROC: 3E033XZ Introduction of Vasopressor into Peripheral Vein, Percutaneous Approach (ICD-10-PCS; 2019-02-26)
PROC: 5A1955Z Respiratory Ventilation, Greater than 96 Consecutive Hours (ICD-10-PCS; principal; 2019-02-28)
PROC: 0BH18EZ Insertion of Endotracheal Airway into Trachea, Via Natural or Artificial Opening Endoscopic (ICD-10-PCS; 2019-02-28)
PROC: 03HY32Z Insertion of Monitoring Device into Upper Artery, Percutaneous Approach (ICD-10-PCS; 2019-02-28)
PROC: 4A133B1 Monitoring of Arterial Pressure, Peripheral, Percutaneous Approach (ICD-10-PCS; 2019-02-28)
PROC: 4A133J1 Monitoring of Arterial Pulse, Peripheral, Percutaneous Approach (ICD-10-PCS; 2019-02-28)
PROC: 4A10X4Z Monitoring of Central Nervous Electrical Activity, External Approach (ICD-10-PCS; 2019-03-05)
DX: A41.9 Sepsis, unspecified organism (principal); J96.01 Acute respiratory failure with hypoxia; R65.21 Severe sepsis with septic shock; G93.41 Metabolic encephalopathy; J96.02 Acute respiratory failure with hypercapnia; R40.20 Unspecified coma; A86 Unspecified viral encephalitis; Z66 Do not resuscitate; N17.9 Acute kidney failure, unspecified; E87.1 Hypo-osmolality and hyponatremia; E87.2 Acidosis; R64 Cachexia; E27.40 Unspecified adrenocortical insufficiency; G93.1 Anoxic brain damage, not elsewhere classified; G40.901 Epilepsy, unspecified, not intractable, with status epilepticus; I10 Essential (primary) hypertension; I48.91 Unspecified atrial fibrillation; M81.0 Age-related osteoporosis without current pathological fracture; J98.01 Acute bronchospasm; H40.9 Unspecified glaucoma; J43.9 Emphysema, unspecified; B95.62 Methicillin resistant Staphylococcus aureus infection as the cause of diseases classified elsewhere; R79.1 Abnormal coagulation profile; H91.93 Unspecified hearing loss, bilateral; E87.6 Hypokalemia; N48.5 Ulcer of penis; Z91.013 Allergy to seafood; Z98.42 Cataract extraction status, left eye; Z53.8 Procedure and treatment not carried out for other reasons; Z98.41 Cataract extraction status, right eye; Z87.01 Personal history of pneumonia (recurrent); Z68.21 Body mass index [BMI] 21.0-21.9, adult; Z86.73 Personal history of transient ischemic attack (TIA), and cerebral infarction without residual deficits; Z72.89 Other problems related to lifestyle; Z87.891 Personal history of nicotine dependence
CPT/HCPCS: 36415; 36600; 70450; 71045; 71250; 80048; 80053; 80076; 80185; 80202; 81003; 81015; 82140; 82533; 82550; 82565; 82803; 82947; 83605; 83735; 84145; 84300; 84443; 84484; 84520; 85025; 85027; 85384; 85610; 85730; 87040; 87070; 87077; 87086; 87186; 87205; 87640; 87641; 93005; 94002; 94003; 94640; 95813; 95822; 99285; A9270-GY; J0133; J0330; J0692; J0696; J0744; J1720; J1940; J1953; J2060; J2250; J2270; J2704; J2920; J2930; J3010; J3370; J3411; J3475; J3480; J3490; J7060; Q2009